=== PATIENT | female | born 1955 | race Caucasian/White ===

== ENCOUNTER 2019-10-27 14:16 | Outpatient (CLI) | payer MEDICARE, SELFPAY ==
[2019-10-27 15:32] LABS: Alanine Aminotransferase 17 U/L (0-33); Alkaline Phosphatase 68 IU/L (35-105); Anion Gap 15.2 (5-19); Aspartate Amino Transferase 21 U/L (0-32); Basophils % 0.4 %; Blood Urea Nitrogen 16 mg/dL (8-23); Calcium 9.9 mg/dL (8.5-10.5); Carbon Dioxide 29 mmol/L (22-29); Chloride 96 mmol/L (98-107); Eosinophils # 0.4 10^3/uL (0.0-0.8); Eosinophils % 3.5 %; Globulin 4.2 g/dL (1.3-4.6); Glucose 120 mg/dL (74-106); Hematocrit 41.8 % (37.0-47.0); Hemoglobin 13.1 g/dL (11.5-15.3); Lactate Dehydrogenase 275 U/L (135-214); Lymphocytes # 3.5 10^3/uL (0.8-4.8); Lymphocytes % 30.9 %; Mean Corpuscular HGB Conc 31.3 g/dL (30.0-36.0); Mean Corpuscular Hemoglobin 31.1 pg (28.0-34.0); Mean Corpuscular Volume 99.3 fL (81-99); Mean Platelet Volume 9.2 fL (7.4-10.4); Monocytes # 0.6 10^3/uL (0.2-0.9); Monocytes % 5.3 %; Neutrophils # 6.7 10^3/uL (1.8-7.7); Neutrophils % 59.6 %; Nucleated Red Blood Cells % 0 %; Platelet Count 280 10^3/cmm (130-400); Potassium 4.2 mmol/L (3.5-5.1); Red Blood Count 4.21 10^6/uL (4.1-5.3); Red Cell Distribution Width 14.6 % (12.1-15.1); Sodium 136 mmol/L (136-145); Total Bilirubin 0.3 mg/dL (0.15-1.2); Total Protein 8.2 g/dL (6.6-8.7); White Blood Count 11.3 10^3/uL (4.0-10.0)
[2019-10-30 12:51] LABS: P190 BCR ALB1 Not Detected; P210 BCR ALB1 Not Detected; Prior Results See Report
== END 2019-10-27 14:17 | disposition home or self-care (01) ==
LOC: ONCMED 14:19
PROVIDERS: Family Provider Family Medicine; PCP Urology; Visit Provider Internal Medicine Medical Oncology
DX: C92.10 Chronic myeloid leukemia, BCR/ABL-positive, not having achieved remission (principal)
CPT/HCPCS: 80053; 81206; 83615; 85025

== ENCOUNTER 2019-11-03 08:53 | Outpatient (CLI) | payer MEDICARE, SELFPAY ==
--- NOTE | 2019-11-03 19:41 | ONC FU_ITS ---
Dr. Sherwood Patient Follow-Up Note Patient: Justina Meraz Unit #: [id number]: [id number] Dicatated By: Ihsan Sherwood M.D.Date of Visit:Nov 03, 2019 Onc Med Follow-up/Prog Note Chief Complaint: Chronic myeloid leukemia. History of Present Illness: This is a 64 year-old woman with [employer] chromosome positive chronic myeloid leukemia. She was found on routine scheduled lab studies on 06/24/2016 to have a significantly elevated white blood cell count at 78,300. The hemoglobin was normal at 13.4 g with hematocrit 45%. The platelet count was normal at 174,000. The reported differential included 52% segs, 18% bands, 5% metamyelocytes, 10% myelocytes, 9% lymphocytes, 5% monocytes, and 1% eosinophils. There were 2 nucleated RBC reported. A repeat CBC on 07/24/2016 showed similar findings with WBC 75,800, Hg 13.7 g, and platelet count 178,000. I had seen her initially on 07/27/2016. The findings were suspicious for chronic myelogenous leukemia. She underwent bone marrow aspiration/biopsy on 08/02/2016 showed 100% cellularity with panmyelosis. Blasts were estimated at 4%. The BCR/abl translocation was detected by FISH, and the standard chromosome analysis was positive for the [employer] translocation between chromosomes 9 and 22, consistent with chronic myeloid leukemia. The quantitative BCR/abl was requested, but apparently not performed. She began treatment with imatinib 400 mg daily. There was some delay in getting that started due to issues with insurance coverage. The medication actually started on 08/27/2016. She seemed to tolerate it pretty well initially. On her follow-up laboratory studies in October 2016 her quantitative PCR came back at 9.7358, but there was no baseline for comparison. Her CBC at that point was normal with hemoglobin 12.0 g, white blood cell count 7100, and platelet count 280,000. On her follow-up visit on 01/08/2017, she appeared to be having more side effects with the imatinib, including fatigue and musculoskeletal pain. Her blood counts were stable. Her imatinib dosage was reduced to 200 mg daily. Her repeat quantitative PCR on 01/23/2017 was down to 1.7941. However, as of her visit on 04/18/2017 the quantitative PCR had increased to 8.9534. 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 She was then referred to [facility]. She was seen there by Dr. Jeromy Mirza on 05/29/2017. It was recommended that she continue further treatment with dasatinib. The dasatinib was started on 06/13/2017 at a dose of 100 mg daily. She has had a good response to the dasatinib with gradual decline in her quantitative PCR. As of September 2018 it was below the quantifiable limits of the assay. She has been able to tolerate the 100 mg dosage with acceptable toxicity. Her other medical illnesses include hyperlipidemia, hypothyroidism, nephrolithiasis, and degenerative disease of the spine with chronic back pain. She has a history of smoking 1 pack of cigarettes daily for 30 years. INTERIM HISTORY: She is seen for a follow-up visit. She says this past week he has been really rough for her, she was unable to get her oxycodone prescription refilled, and her pain is been a lot worse. The most significant is in the shoulders and in the arm muscles. She also has pain in her hips and back. She says she feels like a tin man. She has limited activity, but she is still doing some light work at home. Her appetite comes and goes. Her weight is down about 5 pounds. She has no fever or night sweats. She recently has had a little head/chest cold, but her cough is better now and she does not complain of shortness of breath. She is still smoking 1 pack/day. She has not been having chest pain. She still has nausea occasionally. She has no other GI or complaints. She does not complain of headache or dizziness. She has numbness in her right arm if she lies on it at night. It also lights up on fire . Medications: Diclofenac Sodium 1 (1 %) Gel (jelly) Transdermal daily PRN, Duragesic-50 1 (100 mcg/hr) Patch 72 Hr Transdermal q 72 hours, Levothyroxine Sodium 1 (125 mcg) Tablet Oral daily, Oxycodone-Acetaminophen 1 (10-325 mg) Tablet Oral four times a day PRN, TraZODone HCl 1 (150 mg) Tablet Oral at bedtime PRN, Zofran 1 (8 mg) Tablet Oral t.i.d. PRN Allergies: No Known Allergies. Review of Systems: Constitutional - Her energy has been low recently. She does all of her housework. Her appetite is low and her weight is down about 5 pounds. No fever, chills, hot flashes, or night sweats. ECOG score is 1, ENMT - She recently had a cold, but it is better. No mouth sores. She has dry throat. No difficulty swallowing, Hematologic/Lymphatic - No abnormal bruising or bleeding, Respiratory - No shortness of breath. Her cough is better. No pleuritic pain or hemoptysis. She continues to smoke about a pack a day, Cardiovascular - No angina pain. No palpitations, Gastrointestinal - She had some nausea with her cold. No heartburn or acid reflux. No diarrhea or constipation. No blood in the stool or black stools, Genitourinary (F) - No dysuria or hematuria. No urinary frequency. No urgency or incontinence, Musculoskeletal - She has pain in her shoulders and in her arm muscles. She also has pain in her hips and back, Integumentary - No skin complications, Neurologic - No headache or dizziness. She has numbness and tingling in her right arm, Psychiatric - No anxiety or depression. No insomnia. Vital Signs: Performed on Nov 03, 2019 09:07 Height - 64.00 in Weight - 153.6 lbs (LOW) BSA - 1.75 sq.m BMI - 26.37 Temperature - 98.1 F (LOW) Pulse - 76 /min Respiration - 26 /min BP - 136/82 mm(hg) O2 Sat - 94 % (LOW) Pain - 8 Physical Examination: Constitutional - She is fidgety and she appears to be in some discomfort, Eyes - Sclerae nonicteric. Conjunctivae clear, ENMT - There are no lesions noted in the oral cavity, Hematologic/Lymphatic - No cervical, clavicular, or axillary adenopathy, Respiratory - Lungs show diminished air movement bilaterally. There are mild expiratory rhonchi present, Cardiovascular - Heart rhythm is regular. There is a II/ systolic murmur. There is no gallop or rub noted, Abdomen - Soft. Liver and spleen are not enlarged. There is no abdominal mass or ascites noted and there is no inguinal adenopathy, Extremities - No edema, Neurologic - No focal neurologic deficits noted. Lab/Imaging: Test performed on Oct 27, 2019 14:29 LDH (Total) 275 U/L Sodium 136 mmol/L Potassium 4.2 mmol/L Chloride 96 mmol/L CO2 29 mmol/L Anion Gap 15.2 BUN 16 mg/dL Creatinine 0.9 mg/dL Cr Clearance (Est) 71.5400 mL/min eGFR 63.0 mL/min Glucose 120 mg/dL Calcium 9.9 mg/dL Protein, Total 8.2 g/dL Albumin 4.0 g/dL Globulin 4.2 g/dL Bilirubin, Total 0.3 mg/dL ALT (SGPT) 17 U/L AST (SGOT) 21 U/L Alkaline Phosphatase 68 IU/L WBC 11.3 10 3/uL RBC 4.21 10 6/uL HGB 13.1 g/dL HCT 41.8 % MCV 99.3 fL MCH 31.1 pg MCHC 31.3 g/dL RDW 14.6 % Platelet Count 280 10 3/cmm MPV 9.2 fL Neutrophils 6.7 10 3/uL Lymphocytes 3.5 10 3/uL Monocytes 0.6 10 3/uL Eosinophils 0.4 10 3/uL Basophils 0.0 10 3/uL Neutrophil % 59.6 % Lymphocyte % 30.9 % Monocyte % 5.3 % Eosinophil % 3.5 % Basophils % 0.4 % Impression: 1. Patient with [employer] chromosome positive chronic myeloid leukemia, confirmed by bone marrow aspiration/biopsy on 08/02/2016. Treatment with imatinib 400 mg daily began on 08/27/2016. Her other medical illnesses include: 2. Hyperlipidemia. 3. Hypothyroidism. 4. Recurrent nephrolithiasis. 5. Degenerative arthritis/degenerative disease of the spine. 6. She has nicotine dependence (cigarettes). She began treatment with imatinib 400 mg daily in August 2016. She has had evidence of response by her quantitative PCR, decreasing from 9.7358 on 11/13/2016 to 1.7941 on 01/23/2017. The pretreatment level is not available, as it had been requested but apparently not performed. As of 01/08/2017 her imatinib dosage was decreased to 200 mg daily due to worsening fatigue and musculoskeletal pain. She has felt better on the lower dosage. However, her repeat quantitative PCR on 01/23/2017 was down . However, as of her visit on 04/18/2017 the quantitative PCR had increased to 8.9534 compared to to 1.7941 in January. 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 She was then seen at [facility] by Dr. Jeromy Mirza. At his recommendation her treatment was changed to dasatanib 100 mg daily, beginning 06/13/2017. She had a good response to the dasatanib with a significant decline in the quantitative PCR for BCR/abl. As of 10/22/2017 it was down to 0.0186. She was having some fatigue with the dasatanib, and she also was having significant musculoskeletal pain, mainly involving the shoulders and arms. As of her follow-up visit in March 2018 there was a slight increase in the quantitative PCR, to 0.0461 compared to 0.0186 in December. In June it was back down to 0.0207. As of September 2018 her PCR for BCR/abl was reported to be below the quantifiable limits of the assay. During followup she has continued to have significant fatigue and musculoskeletal pain, but she has been able to tolerate the dasatinib with acceptable toxicity. Her current laboratory studies show slight leukocytosis, but the other blood counts are normal and the quantitative PCR remains undetectable. Plan: She continues dasatinib 100 mg daily. She will be scheduled for a follow-up visit in 3 months. Signed By: Ihsan Sherwood M.D. <<Signature on File>>
== END 2019-11-03 08:54 | disposition home or self-care (01) ==
LOC: ONCMED 08:53
PROVIDERS: Family Provider Family Medicine; PCP Family Medicine; Visit Provider Internal Medicine Medical Oncology
DX: C92.10 Chronic myeloid leukemia, BCR/ABL-positive, not having achieved remission (principal); E78.5 Hyperlipidemia, unspecified; E03.9 Hypothyroidism, unspecified; M19.90 Unspecified osteoarthritis, unspecified site; G89.29 Other chronic pain; F17.210 Nicotine dependence, cigarettes, uncomplicated; Z79.891 Long term (current) use of opiate analgesic; Z79.899 Other long term (current) drug therapy; Z87.442 Personal history of urinary calculi
CPT/HCPCS: 99214

== ENCOUNTER 2020-02-04 08:52 | Outpatient (CLI) | payer MEDICARE, SELFPAY ==
[2020-02-04 09:13] LABS: Basophils # 0.1 10^3/uL (0.0-0.1); Basophils % 0.8 %; Eosinophils # 0.3 10^3/uL (0.0-0.8); Eosinophils % 4.1 %; Hematocrit 44.5 % (37.0-47.0); Hemoglobin 13.9 g/dL (11.5-15.3); Lymphocytes # 1.9 10^3/uL (0.8-4.8); Lymphocytes % 29.3 %; Mean Corpuscular HGB Conc 31.2 g/dL (30.0-36.0); Mean Corpuscular Hemoglobin 30.4 pg (28.0-34.0); Mean Corpuscular Volume 97.4 fL (81-99); Mean Platelet Volume 9.2 fL (7.4-10.4); Monocytes # 0.4 10^3/uL (0.2-0.9); Monocytes % 5.6 %; Neutrophils # 3.9 10^3/uL (1.8-7.7); Nucleated Red Blood Cells % 0 %; Platelet Count 295 10^3/cmm (130-400); Red Blood Count 4.57 10^6/uL (4.1-5.3); Red Cell Distribution Width 15.1 % (12.1-15.1); White Blood Count 6.4 10^3/uL (4.0-10.0)
[2020-02-04 09:28] LABS: Alanine Aminotransferase 13 U/L (0-33); Alkaline Phosphatase 62 IU/L (35-105); Anion Gap 13.4 (5-19); Aspartate Amino Transferase 20 U/L (0-32); Blood Urea Nitrogen 11 mg/dL (8-23); Calcium 9.9 mg/dL (8.5-10.5); Carbon Dioxide 29 mmol/L (22-29); Chloride 101 mmol/L (98-107); Globulin 3.6 g/dL (1.3-4.6); Glomerular Filtration Rate 72.2 mL/min (90-130); Glucose 98 mg/dL (65-115); Lactate Dehydrogenase 251 U/L (135-214); Osmolality Calculated 284 mOsm/kg (285-295); Potassium 4.4 mmol/L (3.5-5.1); Sodium 139 mmol/L (136-145); Total Bilirubin 0.3 mg/dL (0.15-1.2); Total Protein 7.6 g/dL (6.6-8.7)
[2020-02-11 14:56] LABS: P190 BCR ALB1 Not Detected; P210 BCR ALB1 Not Detected; Prior Results See Report
== END 2020-02-04 08:53 | disposition home or self-care (01) ==
LOC: ONCMED 08:53
PROVIDERS: PCP Family Medicine; Visit Provider Internal Medicine Medical Oncology
DX: C92.10 Chronic myeloid leukemia, BCR/ABL-positive, not having achieved remission (principal)
CPT/HCPCS: 80053; 81206; 83615; 85025

== ENCOUNTER 2020-02-11 08:53 | Outpatient (CLI) | payer MEDICARE, SELFPAY ==
--- NOTE | 2020-02-11 09:37 | ONC FU_ITS ---
Dr. Sherwood Patient Follow-Up Note Patient: Justina Meraz Unit #: [id number]: 1955 Dicatated By: Ihsan Sherwood M.D.Date of Visit:February 11, 2020 Onc Med Follow-up/Prog Note Chief Complaint: Chronic myeloid leukemia. History of Present Illness: This is a 64 year-old woman with [place] chromosome positive chronic myeloid leukemia. She was found on routine scheduled lab studies on 06/24/2016 to have a significantly elevated white blood cell count at 78,300. The hemoglobin was normal at 13.4 g with hematocrit 45%. The platelet count was normal at 174,000. The reported differential included 52% segs, 18% bands, 5% metamyelocytes, 10% myelocytes, 9% lymphocytes, 5% monocytes, and 1% eosinophils. There were 2 nucleated RBC reported. A repeat CBC on 07/24/2016 showed similar findings with WBC 75,800, Hg 13.7 g, and platelet count 178,000. I had seen her initially on 07/27/2016. The findings were suspicious for chronic myelogenous leukemia. She underwent bone marrow aspiration/biopsy on 08/02/2016 showed 100% cellularity with panmyelosis. Blasts were estimated at 4%. The BCR/abl translocation was detected by FISH, and the standard chromosome analysis was positive for the [place] translocation between chromosomes 9 and 22, consistent with chronic myeloid leukemia. The quantitative BCR/abl was requested, but apparently not performed. She began treatment with imatinib 400 mg daily. There was some delay in getting that started due to issues with insurance coverage. The medication actually started on 08/27/2016. She seemed to tolerate it pretty well initially. On her follow-up laboratory studies in October 2016 her quantitative PCR came back at 9.7358, but there was no baseline for comparison. Her CBC at that point was normal with hemoglobin 12.0 g, white blood cell count 7100, and platelet count 280,000. On her follow-up visit on 01/08/2017, she appeared to be having more side effects with the imatinib, including fatigue and musculoskeletal pain. Her blood counts were stable. Her imatinib dosage was reduced to 200 mg daily. Her repeat quantitative PCR on 01/23/2017 was down to 1.7941. However, as of her visit on 04/18/2017 the quantitative PCR had increased to 8.9534. 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 She was then referred to [facility]. She was seen there by Dr. Jeromy Mirza on 05/29/2017. It was recommended that she continue further treatment with dasatinib. The dasatinib was started on 06/13/2017 at a dose of 100 mg daily. She has had a good response to the dasatinib with gradual decline in her quantitative PCR. As of September 2018 she was tolerating the dasatinib at 100 mg daily and her quantitative PCR was below the quantifiable limits of the assay. During her subsequent followup it remained undetectable. Her other medical illnesses include hyperlipidemia, hypothyroidism, nephrolithiasis, and degenerative disease of the spine with chronic back pain. She has a history of smoking 1 pack of cigarettes daily for 30 years. INTERIM HISTORY: She is seen for a scheduled visit. She has been feeling pretty good generally. She does have fatigue, but she says she pushes through it. She continues to do all of her housework and she also takes care of her who is chronically ill. She recently has had a couple of bouts of nausea, and she says her appetite has faded a little bit. Her weight, though, has been stable. She has not had any fever. She occasionally has sweating at night in association with pain flareups, mainly with burning and aching in her shoulders and hips. Other than the flareups, the pain is adequately managed with medication. She has had no mouth sores. She says her breathing lately has been good. She has not had any cough, and she does not complain of chest pain. She has no other GI or complaints. She has occasional headaches, which she feels are likely stress related. She reports having some numbness/tingling with her pain flareups. She has no other focal neurologic symptoms. Medications: Diclofenac Sodium 1 (1 %) Gel (jelly) Transdermal daily PRN, Duragesic-50 2 Patch(es) (of 75 mcg/hr) Patch 72 Hr Transdermal q 72 hours, Levothyroxine Sodium 1 (125 mcg) Tablet Oral daily, Oxycodone-Acetaminophen 1 (10-325 mg) Tablet Oral four times a day PRN, TraZODone HCl 1 (150 mg) Tablet Oral at bedtime PRN, Zofran 1 (8 mg) Tablet Oral t.i.d. PRN Allergies: No Known Allergies. Review of Systems: Constitutional - She has fatigue, but she pushes through it. She does all of her housework and she takes care of her . Her appetite has faded recently, but her weight is stable. No fever. She has sweating at night when her pain flares up. ECOG score is 1, ENMT - No sinus congestion/drainage. No mouth sores. No sore throat or difficulty swallowing, Hematologic/Lymphatic - No abnormal bruising or bleeding, Respiratory - No shortness of breath or cough. No pleuritic pain or hemoptysis, Cardiovascular - No angina pain. No palpitations, Gastrointestinal - She has had a couple of bouts of nausea. No heartburn or acid reflux. No diarrhea or constipation. No blood in the stool or black stools, Genitourinary (F) - No dysuria or hematuria. No urinary frequency. No urgency or incontinence, Musculoskeletal - She has burning and aching in her shoulders and hips. It is generally managed adequately with her pain medication, Integumentary - No skin complications, Neurologic - No headache or dizziness. She has some numbness and tingling with her pain flare ups, Psychiatric - No anxiety or depression. She sleeps OK with trazodone except when her pain flares at night. Vital Signs: Performed on February 11, 2020 08:59 Height - 64.00 in Weight - 153.6 lbs BSA - 1.75 sq.m BMI - 26.37 Temperature - 98.2 F (LOW) Pulse - 71 /min Respiration - 24 /min BP - 123/69 mm(hg) O2 Sat - 94 % (LOW) Pain - 8 Physical Examination: Constitutional - She looks pretty good generally, Eyes - Sclerae nonicteric. Conjunctivae clear, ENMT - There are no lesions noted in the oral cavity, Hematologic/Lymphatic - No cervical, clavicular, or axillary adenopathy, Respiratory - Lungs sound clear with diminished air movement bilaterally, Cardiovascular - Heart rhythm is regular. There is a II/ systolic murmur. There is no gallop or rub noted, Abdomen - Soft. Liver and spleen are not enlarged. There is no abdominal mass or ascites noted and there is no inguinal adenopathy, Extremities - Slight edema at the ankles, Neurologic - No focal neurologic deficits noted. Lab/Imaging: Test performed on February 04, 2020 09:00 LDH (Total) 251 U/L Sodium 139 mmol/L Potassium 4.4 mmol/L Chloride 101 mmol/L CO2 29 mmol/L Anion Gap 13.4 BUN 11 mg/dL Creatinine 0.8 mg/dL Cr Clearance (Est) 78.1400 mL/min eGFR 72.2 mL/min Glucose 98 mg/dL Calcium 9.9 mg/dL Protein, Total 7.6 g/dL Albumin 4.0 g/dL Globulin 3.6 g/dL Bilirubin, Total 0.3 mg/dL ALT (SGPT) 13 U/L AST (SGOT) 20 U/L Alkaline Phosphatase 62 IU/L WBC 6.4 10 3/uL RBC 4.57 10 6/uL HGB 13.9 g/dL HCT 44.5 % MCV 97.4 fL MCH 30.4 pg MCHC 31.2 g/dL RDW 15.1 % Platelet Count 295 10 3/cmm MPV 9.2 fL Neutrophils 3.9 10 3/uL Lymphocytes 1.9 10 3/uL Monocytes 0.4 10 3/uL Eosinophils 0.3 10 3/uL Basophils 0.1 10 3/uL Neutrophil % 60.0 % Lymphocyte % 29.3 % Monocyte % 5.6 % Eosinophil % 4.1 % Basophils % 0.8 % Impression: 1. Patient with [place] chromosome positive chronic myeloid leukemia, confirmed by bone marrow aspiration/biopsy on 08/02/2016. Treatment with imatinib 400 mg daily began on 08/27/2016. Her other medical illnesses include: 2. Hyperlipidemia. 3. Hypothyroidism. 4. Recurrent nephrolithiasis. 5. Degenerative arthritis/degenerative disease of the spine. 6. She has nicotine dependence (cigarettes). She began treatment with imatinib 400 mg daily in August 2016. She has had evidence of response by her quantitative PCR, decreasing from 9.7358 on 11/13/2016 to 1.7941 on 01/23/2017. The pretreatment level is not available, as it had been requested but apparently not performed. As of 01/08/2017 her imatinib dosage was decreased to 200 mg daily due to worsening fatigue and musculoskeletal pain. She has felt better on the lower dosage. However, her repeat quantitative PCR on 01/23/2017 was down . However, as of her visit on 04/18/2017 the quantitative PCR had increased to 8.9534 compared to to 1.7941 in January. 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 She was then seen at [facility] by Dr. Jeromy Mirza. At his recommendation her treatment was changed to dasatanib 100 mg daily, beginning 06/13/2017. She had a good response to the dasatanib with a significant decline in the quantitative PCR for BCR/abl. As of 10/22/2017 it was down to 0.0186. She was having some fatigue with the dasatanib, and she also was having significant musculoskeletal pain, mainly involving the shoulders and arms. As of her follow-up visit in March 2018 there was a slight increase in the quantitative PCR, to 0.0461 compared to 0.0186 in December. In June it was back down to 0.0207. As of September 2018 her PCR for BCR/abl was reported to be below the quantifiable limits of the assay. During followup she has continued to have significant fatigue and musculoskeletal pain, but she has been able to tolerate the dasatinib with acceptable toxicity, and her quantitative PCR has remained undetectable. The current study is pending, but her blood counts and chemistry studies are normal and she appears stable clinically. Plan: She continues dasatinib 100 mg daily. Assuming the PCR remains undetectable I will just see her again in 3 months. Signed By: Ihsan Sherwood M.D. <<Signature on File>>
== END 2020-02-11 08:54 | disposition home or self-care (01) ==
LOC: ONCMED 08:56
PROVIDERS: PCP Family Medicine; Visit Provider Internal Medicine Medical Oncology
DX: C92.10 Chronic myeloid leukemia, BCR/ABL-positive, not having achieved remission (principal); E78.5 Hyperlipidemia, unspecified; E03.9 Hypothyroidism, unspecified; N20.0 Calculus of kidney; M19.90 Unspecified osteoarthritis, unspecified site; M48.9 Spondylopathy, unspecified; F17.210 Nicotine dependence, cigarettes, uncomplicated; Z79.899 Other long term (current) drug therapy
CPT/HCPCS: 99214

== ENCOUNTER 2020-05-13 10:11 | Outpatient (CLI) | payer MEDICARE, SELFPAY ==
[2020-05-13 11:01] LABS: Basophils # 0.1 10^3/uL (0.0-0.1); Basophils % 0.8 %; Eosinophils # 0.1 10^3/uL (0.0-0.8); Eosinophils % 2.1 %; Hematocrit 43.4 % (37.0-47.0); Hemoglobin 13.9 g/dL (11.5-15.3); Lymphocytes # 1.7 10^3/uL (0.8-4.8); Lymphocytes % 27.1 %; Mean Corpuscular Hemoglobin 31.8 pg (28.0-34.0); Mean Corpuscular Volume 99.3 fL (81-99); Mean Platelet Volume 9.1 fL (7.4-10.4); Monocytes # 0.4 10^3/uL (0.2-0.9); Monocytes % 5.7 %; Neutrophils % 64.1 %; Nucleated Red Blood Cells % 0 %; Platelet Count 272 10^3/cmm (130-400); Red Blood Count 4.37 10^6/uL (4.1-5.3); Red Cell Distribution Width 14.6 % (12.1-15.1); White Blood Count 6.1 10^3/uL (4.0-10.0)
[2020-05-13 11:17] LABS: Alanine Aminotransferase 13 U/L (0-33); Albumin Level 4.2 g/dL (3.5-5.2); Alkaline Phosphatase 58 IU/L (35-105); Anion Gap 12.1 (5-19); Aspartate Amino Transferase 15 U/L (0-32); Blood Urea Nitrogen 17 mg/dL (8-23); Calcium 8.7 mg/dL (8.5-10.5); Carbon Dioxide 29 mmol/L (22-29); Chloride 99 mmol/L (98-107); Globulin 3.4 g/dL (1.3-4.6); Glomerular Filtration Rate 84.2 mL/min (90-130); Glucose 115 mg/dL (65-115); Lactate Dehydrogenase 258 U/L (135-214); Osmolality Calculated 279 mOsm/kg (285-295); Potassium 4.1 mmol/L (3.5-5.1); Sodium 136 mmol/L (136-145); Total Bilirubin 0.3 mg/dL (0.15-1.2); Total Protein 7.6 g/dL (6.6-8.7)
[2020-05-22 16:07] LABS: BCR ABL1 (IS) 0.018 %; P190 BCR ALB1 Not Detected; P210 BCR ALB1 Detected; Prior Results See Report
== END 2020-05-13 10:12 | disposition home or self-care (01) ==
LOC: ONCMED 10:14
PROVIDERS: PCP Family Medicine; Visit Provider Internal Medicine Medical Oncology
DX: C92.10 Chronic myeloid leukemia, BCR/ABL-positive, not having achieved remission (principal); F17.210 Nicotine dependence, cigarettes, uncomplicated
CPT/HCPCS: 80053; 81206; 83615; 85025

== ENCOUNTER 2020-05-19 06:09 | Outpatient (CLI) | payer MEDICARE, SELFPAY ==
--- NOTE | 2020-05-19 09:38 | ONC FU_ITS ---
Dr. Sherowod Patient Follow-Up Note Patient: Justina Meraz Unit #: [id number]: 1955 Dicatated By: Ihsan Sherwood M.D.Date of Visit:May 19, 2020 Onc Med Follow-up/Prog Note Chief Complaint: Chronic myeloid leukemia. History of Present Illness: This is a 64 year-old woman with [place] chromosome positive chronic myeloid leukemia. She was found on routine scheduled lab studies on 06/24/2016 to have a significantly elevated white blood cell count at 78,300. The hemoglobin was normal at 13.4 g with hematocrit 45%. The platelet count was normal at 174,000. The reported differential included 52% segs, 18% bands, 5% metamyelocytes, 10% myelocytes, 9% lymphocytes, 5% monocytes, and 1% eosinophils. There were 2 nucleated RBC reported. A repeat CBC on 07/24/2016 showed similar findings with WBC 75,800, Hg 13.7 g, and platelet count 178,000. I had seen her initially on 07/27/2016. The findings were suspicious for chronic myelogenous leukemia. She underwent bone marrow aspiration/biopsy on 08/02/2016 showed 100% cellularity with panmyelosis. Blasts were estimated at 4%. The BCR/abl translocation was detected by FISH, and the standard chromosome analysis was positive for the [place] translocation between chromosomes 9 and 22, consistent with chronic myeloid leukemia. The quantitative BCR/abl was requested, but apparently not performed. She began treatment with imatinib 400 mg daily. There was some delay in getting that started due to issues with insurance coverage. The medication actually started on 08/27/2016. She seemed to tolerate it pretty well initially. On her follow-up laboratory studies in October 2016 her quantitative PCR came back at 9.7358, but there was no baseline for comparison. Her CBC at that point was normal with hemoglobin 12.0 g, white blood cell count 7100, and platelet count 280,000. On her follow-up visit on 01/08/2017, she appeared to be having more side effects with the imatinib, including fatigue and musculoskeletal pain. Her blood counts were stable. Her imatinib dosage was reduced to 200 mg daily. Her repeat quantitative PCR on 01/23/2017 was down to 1.7941. However, as of her visit on 04/18/2017 the quantitative PCR had increased to 8.9534. 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 She was then referred to [facility]. She was seen there by Dr. Jeromy Mirza on 05/29/2017. It was recommended that she continue further treatment with dasatinib. The dasatinib was started on 06/13/2017 at a dose of 100 mg daily. She has had a good response to the dasatinib with gradual decline in her quantitative PCR. As of September 2018 she was tolerating the dasatinib at 100 mg daily and her quantitative PCR was below the quantifiable limits of the assay. During her subsequent followup it remained undetectable. Her other medical illnesses include hyperlipidemia, hypothyroidism, nephrolithiasis, and degenerative disease of the spine with chronic back pain. She has a history of smoking 1 pack of cigarettes daily for 30 years. INTERIM HISTORY: She is seen for a scheduled visit. She says she had been feeling okay until last night when she had significant worsening of generalized aching throughout the night. This morning she developed severe chills. She says she has been shaking like a leaf. She has not been aware of any fever. She has had a little nausea this morning, but she has had no other associated symptoms. In particular, she has not had sore throat or cough, and she has no difficulty breathing. Her energy is otherwise been okay. She still does light work at home. ECOG score is 1. Appetite has been good. She has no other GI or complaints. Upon the last night her joint pain and just been about the same. She has not had headache or dizziness, and she has no focal neurologic symptoms. Medications: Diclofenac Sodium 1 (1 %) Gel (jelly) Transdermal daily PRN, Duragesic-50 2 Patch(es) (of 75 mcg/hr) Patch 72 Hr Transdermal q 72 hours, Levothyroxine Sodium 1 (125 mcg) Tablet Oral daily, Oxycodone-Acetaminophen 1 (10-325 mg) Tablet Oral four times a day PRN, Sprycel 1 (100 mg) Tablet Oral daily, TraZODone HCl 1 (150 mg) Tablet Oral at bedtime PRN, Zofran 1 (8 mg) Tablet Oral t.i.d. PRN Allergies: No Known Allergies. Review of Systems: Constitutional - Her energy has been okay. She does light work at home. Her appetite also has been good. She has not been aware of any fever, and she has not been having night sweating. This morning she developed severe chills. She says she is shaking like a leaf. Her ECOG score is 1, ENMT - No sinus congestion/drainage. No mouth sores. No sore throat or difficulty swallowing, Hematologic/Lymphatic - No abnormal bruising or bleeding, Respiratory - No shortness of breath. No cough. No pleuritic pain or hemoptysis, Cardiovascular - No angina pain. No palpitations, Gastrointestinal - She has felt a little nauseated this morning. No heartburn or acid reflux. No diarrhea or constipation. No blood in the stool or black stools, Genitourinary (F) - No dysuria or hematuria. No urinary frequency. No urgency or incontinence, Musculoskeletal - She has chronic joint pain and stiffness. It has generally been about the same except that since last night she has had increased generalized aching, Integumentary - No skin rash, Neurologic - No headache or dizziness. No numbness or tingling. No other focal neurologic symptoms, Psychiatric - No anxiety or depression. She does not sleep well at night. Vital Signs: Physical Examination: Constitutional - She has shaking chills and she is generally stiff, Eyes - Sclerae nonicteric. Conjunctivae clear, ENMT - No lesions noted in the oral cavity, Hematologic/Lymphatic - No cervical, clavicular, or axillary adenopathy, Respiratory - Lungs show diminished air movement with slightly coarse breath sounds bilaterally, Cardiovascular - Heart rhythm is regular. There is a mild tachycardia. There is a II/ systolic murmur. There is no gallop or rub noted, Abdomen - Soft. Liver and spleen are not enlarged. There is no abdominal mass or ascites noted and there is no inguinal adenopathy, Extremities - No edema, Neurologic - No focal neurologic deficits noted. Lab/Imaging: Test performed on May 13, 2020 10:24 LDH (Total) 258 U/L Sodium 136 mmol/L Potassium 4.1 mmol/L Chloride 99 mmol/L CO2 29 mmol/L Anion Gap 12.1 BUN 17 mg/dL Creatinine 0.7 mg/dL Cr Clearance (Est) 89.3000 mL/min eGFR 84.2 mL/min Glucose 115 mg/dL Calcium 8.7 mg/dL Protein, Total 7.6 g/dL Albumin 4.2 g/dL Globulin 3.4 g/dL Bilirubin, Total 0.3 mg/dL ALT (SGPT) 13 U/L AST (SGOT) 15 U/L Alkaline Phosphatase 58 IU/L WBC 6.1 10 3/uL RBC 4.37 10 6/uL HGB 13.9 g/dL HCT 43.4 % MCV 99.3 fL MCH 31.8 pg MCHC 32.0 g/dL RDW 14.6 % Platelet Count 272 10 3/cmm MPV 9.1 fL Neutrophils 3.90 10 3/uL Lymphocytes 1.7 10 3/uL Monocytes 0.4 10 3/uL Eosinophils 0.1 10 3/uL Basophils 0.1 10 3/uL Neutrophil % 64.1 % Lymphocyte % 27.1 % Monocyte % 5.7 % Eosinophil % 2.1 % Basophils % 0.8 % NRBC % 0 % Impression: 1. Patient with [place] chromosome positive chronic myeloid leukemia, confirmed by bone marrow aspiration/biopsy on 08/02/2016. Treatment with imatinib 400 mg daily began on 08/27/2016. Her other medical illnesses include: 2. Hyperlipidemia. 3. Hypothyroidism. 4. Recurrent nephrolithiasis. 5. Degenerative arthritis/degenerative disease of the spine. 6. She has nicotine dependence (cigarettes). She began treatment with imatinib 400 mg daily in August 2016. She has had evidence of response by her quantitative PCR, decreasing from 9.7358 on 11/13/2016 to 1.7941 on 01/23/2017. The pretreatment level is not available, as it had been requested but apparently not performed. As of 01/08/2017 her imatinib dosage was decreased to 200 mg daily due to worsening fatigue and musculoskeletal pain. She has felt better on the lower dosage. However, her repeat quantitative PCR on 01/23/2017 was down . However, as of her visit on 04/18/2017 the quantitative PCR had increased to 8.9534 compared to to 1.7941 in January. 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 She was then seen at [facility] by Dr. Jeromy Mirza. At his recommendation her treatment was changed to dasatanib 100 mg daily, beginning 06/13/2017. She had a good response to the dasatanib with a significant decline in the quantitative PCR for BCR/abl. As of 10/22/2017 it was down to 0.0186. She was having some fatigue with the dasatanib, and she also was having significant musculoskeletal pain, mainly involving the shoulders and arms. As of her follow-up visit in March 2018 there was a slight increase in the quantitative PCR, to 0.0461 compared to 0.0186 in December. In June it was back down to 0.0207. As of September 2018 her PCR for BCR/abl was reported to be below the quantifiable limits of the assay. During followup she has had ongoing complaints of fatigue and musculoskeletal pain, but she has been able to tolerate the dasatinib with acceptable toxicity, and her quantitative PCR has remained undetectable. Today she has acute illness with increased joint pain and stiffness together with severe chills. She is not febrile, and she is not having cough or shortness of breath. Her blood count from last week was normal, as was the comprehensive metabolic profile. LDH was just slightly elevated at 258/214 U/L. The results of the PCR study are still pending. Plan: The cause of her acute illness is uncertain. At this point she prefers to go home. She is advised to report to the emergency room if she becomes more acutely ill, particularly with difficulty breathing. If she continues to have mild symptoms, she will be given the option to have outpatient COVID testing. If her current PCR remains undetectable, she will continue dasatinib at 100 mg daily and I will just see her again in 3 months. Signed By: Ihsan Sherwood M.D. <<Signature on File>>
== END 2020-05-19 06:10 | disposition home or self-care (01) ==
PROVIDERS: PCP Family Medicine; Visit Provider Internal Medicine Medical Oncology
DX: C92.10 Chronic myeloid leukemia, BCR/ABL-positive, not having achieved remission (principal); R69 Illness, unspecified; R68.83 Chills (without fever); M25.50 Pain in unspecified joint; M25.60 Stiffness of unspecified joint, not elsewhere classified; E78.5 Hyperlipidemia, unspecified; E03.9 Hypothyroidism, unspecified; M47.9 Spondylosis, unspecified; F17.210 Nicotine dependence, cigarettes, uncomplicated; Z87.442 Personal history of urinary calculi; Z79.899 Other long term (current) drug therapy
CPT/HCPCS: 99214

== ENCOUNTER 2020-05-19 15:45 | Inpatient (IN) | payer MEDICARE, SELFPAY ==
[2020-05-19 16:02] VITALS: BP 112/71; PULSE 111; RESP 16; TEMP 39.4; O2SAT 92; BMI 25.5
--- NOTE | 2020-05-19 16:16 | ECG_ITS ---
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 Measurements Intervals [place] Rate: 90 P: 66 MD: 186 QRS: -81 QRSD: 148 T: 46 QT: 379 QTc: 466 Interpretive Statements SINUS RHYTHM RIGHT BUNDLE BRANCH BLOCK [120+ ms QRS DURATION, UPRIGHT V1, 40+ ms S IN I/aVL/V4/V5/V6] LEFT ANTERIOR FASCICULAR BLOCK [QRS AXIS <= -45, QR IN I, RS IN II] Compared to ECG 08/02/2016 09:46:35 No significant changes Electronically Signed On 05-21-2020 20:45:02 CDT by Yakelin Smith M.D. [email or web address]).[facility] Partnerslackey memorial hospitalPriori Dataohiohealth [facility]/store/NU/[id number] f
--- NOTE | 2020-05-19 16:16 | XRR_ITS ---
PROCEDURE INFORMATION: Exam: XR Chest, 1 View Exam date and time: 05/19/2020 4:18 PM Age: 64 years old Clinical indication: Cough and dyspnea; Additional info: Dyspnea/cough TECHNIQUE: Imaging protocol: XR of the chest Views: 1 view. COMPARISON: CR Chest 2 views* [id number] 01/27/2019 4:37 PM FINDINGS: Lungs: Unremarkable. No consolidation. Pleural space: Unremarkable. No pleural effusion. No pneumothorax. Heart/Mediastinum: Unremarkable. No cardiomegaly. Bones/joints: Unremarkable. XR/XR chest 1V portable [id number] IMPRESSION: No acute findings.
--- NOTE | 2020-05-19 16:18 | ED_ITS ---
Documented by User: Travis Keys DO 05/21/20 06:18 HPI - Fever General: Chief Complaint: Fever Stated Complaint: fever, spot on leg Time Seen by Provider: 05/19/20 16:08 History of Present Illness: HPI Narrative: 64-year-old female with a history of CML comes in from the oncology office start having a fever this morning and was noted to have a temp up to 102 9 today in the office was sent here. She takes oral chemo daily she denies any respiratory symptoms she is has a chronic cough is about the same as always nonproductive she denies nausea vomiting diarrhea she denies any blood in the stool she has noticed a lesion on the inside inner aspect of her right proximal thigh she thought she got bit by a bug last night today is much larger inflamed and thickened tender to the touch. MD elicited complaint: fever Pertinent past history: immunosuppression Onset (ago): hour(s) Context: on chemotherapy Exacerbating factors: nothing Relieving factors: nothing Associated symptoms: Reports chills, cough, extremity pain, myalgias and nasal congestion; Deny abdominal pain, flank pain, chest pain, confusion, diarrhea, dysuria, headache(s), nausea or night sweats Review of Systems Const: Reports: chills; Denies: night sweats ENMT: Reports: nasal congestion Card: Denies: chest pain GI: Denies: abdominal pain, nausea or diarrhea : Denies: flank pain or dysuria Musc: Reports: extremity pain Neuro: Denies: headache(s) or confusion PFSH ED PFSH: Medical History (Updated 05/19/20 @ 19:50 by Gregory Menendez MD) Chronic back pain CML (chronic myelocytic leukemia) Dyslipidemia Hypothyroidism Nephrolithiasis Nicotine dependence Surgical History H/O sinus surgery History of ureter stent Previous back surgery Family History (Updated 05/19/20 @ 19:51 by Gregory Menendez MD) Mother Cancer Breast cancer Social History (Updated 05/19/20 @ 19:51 by Gregory Menendez MD) Smoking and tobacco status: current every day smoker cigarettes [ Other cigarette details: 1 pack/day ] Alcohol intake: never Substance/Drug Use: never Household members: family Housing: House Physical Exam Const: COMMON NORMALS: no acute distress GENERAL APPEARANCE: cooperative and comfortable ORIENTATION/CONSCIOUSNESS: Yes awake, Yes oriented to person, Yes oriented to place and Yes oriented to time HENMT: COMMON NORMALS: normocephalic and atraumatic HEAD & SCALP: normocephalic and atraumatic Eye: COMMON NORMALS: Equal, round and reactive pupils present, EOMs intact bilaterally, conjunctivae normal and no scleral icterus CONJUNCTIVA: Yes conjunctivae normal PUPIL: Yes Equal, round and reactive pupils present Neck/C-Spine: COMMON NORMALS: no JVD Lymph: LYMPHATIC: lymphadenopathy (Tender right sided inguinal lymphadenopathy) Resp: COMMON NORMALS: normal respiratory effort, No retractions, No use of accessory muscles and clear to auscultation bilaterally AUSCULTATION: clear to auscultation bilaterally Cardio: COMMON NORMALS: no JVD, regular rate, regular rhythm and No murmurs present (Cardio) RATE: regular rate RHYTHM: regular rhythm GI: COMMON NORMALS: Soft to palpation and No hepatosplenomegaly present AUSCULTATION: Yes normoactive bowel sounds PALPATION: Yes Soft to palpation, No Tenderness to palpation present (GI), No Guarding due to palpation present (GI) and Yes No hepatosplenomegaly present Extremity: COMMON NORMALS: normal to inspection, capillary refill normal, no clubbing, cyanosis or edema, no calf tenderness and no pedal edema Neuro: SENSORIUM/ORIENTATION: Yes oriented to person, Yes oriented to place and Yes oriented to time Skin: COMMON NORMALS: no rashes or lesions noted GENERAL SKIN EXAM: no rashes or lesions noted Course Vital Signs: Vital signs: Vital Signs Temperature 99.2 F 05/21/20 00:00 Pulse Rate 71 05/21/20 00:00 Respiratory Rate 18 05/21/20 02:36 Blood Pressure 113/63 05/21/20 00:00 Pulse Oximetry 93 05/21/20 00:00 MDM - Fever MDM Narrative: Medical decision making narrative: Care turned over to Dr. Quintanilla at change of shift she has notes for final diagnosis and discharge disposition Lab Data: Labs: Lab Results 05/19/20 05/19/20 05/19/20 Range/Units 16:30 16:30 16:30 WBC 17.7 H (4.0-10.0) 10^3/ uL RBC 4.22 (4.1-5.3) 10^6/u L Hgb 13.1 (11.5-15.3) g/dL Hct 41.0 (37.0-47.0) % MCV 97.2 (81-99) fL MCH 31.0 (28.0-34.0) pg MCHC 32.0 (30.0-36.0) g/dL RDW 14.6 (12.1-15.1) % Plt Count 245 (130-400) 10^3/c mm MPV 9.3 (7.4-10.4) fL Neut % (Auto) 88.3 % Lymph % (Auto) 6.0 % [place] % (Auto) 4.8 % Eos % (Auto) 0.1 % Baso % (Auto) 0.3 % Neut # (Auto) 15.68 H (1.8-7.7) 10^3/u L Lymph # (Auto) 1.1 (0.8-4.8) 10^3/u L [place] # (Auto) 0.9 (0.2-0.9) 10^3/u L Eos # (Auto) 0.0 (0.0-0.8) 10^3/u L Baso # (Auto) 0.1 (0.0-0.1) 10^3/u L Nucleated RBC % (a uto) 0 % Nucleated RBCs # 0.0 /100WBC Sodium 134 L (136-145) mmol/L Potassium 4.1 (3.5-5.1) mmol/L Chloride 99 (98-107) mmol/L Carbon Dioxide 27 (22-29) mmol/L Anion Gap 12.1 (5-19) BUN 14 (8-23) mg/dL Creatinine 0.9 (0.5-0.9) mg/dL GFR Calculation 63.0 L (90-130) mL/min Glucose 125 H (65-115) mg/dL Calculated Osmolal ity 276 L (285-295) mOsm/k g Lactic Acid 0.6 (0.5-2.2) mmol/L Calcium 8.8 (8.5-10.5) mg/dL Total Bilirubin 0.7 (0.15-1.2) mg/dL AST 19 (0-32) U/L ALT 13 (0-33) U/L Alkaline Phosphata se 59 (35-105) IU/L Total Protein 7.0 (6.6-8.7) g/dL Albumin 4.1 (3.5-5.2) g/dL Globulin 2.9 (1.3-4.6) g/dL Urine Color (Yellow) Urine Appearance (CLEAR) Urine pH (5-7) Ur Specific Gravit y (1.005-1.030) Urine Protein (Negative) Urine Glucose (UA) (Normal) Urine Ketones (Negative) Urine Blood (Negative) Urine Nitrate (Negative) Urine Bilirubin (NEGATIVE) Urine Urobilinogen (Negative) mg/dL Ur Leukocyte Veronica ase (Negative) Urine RBC (0-2) /hpf Urine WBC (0-5) /hpf Ur Squamous Epith Cells (0-5) Amorphous Sediment Urine Bacteria (NONE) SARS-CoV-2 Ag (Rap id) (Negative) 05/19/20 05/19/20 Range/Units 17:33 18:00 WBC (4.0-10.0) 10^3/ uL RBC (4.1-5.3) 10^6/u L Hgb (11.5-15.3) g/dL Hct (37.0-47.0) % MCV (81-99) fL MCH (28.0-34.0) pg MCHC (30.0-36.0) g/dL RDW (12.1-15.1) % Plt Count (130-400) 10^3/c mm MPV (7.4-10.4) fL Neut % (Auto) % Lymph % (Auto) % [place] % (Auto) % Eos % (Auto) % Baso % (Auto) % Neut # (Auto) (1.8-7.7) 10^3/u L Lymph # (Auto) (0.8-4.8) 10^3/u L [place] # (Auto) (0.2-0.9) 10^3/u L Eos # (Auto) (0.0-0.8) 10^3/u L Baso # (Auto) (0.0-0.1) 10^3/u L Nucleated RBC % (a uto) % Nucleated RBCs # /100WBC Sodium (136-145) mmol/L Potassium (3.5-5.1) mmol/L Chloride (98-107) mmol/L Carbon Dioxide (22-29) mmol/L Anion Gap (5-19) BUN (8-23) mg/dL Creatinine (0.5-0.9) mg/dL GFR Calculation (90-130) mL/min Glucose (65-115) mg/dL Calculated Osmolal ity (285-295) mOsm/k g Lactic Acid (0.5-2.2) mmol/L Calcium (8.5-10.5) mg/dL Total Bilirubin (0.15-1.2) mg/dL AST (0-32) U/L ALT (0-33) U/L Alkaline Phosphata se (35-105) IU/L Total Protein (6.6-8.7) g/dL Albumin (3.5-5.2) g/dL Globulin (1.3-4.6) g/dL Urine Color Yellow (Yellow) Urine Appearance Hazy A (CLEAR) Urine pH 5 (5-7) Ur Specific Gravit y 1.020 (1.005-1.030) Urine Protein 2+ H (Negative) Urine Glucose (UA) Norm (Normal) Urine Ketones Negative (Negative) Urine Blood 3+ H (Negative) Urine Nitrate Positive H (Negative) Urine Bilirubin Neg (NEGATIVE) Urine Urobilinogen 1 H (Negative) mg/dL Ur Leukocyte Veronica ase 1+ H (Negative) Urine RBC 80-100 H (0-2) /hpf Urine WBC 10-15 H (0-5) /hpf Ur Squamous Epith Cells 15-25 H (0-5) Amorphous Sediment Not Reportable Urine Bacteria 4+ H (NONE) SARS-CoV-2 Ag (Rap id) Negative (Negative) Discharge Plan Discharge Patient Disposition: Admitted As Inpatient Admit Provider: Jadiel Romero Clinical Impression: CML (chronic myelocytic leukemia) Cellulitis Qualifiers: Site of cellulitis: extremity Site of cellulitis of extremity: lower extremity Laterality: right Qualified Code(s): L03.115 - Cellulitis of right lower limb Condition: Stable Referrals: Jesus Elliott Jr, MD [Primary Care Provider] - Discharge Date/Time: 05/19/20 20:31 Coding Level of Care Code ED Food Production Associate for [facility] Fwd Exam Comprehensive Documented by User: Solo Quintanilla MD 05/19/20 18:43 HPI - Fever General: Chief Complaint: Fever Stated Complaint: fever, spot on leg Time Seen by Provider: 05/19/20 16:08 PFSH ED PFSH: Medical History (Updated 05/19/20 @ 19:50 by Gregory Menendez MD) Chronic back pain CML (chronic myelocytic leukemia) Dyslipidemia Hypothyroidism Nephrolithiasis Nicotine dependence Surgical History H/O sinus surgery History of ureter stent Previous back surgery Family History (Updated 05/19/20 @ 19:51 by Gregory Menendez MD) Mother Cancer Breast cancer Social History (Updated 05/19/20 @ 19:51 by Gregory Menendez MD) Smoking and tobacco status: current every day smoker cigarettes [ Other cigarette details: 1 pack/day ] Alcohol intake: never Substance/Drug Use: never Household members: family Housing: House Course Vital Signs: Vital signs: Vital Signs Temperature 99.2 F 05/21/20 00:00 Pulse Rate 71 05/21/20 00:00 Respiratory Rate 18 05/21/20 02:36 Blood Pressure 113/63 05/21/20 00:00 Pulse Oximetry 93 05/21/20 00:00 MDM - Fever MDM Narrative: Medical decision making narrative: Patient presents here with cellulitis along with UTI likely causing her fever. Patient's blood pressure here is been stable and she is not in shock. Her COVID test was negative. I spoke to hospitalist Dr. Santos and will admit. Patient started on IV antibiotics in the ER. Lab Data: Labs: Lab Results 05/19/20 05/19/20 05/19/20 Range/Units 16:30 16:30 16:30 WBC 17.7 H (4.0-10.0) 10^3/ uL RBC 4.22 (4.1-5.3) 10^6/u L Hgb 13.1 (11.5-15.3) g/dL Hct 41.0 (37.0-47.0) % MCV 97.2 (81-99) fL MCH 31.0 (28.0-34.0) pg MCHC 32.0 (30.0-36.0) g/dL RDW 14.6 (12.1-15.1) % Plt Count 245 (130-400) 10^3/c mm MPV 9.3 (7.4-10.4) fL Neut % (Auto) 88.3 % Lymph % (Auto) 6.0 % [place] % (Auto) 4.8 % Eos % (Auto) 0.1 % Baso % (Auto) 0.3 % Neut # (Auto) 15.68 H (1.8-7.7) 10^3/u L Lymph # (Auto) 1.1 (0.8-4.8) 10^3/u L [place] # (Auto) 0.9 (0.2-0.9) 10^3/u L Eos # (Auto) 0.0 (0.0-0.8) 10^3/u L Baso # (Auto) 0.1 (0.0-0.1) 10^3/u L Nucleated RBC % (a uto) 0 % Nucleated RBCs # 0.0 /100WBC Sodium 134 L (136-145) mmol/L Potassium 4.1 (3.5-5.1) mmol/L Chloride 99 (98-107) mmol/L Carbon Dioxide 27 (22-29) mmol/L Anion Gap 12.1 (5-19) BUN 14 (8-23) mg/dL Creatinine 0.9 (0.5-0.9) mg/dL GFR Calculation 63.0 L (90-130) mL/min Glucose 125 H (65-115) mg/dL Calculated Osmolal ity 276 L (285-295) mOsm/k g Lactic Acid 0.6 (0.5-2.2) mmol/L Calcium 8.8 (8.5-10.5) mg/dL Total Bilirubin 0.7 (0.15-1.2) mg/dL AST 19 (0-32) U/L ALT 13 (0-33) U/L Alkaline Phosphata se 59 (35-105) IU/L Total Protein 7.0 (6.6-8.7) g/dL Albumin 4.1 (3.5-5.2) g/dL Globulin 2.9 (1.3-4.6) g/dL Urine Color (Yellow) Urine Appearance (CLEAR) Urine pH (5-7) Ur Specific Gravit y (1.005-1.030) Urine Protein (Negative) Urine Glucose (UA) (Normal) Urine Ketones (Negative) Urine Blood (Negative) Urine Nitrate (Negative) Urine Bilirubin (NEGATIVE) Urine Urobilinogen (Negative) mg/dL Ur Leukocyte Veronica ase (Negative) Urine RBC (0-2) /hpf Urine WBC (0-5) /hpf Ur Squamous Epith Cells (0-5) Amorphous Sediment Urine Bacteria (NONE) SARS-CoV-2 Ag (Rap id) (Negative) 05/19/20 05/19/20 Range/Units 17:33 18:00 WBC (4.0-10.0) 10^3/ uL RBC (4.1-5.3) 10^6/u L Hgb (11.5-15.3) g/dL Hct (37.0-47.0) % MCV (81-99) fL MCH (28.0-34.0) pg MCHC (30.0-36.0) g/dL RDW (12.1-15.1) % Plt Count (130-400) 10^3/c mm MPV (7.4-10.4) fL Neut % (Auto) % Lymph % (Auto) % [place] % (Auto) % Eos % (Auto) % Baso % (Auto) % Neut # (Auto) (1.8-7.7) 10^3/u L Lymph # (Auto) (0.8-4.8) 10^3/u L [place] # (Auto) (0.2-0.9) 10^3/u L Eos # (Auto) (0.0-0.8) 10^3/u L Baso # (Auto) (0.0-0.1) 10^3/u L Nucleated RBC % (a uto) % Nucleated RBCs # /100WBC Sodium (136-145) mmol/L Potassium (3.5-5.1) mmol/L Chloride (98-107) mmol/L Carbon Dioxide (22-29) mmol/L Anion Gap (5-19) BUN (8-23) mg/dL Creatinine (0.5-0.9) mg/dL GFR Calculation (90-130) mL/min Glucose (65-115) mg/dL Calculated Osmolal ity (285-295) mOsm/k g Lactic Acid (0.5-2.2) mmol/L Calcium (8.5-10.5) mg/dL Total Bilirubin (0.15-1.2) mg/dL AST (0-32) U/L ALT (0-33) U/L Alkaline Phosphata se (35-105) IU/L Total Protein (6.6-8.7) g/dL Albumin (3.5-5.2) g/dL Globulin (1.3-4.6) g/dL Urine Color Yellow (Yellow) Urine Appearance Hazy A (CLEAR) Urine pH 5 (5-7) Ur Specific Gravit y 1.020 (1.005-1.030) Urine Protein 2+ H (Negative) Urine Glucose (UA) Norm (Normal) Urine Ketones Negative (Negative) Urine Blood 3+ H (Negative) Urine Nitrate Positive H (Negative) Urine Bilirubin Neg (NEGATIVE) Urine Urobilinogen 1 H (Negative) mg/dL Ur Leukocyte Veronica ase 1+ H (Negative) Urine RBC 80-100 H (0-2) /hpf Urine WBC 10-15 H (0-5) /hpf Ur Squamous Epith Cells 15-25 H (0-5) Amorphous Sediment Not Reportable Urine Bacteria 4+ H (NONE) SARS-CoV-2 Ag (Rap id) Negative (Negative) Discharge Plan Discharge Patient Disposition: Admitted As Inpatient Admit Provider: Jadiel Romero Clinical Impression: CML (chronic myelocytic leukemia) Cellulitis Qualifiers: Site of cellulitis: extremity Site of cellulitis of extremity: lower extremity Laterality: right Qualified Code(s): L03.115 - Cellulitis of right lower limb Condition: Stable Referrals: Jesus Elliott Jr, MD [Primary Care Provider] - Discharge Date/Time: 05/19/20 20:31 Coding Level of Care Code ED Food Production Associate for [facility] Fwd Exam Comprehensive
[2020-05-19 16:44] LABS: Basophils # 0.1 10^3/uL (0.0-0.1); Basophils % 0.3 %; Eosinophils % 0.1 %; Hemoglobin 13.1 g/dL (11.5-15.3); Lymphocytes # 1.1 10^3/uL (0.8-4.8); Mean Corpuscular Volume 97.2 fL (81-99); Mean Platelet Volume 9.3 fL (7.4-10.4); Monocytes # 0.9 10^3/uL (0.2-0.9); Monocytes % 4.8 %; Neutrophils # 15.68 10^3/uL (1.8-7.7); Neutrophils % 88.3 %; Nucleated Red Blood Cells % 0 %; Platelet Count 245 10^3/cmm (130-400); Red Blood Count 4.22 10^6/uL (4.1-5.3); Red Cell Distribution Width 14.6 % (12.1-15.1); White Blood Count 17.7 10^3/uL (4.0-10.0)
--- NOTE | 2020-05-19 16:47 | US_ITS ---
WS: [id number] Subcutaneous ultrasound of right thigh, 05/19/2020 Clinical Data: R medial thigh Comparison: None. Findings: No subcutaneous cyst, fluid or mass is seen. There is no evidence of subcutaneous abscess. US/US soft tissue/extremity [id number] Impression: Negative right medial subcutaneous ultrasound.
[2020-05-19] MEDS: vancomycin 1,000 MG in sodium chloride 0.9% 250 ML 250 MG IV (16:48)
[2020-05-19] MEDS: sodium chlor 0.9% + KCl 20 mEq 20 MEQ/1,000 ML BAG 125 MEQ IV (16:48)
[2020-05-19 17:02] LABS: Alanine Aminotransferase 13 U/L (0-33); Albumin Level 4.1 g/dL (3.5-5.2); Alkaline Phosphatase 59 IU/L (35-105); Anion Gap 12.1 (5-19); Aspartate Amino Transferase 19 U/L (0-32); Blood Urea Nitrogen 14 mg/dL (8-23); Calcium 8.8 mg/dL (8.5-10.5); Carbon Dioxide 27 mmol/L (22-29); Chloride 99 mmol/L (98-107); Globulin 2.9 g/dL (1.3-4.6); Glucose 125 mg/dL (65-115); Osmolality Calculated 276 mOsm/kg (285-295); Potassium 4.1 mmol/L (3.5-5.1); Sodium 134 mmol/L (136-145); Total Bilirubin 0.7 mg/dL (0.15-1.2)
[2020-05-19 17:03] LABS: Lactic Sepsis W/Reflex 0.6 mmol/L (0.5-2.2)
[2020-05-19 17:57] LABS: SARS Covid-2 Antigen Negative (Negative)
[2020-05-19 18:16] LABS: Bilirubin Urine Neg (NEGATIVE); Blood Urine 3+ (Negative); Glucose Urine UA Norm (Normal); Ketones Urine Negative (Negative); Leukocyte Esterase Urine 1+ (Negative); Nitrate Urine Positive (Negative); Protein Urine 2+ (Negative); Urine Appearance Hazy (CLEAR); Urine Color Yellow (Yellow); Urobilinogen Urine 1 mg/dL (Negative); pH Urine 5 (5-7)
[2020-05-19 18:17] LABS: Add Urine Microscopic? YES
[2020-05-19 18:38] LABS: RBC Urine 80-100 /hpf (0-2)
[2020-05-19 18:39] LABS: Add Urine Culture? No; Bacteria Urine 4+; Squamous Epithelial Cell Urine 15-25 (0-5)
[2020-05-19] MEDS: acetaminophen 325 mg Tablet 650 MG PO (19:08)
[2020-05-19] MEDS: cefTRIAXone 1,000 MG in sodium chloride 0.9% (plus) 50 ML 100 MG IV (19:15)
--- NOTE | 2020-05-19 19:15 | PM.HP ---
Providers/Chief Complaint Admitting Physician: Jadiel Romero Primary Care Provider: Jesus Elliott Jr, MD Chief Complaint: fever, spot on leg History of Present Illness Justina Meraz is a 64 year old female history of CML(diagnosed in 2016), currently on tyrosine kinase inhibitor therapy, has been having side effects from it such as fatigue, musculoskeletal pain without bone marrow significant suppression, imatinib dose was reduced to 200 mg, which was further changed to dasatinib 100 mg daily, she is able to tolerate this regimen with acceptable toxicity(quantitative PCR remains undetectable), her other medical conditions include hypothyroidism, nephrolithiasis, back pain, came in for fever and skin rash. Patient is stating that she went to Dr. Sherwood's office today, when she returned home she was feeling very lethargic, went straight to her bed, her daughter noticed that something was off about her mother, she went to see her, she took her temperature which was 102, her mother told her that she is just very tired and wanted to sleep. Around this time Ms. Meraz noticed a skin rash on medial side of her thigh which she attributed to a bug bite however no tick was found attached on her skin. She is endorsing urinary frequency without dysuria. She is denying chest pain, shortness of breath, palpitations, diarrhea, constipation. Diagnosis in the ER revealed sepsis due to fever, tachycardia and leukocytosis Chest x-ray negative for acute pathology I have demarcated her progressive cellulitis area of right thigh which is extending up to her lower leg, requested CT scan of leg to rule out necrotizing fasciitis however no purulence noticed I would escalate her antibiotics to vancomycin and Zosyn, her urinalysis is consistent with UTI she has been given ceftriaxone in the ER Review of Systems Const: Reports: fever(s), chills, body aches, fatigue and malaise Eyes: Denies: change in vision ENMT: Denies: throat pain Card: Reports: dyspnea on exertion; Denies: chest pain, swelling of feet/ankles or orthopnea Resp: Denies: dyspnea GI: Denies: abdominal pain, nausea, vomiting, diarrhea or constipation : Reports: urinary frequency and urinary urgency; Denies: flank pain, difficulty voiding or dysuria Musc: Denies: neck pain Skin/Breast: Reports: rash and new lesions (Skin rash extending up to her lower leg from medial side of her thigh) Neuro: Denies: headache(s) Psych: Denies: anxiety Endo: Reports: polyuria Thompson/Lymph: Denies: easy bruising All/Imm: Denies: urticaria Medications/Allergies Home Medications Medication Instructions Recorded Confirmed Last Taken Type Multivitamin Powder See Rx Instructions .ROUTE .COMPLEX 05/19/20 05/19/20 05/18/20 History dasatinib [Sprycel] 100 mg PO DAILY 05/19/20 05/19/20 05/18/20 History fentanyl 75 mcg TRANSDERMAL DAILY 05/19/20 05/19/20 05/19/20 History levothyroxine 125 mcg PO DAILY 05/19/20 05/19/20 05/19/20 History oxycodone-acetaminophen 1 tab PO Q6H PRN 05/19/20 05/19/20 05/19/20 History protein supplement-minerals 1 ea PO DAILY 05/19/20 05/19/20 05/18/20 History trazodone 150 mg PO BEDTIME 05/19/20 05/19/20 05/18/20 History Allergies Allergy/AdvReac Type Severity Reaction Status Date / Time No Known Allergies Allergy Verified 05/19/20 16:30 PFSH Acute PFSH: Medical History (Updated 05/19/20 @ 19:50 by Gregory Menendez MD) Chronic back pain CML (chronic myelocytic leukemia) Dyslipidemia Hypothyroidism Nephrolithiasis Nicotine dependence Surgical History H/O sinus surgery History of ureter stent Previous back surgery Family History (Updated 05/19/20 @ 19:51 by Gregory Menendez MD) Mother Cancer Breast cancer Social History (Updated 05/19/20 @ 19:51 by Gregory Menendez MD) Smoking and tobacco status: current every day smoker cigarettes [ Other cigarette details: 1 pack/day ] Alcohol intake: never Substance/Drug Use: never Household members: family Housing: House Vitals/I&O/Wt Last Vital Signs Temp 102.9 F H 05/19/20 16:02 Pulse 111 H 05/19/20 16:02 Resp 16 05/19/20 16:02 BP 112/71 05/19/20 16:02 Pulse Ox 92 05/19/20 16:02 05/19/20 05/19/20 05/19/20 06:59 14:59 22:59 Intake Total 250 / 250 Balance 250 / 250 Weight last 48 hrs Weight 67.585 kg Physical Exam Narrative: EXAM NARRATIVE: This is a very pleasant elderly female Currently laying comfortable in her bed Saturating well on room air Tachycardic, febrile, Lungs are clear to auscultation S1, S2 EOMI, PERRLA No headache or neck stiffness No neurological deficit GCS 15, awake alert oriented x3 Abdomen soft nontender bowel sound present Right medial side of her thigh has nonpurulent cellulitis area which I have demarcated which is extending up to her right lower leg involving ankle area, nontender, signs of inflammation such as increased temperature, hyperemia, no vascular compromise noticed, no crepitation, no sign of tick bite or bug bite Lower extremity without edema gangrene or ulcer, right ankle hyperemia noticed Left leg unremarkable No asymmetrical swelling of lower legs Data : 05/19/20 16:30 05/19/20 16:30 A&P Assessment and plan (1) Sepsis: Status: Acute (2) Cellulitis: Status: Acute Qualifiers: Laterality: right Site of cellulitis: extremity Site of cellulitis of extremity: lower extremity Qualified Code(s): L03.115 - Cellulitis of right lower limb (3) CML (chronic myelocytic leukemia): Status: Acute (4) UTI (urinary tract infection): Status: Acute Additional A&P Information Sepsis secondary to UTI and non-progressive cellulitis Criteria met with fever, tachycardia, leukocytosis, Sources of infection identified, urinary frequency with abnormal urinalysis and skin rash with progressive cellulitis presentation Toxin suppression with clindamycin, use vancomycin and Zosyn considering immunocompromise state due to use of tyrosine kinase inhibitor I have looked up literature regarding tyrosine kinase inhibitor side effect especially related with dasatinib, 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, I would hold her medications for now Zosyn would cover UTI as well Fluid resuscitation normal saline Progressive cellulitis, nonpurulent Rule out necrotizing fasciitis with right leg imaging, I would get CT scan with contrast on stat basis Started antibiotics with toxin suppression regimen Stop dasatinib Less likely to be a tick bite, CML currently on dasatinib Medication on hold No severe organomegaly PCR negative Hypothyroidism: Continue home regimen Nicotine dependence: I would start her on nicotine replacement therapy Full code Cardiac diet DVT prophylaxis: Lovenox Attestations Medical Necessity Statement*: Anticipating stay in the hospital cross more than 2 midnights continued IV antibiotics for sepsis secondary to UTI, rule out necrotizing fasciitis currently being treated for progressive nonpurulent cellulitis, considering immunocompromise state she is on 3 antibiotic Time Spent in Patient Care: (>than 50% of time spent in counselling and/or direct pt care on unit). 50 minutes Coding Level of Care Code Acute Public Information Coordinator for [facility] Fwd Diagnoses Sepsis A41.9 Cellulitis L03.115 Laterality: right Site of cellulitis: extremity Site of cellulitis of extremity: lower extremity CML (chronic myelocytic leukemia) C92.10 UTI (urinary tract infection) N39.0
--- NOTE | 2020-05-19 19:53 | CTR_ITS ---
PROCEDURE INFORMATION: Exam: CT Right Lower Extremity With Contrast; Thigh Exam date and time: 05/19/2020 7:59 PM Age: 64 years old Clinical indication: Cellulitis; Thigh; Right; Additional info: Progressive cellulitis TECHNIQUE: Imaging protocol: CT of the Right lower extremity with intravenous contrast was performed. Exam focused on the thigh. Radiation optimization: All CT scans at this facility use at least one of these dose optimization techniques: automated exposure control; mA and/or kV adjustment per patient size (includes targeted exams where dose is matched to clinical indication); or iterative reconstruction. Contrast material: OMNI; Contrast volume: 95 ml; Contrast route: INTRAVENOUS (IV); COMPARISON: US soft tissue/extremity [id number] 05/19/2020 7:05 PM RADIATION DOSE METRICS: Total DLP (mGy-cm): 1197.83 FINDINGS: Bones/joints: There is no evidence for acute fracture or malalignment. No CT evidence for osteomyelitis. Soft tissues: There is a 1.2 cm Quijano's cyst between the medial head of the gastrocnemius and the semimembranosus tendon. There is mild superficial inflammation along the anterior and medial proximal right thigh. No soft tissue gas or abscess. Lymph nodes: There are right inguinal lymph nodes with a short-axis diameter of 1 cm. There also lymph nodes along the right external iliac chain measuring up to 1.[address]/CT lower leg RT w con [id number] IMPRESSION: There is mild soft tissue cellulitis along the proximal anterior and medial right thigh. No abscess or soft tissue gas. There is right pelvic adenopathy which is likely reactive. Incidental note is made of a small Quijano's cyst. Radiation Dose CTDIVOL = (mGy): DLP = 1197.83 (mGy-cm)
[2020-05-19] MEDS: iohexol 300 mg/mL 100 mL Btl IV (20:07)
[2020-05-19 20:20] VITALS: BP 104/66; PULSE 108; RESP 22; TEMP 39.6; O2SAT 94
[2020-05-19 21:25] VITALS: BP 130/72; PULSE 93; RESP 20; TEMP 38.6; O2SAT 93
[2020-05-19] MEDS: clindamycin 150 mg Capsule 300 MG PO (22:04)
[2020-05-19] MEDS: sodium chloride 0.9% 1,000 ML 75 ML IV (22:04)
[2020-05-19 22:05] VITALS: RESP 18
[2020-05-19] MEDS: piperacillin-tazobactam 3.375 GM in sodium chloride 0.9% (plus) 50 ML IV (22:05)
[2020-05-19] MEDS: trazodone 150 mg Tablet PO (22:05)
[2020-05-19] MEDS: oxyCODONE-APAP 10-325 mg Tablet 1 TAB PO (22:05)
[2020-05-19] MEDS: enoxaparin 40 mg/0.4 mL Syringe SUBCUT (22:05)
[2020-05-19] MEDS: LORazepam 0.5 mg Tablet 0.25 MG PO (22:06)
[2020-05-20] VITALS: BP 96/57; PULSE 75; RESP 16; TEMP 37.2; O2SAT 96
--- NOTE | 2020-05-20 00:45 | PC.NURSE ---
Patient with x2 fentanyl patches to her upper Right chest applied from home. Patient states she uses 2 patches both 75mcg to make her home dose of 150mcg.
[2020-05-20 03:34] VITALS: BP 107/70; PULSE 75; RESP 16; TEMP 37.2; O2SAT 94
[2020-05-20] MEDS: piperacillin-tazobactam 3.375 GM in sodium chloride 0.9% (plus) 50 ML IV ×3 (05:24→23:01)
[2020-05-20 05:50] LABS: Basophils % 0.2 %; Hemoglobin 12.7 g/dL (11.5-15.3); Lymphocytes # 0.8 10^3/uL (0.8-4.8); Lymphocytes % 6.1 %; Mean Corpuscular Hemoglobin 30.8 pg (28.0-34.0); Mean Corpuscular Volume 99.3 fL (81-99); Mean Platelet Volume 9.2 fL (7.4-10.4); Monocytes # 0.5 10^3/uL (0.2-0.9); Monocytes % 3.5 %; Neutrophils # 12.28 10^3/uL (1.8-7.7); Neutrophils % 89.8 %; Nucleated Red Blood Cells % 0 %; Platelet Count 230 10^3/cmm (130-400); Red Blood Count 4.13 10^6/uL (4.1-5.3); Red Cell Distribution Width 14.8 % (12.1-15.1); White Blood Count 13.7 10^3/uL (4.0-10.0)
[2020-05-20 06:19] LABS: Anion Gap 12.1 (5-19); Blood Urea Nitrogen 14 mg/dL (8-23); Calcium 8.8 mg/dL (8.5-10.5); Carbon Dioxide 27 mmol/L (22-29); Chloride 101 mmol/L (98-107); Glomerular Filtration Rate 55.8 mL/min (90-130); Glucose 108 mg/dL (65-115); Osmolality Calculated 279 mOsm/kg (285-295); Potassium 4.1 mmol/L (3.5-5.1); Sodium 136 mmol/L (136-145)
[2020-05-20 07:28] VITALS: BP 115/64; PULSE 100; RESP 16; TEMP 37.4; O2SAT 91
[2020-05-20] MEDS: levothyroxine 125 mcg Tablet PO (09:59)
[2020-05-20] MEDS: doxycycline 100 mg Tablet PO ×2 (09:59→17:12)
[2020-05-20] MEDS: nicotine 21 mg Patch 1 PATCH TRANSDERMA (09:59)
[2020-05-20] MEDS: clindamycin 150 mg Capsule 300 MG PO ×3 (09:59→23:01)
[2020-05-20] MEDS: sodium chloride 0.9% 1,000 ML 75 ML IV (10:02)
[2020-05-20 11:35] VITALS: BP 117/60; PULSE 77; RESP 16; TEMP 37.9; O2SAT 92
[2020-05-20] MEDS: acetaminophen 325 mg Tablet 650 MG PO (11:51)
[2020-05-20 15:56] VITALS: BP 115/70; PULSE 75; RESP 16; TEMP 36.9; O2SAT 94
[2020-05-20 20:00] VITALS: BP 163/82; PULSE 82; RESP 19; TEMP 37.3; O2SAT 94
--- NOTE | 2020-05-20 21:22 | P.PN_ITS ---
Subjective Subjective: Interval history: He states she is feeling better. Denies Reiger's, denies any pain. She denies remembering being bitten by a bug, but thought that the initial area of erythema on the medial upper right thigh somewhat resembled a bug bite. Vitals/I&O/Wt Last Vital Signs Temp 98.4 F 05/20/20 15:56 Pulse 75 05/20/20 15:56 Resp 16 05/20/20 15:56 BP 115/70 05/20/20 15:56 Pulse Ox 94 05/20/20 15:56 05/20/20 05/20/20 05/20/20 06:59 14:59 22:59 Intake Total 530 / 1260 1187.5 / 1187.5 480 / 1667.5 Output Total 850 / 850 400 / 1250 Balance 530 / 1260 337.5 / 337.5 80 / 417.5 Weight last 48 hrs Weight 67.585 kg Physical Exam Const: COMMON NORMALS: no acute distress and patient oriented x3 HENMT: COMMON NORMALS: oropharynx normal Neck/C-Spine: COMMON NORMALS: no JVD Resp: COMMON NORMALS: normal respiratory effort and clear to auscultation bilaterally AUSCULTATION: clear to auscultation bilaterally Cardio: COMMON NORMALS: no JVD, regular rhythm, S1 normal heart sound present, S2 normal heart sound present and No murmurs present (Cardio) RHYTHM: regular rhythm HEART SOUNDS: S1 normal heart sound present and S2 normal heart sound present GI: COMMON NORMALS: Normal to inspection, nondistended, normoactive bowel sounds present, Soft to palpation and non-tender PALPATION: Yes Soft to palpation Extremity: COMMON NORMALS: no joint enlargement and no pedal edema Neuro: COMMON NORMALS: patient oriented x3 and moves all extremities Skin: GENERAL SKIN EXAM: erythema (Irregularly-shaped erythema, with most intense area on the upper medial right hip, about 6 cm in diameter, with extension of paler erythema and irregular shapes, medially and proximally, as well as laterally and distally, and with erythema areas irregularly-shaped noted on right lower extremity below the knee as well. No open ulcerations or bianca inage. No crepitus. No significant tenderness on palpation.) Data : 05/20/20 05:23 05/20/20 05:23 Micro: Microbiology 05/19/20 16:30 Blood Culture - Preliminary Blood NEGATIVE TO DATE 05/19/20 16:30 Blood Culture - Preliminary Blood NEGATIVE TO DATE A&P Assessment and plan (1) Sepsis: With cellulitis, with noted reactive lymphadenopathy on CT. Does not have things to suggest necrotizing fasciitis. She is improving. Continue IV antibiotics. IV fluid. Follow-up blood cultures. Status: Acute (2) Cellulitis: As above. No noted mucosal lesions. SJS unlikely. Her leukemia medication for now is on hold. Tick panel is pending, but rather less likely. Discussed with her. Status: Acute Qualifiers: Laterality: right Site of cellulitis: extremity Site of cellulitis of extremity: lower extremity Qualified Code(s): L03.115 - Cellulitis of right lower limb (3) CML (chronic myelocytic leukemia): Medication on hold for now. Status: Acute (4) UTI (urinary tract infection): Continue to biotics. Noted hematuria and UA. Has history of nephrolithiasis. Is agreeable for additional assessment by CT renal stone protocol. This study has been ordered. Status: Acute Additional A&P Information Hypothyroidism: Continue home regimen Nicotine dependence: Encourage cessation. Attestations Medical Necessity Statement*: Continue admission for assessment management of sepsis, cellulitis, UTI in this lady with underlying hematologic malignancy. 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
--- NOTE | 2020-05-20 21:26 | CTR_ITS ---
PROCEDURE INFORMATION: Exam: CT Abdomen And Pelvis Without Contrast Exam date and time: 05/20/2020 9:41 PM Age: 64 years old Clinical indication: Other: Hematuria; Prior surgery; Surgery type: Back; Additional info: Sepsis, hematuria, history of nephrolithiasis TECHNIQUE: Imaging protocol: Computed tomography of the abdomen and pelvis without contrast. Radiation optimization: All CT scans at this facility use at least one of these dose optimization techniques: automated exposure control; mA and/or kV adjustment per patient size (includes targeted exams where dose is matched to clinical indication); or iterative reconstruction. COMPARISON: CT Abdomen/Pelvis Renal [id number] 05/03/2015 9:42 AM RADIATION DOSE METRICS: Total DLP (mGy-cm): 1133.51 FINDINGS: Lungs: Nonspecific bibasilar opacity is present, consistent with atelectasis, edema, or pneumonia. There are moderate to severe emphysematous changes with bronchiectasis and peribronchial thickening. There is some mild basilar mucous plugging. Mediastinal space: A small hiatal hernia is present. Liver: Unremarkable.No mass. Gallbladder and bile ducts: Normal. No calcified stones. No ductal dilation. Pancreas: Normal. No ductal dilation. Spleen: Normal. No splenomegaly. Adrenals: Normal. No mass. Kidneys and ureters: There is bilateral nephrolithiasis with the largest calculus on the right measuring 7 mm in size and the largest calculus on the left measuring 6 mm in size. The right kidney is smaller than the left. There is no right hydronephrosis and no obstructing calculi. There is mild left hydronephrosis but no obstructing calculus. Stomach and bowel: There is no evidence of intestinal perforation or obstruction. Appendix: The appendix is not definitively identified. However, there is no CT evidence of a right lower quadrant inflammatory process. The appendix is not definitively identified. However, there is no CT evidence of a right lower quadrant inflammatory process. Intraperitoneal space: There is a small amount of free fluid in the pelvis. Vasculature: Unremarkable.No abdominal aortic aneurysm. Lymph nodes: There are several lymph nodes in the right groin measuring up to 1.5 cm in short axis. Adenopathy is also noted along the right pelvic sidewall measuring up to 1.6 cm in short axis. No adenopathy in the retroperitoneum or mesentery. Bladder: Bladder is partially collapsed but the bladder contents appear hyperdense concerning for some hemorrhage or proteinaceous debris in the bladder. No bladder wall thickening or bladder calculus is identified. Reproductive: Few small calcified uterine fibroids are noted. Uterus and ovaries are otherwise unremarkable. Bones/joints: There is a right hip joint effusion. Osteopenia and moderate to severe degenerative changes in the spine and pelvis are noted. No acute fracture or osteomyelitis. Multiple small disc bulges are noted in the lower lumbar spine Soft tissues: There is induration of the subcutaneous fat in the right thigh and groin with adenopathy in the right groin. CT/CT kidney stone [id number] IMPRESSION: 1. Nonspecific bibasilar opacity is present, consistent with atelectasis, edema, or pneumonia. 2. Bilateral nephrolithiasis. There is mild left hydronephrosis but there is no obstructing calculus. There is hyperdensity within the lumen of the urinary bladder that may reflect hemorrhage or proteinaceous debris. 3. Right inguinal and pelvic adenopathy with induration of the subcutaneous fat in the right groin and proximal right thigh concerning for cellulitis. No abscess. There is a right hip joint effusion but no osteomyelitis. 4. Small amount of fluid in the pelvis. No abscess or free air. Radiation Dose CTDIVOL = (mGy): DLP = 1133.51 (mGy-cm)
[2020-05-20] MEDS: trazodone 150 mg Tablet PO (23:01)
[2020-05-20] MEDS: enoxaparin 40 mg/0.4 mL Syringe SUBCUT (23:01)
[2020-05-21] VITALS (8 sets, daily range): BP systolic 106–162; BP diastolic 55–73; PULSE 63–71; RESP 16–18; TEMP 36.8–37.3; O2SAT 92–96
[2020-05-21] MEDS: sodium chloride 0.9% 1,000 ML 75 ML IV ×2 (00:41→13:40)
[2020-05-21] MEDS: oxyCODONE-APAP 10-325 mg Tablet 1 TAB PO ×2 (02:36→09:48)
[2020-05-21 05:08] LABS: Basophils % 0.5 %; Eosinophils # 0.3 10^3/uL (0.0-0.8); Hematocrit 32.9 % (37.0-47.0); Hemoglobin 10.1 g/dL (11.5-15.3); Lymphocytes % 15.9 %; Mean Corpuscular HGB Conc 30.7 g/dL (30.0-36.0); Mean Corpuscular Hemoglobin 30.7 pg (28.0-34.0); Mean Platelet Volume 9.8 fL (7.4-10.4); Monocytes # 0.5 10^3/uL (0.2-0.9); Monocytes % 6.9 %; Neutrophils % 72.4 %; Nucleated Red Blood Cells % 0 %; Platelet Count 162 10^3/cmm (130-400); Red Blood Count 3.29 10^6/uL (4.1-5.3); Red Cell Distribution Width 14.9 % (12.1-15.1); White Blood Count 6.5 10^3/uL (4.0-10.0)
[2020-05-21 05:48] LABS: Alanine Aminotransferase 11 U/L (0-33); Albumin Level 3.1 g/dL (3.5-5.2); Alkaline Phosphatase 47 IU/L (35-105); Anion Gap 10.6 (5-19); Aspartate Amino Transferase 13 U/L (0-32); Blood Urea Nitrogen 14 mg/dL (8-23); Calcium 7.8 mg/dL (8.5-10.5); Carbon Dioxide 26 mmol/L (22-29); Chloride 104 mmol/L (98-107); Globulin 2.8 g/dL (1.3-4.6); Glomerular Filtration Rate 84.2 mL/min (90-130); Glucose 117 mg/dL (65-115); Osmolality Calculated 281 mOsm/kg (285-295); Potassium 3.6 mmol/L (3.5-5.1); Sodium 137 mmol/L (136-145); Total Bilirubin 0.3 mg/dL (0.15-1.2); Total Protein 5.9 g/dL (6.6-8.7)
[2020-05-21] MEDS: piperacillin-tazobactam 3.375 GM in sodium chloride 0.9% (plus) 50 ML IV ×3 (06:28→21:02)
[2020-05-21] MEDS: clindamycin 150 mg Capsule 300 MG PO ×3 (09:47→20:57)
[2020-05-21] MEDS: nicotine 21 mg Patch 1 PATCH TRANSDERMA (09:48)
[2020-05-21] MEDS: levothyroxine 125 mcg Tablet PO (09:48)
[2020-05-21] MEDS: doxycycline 100 mg Tablet PO ×2 (09:48→16:07)
[2020-05-21 12:46] LABS: Lyme AB Screen <0.90 index
[2020-05-21] MEDS: nicotine 14 mg Patch 1 PATCH TRANSDERMA (16:07)
--- NOTE | 2020-05-21 16:25 | P.PN_ITS ---
Subjective Subjective: Interval history: She is feeling little bit jittery, slightly restless, but denies any discomfort or pain. She is a smoker, and patch has been applied, she cannot have nicotine gum as she does not have teeth. She is agreeable with increasing the dose of the patch a little bit. Tenderness is otherwise has been resolving and her right leg. Erythema is with some improvement especially in the distal leg. Vitals/I&O/Wt Last Vital Signs Temp 98.9 F 05/21/20 15:33 Pulse 68 05/21/20 15:33 Resp 16 05/21/20 15:33 BP 126/70 05/21/20 15:33 Pulse Ox 92 05/21/20 15:33 05/21/20 05/21/20 05/21/20 06:59 14:59 22:59 Intake Total 1530 / 3497.5 1683.75 / 1683.75 Output Total 300 / 1850 1050 / 1050 Balance 1230 / 1647.5 633.75 / 633.75 Physical Exam Const: COMMON NORMALS: no acute distress and patient oriented x3 HENMT: COMMON NORMALS: oropharynx normal Neck/C-Spine: COMMON NORMALS: no JVD Resp: COMMON NORMALS: normal respiratory effort and clear to auscultation bilaterally AUSCULTATION: clear to auscultation bilaterally Cardio: COMMON NORMALS: no JVD, regular rhythm, S1 normal heart sound present, S2 normal heart sound present and No murmurs present (Cardio) RHYTHM: regular rhythm HEART SOUNDS: S1 normal heart sound present and S2 normal heart sound present GI: COMMON NORMALS: Normal to inspection, nondistended, normoactive bowel sounds present, Soft to palpation and non-tender PALPATION: Yes Soft to palpation Extremity: COMMON NORMALS: no joint enlargement and no pedal edema Neuro: COMMON NORMALS: patient oriented x3 and moves all extremities Skin: GENERAL SKIN EXAM: erythema (Erythema is somewhat improved especially on distal leg, proximal leg appears about the same, but she reports significantly decrease tenderness. Irregularly-shaped erythema, with most intense area on the upper medial right hip, about 6 cm in diameter, with extension of paler erythema and irregular shapes, medially and proximally, as well as laterally and distally , and with erythema areas irregularly-shaped noted on right lower extremity below the knee as well. No open ulcerations or drainage. No crepitus. No significant tenderness on palpation.) Data : 05/21/20 04:19 05/21/20 04:19 Micro: Microbiology 05/19/20 18:00 Urine Culture - Preliminary Urine,Clean Catch Gram Negative Rods 05/19/20 16:30 Blood Culture - Preliminary Blood NEGATIVE TO DATE 05/19/20 16:30 Blood Culture - Preliminary Blood NEGATIVE TO DATE A&P Assessment and plan (1) Cellulitis: Cellulitis with some improvement with decreasing erythema and distal leg areas from yesterday. She notes significant decrease in tenderness in the proximal leg. Erythema in the areas of the proximal thigh looks about the same as yesterday to me. No noted mucosal lesions. SJS unlikely. Her leukemia medication for now is on hold. Tick panel is pending, but rather less likely. Discussed with her. Status: Acute Qualifiers: Laterality: right Site of cellulitis: extremity Site of cellulitis of extremity: lower extremity Qualified Code(s): L03.115 - Cellulitis of right lower limb (2) Sepsis: Sepsis currently appears to have resolved. Continue treatment of cellulitis. Status: Acute (3) CML (chronic myelocytic leukemia): Medication on hold for now. Status: Acute (4) UTI (urinary tract infection): Continue antibiotics. Noted hematuria and UA. Has history of nephrolithiasis. Is agreeable for additional assessment by CT renal stone protocol. Status: Acute Additional A&P Information Pneumonia: Noted some bibasilar opacity on CT scan, possibly edema versus pneumonia. Bilateral nephrolithiasis noted on CT abdomen pelvis. Mild left hydronephrosis, although no obstructing calculi noted. Perhaps had a passed stone? Some hyperdensity noted in the urinary bladder, perhaps due to some blood. Did have some hematuria noted on UA. Right hip effusion?: incidentally noted on CT kidney stone protocol. Discussed with radiologist, there is a little bit of asymmetry between the hip joints, with slightly more fluid on the right side. This could be physiologic. In light of her other comorbidities with possible immunocompromise, ongoing cellulitis, could assess additionally with noncontrast MRI to exclude any additional monitoring, bone edema, AVN, etc.. Discussed with her. She does not have any tenderness in the right hip, there is no pain with passive range of motion with abduction/abduction, internal, external rotation. No tenderness on external palpation/compression of the bursa also. Discussed with her that this may be physiologic, although possibility of some fluid due to arthritis, although cannot exclude that there is not infection. This appears to be less likely given her physical exam and symptoms. She unfortunately absolutely declines to try MRI due to severe claustrophobia, even with some sedating medications. She is agreeable to closer assess with right hip CT with contrast. Understands there may be some small risk of contrast nephropathy, hypersensitivity, other adverse effects. Hypothyroidism: Continue home regimen Nicotine dependence: Encourage cessation. Attestations Medical Necessity Statement*: Continue admission for assessment and management of cellulitis. 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
--- NOTE | 2020-05-21 16:50 | CTR_ITS ---
PROCEDURE INFORMATION: Exam: CT Right Lower Extremity With Contrast, Hip Exam date and time: 05/21/2020 7:54 PM Age: 64 years old Clinical indication: Abnormal findings; Abnormal imaging study; Renal stone; Patient HX: Rle cellulitis w R hip effusion on stone protocol CT; Additional info: Hip joint fluid, immunocompromise, presented w sepsis TECHNIQUE: Imaging protocol: CT of the Right lower extremity with intravenous contrast was performed. Exam focused on the hip. Radiation optimization: All CT scans at this facility use at least one of these dose optimization techniques: automated exposure control; mA and/or kV adjustment per patient size (includes targeted exams where dose is matched to clinical indication); or iterative reconstruction. Contrast material: OMNI 300; Contrast volume: 95 ml; Contrast route: INTRAVENOUS (IV); COMPARISON: CT kidney stone [id number] 05/20/2020 10:20 PM RADIATION DOSE METRICS: Total DLP (mGy-cm): 370.81 FINDINGS: Bones/joints: There is an unchanged small right hip joint effusion with synovial thickening and enhancement. No bony destruction or osteomyelitis. No acute fracture. Degenerative changes are noted in the spine and right hip. Soft tissues: There is induration of the subcutaneous fat in the right groin and right thigh concerning for cellulitis. No soft tissue or intramuscular fluid collection or abscess is identified. Lymph nodes: Multiple lymph nodes are noted in the right groin and along the pelvic sidewall measuring up to 1 point 6 cm in short axis. Intraperitoneal space: There is an unchanged small amount of fluid in the pelvis. CT/CT hip RT w con [id number] IMPRESSION: 1. There is an unchanged small right hip joint effusion with synovial thickening and enhancement. This may reflect a septic hip. 2. There is induration of the subcutaneous fat in the right groin and right thigh concerning for cellulitis. There is adenopathy in the right groin and along the right pelvic sidewall. Radiation Dose CTDIVOL = (mGy): DLP = 370.81 (mGy-cm)
[2020-05-21] MEDS: LORazepam 0.5 mg Tablet 0.25 MG PO (17:26)
[2020-05-21] MEDS: iohexol 300 mg/mL 100 mL Btl IV (20:11)
[2020-05-21] MEDS: enoxaparin 40 mg/0.4 mL Syringe SUBCUT (20:57)
[2020-05-21] MEDS: trazodone 150 mg Tablet PO (20:57)
[2020-05-22] VITALS (7 sets, daily range): BP systolic 134–160; BP diastolic 70–77; PULSE 59–66; RESP 16–18; TEMP 36.8–37.2; O2SAT 93–96
[2020-05-22] MEDS: sodium chloride 0.9% 1,000 ML 75 ML IV (04:44)
[2020-05-22 06:12] LABS: Basophils % 0.5 %; Eosinophils # 0.3 10^3/uL (0.0-0.8); Eosinophils % 7.4 %; Hematocrit 34.1 % (37.0-47.0); Hemoglobin 10.6 g/dL (11.5-15.3); Lymphocytes # 1.1 10^3/uL (0.8-4.8); Lymphocytes % 25.8 %; Mean Corpuscular HGB Conc 31.1 g/dL (30.0-36.0); Mean Corpuscular Hemoglobin 30.7 pg (28.0-34.0); Mean Corpuscular Volume 98.8 fL (81-99); Mean Platelet Volume 9.7 fL (7.4-10.4); Monocytes # 0.4 10^3/uL (0.2-0.9); Monocytes % 10.1 %; Neutrophils # 2.43 10^3/uL (1.8-7.7); Nucleated Red Blood Cells % 0 %; Platelet Count 187 10^3/cmm (130-400); Red Blood Count 3.45 10^6/uL (4.1-5.3); Red Cell Distribution Width 14.7 % (12.1-15.1); White Blood Count 4.3 10^3/uL (4.0-10.0)
[2020-05-22] MEDS: piperacillin-tazobactam 3.375 GM in sodium chloride 0.9% (plus) 50 ML IV ×2 (06:39→13:27)
[2020-05-22 06:45] LABS: Alanine Aminotransferase 23 U/L (0-33); Albumin Level 3.1 g/dL (3.5-5.2); Alkaline Phosphatase 87 IU/L (35-105); Anion Gap 9.5 (5-19); Aspartate Amino Transferase 24 U/L (0-32); Blood Urea Nitrogen 11 mg/dL (8-23); Calcium 8.5 mg/dL (8.5-10.5); Carbon Dioxide 26 mmol/L (22-29); Chloride 108 mmol/L (98-107); Globulin 2.9 g/dL (1.3-4.6); Glomerular Filtration Rate 72.2 mL/min (90-130); Glucose 91 mg/dL (65-115); Osmolality Calculated 286 mOsm/kg (285-295); Potassium 3.5 mmol/L (3.5-5.1); Sodium 140 mmol/L (136-145); Total Bilirubin 0.3 mg/dL (0.15-1.2)
[2020-05-22] MEDS: nicotine 14 mg Patch 1 PATCH TRANSDERMA (08:46)
[2020-05-22] MEDS: clindamycin 150 mg Capsule 300 MG PO ×2 (08:47→17:39)
[2020-05-22] MEDS: doxycycline 100 mg Tablet PO (08:47)
[2020-05-22] MEDS: nicotine 21 mg Patch 1 PATCH TRANSDERMA (08:47)
[2020-05-22] MEDS: levothyroxine 125 mcg Tablet PO (08:48)
--- NOTE | 2020-05-22 09:09 | PM.PN ---
Subjective Subjective: Interval history: She is feeling better. Inflammatory changes in the skin of the right thigh, leg are subsiding. There is some swelling that is persistent in the right calf. Denies pain or tenderness there unless the skin is pushed on deeply. He has had no issues walking to the restroom. Erythema and medial right thigh no longer looking bright. Vitals/I&O/Wt Last Vital Signs Temp 98.9 F 05/22/20 07:49 Pulse 63 05/22/20 07:49 Resp 16 05/22/20 07:49 BP 154/70 05/22/20 07:49 Pulse Ox 93 05/22/20 07:49 05/21/20 05/22/20 05/22/20 22:59 06:59 14:59 Intake Total 530 / 2213.75 1170 / 3383.75 Output Total 400 / 1450 300 / 1750 Balance 130 / 763.75 870 / 1633.75 Physical Exam Const: COMMON NORMALS: no acute distress and patient oriented x3 HENMT: COMMON NORMALS: oropharynx normal Neck/C-Spine: COMMON NORMALS: no JVD Resp: COMMON NORMALS: normal respiratory effort and clear to auscultation bilaterally AUSCULTATION: clear to auscultation bilaterally Cardio: COMMON NORMALS: no JVD, regular rhythm, S1 normal heart sound present, S2 normal heart sound present and No murmurs present (Cardio) RHYTHM: regular rhythm HEART SOUNDS: S1 normal heart sound present and S2 normal heart sound present GI: COMMON NORMALS: Normal to inspection, nondistended, normoactive bowel sounds present, Soft to palpation and non-tender PALPATION: Yes Soft to palpation Extremity: COMMON NORMALS: no joint enlargement and no pedal edema Neuro: COMMON NORMALS: patient oriented x3 and moves all extremities Skin: GENERAL SKIN EXAM: erythema (Erythema is somewhat improved especially on distal leg, proximal leg appears about the same, but she reports significantly decrease tenderness. Irregularly-shaped erythema, with most intense area on the upper medial right hip, about 6 cm in diameter, with extension of paler erythema and irregular shapes, medially and proximally, as well as laterally and distally, and with erythema areas irregularly-shaped noted on right lower extremity below the knee as well. No open ulcerations or drainage. No crepitus. No significant tenderness on palpation.) Data : 05/22/20 05:15 05/22/20 05:15 Micro: Microbiology 05/19/20 18:00 Urine Culture - Final Urine,Clean Catch Escherichia coli A&P Assessment and plan (1) Cellulitis: Cellulitis with some improvement with decreasing erythema and distal leg areas from yesterday. She notes significant decrease in tenderness in the proximal leg. Erythema in the areas of the proximal thigh looks about the same as yesterday to me. No noted mucosal lesions. SJS unlikely. Her leukemia medication for now is on hold. Tick panel is pending, but rather less likely. Discussed with her. Status: Acute Qualifiers: Laterality: right Site of cellulitis: extremity Site of cellulitis of extremity: lower extremity Qualified Code(s): L03.115 - Cellulitis of right lower limb (2) Sepsis: Sepsis currently appears to have resolved. Continue treatment of cellulitis. Status: Acute (3) CML (chronic myelocytic leukemia): Medication on hold for now. Status: Acute (4) UTI (urinary tract infection): Continue antibiotics. Noted hematuria and UA. Has history of nephrolithiasis. Is agreeable for additional assessment by CT renal stone protocol. Status: Acute Additional A&P Information Pneumonia: Noted some bibasilar opacity on CT scan, possibly edema versus pneumonia. Bilateral nephrolithiasis noted on CT abdomen pelvis. Mild left hydronephrosis, although no obstructing calculi noted. Perhaps had a passed stone? Some hyperdensity noted in the urinary bladder, perhaps due to some blood. Did have some hematuria noted on UA. Right hip effusion?: incidentally noted on CT kidney stone protocol. Discussed with radiologist, there is a little bit of asymmetry between the hip joints, with slightly more fluid on the right side. This could be physiologic. In light of her other comorbidities with possible immunocompromise, ongoing cellulitis, could assess additionally with noncontrast MRI to exclude any additional monitoring, bone edema, AVN, etc.. Discussed with her. She does not have any tenderness in the right hip, there is no pain with passive range of motion with abduction/abduction, internal, external rotation. No tenderness on external palpation/compression of the bursa also. Discussed with her that this may be physiologic, although possibility of some fluid due to arthritis, although cannot exclude that there is not infection. This appears to be less likely given her physical exam and symptoms. She unfortunately absolutely declines to try MRI due to severe claustrophobia, even with some sedating medications. She is agreeable to closer assess with right hip CT with contrast. Understands there may be some small risk of contrast nephropathy, hypersensitivity, other adverse effects. Hypothyroidism: Continue home regimen Nicotine dependence: Encourage cessation. 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
--- NOTE | 2020-05-22 09:10 | USR_ITS ---
PROCEDURE INFORMATION: Exam: US Duplex Right Lower Extremity Veins, Limited Exam date and time: 05/22/2020 11:07 AM Age: 64 years old Clinical indication: Swelling (edema) of limb; Lower extremity, right TECHNIQUE: Imaging protocol: Real-time Duplex ultrasound of the Right Lower Extremity with 2-D gaytan scale, color Doppler flow and spectral waveform analysis with image documentation. Limited exam was focused on the right lower extremity veins. COMPARISON: No relevant prior studies available. FINDINGS: Right deep veins: Unremarkable. The common femoral, femoral, proximal profunda femoral and popliteal veins are patent without thrombus. Normal Doppler waveforms. Normal compressibility and/or augmentation response. Right superficial veins: Unremarkable. Saphenofemoral junction is patent without thrombus. Soft tissues: Mild right lower extremity edema. US/[place] [id number] IMPRESSION: No evidence of deep vein thrombosis.
--- NOTE | 2020-05-22 09:30 | P.TS_ITS ---
Transfer Summary Providers Date of Admission: 05/19/20 18:17 Date of Discharge: 05/22/20 Attending Provider at Admission: Jadiel Romero Attending Provider at Transfer: Jadiel Romero Primary Care Provider: Jesus Elliott Jr, MD Anticipated Date of Transfer: Anticipated date of transfer: 05/22/20 Receiving Facility & Provider: Receiving Provider: [] Receiving facility: [] Diagnoses at Discharge Discharge Diagnosis (1) Cellulitis: Status: Acute Qualifiers: Laterality: right Site of cellulitis: extremity Site of cellulitis of extremity: lower extremity Qualified Code(s): L03.115 - Cellulitis of right lower limb (2) Sepsis: Status: Acute (3) CML (chronic myelocytic leukemia): Status: Acute (4) UTI (urinary tract infection): Status: Acute (5) Hip joint effusion: Status: Acute Problem details: Concern for possible septic R hip arthritis with small effusion and synovial thickening on contrast CT Reason for Visit Reason for Visit: fever, spot on leg Hospital Course Hospital Course: Pleasant 64-year-old lady with CML, with long-term suppression with dasatinib, with so far undetectable BCR/abl on PCR as of Sep 2018, chronic back pain on chronic opiate therapy, HLD, hypothyroidism, nephrolithiasis, smoking was admitted for assessment management after presenting with fever, rash on the right leg, on presentation found to be in sepsis, with cellulitis of right lower extremity, with most intense appearance of skin changes on medial right thigh, with patches of irregular erythema extending laterally, as well as down the leg towards the ankle. Dasatinib was held on presentation. She has received treatment with Zosyn and vancomycin since admission. US soft tissue of right lower extremity was unremarkable. CT right lower extremity with finding of cellulitis of proximal anterior medial right thigh, no abscess or gas noted. Right pelvic adenopathy, suspected reactive. Incidentally noted small Quijano's cyst. On presentation also noted having urinary tract infection, subsequently growing pansensitive E. coli. Due to microscopic hematuria, history of nephrolithiasis was also assessed with CT abdomen pelvis renal stone protocol, with finding of bibasilar nephrolithiasis, mild left hydronephrosis without obstructing stone. Some hyperdensity within lumen of urinary bladder, possibly secondary to hemorrhage or proteinaceous debris. Prescription with her she was not sure, but concerned may have passed a kidney stone. Incidentally noted on the CT also were nonspecific bibasilar opacity with atelectasis, edema or pneumonia. Also noted right inguinal and pelvic adenopathy with induration of subcutaneous fat in the right groin, with previously present cellulitis, but also right hip joint effusion without osteomyelitis. This finding was discussed with radiologist. Effusion noted was small. Initially considered could have been physiologic as well. She has been ambulating, there is no externally erythema, swelling of her right hip joint. She has had no pain on passive range of motion including internal, external rotation. However, we are going to follow-up with MRI for closer assessment. She is very claustrophobic, and so declined the study. Instead was agreeable to assess more closely with right hip CT with contrast, which subsequently showed again small right hip joint effusion with noted synovial thickening and en hancement, which could reflect a septic hip per radiologist. This was discussed with the patient, her daughter, as well as her oncologist. She is feeling well, with cellulitis improving, but understands that due to CML she is immunocompromised, and so at risk of more unusual presentation of infection. Unfortunately we do not have a radiologist over the weekend in the hospital, and per discussion with our orthopedic surgeon he would be unable to perform arthrocentesis under fluoroscopy guidance here, and recommended transfer to a larger medical facility like [facility] or [facility] in [place]. Patient requested transfer to [facility] as she has previously been there and so expects they should have her records from before. I discussed the case with Dr. Thomas, orthopedic surgeon there, who stated will be able to perform aspiration and further management of the joint if this were necessary, however, requested admission to medicine service due to additional comorbidities. Patient condition, reason for transfer, as well as additional medical problems addressed during this hospitalization were discussed with the accepting hospitalist Dr. Reynolds who kindly accepted the patient for additional assessment and care. Risks and benefits of transfer were discussed with patient and her family. Physical Exam Const: COMMON NORMALS: no acute distress and patient oriented x3 HENMT: COMMON NORMALS: oropharynx normal Neck/C-Spine: COMMON NORMALS: no JVD Resp: COMMON NORMALS: normal respiratory effort and clear to auscultation bilaterally AUSCULTATION: clear to auscultation bilaterally Cardio: COMMON NORMALS: no JVD, regular rhythm, S1 normal heart sound present, S2 normal heart sound present and No murmurs present (Cardio) RHYTHM: regular rhythm HEART SOUNDS: S1 normal heart sound present and S2 normal heart sound present GI: COMMON NORMALS: Normal to inspection, nondistended, normoactive bowel sounds present, Soft to palpation and non-tender PALPATION: Yes Soft to palpation Extremity: COMMON NORMALS: no joint enlargement and no pedal edema Neuro: COMMON NORMALS: patient oriented x3 and moves all extremities Skin: COMMON NORMALS: no rashes or lesions noted GENERAL SKIN EXAM: no rashes or lesions noted TS Data Data Completed and Pending: Completed Studies During Hospitalization Category Date Time Status CT hip RT w con [id number] Routine Cat Scan 05/21/20 16:[address] kidney stone [id number] Routine Cat Scan 05/20/20 21:[address] lower leg RT w con [id number] Stat Cat Scan 05/19/20 19:53 Completed XR chest 1V adolfo ble [id number] Stat Exams 05/19/20 16:16 Completed US soft tissue/ex tremity [id number] Urge nt Ultrasound 05/19/20 16:47 Completed Pending at discharge Category Date Time Status Blood Culture Sta t Lab 05/19/20 16:30 Results Complete Blood Co unt w/Auto AM LABS Lab 05/23/20 04:00 Ordered Comprehensive Met abolic Panel AM LA BS Lab 05/23/20 04:00 Ordered Tick Panel Stat Lab 05/19/20 16:30 Results Vancomycin Trough Routine Lab 05/23/20 16:00 Ordered MR hip RT wo con* [id number] Routine MRI 05/21/20 16:41 [place] [id number] Routin e Ultrasound 05/22/20 09:10 Ordered Labs from last 24 hours 05/22/20 05/22/20 05/19/20 05:15 05:15 16:30 WBC 4.3 RBC 3.45 L Hgb 10.6 L Hct 34.1 L MCV 98.8 MCH 30.7 MCHC 31.1 RDW 14.7 Plt Count 187 MPV 9.7 Neut % (Auto) 56.0 Lymph % (Auto) 25.8 Dade % (Auto) 10.1 Eos % (Auto) 7.4 Baso % (Auto) 0.5 Neut # (Auto) 2.43 Lymph # (Auto) 1.1 Dade # (Auto) 0.4 Eos # (Auto) 0.3 Baso # (Auto) 0.0 Nucleated RBC % (a uto) 0 Nucleated RBCs # 0.0 Sodium 140 Potassium 3.5 Chloride 108 H Carbon Dioxide 26 Anion Gap 9.5 BUN 11 Creatinine 0.8 GFR Calculation 72.2 L Glucose 91 Calculated Osmolal ity 286 Calcium 8.5 Total Bilirubin 0.3 AST 24 ALT 23 Alkaline Phosphata se 87 Total Protein 6.0 L Albumin 3.1 L Globulin 2.9 Lyme Ab (Western B lot) <0.90 Vitals: Last Vital Signs Temp 98.9 F 05/22/20 07:49 Pulse 63 05/22/20 07:49 Resp 16 05/22/20 07:49 BP 154/70 05/22/20 07:49 Pulse Ox 93 05/22/20 07:49 TS Medications Medications Home Medications Multivitamin Powder See Rx Instructions .ROUTE .COMPLEX 05/19/20 [History Confirmed 05/19/20] dasatinib [Sprycel] 100 mg PO DAILY 05/19/20 [History Confirmed 05/19/20] fentanyl 75 mcg TRANSDERMAL DAILY 05/19/20 [History Confirmed 05/19/20] levothyroxine 125 mcg PO DAILY 05/19/20 [History Confirmed 05/19/20] oxycodone-acetaminophen 1 tab PO Q6H PRN 05/19/20 [History Confirmed 05/19/20] protein supplement-minerals 1 ea PO DAILY 05/19/20 [History Confirmed 05/19/20] trazodone 150 mg PO BEDTIME 05/19/20 [History Confirmed 05/19/20] Active Medications Acetaminophen (Tylenol) 650 mg PO Q4H PRN PRN Reason: MILD PAIN OR INCREASE TEMP Last Admin: 05/20/20 11:51 Dose: 650 mg Documented by: Clindamycin HCl (Cleocin) 300 mg PO TID [facility]; Protocol Last Admin: 05/22/20 08:47 Dose: 300 mg Documented by: Doxycycline Monohydrate (Vibramycin) 100 mg PO BID [facility]; Protocol Last Admin: 05/22/20 08:47 Dose: 100 mg Documented by: Enoxaparin Sodium (Lovenox) 40 mg SUBCUT Q24H [facility] Last Admin: 05/21/20 20:57 Dose: 40 mg Documented by: Fentanyl (Duragesic 75 Mcg Patch) 2 patch TRANSDERMA Q72H [facility] Last Admin: 05/22/20 08:47 Dose: 1 patch Documented by: Potassium Chloride/Sodium Chloride (Sodium Chlor 0.9% + Kcl 20 Meq) 20 meq in 1,000 mls @ 125 mls/hr IV .Q8H [facility] Last Admin: 05/19/20 16:48 Dose: 125 mls/hr Documented by: Sodium Chloride (Sodium Chloride 0.9%) 1,000 mls @ 75 mls/hr IV .[id number] [facility] Last Admin: 05/22/20 04:44 Dose: 75 mls/hr Documented by: Piperacillin Sod/Tazobactam (Sod 3.375 gm/ Sodium Chloride) 50 mls @ 12.5 mls/hr IV Q8H [facility]; Protocol Last Admin: 05/22/20 06:39 Dose: 12.5 mls/hr Documented by: Vancomycin HCl 1,250 mg/ (Sodium Chloride) 250 mls @ 250 mls/hr IV Q24H [facility] Last Admin: 05/21/20 15:59 Dose: 250 mls/hr Documented by: Levothyroxine Sodium (Synthroid) 125 mcg PO DAILY [facility] Last Admin: 05/22/20 08:48 Dose: 125 mcg Documented by: Lorazepam (Ativan) 0.25 mg PO BID PRN PRN Reason: ANXIETY Last Admin: 05/21/20 17:26 Dose: 0.25 mg Documented by: Nicotine (Nicoderm 21 Mg Patch) 1 patch TRANSDERMA DAILY [facility] Last Admin: 05/22/20 08:47 Dose: 1 patch Documented by: Nicotine (Nicoderm 14 Mg Patch) 1 patch TRANSDERMA DAILY [facility] Last Admin: 05/22/20 08:46 Dose: 1 patch Documented by: Oxycodone/Acetaminophen (Percocet 10-325 Mg) 1 tab PO Q6H PRN PRN Reason: Pain Last Admin: 05/21/20 09:48 Dose: 1 tab Documented by: Trazodone HCl (Desyrel) 150 mg PO BEDTIME [facility] Last Admin: 05/21/20 20:57 Dose: 150 mg Documented by: Discharge Plan Discharge Patient Disposition: Xfer Short-Term Hosp Condition: Stable Prescriptions: No Action oxycodone-acetaminophen 10-325 mg tablet 1 tab PO Q6H PRN (Reason: Pain) RF: 0 trazodone 150 mg tablet 150 mg PO BEDTIME RF: 0 levothyroxine 125 mcg tablet 125 mcg PO DAILY RF: 0 fentanyl 75 mcg/hr patch 72 hour 150 mcg transdermal DAILY RF: 0 protein supplement-minerals Powder 1 ea PO DAILY RF: 0 Sprycel 100 mg Tablet 100 mg PO DAILY RF: 0 Multivitamin Powder See Rx Instructions .ROUTE .COMPLEX RF: 0 Referrals: Jesus Elliott Jr, MD [Primary Care Provider] - Transfer Attestations Time Spent in Transfer Care*: greater than 30 min Quality Metrics Clinical Quality Measures: During this hospital stay, did patient experience: None Coding Level of Care Code Acute Product Representative for g Fwd Exam Comprehensive Diagnoses Cellulitis L03.115 Laterality: right Site of cellulitis: extremity Site of cellulitis of extremity: lower extremity Sepsis A41.9 CML (chronic myelocytic leukemia) C92.10 UTI (urinary tract infection) N39.0 Hip joint effusion M25.459
[2020-05-22] MEDS: LORazepam 0.5 mg Tablet 0.25 MG PO ×2 (12:09→17:39)
[2020-05-22] MEDS: oxyCODONE-APAP 10-325 mg Tablet 1 TAB PO (13:26)
--- NOTE | 2020-05-22 13:27 | PC.SOCIAL ---
IMM Page 2 of IMM explained to patient. Initialed, dated, and timed and placed in chart. Copy provided to patient.
--- NOTE | 2020-05-22 17:42 | PC.NURSE ---
Pt was having alot of anxiety upon arrival of air evac pt was given ativan at this time.
[2020-05-23 15:56] LABS: E. Chaffeensis AB IGG <1:64; E. Chaffeensis AB IGM <1:20
[2020-05-25 16:33] LABS: RMSF IGG DETECTED; RMSF IGM NOT DETECTED
== END 2020-05-22 17:43 | disposition short-term general hospital (02) | DRG 872 ==
LOC: ER 18:29 → MEDSURG 19:04
PROVIDERS: Emergency Medicine; Family Medicine; Internal Medicine; Admitting Provider Internal Medicine; PCP Family Medicine; Visit Provider Internal Medicine
DX: A41.9 Sepsis, unspecified organism (principal); C92.10 Chronic myeloid leukemia, BCR/ABL-positive, not having achieved remission; L03.115 Cellulitis of right lower limb; N39.0 Urinary tract infection, site not specified; N13.2 Hydronephrosis with renal and ureteral calculous obstruction; Z79.891 Long term (current) use of opiate analgesic; E03.9 Hypothyroidism, unspecified; Z87.442 Personal history of urinary calculi; M54.9 Dorsalgia, unspecified; G89.29 Other chronic pain; E78.5 Hyperlipidemia, unspecified; F17.210 Nicotine dependence, cigarettes, uncomplicated; R31.9 Hematuria, unspecified; M16.11 Unilateral primary osteoarthritis, right hip
CPT/HCPCS: 12345; 36415; 71045; 73701; 74176; 76882; 80048; 80053; 81001; 83605; 85025; 86618; 86666; 86757; 87040; 87077; 87086; 87186; 87426; 93005; 93971; 96372; 99214; 99283; J0696; J1650; J2543; J3370; J7030; J7050; Q9967

== ENCOUNTER 2020-05-25 10:05 | Outpatient (CLI) | payer MEDICARE, SELFPAY ==
[2020-05-25 11:14] LABS: Basophils % 0.7 %; Eosinophils # 0.3 10^3/uL (0.0-0.8); Hematocrit 35.2 % (37.0-47.0); Hemoglobin 11.2 g/dL (11.5-15.3); Lymphocytes # 1.3 10^3/uL (0.8-4.8); Lymphocytes % 22.3 %; Mean Corpuscular HGB Conc 31.8 g/dL (30.0-36.0); Mean Corpuscular Hemoglobin 31.4 pg (28.0-34.0); Mean Corpuscular Volume 98.6 fL (81-99); Mean Platelet Volume 9.6 fL (7.4-10.4); Monocytes # 0.6 10^3/uL (0.2-0.9); Monocytes % 9.6 %; Neutrophils # 3.42 10^3/uL (1.8-7.7); Nucleated Red Blood Cells % 0 %; Platelet Count 247 10^3/cmm (130-400); Red Blood Count 3.57 10^6/uL (4.1-5.3); White Blood Count 5.7 10^3/uL (4.0-10.0)
== END 2020-05-25 10:06 | disposition home or self-care (01) ==
LOC: ONCMED 12:06
PROVIDERS: PCP Family Medicine; Visit Provider Internal Medicine Medical Oncology
DX: Z51.81 Encounter for therapeutic drug level monitoring (principal); Z79.899 Other long term (current) drug therapy; L03.90 Cellulitis, unspecified
CPT/HCPCS: 85025

== ENCOUNTER 2020-08-03 08:25 | Outpatient (CLI) | payer MEDICARE, SELFPAY ==
[2020-08-03 09:55] LABS: Basophils # 0.1 10^3/uL (0.0-0.1); Basophils % 0.9 %; Eosinophils # 0.3 10^3/uL (0.0-0.8); Hematocrit 42.9 % (37.0-47.0); Hemoglobin 13.6 g/dL (11.5-15.3); Lymphocytes # 2.5 10^3/uL (0.8-4.8); Lymphocytes % 36.4 %; Mean Corpuscular HGB Conc 31.7 g/dL (30.0-36.0); Mean Corpuscular Hemoglobin 30.8 pg (28.0-34.0); Mean Corpuscular Volume 97.1 fL (81-99); Mean Platelet Volume 9.2 fL (7.4-10.4); Monocytes # 0.4 10^3/uL (0.2-0.9); Monocytes % 6.2 %; Neutrophils # 3.48 10^3/uL (1.8-7.7); Neutrophils % 51.4 %; Nucleated Red Blood Cells % 0 %; Platelet Count 224 10^3/cmm (130-400); Red Blood Count 4.42 10^6/uL (4.1-5.3); Red Cell Distribution Width 15.5 % (12.1-15.1); White Blood Count 6.8 10^3/uL (4.0-10.0)
[2020-08-03 10:23] LABS: Alanine Aminotransferase 14 U/L (0-33); Alkaline Phosphatase 64 IU/L (35-105); Anion Gap 12.5 (5-19); Aspartate Amino Transferase 18 U/L (0-32); Blood Urea Nitrogen 22 mg/dL (8-23); Calcium 9.2 mg/dL (8.5-10.5); Carbon Dioxide 29 mmol/L (22-29); Chloride 102 mmol/L (98-107); Globulin 3.1 g/dL (1.3-4.6); Glomerular Filtration Rate 72.2 mL/min (90-130); Glucose 135 mg/dL (65-115); Osmolality Calculated 293 mOsm/kg (285-295); Potassium 4.5 mmol/L (3.5-5.1); Sodium 139 mmol/L (136-145); Total Bilirubin 0.4 mg/dL (0.15-1.2); Total Protein 7.1 g/dL (6.6-8.7)
[2020-08-03 11:39] LABS: Erythrocyte Sedimentation Rate 36 mm/hr (0-15)
--- NOTE | 2020-08-03 12:49 | ONC FU_ITS ---
Dr. Sherwood Patient Follow-Up Note Patient: Justina Meraz Unit #: [id number]: 1955 Dicatated By: Ihsan Sherwood M.D.Date of Visit:Aug 03, 2020 Onc Med Follow-up/Prog Note Chief Complaint: Chronic myeloid leukemia. History of Present Illness: This is a 64 year-old woman with [place] chromosome positive chronic myeloid leukemia. She was found on routine scheduled lab studies on 06/24/2016 to have a significantly elevated white blood cell count at 78,300. The hemoglobin was normal at 13.4 g with hematocrit 45%. The platelet count was normal at 174,000. The reported differential included 52% segs, 18% bands, 5% metamyelocytes, 10% myelocytes, 9% lymphocytes, 5% monocytes, and 1% eosinophils. There were 2 nucleated RBC reported. A repeat CBC on 07/24/2016 showed similar findings with WBC 75,800, Hg 13.7 g, and platelet count 178,000. I had seen her initially on 07/27/2016. The findings were suspicious for chronic myelogenous leukemia. She underwent bone marrow aspiration/biopsy on 08/02/2016 showed 100% cellularity with panmyelosis. Blasts were estimated at 4%. The BCR/abl translocation was detected by FISH, and the standard chromosome analysis was positive for the [place] translocation between chromosomes 9 and 22, consistent with chronic myeloid leukemia. The quantitative BCR/abl was requested, but apparently not performed. She began treatment with imatinib 400 mg daily. There was some delay in getting that started due to issues with insurance coverage. The medication actually started on 08/27/2016. She seemed to tolerate it pretty well initially. On her follow-up laboratory studies in October 2016 her quantitative PCR came back at 9.7358, but there was no baseline for comparison. Her CBC at that point was normal with hemoglobin 12.0 g, white blood cell count 7100, and platelet count 280,000. On her follow-up visit on 01/08/2017, she appeared to be having more side effects with the imatinib, including fatigue and musculoskeletal pain. Her blood counts were stable. Her imatinib dosage was reduced to 200 mg daily. Her repeat quantitative PCR on 01/23/2017 was down to 1.7941. However, as of her visit on 04/18/2017 the quantitative PCR had increased to 8.9534. 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 She was then referred to [facility]. She was seen there by Dr. Jeromy Mirza on 05/29/2017. It was recommended that she continue further treatment with dasatinib. The dasatinib was started on 06/13/2017 at a dose of 100 mg daily. She has had a good response to the dasatinib with gradual decline in her quantitative PCR. As of September 2018 she was tolerating the dasatinib at 100 mg daily and her quantitative PCR was below the quantifiable limits of the assay. During her subsequent followup it remained undetectable. Her other medical illnesses include hyperlipidemia, hypothyroidism, nephrolithiasis, and degenerative disease of the spine with chronic back pain. She has a history of smoking 1 pack of cigarettes daily for 30 years. INTERIM HISTORY: At her scheduled follow-up visit on 05/19/2020 she had presented with acute onset of severe chills. She was sent to the emergency room, where she was admitted to the hospital with cellulitis of the right leg. There was also some suspicion of septic arthritis in the right hip joint, for which she was transferred to [facility] in [place]. Ultimately, there was found to be no evidence of septic arthritis or osteomyelitis, and she did show gradual improvement, though she required prolonged antibiotic therapy. She was off her dasatinib during the acute illness, but she subsequently was able to restart it. Her PCR study in April was positive at a very low level, 0.018. She is seen for a follow-up visit. She says her energy has been kind of down. She is still doing her usual activity. Her ECOG score is 1. Her appetite is not very good, but her weight is stable. She has not had fever or chills. She sometimes has sweating with more severe pain. Right leg is better, but she still has some tingling in the right ankle and foot, and she continues to have mild swelling and skin discoloration. She has no shortness of breath, cough, or chest pain. She has no GI or complaints. She continues to have significant joint pain, particularly in the shoulders and hips. She does not complain of headache or dizziness. She tends to get numbness in her arms/hands at night, more often on the right than the left. Medications: Diclofenac Sodium 1 (1 %) Gel (jelly) Transdermal daily PRN, Duragesic-50 2 Patch(es) (of 75 mcg/hr) Patch 72 Hr Transdermal q 72 hours, Levothyroxine Sodium 1 (125 mcg) Tablet Oral daily, Oxycodone-Acetaminophen 1 (10-325 mg) Tablet Oral four times a day PRN, Sprycel 1 (100 mg) Tablet Oral daily, TraZODone HCl 1 (150 mg) Tablet Oral at bedtime PRN, Zofran 1 (8 mg) Tablet Oral t.i.d. PRN Allergies: No Known Allergies. Review of Systems: Constitutional - She has been feeling pretty good generally, though she says her energy is kind of down. She is able to do most of her normal activity. Appetite is not very good, but her weight is stable. She has no fever or chills. She sometimes has sweating when her pain gets worse. ECOG score is 1, ENMT - No sinus congestion/drainage. No mouth sores. No sore throat or difficulty swallowing, Hematologic/Lymphatic - No abnormal bruising or bleeding, Respiratory - No shortness of breath. No cough. No pleuritic pain or hemoptysis, Cardiovascular - No angina pain. No palpitations, Gastrointestinal - No nausea or vomiting. No heartburn or acid reflux. No diarrhea or constipation. No blood in the stool or black stools, Genitourinary (F) - No dysuria or hematuria. No urinary frequency. No urgency or incontinence, Musculoskeletal - She has having significant joint pain, mainly in the shoulders and hips. Her right ankle tingles, and it stays slightly swollen and discolored, Integumentary - No other skin rash, Neurologic - No headache or dizziness. She sometimes has numbness in her arms at night, more often the right than the left. No other focal neurologic symptoms, Psychiatric - No anxiety or depression. She sometimes gets agitated. She has difficulty sleeping at night. Vital Signs: Performed on Aug 03, 2020 10:12 Height - 64.00 in Weight - 152.0 lbs (LOW) BSA - 1.74 sq.m BMI - 26.09 Temperature - 98.3 F (LOW) Pulse - 71 /min Respiration - 18 /min BP - 124/76 mm(hg) O2 Sat - 95 % (LOW) Pain - 8 Physical Examination: Constitutional - She looks pretty good generally, Eyes - Sclerae nonicteric. Conjunctivae clear, ENMT - No lesions noted in the oral cavity, Hematologic/Lymphatic - No cervical, clavicular, or axillary adenopathy, Respiratory - Lungs show slightly coarse breath sounds with some decrease in air movement bilaterally, Cardiovascular - Heart rhythm is regular. There is a II/ systolic murmur. There is no gallop or rub noted, Abdomen - Soft. Liver and spleen are not enlarged. There is no abdominal mass or ascites noted and there is no inguinal adenopathy, Extremities - There is mild swelling of the right lower leg and ankle. It is slightly discolored, and it is also slightly warm to touch, Neurologic - No focal neurologic deficits noted. Lab/Imaging: Test performed on May 25, 2020 10:05 WBC 5.7 10 3/uL RBC 3.57 10 6/uL HGB 11.2 g/dL HCT 35.2 % MCV 98.6 fL MCH 31.4 pg MCHC 31.8 g/dL RDW 14.0 % Platelet Count 247 10 3/cmm MPV 9.6 fL Neutrophils 3.42 10 3/uL Lymphocytes 1.3 10 3/uL Monocytes 0.6 10 3/uL Eosinophils 0.3 10 3/uL Basophils 0.0 10 3/uL Neutrophil % 60.0 % Lymphocyte % 22.3 % Monocyte % 9.6 % Eosinophil % 6.0 % Basophils % 0.7 % NRBC % 0 % Impression: 1. Patient with [place] chromosome positive chronic myeloid leukemia, confirmed by bone marrow aspiration/biopsy on 08/02/2016. Treatment with imatinib 400 mg daily began on 08/27/2016. Her other medical illnesses include: 2. Hyperlipidemia. 3. Hypothyroidism. 4. Recurrent nephrolithiasis. 5. Degenerative arthritis/degenerative disease of the spine. 6. She has nicotine dependence (cigarettes). She began treatment with imatinib 400 mg daily in August 2016. She has had evidence of response by her quantitative PCR, decreasing from 9.7358 on 11/13/2016 to 1.7941 on 01/23/2017. The pretreatment level is not available, as it had been requested but apparently not performed. As of 01/08/2017 her imatinib dosage was decreased to 200 mg daily due to worsening fatigue and musculoskeletal pain. She has felt better on the lower dosage. However, her repeat quantitative PCR on 01/23/2017 was down . However, as of her visit on 04/18/2017 the quantitative PCR had increased to 8.9534 compared to to 1.7941 in January. 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 She was then seen at [facility] by Dr. Jeromy Mirza. At his recommendation her treatment was changed to dasatanib 100 mg daily, beginning 06/13/2017. She had a good response to the dasatanib with a significant decline in the quantitative PCR for BCR/abl. As of 10/22/2017 it was down to 0.0186. She was having some fatigue with the dasatanib, and she also was having significant musculoskeletal pain, mainly involving the shoulders and arms. As of her follow-up visit in March 2018 there was a slight increase in the quantitative PCR, to 0.0461 compared to 0.0186 in December. In June it was back down to 0.0207. As of September 2018 her PCR for BCR/abl was reported to be below the quantifiable limits of the assay. During followup she has had ongoing complaints of fatigue and musculoskeletal pain, but she has been able to tolerate the dasatinib with acceptable toxicity, and her quantitative PCR has remained undetectable. At her scheduled visit on 05/19/2020 she had presented with acute onset of severe chills. She was admitted to the hospital with cellulitis of the right leg. Further evaluation showed no evidence of osteomyelitis or septic arthritis. She had gradual improvement on antibiotic therapy. Her PCR at that time was positive at a very low level, 0.018%. She was off her dasatinib during the acute illness, but she subsequently was able to restart it. She continues to have some mild swelling and redness in the area of the right ankle, and it is slightly warm to touch. She otherwise appears stable clinically. Plan: She continues dasatinib 100 mg daily. I am going to add a sed rate and CRP level to her lab studies, and if those are significantly elevated I will schedule her for a bone scan. I will otherwise just plan a follow-up visit in 3 months. Signed By: Ihsan Sherwood M.D. <<Signature on File>>
== END 2020-08-03 08:26 | disposition home or self-care (01) ==
LOC: LAB 08:28 → ONCMED 10:50
PROVIDERS: PCP Family Medicine; Visit Provider Internal Medicine Medical Oncology
DX: C92.10 Chronic myeloid leukemia, BCR/ABL-positive, not having achieved remission (principal); D72.828 Other elevated white blood cell count; F17.210 Nicotine dependence, cigarettes, uncomplicated; E78.5 Hyperlipidemia, unspecified; E03.9 Hypothyroidism, unspecified; N20.0 Calculus of kidney; M47.9 Spondylosis, unspecified; Z79.899 Other long term (current) drug therapy; Z23 Encounter for immunization
CPT/HCPCS: 36415; 80053; 85025; 85651; 86140; 90471; 90686; 99214

== ENCOUNTER 2020-11-02 12:15 | Outpatient (CLI) | payer MEDICARE, SELFPAY ==
[2020-11-02 13:01] LABS: Basophils # 0.1 10^3/uL (0.0-0.1); Basophils % 0.7 %; Eosinophils # 0.2 10^3/uL (0.0-0.8); Eosinophils % 2.4 %; Hematocrit 40.5 % (37.0-47.0); Hemoglobin 13.4 g/dL (11.5-15.3); Lymphocytes # 2.2 10^3/uL (0.8-4.8); Lymphocytes % 32.4 %; Mean Corpuscular HGB Conc 33.1 g/dL (30.0-36.0); Mean Corpuscular Hemoglobin 31.4 pg (28.0-34.0); Mean Corpuscular Volume 94.8 fL (81-99); Mean Platelet Volume 9.1 fL (7.4-10.4); Monocytes # 0.4 10^3/uL (0.2-0.9); Neutrophils # 3.91 10^3/uL (1.8-7.7); Neutrophils % 58.5 %; Nucleated Red Blood Cells % 0 %; Platelet Count 247 10^3/cmm (130-400); Red Blood Count 4.27 10^6/uL (4.1-5.3); Red Cell Distribution Width 14.6 % (12.1-15.1); White Blood Count 6.7 10^3/uL (4.0-10.0)
[2020-11-02 13:23] LABS: Alanine Aminotransferase 12 U/L (0-33); Albumin Level 4.1 g/dL (3.5-5.2); Alkaline Phosphatase 63 IU/L (35-105); Anion Gap 11.8 (5-19); Aspartate Amino Transferase 16 U/L (0-32); Blood Urea Nitrogen 11 mg/dL (8-23); Calcium 9.2 mg/dL (8.5-10.5); Carbon Dioxide 31 mmol/L (22-29); Chloride 100 mmol/L (98-107); Globulin 3.3 g/dL (1.3-4.6); Glomerular Filtration Rate 100.3 mL/min (90-130); Glucose 104 mg/dL (65-115); Lactate Dehydrogenase 241 U/L (135-214); Osmolality Calculated 288 mOsm/kg (285-295); Potassium 3.8 mmol/L (3.5-5.1); Sodium 139 mmol/L (136-145); Total Bilirubin 0.3 mg/dL (0.15-1.2); Total Protein 7.4 g/dL (6.6-8.7)
[2020-11-06 22:28] LABS: BCR ABL1 (IS) 0.025 (0.000); P190 BCR ALB1 NOT DETECTED; P210 BCR ALB1 DETECTED; Prior Results NG; Source SERUM
== END 2020-11-02 12:16 | disposition home or self-care (01) ==
LOC: ONCMED 12:18
PROVIDERS: Internal Medicine Medical Oncology; PCP Nurse Practitioner Family; Visit Provider Nurse Practitioner
DX: C92.10 Chronic myeloid leukemia, BCR/ABL-positive, not having achieved remission (principal); D72.828 Other elevated white blood cell count; F17.210 Nicotine dependence, cigarettes, uncomplicated
CPT/HCPCS: 36415; 80053; 81206; 83615; 85025

== ENCOUNTER 2020-11-24 06:04 | Outpatient (CLI) | payer MEDICARE, SELFPAY ==
[2020-11-24 10:12] LABS: Basophils # 0.1 10^3/uL (0.0-0.1); Eosinophils # 0.2 10^3/uL (0.0-0.8); Eosinophils % 3.2 %; Hematocrit 42.3 % (37.0-47.0); Hemoglobin 13.2 g/dL (11.5-15.3); Lymphocytes # 2.5 10^3/uL (0.8-4.8); Mean Corpuscular HGB Conc 31.2 g/dL (30.0-36.0); Mean Corpuscular Hemoglobin 30.8 pg (28.0-34.0); Mean Corpuscular Volume 98.6 fL (81-99); Mean Platelet Volume 8.8 fL (7.4-10.4); Monocytes # 0.5 10^3/uL (0.2-0.9); Monocytes % 6.5 %; Neutrophils # 3.67 10^3/uL (1.8-7.7); Nucleated Red Blood Cells % 0 %; Platelet Count 249 10^3/cmm (130-400); Red Blood Count 4.29 10^6/uL (4.1-5.3); Red Cell Distribution Width 14.9 % (12.1-15.1); White Blood Count 6.9 10^3/uL (4.0-10.0)
[2020-11-24 10:32] LABS: Alanine Aminotransferase 11 U/L (0-33); Albumin Level 4.1 g/dL (3.5-5.2); Alkaline Phosphatase 58 IU/L (35-105); Anion Gap 11.1 (5-19); Aspartate Amino Transferase 16 U/L (0-32); Blood Urea Nitrogen 11 mg/dL (8-23); C Reactive Protein 6.3 mg/L (0.0-4.9); Calcium 9.4 mg/dL (8.5-10.5); Carbon Dioxide 31 mmol/L (22-29); Chloride 100 mmol/L (98-107); Globulin 3.2 g/dL (1.3-4.6); Glucose 80 mg/dL (65-115); Lactate Dehydrogenase 253 U/L (135-214); Magnesium 1.8 mg/dL (1.7-2.3); Osmolality Calculated 284 mOsm/kg (285-295); Potassium 4.1 mmol/L (3.5-5.1); Sodium 138 mmol/L (136-145); Total Bilirubin 0.3 mg/dL (0.15-1.2); Total Protein 7.3 g/dL (6.6-8.7)
[2020-11-24 10:46] LABS: Vitamin B12 272 pg/mL (232-1245)
[2020-11-24 11:23] LABS: Erythrocyte Sedimentation Rate 28 mm/hr (0-15)
--- NOTE | 2020-11-24 18:41 | ONC FU_ITS ---
Dr. Sherwood Patient Follow-Up Note Patient: Justina Meraz Unit #: [id number]: 1955 Dicatated By: Ihsan Sherwood M.D.Date of Visit:Nov 24, 2020 Onc Med Follow-up/Prog Note Chief Complaint: Chronic myeloid leukemia. History of Present Illness: This is a 65 year-old woman with Ida chromosome positive chronic myeloid leukemia. She was found on routine scheduled lab studies on 06/24/2016 to have a significantly elevated white blood cell count at 78,300. The hemoglobin was normal at 13.4 g with hematocrit 45%. The platelet count was normal at 174,000. The reported differential included 52% segs, 18% bands, 5% metamyelocytes, 10% myelocytes, 9% lymphocytes, 5% monocytes, and 1% eosinophils. There were 2 nucleated RBC reported. A repeat CBC on 07/24/2016 showed similar findings with WBC 75,800, Hg 13.7 g, and platelet count 178,000. I had seen her initially on 07/27/2016. The findings were suspicious for chronic myelogenous leukemia. She underwent bone marrow aspiration/biopsy on 08/02/2016 showed 100% cellularity with panmyelosis. Blasts were estimated at 4%. The BCR/abl translocation was detected by FISH, and the standard chromosome analysis was positive for the [place]da translocation between chromosomes 9 and 22, consistent with chronic myeloid leukemia. The quantitative BCR/abl was requested, but apparently not performed. She began treatment with imatinib 400 mg daily. There was some delay in getting that started due to issues with insurance coverage. The medication actually started on 08/27/2016. She seemed to tolerate it pretty well initially. On her follow-up laboratory studies in October 2016 her quantitative PCR came back at 9.7358, but there was no baseline for comparison. Her CBC at that point was normal with hemoglobin 12.0 g, white blood cell count 7100, and platelet count 280,000. On her follow-up visit on 01/08/2017, she appeared to be having more side effects with the imatinib, including fatigue and musculoskeletal pain. Her blood counts were stable. Her imatinib dosage was reduced to 200 mg daily. Her repeat quantitative PCR on 01/23/2017 was down to 1.7941. However, as of her visit on 04/18/2017 the quantitative PCR had increased to 8.9534. 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 She was then referred to [facility]. She was seen there by Dr. Jeromy Mirza on 05/29/2017. It was recommended that she continue further treatment with dasatinib. The dasatinib was started on 06/13/2017 at a dose of 100 mg daily. She has had a good response to the dasatinib with gradual decline in her quantitative PCR. As of September 2018 she was tolerating the dasatinib at 100 mg daily and her quantitative PCR was below the quantifiable limits of the assay. During her subsequent followup it remained undetectable. Her other medical illnesses include hyperlipidemia, hypothyroidism, nephrolithiasis, and degenerative disease of the spine with chronic back pain. She has a history of smoking 1 pack of cigarettes daily for 30 years. INTERIM HISTORY: At her scheduled follow-up visit on 05/19/2020 she had presented with acute onset of severe chills. She was sent to the emergency room, where she was admitted to the hospital with cellulitis of the right leg. There was also some suspicion of septic arthritis in the right hip joint, for which she was transferred to [facility] in [place]. Ultimately, there was found to be no evidence of septic arthritis or osteomyelitis, and she did show gradual improvement, though she required prolonged antibiotic therapy. She was off her dasatinib during the acute illness, but she subsequently was able to restart it. Her PCR study in April was positive at a very low level, 0.018. Her repeat quantitative PCR on 11/02/2020 was up just slightly, to 0.025. She continued dasatinib 100 mg daily. She is seen for a follow-up visit. She has not been feeling good. She was seen at the [facility] yesterday and her urinalysis did show 2+ blood and 2+ leukocyte esterase. She did start empiric antibiotic therapy for urinary tract infection. Her CBC showed normal hemoglobin at 14.6 g with white blood cell count 5100 and platelet count 262,000. Her serum iron studies show slightly low transferrin saturation at 19% and the ferritin also was low at 17.7 ng/mL. B12 was in the low normal range at 272 pg/mL. Her 25 hydroxy vitamin D level also was low at 19. Her main complaint is that she just feels worn out. She is able to do light work at home. ECOG score is 1. Her appetite comes and goes. Her weight is stable. She does not have fever or night sweats. She has not had mouth sores or sore throat. She does not complain of shortness of breath, cough, or chest pain. She has no GI complaints. She has some mild discomfort in the lower abdomen/pelvic area. She has no other symptoms. She continues to have significant joint pain, mainly in the shoulders and hips. She says her hands tend to swell up. She does not complain of headache or dizziness, and she has no focal neurologic symptoms. Medications: Diclofenac Sodium 1 (1 %) Gel (jelly) Transdermal daily PRN, Duragesic-50 2 Patch(es) (of 75 mcg/hr) Patch 72 Hr Transdermal q 72 hours, Levothyroxine Sodium 1 (125 mcg) Tablet Oral daily, Macrodantin (100 mg) Capsule Oral b.i.d., Oxycodone-Acetaminophen 1 (10-325 mg) Tablet Oral four times a day PRN, Sprycel 1 (100 mg) Tablet Oral daily, TraZODone HCl 1 (150 mg) Tablet Oral at bedtime PRN, Zofran 1 (8 mg) Tablet Oral t.i.d. PRN Allergies: No Known Allergies. Vital Signs: Performed on Nov 24, 2020 09:14 Height - 64.00 in Weight - 151 lbs (LOW) BSA - 1.74 sq.m BMI - 25.92 Temperature - 98.7 F Pulse - 71 /min Respiration - 20 /min BP - 145/82 mm(hg) (HIGH) O2 Sat - 97 % Pain - 8 Fatigue - 10 Physical Examination: Constitutional - She appears somewhat weak generally, Eyes - Sclerae nonicteric. Conjunctivae clear, ENMT - No lesions noted in the oral cavity, Hematologic/Lymphatic - No cervical, clavicular, or axillary adenopathy, Respiratory - Lungs sound clear with some decrease in air movement bilaterally, Cardiovascular - Heart rhythm is regular. There is a II/ systolic murmur. There is no gallop or rub noted, Abdomen - Soft. Liver and spleen are not enlarged. There is no abdominal mass or ascites noted and there is no inguinal adenopathy, Extremities - No edema, Neurologic - No focal neurologic deficits noted. Lab/Imaging: Test performed on Nov 23, 2020 00:00 Ferritin 17.7 ng/mL Folate 10.2 ng/mL TSH 0.346 uU/mL % Iron Saturation 19 % Vitamin D (25-Hydroxy) 19 ng/mL Iron, Total 58 mcg/dL TIBC 305 mcg/dL Manual Lymphocytes 27.6 % Manual Monocytes 7.4 % Manual Eosinophils 1.8 % Manual Basophils 0.8 % Problem List: 1. Ida chromosome positive chronic myeloid leukemia, confirmed by bone marrow aspiration/biopsy on 08/02/2016. 2. Hyperlipidemia. 3. Hypothyroidism. 4. Recurrent nephrolithiasis. 5. Degenerative arthritis/degenerative disease of the spine. 6. She has nicotine dependence (cigarettes). Problems Addressed with this Encounter and Plan: Patient with Ida chromosome positive chronic myeloid leukemia, confirmed by bone marrow aspiration/biopsy on 08/02/2016. Treatment with imatinib 400 mg daily began on 08/27/2016. She had evidence of response by her quantitative PCR, decreasing from 9.7358 on 11/13/2016 to 1.7941 on 01/23/2017. Her imatinib dosage had been decreased to 200 mg daily due to worsening fatigue and musculoskeletal pain. As of her visit in March 2017 the quantitative PCR had increased to 8.9534 compared to to 1.7941 in January. 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 She was then seen at [facility] by Dr. Jeromy Mirza. At his recommendation her treatment was changed to dasatanib 100 mg daily, beginning 06/13/2017. During followup she had ongoing complaints of fatigue and musculoskeletal pain, but she was able to tolerate the dasatinib with acceptable toxicity, and her quantitative PCR had remained undetectable or detectable at a very low level. She comes in now with increasing weakness/fatigue. She continues to have significant joint pain. As of 11/02/2020 her PCR was detectable, but still on a very low level. Her laboratory studies from yesterday did show evidence of iron deficiency and her B12 level was in the low normal range, though she was not anemic. There was suspected urinary tract infection, for which she is on antibiotic therapy. At least for now she will continue the dasatinib at 100 mg daily. I will have her start oral iron supplementation with ferrous sulfate and she also will start vitamin D3 1000 units daily. I will check additional laboratory studies, including a repeat B12 level with methylmalonic acid and homocystine levels. I also want to repeat the quantitative PCR. I will see her again in 1 month. If her symptoms are not improving, I may opt to stop her treatment. Signed By: Ihsan Sherwood M.D. <<Signature on File>>
[2020-11-27 21:23] LABS: BCR ABL1 (IS) 0.021 (0.000); P210 BCR ALB1 DETECTED; Prior Results NG; Source VEN
[2020-11-29 14:58] LABS: Methylmalonic Acid 217 nmol/L (87-318)
== END 2020-11-24 06:05 | disposition home or self-care (01) ==
PROVIDERS: PCP Nurse Practitioner Family; Visit Provider Internal Medicine Medical Oncology
DX: C92.10 Chronic myeloid leukemia, BCR/ABL-positive, not having achieved remission (principal); E78.5 Hyperlipidemia, unspecified; E03.9 Hypothyroidism, unspecified; M19.90 Unspecified osteoarthritis, unspecified site; F17.210 Nicotine dependence, cigarettes, uncomplicated
CPT/HCPCS: 80053; 81206; 82607; 83090; 83615; 83735; 83921; 85025; 85651; 86140; 99214

== ENCOUNTER 2020-12-29 12:13 | Outpatient (CLI) | payer MEDICARE, SELFPAY ==
[2020-12-29 14:22] LABS: Add Urine Microscopic? YES; Bilirubin Urine 1+ (Negative); Blood Urine 3+ (Negative); Glucose Urine UA Norm (Normal); Ketones Urine Negative (Negative); Leukocyte Esterase Urine Negative (Negative); Nitrate Urine Negative (Negative); Protein Urine 1+ (Negative); Specific Gravity, Urine 1.015 (1.005-1.030); Urine Appearance SL Hazy (CLEAR); Urine Color Yellow (Yellow); Urobilinogen Urine 4 mg/dL (Negative); pH Urine 6.5 (5-7)
[2020-12-29 14:28] LABS: Add Urine Culture? Yes; Bacteria Urine 2+ /hpf; Hyaline Casts Urine 0-4 /lpf; RBC Urine 25-40 /hpf (0-2); WBC Urine 0-4 /hpf (0-5)
--- NOTE | 2021-01-01 16:39 | ONC FU_ITS ---
Dr. Sherwood Patient Follow-Up Note Patient: Justina Meraz Unit #: [id number]: 1955 Dicatated By: Ihsan Sherwood M.D.Date of Visit:Dec 29, 2020 Onc Med Follow-up/Prog Note Chief Complaint: Chronic myeloid leukemia. History of Present Illness: This is a 65 year-old woman with [place] chromosome positive chronic myeloid leukemia. She was found on routine scheduled lab studies on 06/24/2016 to have a significantly elevated white blood cell count at 78,300. The hemoglobin was normal at 13.4 g with hematocrit 45%. The platelet count was normal at 174,000. The reported differential included 52% segs, 18% bands, 5% metamyelocytes, 10% myelocytes, 9% lymphocytes, 5% monocytes, and 1% eosinophils. There were 2 nucleated RBC reported. A repeat CBC on 07/24/2016 showed similar findings with WBC 75,800, Hg 13.7 g, and platelet count 178,000. I had seen her initially on 07/27/2016. The findings were suspicious for chronic myelogenous leukemia. She underwent bone marrow aspiration/biopsy on 08/02/2016 showed 100% cellularity with panmyelosis. Blasts were estimated at 4%. The BCR/abl translocation was detected by FISH, and the standard chromosome analysis was positive for the [place] translocation between chromosomes 9 and 22, consistent with chronic myeloid leukemia. The quantitative BCR/abl was requested, but apparently not performed. She began treatment with imatinib 400 mg daily. There was some delay in getting that started due to issues with insurance coverage. The medication actually started on 08/27/2016. She seemed to tolerate it pretty well initially. On her follow-up laboratory studies in October 2016 her quantitative PCR came back at 9.7358, but there was no baseline for comparison. Her CBC at that point was normal with hemoglobin 12.0 g, white blood cell count 7100, and platelet count 280,000. On her follow-up visit on 01/08/2017, she appeared to be having more side effects with the imatinib, including fatigue and musculoskeletal pain. Her blood counts were stable. Her imatinib dosage was reduced to 200 mg daily. Her repeat quantitative PCR on 01/23/2017 was down to 1.7941. However, as of her visit on 04/18/2017 the quantitative PCR had increased to 8.9534. 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 She was then referred to [facility]. She was seen there by Dr. Jeromy Mirza on 05/29/2017. It was recommended that she continue further treatment with dasatinib. The dasatinib was started on 06/13/2017 at a dose of 100 mg daily. She has had a good response to the dasatinib with gradual decline in her quantitative PCR. As of September 2018 she was tolerating the dasatinib at 100 mg daily and her quantitative PCR was below the quantifiable limits of the assay. During her subsequent followup it remained undetectable. Her other medical illnesses include hyperlipidemia, hypothyroidism, nephrolithiasis, and degenerative disease of the spine with chronic back pain. She has a history of smoking 1 pack of cigarettes daily for 30 years. INTERIM HISTORY: At her scheduled follow-up visit on 05/19/2020 she had presented with acute onset of severe chills. She was sent to the emergency room, where she was admitted to the hospital with cellulitis of the right leg. There was also some suspicion of septic arthritis in the right hip joint, for which she was transferred to [facility] in [place]. Ultimately, there was found to be no evidence of septic arthritis or osteomyelitis, and she did show gradual improvement, though she required prolonged antibiotic therapy. She was off her dasatinib during the acute illness, but she subsequently was able to restart it. Her PCR study in April was positive at a very low level, 0.018. Her repeat quantitative PCR on 11/02/2020 was up just slightly, to 0.025. She continued dasatinib 100 mg daily. I had seen her for a follow-up visit on 11/24/2020. She complained of being tired and worn out. She had been seen a day earlier at the [facility] and her urinalysis did show 2+ blood and 2+ leukocyte esterase. She had started empiric antibiotic therapy for urinary tract infection. Her CBC showed normal hemoglobin at 14.6 g with white blood cell count 5100 and platelet count 262,000. Her serum iron studies showed slightly low transferrin saturation at 19% and the ferritin also was low at 17.7 ng/mL. B12 was in the low normal range at 272 pg/mL. Her 25 hydroxy vitamin D level also was low at 19. She had not been taking her vitamin supplements, and at that point she did agree to get back on her vitamin D3 and ferrous sulfate. She continued the dasatinib at 100 mg daily. She is seen for a follow-up visit. She has been feeling better generally since she has been back on her vitamin D and iron supplements. She still has some fatigue, she is doing light work at home. ECOG score is 1. Her appetite is still not that good and she has lost weight. She does not have fever or night sweats. She has had no mouth sores. She has no shortness of breath, cough, or chest pain. She currently has no GI or complaints. She does have significant joint pain, mainly with activity. She does not complain of headache or dizziness and she has no focal neurologic symptoms. Medications: Diclofenac Sodium 1 (1 %) Gel (jelly) Transdermal daily PRN, Duragesic-50 2 Patch(es) (of 75 mcg/hr) Patch 72 Hr Transdermal q 72 hours, Levothyroxine Sodium 1 (125 mcg) Tablet Oral daily, Macrodantin (100 mg) Capsule Oral b.i.d., Oxycodone-Acetaminophen 1 (10-325 mg) Tablet Oral four times a day PRN, Sprycel 1 (100 mg) Tablet Oral daily, TraZODone HCl 1 (150 mg) Tablet Oral at bedtime PRN, Zofran 1 (8 mg) Tablet Oral t.i.d. PRN Allergies: No Known Allergies. Vital Signs: Performed on Dec 29, 2020 12:39 Height - 64.00 in Weight - 146.4 lbs (LOW) BSA - 1.71 sq.m BMI - 25.13 Temperature - 99.6 F (HIGH) Pulse - 68 /min Respiration - 18 /min BP - 122/78 mm(hg) O2 Sat - 94 % (LOW) Pain - 8 Fatigue - 6 Physical Examination: Constitutional - She looks pretty good generally, Eyes - Sclerae nonicteric. Conjunctivae clear, ENMT - No lesions noted in the oral cavity, Hematologic/Lymphatic - No cervical, clavicular, or axillary adenopathy, Respiratory - Lungs show diminished breath sounds bilaterally. There are mild expiratory rhonchi, Cardiovascular - Heart rhythm is regular. There is a II/ systolic murmur. There is no gallop or rub noted, Abdomen - Soft. Liver and spleen are not enlarged. There is no abdominal mass or ascites noted and there is no inguinal adenopathy, Extremities - No edema, Neurologic - No focal neurologic deficits noted. Lab/Imaging: Test performed on Nov 24, 2020 09:47 Homocysteine 22.40 umol/L LDH (Total) 253 U/L Magnesium 1.8 mg/dL Methylmalonic Acid 217 nmol/L Sodium 138 mmol/L Vitamin B12 272 pg/mL Potassium 4.1 mmol/L Chloride 100 mmol/L CO2 31 mmol/L Anion Gap 11.1 BUN 11 mg/dL Creatinine 0.8 mg/dL Cr Clearance (Est) 75.8100 mL/min eGFR 72.0 mL/min Glucose 80 mg/dL Osmolality - Calculated 284 mOsm/kg Calcium 9.4 mg/dL Protein, Total 7.3 g/dL Albumin 4.1 g/dL Globulin 3.2 g/dL Bilirubin, Total 0.3 mg/dL ALT (SGPT) 11 U/L AST (SGOT) 16 U/L Alkaline Phosphatase 58 IU/L ESR (Sed Rate) 28 mm/hr WBC 6.9 10 3/uL RBC 4.29 10 6/uL HGB 13.2 g/dL HCT 42.3 % MCV 98.6 fL MCH 30.8 pg MCHC 31.2 g/dL RDW 14.9 % Platelet Count 249 10 3/cmm MPV 8.8 fL Neutrophils 3.67 10 3/uL Lymphocytes 2.5 10 3/uL Monocytes 0.5 10 3/uL Eosinophils 0.2 10 3/uL Basophils 0.1 10 3/uL Neutrophil % 53.0 % Lymphocyte % 36.0 % Monocyte % 6.5 % Eosinophil % 3.2 % Basophils % 1.0 % NRBC % 0 % BCR/ABL Source LINH BCR/ABL Previous Quant NG Test performed on Nov 23, 2020 00:00 Ferritin 17.7 ng/mL Folate 10.2 ng/mL TSH 0.346 uU/mL % Iron Saturation 19 % Vitamin D (25-Hydroxy) 19 ng/mL Iron, Total 58 mcg/dL TIBC 305 mcg/dL Manual Lymphocytes 27.6 % Manual Monocytes 7.4 % Manual Eosinophils 1.8 % Manual Basophils 0.8 % Problem List: 1. [place] chromosome positive chronic myeloid leukemia, confirmed by bone marrow aspiration/biopsy on 08/02/2016. 2. Hyperlipidemia. 3. Hypothyroidism. 4. Recurrent nephrolithiasis. 5. Degenerative arthritis/degenerative disease of the spine. 6. She has nicotine dependence (cigarettes). Problems Addressed with this Encounter and Plan: 1. Patient with [place] chromosome positive chronic myeloid leukemia, confirmed by bone marrow aspiration/biopsy on 08/02/2016. Treatment with imatinib 400 mg daily began on 08/27/2016. She had evidence of response by her quantitative PCR, decreasing from 9.7358 on 11/13/2016 to 1.7941 on 01/23/2017. Her imatinib dosage had been decreased to 200 mg daily due to worsening fatigue and musculoskeletal pain. As of her visit in March 2017 the quantitative PCR had increased to 8.9534 compared to to 1.7941 in January. 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 She was then seen at [facility] by Dr. Jeromy Mirza. At his recommendation her treatment was changed to dasatanib 100 mg daily, beginning 06/13/2017. During followup she had ongoing complaints of fatigue and musculoskeletal pain, but she was able to tolerate the dasatinib with acceptable toxicity, and her quantitative PCR had remained undetectable or detectable at a very low level. During follow-up her quantitative PCR has remained detectable at a very low level. She has had ongoing complaints of fatigue and musculoskeletal pain. At her follow-up visit in October 2020 she was feeling quite a bit worse generally. She was given empiric antibiotic therapy for suspected urinary tract infection and at that point she also restarted her oral vitamin D and iron supplements. Since then she has been feeling better generally, and she appears to be tolerating her treatment with acceptable toxicity. In the absence of any evidence of progression of the chronic myeloid leukemia, she will continue dasatinib at 100 mg daily. I will see her again in 2 months. 2. She has had ongoing complaints of anorexia and she has been losing weight. I will have her start treatment with dronabinol 5 mg twice daily, subject to verification of insurance coverage. Signed By: Ihsan Sherwood M.D. <<Signature on File>>
== END 2020-12-29 12:14 | disposition home or self-care (01) ==
PROVIDERS: PCP Nurse Practitioner Family; Visit Provider Internal Medicine Medical Oncology
DX: C92.10 Chronic myeloid leukemia, BCR/ABL-positive, not having achieved remission (principal); R63.0 Anorexia; R31.9 Hematuria, unspecified; F17.210 Nicotine dependence, cigarettes, uncomplicated; Z68.25 Body mass index [BMI] 25.0-25.9, adult; Z79.899 Other long term (current) drug therapy
CPT/HCPCS: 81001; 87086; 99214

== ENCOUNTER 2021-03-09 13:24 | Outpatient (CLI) | payer MEDICARE, SELFPAY ==
[2021-03-09 14:19] LABS: Basophils # 0.1 10^3/uL (0.0-0.1); Basophils % 1.1 %; Eosinophils # 0.4 10^3/uL (0.0-0.8); Eosinophils % 5.5 %; Hematocrit 44.6 % (37.0-47.0); Hemoglobin 14.4 g/dL (11.5-15.3); Lymphocytes # 2.6 10^3/uL (0.8-4.8); Lymphocytes % 32.7 %; Mean Corpuscular HGB Conc 32.3 g/dL (30.0-36.0); Mean Corpuscular Hemoglobin 31.5 pg (28.0-34.0); Mean Corpuscular Volume 97.6 fL (81-99); Mean Platelet Volume 9.2 fL (7.4-10.4); Monocytes # 0.6 10^3/uL (0.2-0.9); Monocytes % 6.8 %; Neutrophils # 4.33 10^3/uL (1.8-7.7); Neutrophils % 53.8 %; Nucleated Red Blood Cells % 0 %; Platelet Count 258 10^3/cmm (130-400); Red Blood Count 4.57 10^6/uL (4.1-5.3); Red Cell Distribution Width 14.8 % (12.1-15.1); White Blood Count 8.1 10^3/uL (4.0-10.0)
[2021-03-09 14:49] LABS: Alanine Aminotransferase 10 U/L (0-33); Albumin Level 3.9 g/dL (3.5-5.2); Alkaline Phosphatase 54 IU/L (35-105); Anion Gap 10.3 (5-19); Aspartate Amino Transferase 18 U/L (0-32); Blood Urea Nitrogen 14 mg/dL (8-23); Calcium 8.7 mg/dL (8.5-10.5); Carbon Dioxide 32 mmol/L (22-29); Chloride 100 mmol/L (98-107); Globulin 2.8 g/dL (1.3-4.6); Glucose 113 mg/dL (65-115); Lactate Dehydrogenase 262 U/L (135-214); Osmolality Calculated 287 mOsm/kg (285-295); Potassium 4.3 mmol/L (3.5-5.1); Sodium 138 mmol/L (136-145); Total Bilirubin 0.3 mg/dL (0.15-1.2); Total Protein 6.7 g/dL (6.6-8.7)
[2021-03-13 00:03] LABS: BCR ABL1 (IS) 0.007 (0.000); P210 BCR ALB1 DETECTED; Prior Results NG; Source V
--- NOTE | 2021-03-13 13:27 | ONC FU_ITS ---
Dr. Sherwood Patient Follow-Up Note Patient: Justina Meraz Unit #: [id number]: 1955 Dicatated By: Ihsan Sherwood M.D.Date of Visit:Mar 09, 2021 Onc Med Follow-up/Prog Note Chief Complaint: Chronic myeloid leukemia. History of Present Illness: This is a 65 year-old woman with [place] chromosome positive chronic myeloid leukemia. She was found on routine scheduled lab studies on 06/24/2016 to have a significantly elevated white blood cell count at 78,300. The hemoglobin was normal at 13.4 g with hematocrit 45%. The platelet count was normal at 174,000. The reported differential included 52% segs, 18% bands, 5% metamyelocytes, 10% myelocytes, 9% lymphocytes, 5% monocytes, and 1% eosinophils. There were 2 nucleated RBC reported. A repeat CBC on 07/24/2016 showed similar findings with WBC 75,800, Hg 13.7 g, and platelet count 178,000. I had seen her initially on 07/27/2016. The findings were suspicious for chronic myelogenous leukemia. She underwent bone marrow aspiration/biopsy on 08/02/2016 showed 100% cellularity with panmyelosis. Blasts were estimated at 4%. The BCR/abl translocation was detected by FISH, and the standard chromosome analysis was positive for the [place] translocation between chromosomes 9 and 22, consistent with chronic myeloid leukemia. The quantitative BCR/abl was requested, but apparently not performed. She began treatment with imatinib 400 mg daily. There was some delay in getting that started due to issues with insurance coverage. The medication actually started on 08/27/2016. She seemed to tolerate it pretty well initially. On her follow-up laboratory studies in October 2016 her quantitative PCR came back at 9.7358, but there was no baseline for comparison. Her CBC at that point was normal with hemoglobin 12.0 g, white blood cell count 7100, and platelet count 280,000. On her follow-up visit on 01/08/2017, she appeared to be having more side effects with the imatinib, including fatigue and musculoskeletal pain. Her blood counts were stable. Her imatinib dosage was reduced to 200 mg daily. Her repeat quantitative PCR on 01/23/2017 was down to 1.7941. However, as of her visit on 04/18/2017 the quantitative PCR had increased to 8.9534. 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 She was then referred to [facility]. She was seen there by Dr. Jeromy Mirza on 05/29/2017. It was recommended that she continue further treatment with dasatinib. The dasatinib was started on 06/13/2017 at a dose of 100 mg daily. She has had a good response to the dasatinib with gradual decline in her quantitative PCR. As of September 2018 she was tolerating the dasatinib at 100 mg daily and her quantitative PCR was below the quantifiable limits of the assay. During her subsequent followup it remained undetectable. Her other medical illnesses include hyperlipidemia, hypothyroidism, nephrolithiasis, and degenerative disease of the spine with chronic back pain. She has a history of smoking 1 pack of cigarettes daily for 30 years. INTERIM HISTORY: At her scheduled follow-up visit on 05/19/2020 she had presented with acute onset of severe chills. She was sent to the emergency room, where she was admitted to the hospital with cellulitis of the right leg. There was also some suspicion of septic arthritis in the right hip joint, for which she was transferred to [facility] in [place]. Ultimately, there was found to be no evidence of septic arthritis or osteomyelitis, and she did show gradual improvement, though she required prolonged antibiotic therapy. She was off her dasatinib during the acute illness, but she subsequently was able to restart it. Her PCR study in April was positive at a very low level, 0.018. Her repeat quantitative PCR on 11/02/2020 was up just slightly, to 0.025. She continued dasatinib 100 mg daily. I had seen her for a follow-up visit on 11/24/2020. She complained of being tired and worn out. She had been seen a day earlier at the [place] [facility] and her urinalysis did show 2+ blood and 2+ leukocyte esterase. She had started empiric antibiotic therapy for urinary tract infection. Her CBC showed normal hemoglobin at 14.6 g with white blood cell count 5100 and platelet count 262,000. Her serum iron studies showed slightly low transferrin saturation at 19% and the ferritin also was low at 17.7 ng/mL. B12 was in the low normal range at 272 pg/mL. Her 25-hydroxy vitamin D level also was low at 19. She had not been taking her vitamin supplements, and at that point she did agree to get back on her vitamin D3 and ferrous sulfate. She continued the dasatinib at 100 mg daily. She is seen for a follow-up visit. She has been feeling pretty good generally. She has had a little bit better appetite since she started taking dronabinol. Her energy has been good. She is able to do light work. ECOG score is 1. She does not have fever or night sweats. She has had no mouth sores. She has no shortness of breath, cough, or chest pain. She has no GI or complaints. She has chronic joint pain, unchanged. She does not complain of headache or dizziness. She has some numbness in her hands. Medications: Diclofenac Sodium 1 (1 %) Gel (jelly) Transdermal daily PRN, Duragesic-50 2 Patch(es) (of 75 mcg/hr) Patch 72 Hr Transdermal q 72 hours, Levothyroxine Sodium 1 (125 mcg) Tablet Oral daily, Macrodantin (100 mg) Capsule Oral b.i.d., Oxycodone-Acetaminophen 1 (10-325 mg) Tablet Oral four times a day PRN, Sprycel 1 (100 mg) Tablet Oral daily, TraZODone HCl 1 (150 mg) Tablet Oral at bedtime PRN, Zofran 1 (8 mg) Tablet Oral t.i.d. PRN Allergies: No Known Allergies. Vital Signs: Performed on Mar 09, 2021 15:16 Height - 64.00 in Weight - 143.4 lbs (LOW) BSA - 1.70 sq.m BMI - 24.61 Temperature - 97.5 F (LOW) Pulse - 69 /min Respiration - 18 /min BP - 147/73 mm(hg) (HIGH) O2 Sat - 93 % (LOW) Pain - 7 Fatigue - 6 Physical Examination: Constitutional - She looks pretty good generally, Eyes - Sclerae nonicteric. Conjunctivae clear, ENMT - No lesions noted in the oral cavity, Hematologic/Lymphatic - No cervical, clavicular, or axillary adenopathy, Respiratory - Lungs show diminished breath sounds and mild expiratory rhonchi bilaterally, Cardiovascular - Heart rhythm is regular. There is a II/ systolic murmur. There is no gallop or rub noted, Abdomen - Soft. Liver and spleen are not enlarged. There is no abdominal mass or ascites noted and there is no inguinal adenopathy, Extremities - No edema, Neurologic - No focal neurologic deficits noted. Lab/Imaging: Test performed on Mar 09, 2021 13:36 LDH (Total) 262 U/L Sodium 138 mmol/L Potassium 4.3 mmol/L Chloride 100 mmol/L CO2 32 mmol/L Anion Gap 10.3 BUN 14 mg/dL Creatinine 0.7 mg/dL Cr Clearance (Est) 82.2800 mL/min eGFR 84.0 mL/min Glucose 113 mg/dL Osmolality - Calculated 287 mOsm/kg Calcium 8.7 mg/dL Protein, Total 6.7 g/dL Albumin 3.9 g/dL Globulin 2.8 g/dL Bilirubin, Total 0.3 mg/dL ALT (SGPT) 10 U/L AST (SGOT) 18 U/L Alkaline Phosphatase 54 IU/L WBC 8.1 10 3/uL RBC 4.57 10 6/uL HGB 14.4 g/dL HCT 44.6 % MCV 97.6 fL MCH 31.5 pg MCHC 32.3 g/dL RDW 14.8 % Platelet Count 258 10 3/cmm MPV 9.2 fL Neutrophils 4.33 10 3/uL Lymphocytes 2.6 10 3/uL Monocytes 0.6 10 3/uL Eosinophils 0.4 10 3/uL Basophils 0.1 10 3/uL Neutrophil % 53.8 % Lymphocyte % 32.7 % Monocyte % 6.8 % Eosinophil % 5.5 % Basophils % 1.1 % NRBC % 0 % BCR/ABL Source V BCR/ABL Previous Quant NG Problem List: 1. [place] chromosome positive chronic myeloid leukemia, confirmed by bone marrow aspiration/biopsy on 08/02/2016. 2. Hyperlipidemia. 3. Hypothyroidism. 4. Recurrent nephrolithiasis. 5. Degenerative arthritis/degenerative disease of the spine. 6. She has nicotine dependence (cigarettes). Problems Addressed with this Encounter and Plan: 1. Patient with [place] chromosome positive chronic myeloid leukemia, confirmed by bone marrow aspiration/biopsy on 08/02/2016. Treatment with imatinib 400 mg daily began on 08/27/2016. She had evidence of response by her quantitative PCR, decreasing from 9.7358 on 11/13/2016 to 1.7941 on 01/23/2017. Her imatinib dosage had been decreased to 200 mg daily due to worsening fatigue and musculoskeletal pain. As of her visit in March 2017 the quantitative PCR had increased to 8.9534 compared to to 1.7941 in January. 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 She was then seen at [facility] by Dr. Jeromy iMrza. At his recommendation her treatment was changed to dasatanib 100 mg daily, beginning 06/13/2017. During followup she had ongoing complaints of fatigue and musculoskeletal pain, but she was able to tolerate the dasatinib with acceptable toxicity, and her quantitative PCR remained undetectable or detectable at a very low level. She has had ongoing complaints of fatigue and musculoskeletal pain. She continues to tolerate her treatment with acceptable toxicity. Her quantitative PCR has remained detectable at a very low level. In the absence of any evidence of progression of the chronic myeloid leukemia, she will continue dasatinib at 100 mg daily. She will be scheduled for a followup visit in 3 months. 2. She has complained of anorexia. It has improved somewhat with dronabinol. Signed By: Ihsan Sherwood M.D. <<Signature on File>>
== END 2021-03-09 13:25 | disposition home or self-care (01) ==
PROVIDERS: PCP Nurse Practitioner Family; Visit Provider Internal Medicine Medical Oncology
DX: C91.10 Chronic lymphocytic leukemia of B-cell type not having achieved remission (principal); E78.5 Hyperlipidemia, unspecified; E03.9 Hypothyroidism, unspecified; N20.0 Calculus of kidney; M19.90 Unspecified osteoarthritis, unspecified site; M47.9 Spondylosis, unspecified; F17.210 Nicotine dependence, cigarettes, uncomplicated; Z79.899 Other long term (current) drug therapy; Z92.21 Personal history of antineoplastic chemotherapy
CPT/HCPCS: 80053; 81206; 83615; 85025; 99214

== ENCOUNTER 2021-06-08 13:05 | Outpatient (CLI) | payer MEDICARE, SELFPAY ==
[2021-06-08 13:56] LABS: Basophils # 0.1 10^3/uL (0.0-0.1); Basophils % 0.8 %; Eosinophils # 0.3 10^3/uL (0.0-0.8); Eosinophils % 4.2 %; Hematocrit 40.7 % (37.0-47.0); Hemoglobin 13.2 g/dL (11.5-15.3); Lymphocytes # 2.7 10^3/uL (0.8-4.8); Lymphocytes % 42.3 %; Mean Corpuscular HGB Conc 32.4 g/dL (30.0-36.0); Mean Corpuscular Hemoglobin 31.9 pg (28.0-34.0); Mean Corpuscular Volume 98.3 fl (81-99); Mean Platelet Volume 8.6 fL (7.4-10.4); Monocytes # 0.4 10^3/uL (0.2-0.9); Monocytes % 6.9 %; Neutrophils # 2.85 10^3/uL (1.8-7.7); Neutrophils % 45.5 %; Nucleated Red Blood Cells % 0 %; Platelet Count 240 10^3/cmm (130-400); Red Blood Count 4.14 10^6/uL (4.1-5.3); Red Cell Distribution Width 14.9 % (12.1-15.1); White Blood Count 6.3 10^3/uL (4.0-10.0)
[2021-06-08 14:20] LABS: Lactate Dehydrogenase 262 U/L (135-214)
--- NOTE | 2021-06-08 20:07 | ONC FU_ITS ---
Dr. Sherwood Patient Follow-Up Note Patient: Justina Meraz Unit #: [id number]: 1955 Dicatated By: Ihsan Sherwood M.D.Date of Visit:Jun 08, 2021 Onc Med Follow-up/Prog Note Chief Complaint: Chronic myeloid leukemia. History of Present Illness: This is a 65 year-old woman with [place] chromosome positive chronic myeloid leukemia. She was found on routine scheduled lab studies on 06/24/2016 to have a significantly elevated white blood cell count at 78,300. The hemoglobin was normal at 13.4 g with hematocrit 45%. The platelet count was normal at 174,000. The reported differential included 52% segs, 18% bands, 5% metamyelocytes, 10% myelocytes, 9% lymphocytes, 5% monocytes, and 1% eosinophils. There were 2 nucleated RBC reported. A repeat CBC on 07/24/2016 showed similar findings with WBC 75,800, Hg 13.7 g, and platelet count 178,000. I had seen her initially on 07/27/2016. The findings were suspicious for chronic myelogenous leukemia. She underwent bone marrow aspiration/biopsy on 08/02/2016 showed 100% cellularity with panmyelosis. Blasts were estimated at 4%. The BCR/abl translocation was detected by FISH, and the standard chromosome analysis was positive for the [place] translocation between chromosomes 9 and 22, consistent with chronic myeloid leukemia. The quantitative BCR/abl was requested, but apparently not performed. She began treatment with imatinib 400 mg daily. There was some delay in getting that started due to issues with insurance coverage. The medication actually started on 08/27/2016. She seemed to tolerate it pretty well initially. On her follow-up laboratory studies in October 2016 her quantitative PCR came back at 9.7358, but there was no baseline for comparison. Her CBC at that point was normal with hemoglobin 12.0 g, white blood cell count 7100, and platelet count 280,000. On her follow-up visit on 01/08/2017, she appeared to be having more side effects with the imatinib, including fatigue and musculoskeletal pain. Her blood counts were stable. Her imatinib dosage was reduced to 200 mg daily. Her repeat quantitative PCR on 01/23/2017 was down to 1.7941. However, as of her visit on 04/18/2017 the quantitative PCR had increased to 8.9534. 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 She was then referred to [facility]. She was seen there by Dr. Jeromy Mirza on 05/29/2017. It was recommended that she continue further treatment with dasatinib. The dasatinib was started on 06/13/2017 at a dose of 100 mg daily. She has had a good response to the dasatinib with gradual decline in her quantitative PCR. As of September 2018 she was tolerating the dasatinib at 100 mg daily and her quantitative PCR was below the quantifiable limits of the assay. During her subsequent followup it remained undetectable. Her other medical illnesses include hyperlipidemia, hypothyroidism, nephrolithiasis, and degenerative disease of the spine with chronic back pain. She has a history of smoking 1 pack of cigarettes daily for 30 years. INTERIM HISTORY: At her scheduled follow-up visit on 05/19/2020 she had presented with acute onset of severe chills. She was sent to the emergency room, where she was admitted to the hospital with cellulitis of the right leg. There was also some suspicion of septic arthritis in the right hip joint, for which she was transferred to [facility] in [place]. Ultimately, there was found to be no evidence of septic arthritis or osteomyelitis, and she did show gradual improvement, though she required prolonged antibiotic therapy. She was off her dasatinib during the acute illness, but she subsequently was able to restart it. Her PCR study in April was positive at a very low level, 0.018. Her repeat quantitative PCR on 11/02/2020 was up just slightly, to 0.025. She continued dasatinib 100 mg daily. I had seen her for a follow-up visit on 11/24/2020. She complained of being tired and worn out. She had been seen a day earlier at the [place] [facility] and her urinalysis did show 2+ blood and 2+ leukocyte esterase. She had started empiric antibiotic therapy for urinary tract infection. Her CBC showed normal hemoglobin at 14.6 g with white blood cell count 5100 and platelet count 262,000. Her serum iron studies showed slightly low transferrin saturation at 19% and the ferritin also was low at 17.7 ng/mL. B12 was in the low normal range at 272 pg/mL. Her 25-hydroxy vitamin D level also was low at 19. She had not been taking her vitamin supplements, and at that point she did agree to get back on her vitamin D3 and ferrous sulfate. She continued the dasatinib at 100 mg daily. As of her followup visit on 03/09/2021 she was feeling somewhat better. Her quantitative PCR remained detectable at a very low titer, 0.007%. She is seen for a scheduled visit. She recently had follow-up with Suzette Elkins, and she currently has studies in progress to evaluate for inflammatory arthritis, as she is having more joint pain and stiffness, particularly in her hands and shoulders. She also has some pain in her hips. She has continued symptomatic management with fentanyl, oxycodone/APAP, and ibuprofen. She says her energy comes and goes. She is still doing housework. ECOG score is 1. Her appetite has not been good, and she has lost weight. She does not have fever. She says she does get sweaty. She has not had sore mouth or throat. She does not complain of shortness of breath, cough, or chest pain. She has no GI or complaints. She does not complain of headache or dizziness. She has numbness in the middle and ring fingers on her right hand. She has no other focal neurologic symptoms. Medications: Diclofenac Sodium 1 (1 %) Gel (jelly) Transdermal daily PRN, Duragesic-50 2 Patch(es) (of 75 mcg/hr) Patch 72 Hr Transdermal q 72 hours, Levothyroxine Sodium 1 (125 mcg) Tablet Oral daily, Macrodantin (100 mg) Capsule Oral b.i.d., Oxycodone-Acetaminophen 1 (10-325 mg) Tablet Oral four times a day PRN, Sprycel 1 (100 mg) Tablet Oral daily, TraZODone HCl 1 (150 mg) Tablet Oral at bedtime PRN, Zofran 1 (8 mg) Tablet Oral t.i.d. PRN Allergies: No Known Allergies. Vital Signs: Performed on Jun 08, 2021 15:01 Height - 64.00 in Weight - 143.4 lbs BSA - 1.70 sq.m BMI - 24.61 Temperature - 97.5 F (LOW) Pulse - 69 /min Respiration - 18 /min BP - 117/69 mm(hg) O2 Sat - 93 % (LOW) Pain - 8 Fatigue - 5 Physical Examination: Constitutional - She looks pretty good generally, Eyes - Sclerae nonicteric. Conjunctivae clear, ENMT - No lesions noted in the oral cavity, Hematologic/Lymphatic - No cervical, clavicular, or axillary adenopathy, Respiratory - Lungs sound clear with diminished air movement bilaterally, Cardiovascular - Heart rhythm is regular. There is a II/ systolic murmur. There is no gallop or rub noted, Abdomen - Soft. Liver and spleen are not enlarged. There is no abdominal mass or ascites noted and there is no inguinal adenopathy, Extremities - No edema, Neurologic - No focal neurologic deficits noted. Lab/Imaging: Test performed on Jun 08, 2021 13:40 LDH (Total) 262 U/L WBC 6.3 10 3/uL RBC 4.14 10 6/uL HGB 13.2 g/dL HCT 40.7 % MCV 98.3 fl MCH 31.9 pg MCHC 32.4 g/dL RDW 14.9 % Platelet Count 240 10 3/cmm MPV 8.6 fL Neutrophils 2.85 10 3/uL Lymphocytes 2.7 10 3/uL Monocytes 0.4 10 3/uL Eosinophils 0.3 10 3/uL Basophils 0.1 10 3/uL Neutrophil % 45.5 % Lymphocyte % 42.3 % Monocyte % 6.9 % Eosinophil % 4.2 % Basophils % 0.8 % NRBC % 0 % Problem List: 1. [place] chromosome positive chronic myeloid leukemia, confirmed by bone marrow aspiration/biopsy on 08/02/2016. 2. Hyperlipidemia. 3. Hypothyroidism. 4. Recurrent nephrolithiasis. 5. Degenerative arthritis/degenerative disease of the spine. 6. She has nicotine dependence (cigarettes). Problems Addressed with this Encounter and Plan: 1. Patient with [place] chromosome positive chronic myeloid leukemia, confirmed by bone marrow aspiration/biopsy on 08/02/2016. Treatment with imatinib 400 mg daily began on 08/27/2016. She had evidence of response by her quantitative PCR, decreasing from 9.7358 on 11/13/2016 to 1.7941 on 01/23/2017. Her imatinib dosage had been decreased to 200 mg daily due to worsening fatigue and musculoskeletal pain. As of her visit in March 2017 the quantitative PCR had increased to 8.9534 compared to to 1.7941 in January. 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 She was then seen at [facility] by Dr. Jeromy Mirza. At his recommendation her treatment was changed to dasatanib 100 mg daily, beginning 06/13/2017. During followup she had ongoing complaints of fatigue and musculoskeletal pain, but she was able to tolerate the dasatinib with acceptable toxicity, and her quantitative PCR remained undetectable or detectable at a very low level. She has had ongoing complaints of fatigue and musculoskeletal pain. She currently has studies in process to evaluate for inflammatory arthritis. These previously had been negative, though that was quite some time ago. Her overall clinical status appears stable. Her current PCR study is pending. As of February 2021 it had remained detectable, but had a very low titer. As such, she continues treatment with dasatinib 100 mg daily. She will be scheduled for a follow-up visit in 3 months. 2. She has complained of anorexia. It improved somewhat with dronabinol. She has had associated weight loss, though her current weight appears stable since her February visit. Signed By: Ihsan Sherwood M.D. <<Signature on File>>
[2021-06-13 22:44] LABS: BCR ABL1 (IS) 0.011 (0.000); P210 BCR ALB1 DETECTED; Prior Results NG; Source blood
== END 2021-06-08 13:06 | disposition home or self-care (01) ==
PROVIDERS: PCP Nurse Practitioner Family; Visit Provider Internal Medicine Medical Oncology
DX: C92.10 Chronic myeloid leukemia, BCR/ABL-positive, not having achieved remission (principal); R63.0 Anorexia; E78.5 Hyperlipidemia, unspecified; E03.9 Hypothyroidism, unspecified; M47.9 Spondylosis, unspecified; F17.210 Nicotine dependence, cigarettes, uncomplicated; Z79.899 Other long term (current) drug therapy; Z79.890 Hormone replacement therapy; Z79.891 Long term (current) use of opiate analgesic
CPT/HCPCS: 36415; 81206; 83615; 85025; 99214

== ENCOUNTER 2021-08-13 09:15 | Emergency (ER) | payer MEDICARE, SELFPAY ==
[2021-08-13 09:30] VITALS: BP 110/69; PULSE 100; RESP 24; TEMP 36.9; O2SAT 82; BMI 24.0
[2021-08-13 09:40] VITALS: BP 136/87; PULSE 94; O2SAT 92
--- NOTE | 2021-08-13 09:40 | ED_ITS ---
HPI - SOB/Dyspnea General: Chief Complaint: Shortness of Breath/Dyspnea Stated Complaint: Difficulty breathing Time Seen by Provider: 08/13/21 09:39 History of Present Illness: HPI Narrative: Ms. Meraz is a 66-year-old lady with significant past medical history of CML on oral chemotherapy who presents to the emergency department due to shortness of breath and cough. Symptom onset was 2 or 3 days ago and gradual. She mostly endorses cough which is mostly n onproductive and shortness of breath. She denies other signs of systemic illness. She has not been vaccinated against Covid. Overall intensity of symptoms is moderate. Course has been worsening. No other significant exacerbating or alleviating factors identified. Review of Systems General: Reports: 10 or more systems reviewed and unremarkable except in HPI and below PFSH ED PFSH: Medical History Chronic back pain CML (chronic myelocytic leukemia) Dyslipidemia Hypothyroidism Nephrolithiasis Nicotine dependence Surgical History H/O sinus surgery History of ureter stent Previous back surgery Family History Mother Cancer Breast cancer Social History Smoking and tobacco status: current every day smoker cigarettes [ Other cigarette details: 1 pack/day ] Alcohol intake: never Household members: family Housing: House Physical Exam Narrative: EXAM NARRATIVE: GENERAL/CONSTITUTIONAL - well-appearing. increased respiratory effort Eyes - PERRL, no conjunctival injection ENMT - Atraumatic external nose and ears. Moist mucous membranes NECK - supple. trachea midline CARDIOVASCULAR - regular rate and rhythm. RESPIRATORY - deminished to auscultation, coarse throughout, tachypnea and new O2 req with hypoxemia on room air ABDOMEN/GI - Nontender/Nondistended. No tenderness to percussion or evidence of peritonitis MSK - Extremities without obvious deformity or tenderness to palpation SKIN - Warm, Dry NEURO - alert and appropriately oriented. Moves all extremities equally. Course ED course: - Patient was seen and evaluated by me at bedside - Patient placed on cardiac monitors, IV access obtained - Initial evaluation notable for respiratory findings as noted above -RT and symptom treatment ordered - Labs notable for no leukocytosis. Metabolic panel with hyponatremia and hypochloremia. Delta troponin negative. CRP elevated with normal pro calcitonin. Compensated ABG. - Imaging notable for patchy infiltrate. Somewhat unimpressive given degree of initial respiratory status when presenting. CTA without evidence of pulmonary embolism. Mild interstitial prominence. - Upon serial reexamination after treatment the patient was improved respiratory status however still require oxygen. - Based on patient history, evaluation, labs, and imaging as interpreted the most likely cause of the patient's condition is [] - The results of ED evaluation were discussed with the patient. Potential dispositions including disposition with home oxygen versus admission for inpatient care was discussed with the patient. She elected for outpatient oxygen and follow-up with strict return precautions, oxygen ordered. Prescriptions, return precautions, follow-up plan were discussed. Patient verbalized understanding and felt safe for discharge. - Patient discharged in satisfactory condition. Vital Signs: Vital signs: Vital Signs Temperature 98.4 F 08/13/21 09:30 Pulse Rate 87 08/13/21 15:52 Respiratory Rate 17 08/13/21 15:52 Blood Pressure 158/88 08/13/21 15:52 Pulse Oximetry 92 08/13/21 15:52 MDM - SOB/Dyspnea Medical Records: Attestation: I reviewed the patient's medical records. Lab Data: Attestation: I reviewed the patient's lab results. Labs: Lab Results 08/13/21 08/13/21 08/13/21 09:58 10:10 10:10 WBC 7.8 10^3/uL 10^3/ uL (4.0-10.0) RBC 4.21 10^6/uL 10^6 /uL (4.1-5.3) Hgb 13.6 g/dL g/dL (11.5-15.3) Hct 40.3 % % (37.0-47.0) MCV 95.7 fl fl (81-99) MCH 32.3 pg pg (28.0-34.0) MCHC 33.7 g/dL g/dL (30.0-36.0) RDW 14.5 % % (12.1-15.1) Plt Count 218 10^3/cmm 10^3 /cmm (130-400) MPV 9.0 fL fL (7.4-10.4) Neut % (Auto) 77.6 % % Lymph % (Auto) 12.2 % % Hopkins % (Auto) 8.0 % % Eos % (Auto) 1.5 % % Baso % (Auto) 0.4 % % Neut # (Auto) 6.04 10^3/uL 10^3 /uL (1.8-7.7) Lymph # (Auto) 1.0 10^3/uL 10^3/ uL (0.8-4.8) Hopkins # (Auto) 0.6 10^3/uL 10^3/ uL (0.2-0.9) Eos # (Auto) 0.1 10^3/uL 10^3/ uL (0.0-0.8) Baso # (Auto) 0.0 10^3/uL 10^3/ uL (0.0-0.1) Nucleated RBC % (a uto) 0 % % Nucleated RBCs # 0.0 /100WBC /100W BC Specimen Type Arterial Sample Site Rr ABG pH 7.43 (7.35-7.45) ABG pCO2 44.6 mmHg mmHg (35-45) ABG pO2 67.3 mmHg L mmHg (80.0-100.0) ABG HCO3 29.8 mmol/L H mmo l/L (22-26) ABG Base Excess 4.8 mmol/L H mmol /L (-2.0-2.0) Corbin Test Pos Hematocrit 43.0 % % (37-47) Hgb O2 Saturation 91.1 % L % (95-100) Carboxyhemoglobin 3.2 %THgb %THgb (0.4-20.1) Methemoglobin 0.9 % % (0.4-1.5) Total Hemoglobin 14.0 g/dL g/dL (12-16) O2 Delivery Device Nc O2 Liters/Min 5.0 % % Specimen Drawn By Rieri Program Control Analyst ID Rieri Sodium 130 mmol/L L mmol /L (136-145) Potassium 4.0 mmol/L mmol/L (3.5-5.1) Chloride 91 mmol/L L mmol/ L (98-107) Carbon Dioxide 27 mmol/L mmol/L (22-29) Anion Gap 16.0 (5-19) BUN 11 mg/dL mg/dL (8-23) Creatinine 0.7 mg/dL mg/dL (0.5-0.9) GFR Calculation 83.7 mL/min L mL/ min (90-130) Glucose 102 mg/dL mg/dL (65-115) Calculated Osmolal ity 270 mOsm/kg L mOs m/kg (285-295) Lactic Acid Calcium 8.8 mg/dL mg/dL (8.5-10.5) Total Bilirubin 0.5 mg/dL mg/dL (0.15-1.2) AST 23 U/L U/L (0-32) ALT 19 U/L U/L (0-33) Alkaline Phosphata se 70 IU/L IU/L (35-105) Troponin T Baselin e Troponin T [address] [place] Delta Troponin T C-Reactive Protein 112.2 mg/L H mg/L (0.0-4.9) NT-Pro-B Natriuret Pep 62 pg/mL pg/mL (0-125) Total Protein 7.1 g/dL g/dL (6.6-8.7) Albumin 3.9 g/dL g/dL (3.5-5.2) Globulin 3.2 g/dL g/dL (1.3-4.6) Procalcitonin 0.12 ng/mL ng/mL (0-0.5) Nasal/Oral COVID-1 9 PCR Influenza Type A A g Influenza Type B A g SARS-CoV-2 Ag (Rap id) 08/13/21 08/13/21 08/13/21 10:10 10:10 10:10 WBC RBC Hgb Hct MCV MCH MCHC RDW Plt Count MPV Neut % (Auto) Lymph % (Auto) Hopkins % (Auto) Eos % (Auto) Baso % (Auto) Neut # (Auto) Lymph # (Auto) Hopkins # (Auto) Eos # (Auto) Baso # (Auto) Nucleated RBC % (a uto) Nucleated RBCs # Specimen Type Sample Site ABG pH ABG pCO2 ABG pO2 ABG HCO3 ABG Base Excess [place] Test Hematocrit Hgb O2 Saturation Carboxyhemoglobin Methemoglobin Total Hemoglobin O2 Delivery Device O2 Liters/Min Specimen Drawn By Program Control Analyst ID Sodium Potassium Chloride Carbon Dioxide Anion Gap BUN Creatinine GFR Calculation Glucose Calculated Osmolal ity Lactic Acid 0.6 mmol/L mmol/L (0.5-2.2) Calcium Total Bilirubin AST ALT Alkaline Phosphata se Troponin T Baselin e 16 ng/L H ng/L (0-10) Troponin T [address] [place] Delta Troponin T C-Reactive Protein NT-Pro-B Natriuret Pep Total Protein Albumin Globulin Procalcitonin Nasal/Oral COVID-1 9 PCR Influenza Type A A g Negative (Negative) Influenza Type B A g Negative (Negative) SARS-CoV-2 Ag (Rap id) 08/13/21 08/13/21 08/13/21 10:10 12:47 15:34 WBC RBC Hgb Hct MCV MCH MCHC RDW Plt Count MPV Neut % (Auto) Lymph % (Auto) Hopkins % (Auto) Eos % (Auto) Baso % (Auto) Neut # (Auto) Lymph # (Auto) Hopkins # (Auto) Eos # (Auto) Baso # (Auto) Nucleated RBC % (a uto) Nucleated RBCs # Specimen Type Sample Site ABG pH ABG pCO2 ABG pO2 ABG HCO3 ABG Base Excess [place] Test Hematocrit Hgb O2 Saturation Carboxyhemoglobin Methemoglobin Total Hemoglobin O2 Delivery Device O2 Liters/Min Specimen Drawn By Program Control Analyst ID Sodium Potassium Chloride Carbon Dioxide Anion Gap BUN Creatinine GFR Calculation Glucose Calculated Osmolal ity Lactic Acid Calcium Total Bilirubin AST ALT Alkaline Phosphata se Troponin T Baselin e Troponin T [address] [place] 14.00 ng/L H ng/L (0-10) Delta Troponin T -2.00 ABS# L ABS# (0-10) C-Reactive Protein NT-Pro-B Natriuret Pep Total Protein Albumin Globulin Procalcitonin Nasal/Oral COVID-1 9 PCR Not detected Influenza Type A A g Influenza Type B A g SARS-CoV-2 Ag (Rap id) Negative (Negative) EKG Data^: EKG 1: Attestation: I personally reviewed and interpreted this EKG as follows: EKG Interpretation Date: 08/13/21 EKG interpretation time: 10:08 Interpretation: Twelve-lead EKG shows regular rhythm at a rate of 86. AR interval 175, QRS duration 148, QTc 449. Left axis deviation. Interpretation: Sinus rhythm. Right bundle branch block. EKG 2: Attestation: I personally reviewed and interpreted this EKG as follows: EKG Interpretation Date: 08/13/21 EKG interpretation time: 11:33 Interpretation: Twelve-lead EKG shows a regular rhythm at a rate of 85. AR interval 175, QRS duration 150, QTc 449. Left axis deviation. Interpretation: Sinus rhythm. Right bundle branch block. Discharge Plan Discharge Patient Disposition: Home Clinical Impression: Acute exacerbation of chronic obstructive airways disease, Atypical pneumonia Condition: Stable Prescriptions: New Augmentin 875-125 mg tablet 1 tab PO BID 7 Days Qty: 14 RF: 0 albuterol sulfate 90 mcg/actuation HFA aerosol inhaler 2 inh inhalation Q4H Qty: 8.5 RF: 0 No Action oxycodone-acetaminophen 10-325 mg tablet 1 tab PO Q6H PRN (Reason: Pain) RF: 0 trazodone 150 mg tablet 150 mg PO BEDTIME RF: 0 levothyroxine 125 mcg tablet 125 mcg PO DAILY RF: 0 fentanyl 75 mcg/hr patch 72 hour 150 mcg transdermal DAILY RF: 0 protein supplement-minerals Powder 1 ea PO DAILY RF: 0 Sprycel 100 mg Tablet 100 mg PO DAILY RF: 0 Multivitamin Powder See Rx Instructions .ROUTE .COMPLEX RF: 0 Discharge Orders: Discharge ED (Routine); Ordered 08/13/21 Ordered By: Isiah Bolden Other Ambulatory Orders: DME: Oxygen (Order) Location: None Selected Ordered By: Isiah Bolden Referrals: Elkins,Suzette, IT LEAD [Primary Care Provider] - Discharge Diet: Usual diet Discharge Activity: Resume usual activity Patient Instructions: COPD (Chronic Obstructive Pulmonary Disease) (ED), Community Acquired Pneumonia (ED) Activity Restrictions/Additional Instructions: Thank you for visiting the emergency department. You were seen and evaluated for cough and shortness of breath. The exact cause of your symptoms is somewhat unclear though may be related to infection and flareup of baseline lung disease. You will be given a prescription for steroids and antibiotics. Please take these as prescribed. Return to the emergency department for worsening symptoms or anything else that you are concerned about and feel needs emergency department evaluation. Coding Level of Care Code ED Customer Engagement Manager for Noreen Briggs
--- NOTE | 2021-08-13 09:40 | XRR_ITS ---
PROCEDURE INFORMATION: Exam: XR Chest Exam date and time: 08/13/2021 9:40 AM Age: 66 years old Clinical indication: Shortness of breath; Additional info: SOB TECHNIQUE: Imaging protocol: XR of the chest. Views: 1 view. COMPARISON: CR XR chest 1V portable [id number] 05/19/2020 4:18 PM FINDINGS: Lungs: Emphysema. Patchy predominantly interstitial airspace disease within the lung bases left slightly greater than right. Pleural spaces: Unremarkable. No pleural effusion. No pneumothorax. Heart/Mediastinum: Unremarkable. No cardiomegaly. Bones/joints: Unremarkable. XR/XR chest 1V portable [id number] IMPRESSION: Patchy predominantly interstitial airspace disease within the lung bases left slightly greater than right. Consider CT if indicated. Radiation Dose CTDIVOL = (mGy): DLP = (mGy-cm)
--- NOTE | 2021-08-13 09:41 | ECG_ITS ---
[facility] Test Date: 2021-08-13 Pat Name: Justina Meraz Department: Room: Gender: Female Rn Radiology: : 1955 Requested By: Isiah Bolden Order Number: [id number] Sandy MD: Joao Morillo M.D. Measurements Intervals [place] Rate: 86 P: 71 [place]: 175 QRS: -83 QRSD: 148 T: 66 QT: 406 QTc: 486 Interpretive Statements SINUS RHYTHM POSSIBLE LEFT ATRIAL ENLARGEMENT [-0.1mV P-WAVE IN V1/V2] RIGHT BUNDLE BRANCH BLOCK [120+ ms QRS DURATION, UPRIGHT V1, 40+ ms S IN I/aVL/V4/V5/V6] LEFT ANTERIOR FASCICULAR BLOCK [QRS AXIS <= -45, QR IN I, RS IN II] Compared to ECG 05/19/2020 17:58:18 No significant changes Electronically Signed On 08-13-2021 22:05:12 MACHINE TACK PULLER by Joao Morillo M.D. [id number]
[2021-08-13 10:51] LABS: Troponin(5th) Baseline 16 ng/L (0-10)
[2021-08-13 10:52] LABS: Basophils % 0.4 %; Eosinophils # 0.1 10^3/uL (0.0-0.8); Eosinophils % 1.5 %; Hematocrit 40.3 % (37.0-47.0); Hemoglobin 13.6 g/dL (11.5-15.3); Lymphocytes % 12.2 %; Mean Corpuscular HGB Conc 33.7 g/dL (30.0-36.0); Mean Corpuscular Hemoglobin 32.3 pg (28.0-34.0); Mean Corpuscular Volume 95.7 fl (81-99); Monocytes # 0.6 10^3/uL (0.2-0.9); Neutrophils # 6.04 10^3/uL (1.8-7.7); Neutrophils % 77.6 %; Nucleated Red Blood Cells % 0 %; Platelet Count 218 10^3/cmm (130-400); Red Blood Count 4.21 10^6/uL (4.1-5.3); Red Cell Distribution Width 14.5 % (12.1-15.1); White Blood Count 7.8 10^3/uL (4.0-10.0)
[2021-08-13 10:53] LABS: Lactic Sepsis W/Reflex 0.6 mmol/L (0.5-2.2)
[2021-08-13 11:00] LABS: NT Pro B Type Natriuretic Pept 62 pg/mL (0-125); Procalcitonin 0.12 ng/mL (0-0.5)
[2021-08-13 11:11] LABS: Alanine Aminotransferase 19 U/L (0-33); Albumin Level 3.9 g/dL (3.5-5.2); Alkaline Phosphatase 70 IU/L (35-105); Aspartate Amino Transferase 23 U/L (0-32); Blood Urea Nitrogen 11 mg/dL (8-23); C Reactive Protein 112.2 mg/L (0.0-4.9); Calcium 8.8 mg/dL (8.5-10.5); Carbon Dioxide 27 mmol/L (22-29); Chloride 91 mmol/L (98-107); Creatinine Clr Calc Pharmacy 63.5784; Globulin 3.2 g/dL (1.3-4.6); Glomerular Filtration Rate 83.7 mL/min (90-130); Glucose 102 mg/dL (65-115); Osmolality Calculated 270 mOsm/kg (285-295); Sodium 130 mmol/L (136-145); Total Bilirubin 0.5 mg/dL (0.15-1.2); Total Protein 7.1 g/dL (6.6-8.7)
[2021-08-13 11:19] LABS: Influenza A by IFA Negative (Negative); Influenza B by IFA Negative (Negative); SARS Covid-2 Antigen Negative (Negative)
--- NOTE | 2021-08-13 11:31 | CTR_ITS ---
PROCEDURE INFORMATION: Exam: CTA Chest With Contrast Exam date and time: 08/13/2021 11:31 AM Age: 66 years old Clinical indication: Shortness of breath; Additional info: Hypoxemia, SOB TECHNIQUE: Imaging protocol: Computed tomographic angiography of the chest with contrast. 3D rendering (Not supervised by radiologist): MIP and/or 3D reconstructed images were created by the technologist. Radiation optimization: All CT scans at this facility use at least one of these dose optimization techniques: automated exposure control; mA and/or kV adjustment per patient size (includes targeted exams where dose is matched to clinical indication); or iterative reconstruction. Contrast material: OMNI 350; Contrast volume: 68 ml; Contrast route: INTRAVENOUS (IV); COMPARISON: CR XR chest 1V portable [id number] 08/13/2021 9:46 AM RADIATION DOSE METRICS: Total DLP (mGy-cm): 572.38 FINDINGS: Pulmonary arteries: Normal. No pulmonary emboli. Aorta: There is atherosclerotic calcification of the aorta. There is no thoracic aortic aneurysm or evidence of dissection. Lungs: There are few tiny benign calcified granulomas in the lungs. There is pulmonary interstitial prominence and there are bilateral patchy infiltrates and atelectasis especially in the superior segment of the left lower lobe. These findings may be due to heart failure with multifocal pulmonary edema. Superimposed pneumonia especially in the superior segment of the left lower lobe should be considered. Pleural spaces: Small bilateral pleural effusions. Heart: The heart is not enlarged. There is calcification of the coronary arteries. Lymph nodes: Unremarkable. No enlarged lymph nodes. Diaphragm: Small sliding hiatal hernia. Kidneys and ureters: Bilateral nephrolithiasis. Bones/joints: Degenerative changes are present in the spine with disc space narrowing sclerosis and osteophytes. Soft tissues: Unremarkable. CT/CT angio chest PE protcl [id number] IMPRESSION: 1. No evidence of pulmonary embolus or aortic aneurysm/dissection. 2. Mild pulmonary interstitial prominence with patchy bilateral infiltrates and small effusions which may be due to heart failure. 3. Superimposed pneumonia especially in the superior segment of the lower lobe should also be considered. 4. Coronary artery calcification. Radiation Dose CTDIVOL = (mGy): DLP = 572.38 (mGy-cm)
--- NOTE | 2021-08-13 11:41 | ECG_ITS ---
[facility] Test Date: 2021-08-13 Pat Name: Justina Meraz Department: Room: Gender: Female Rail Flaw Detector Operator: : 1955 Requested By: Isiah Bolden Order Number: [id number] Sandy MD: Joao Morillo M.D. Measurements Intervals [place] Rate: 85 P: 74 [place]: 175 QRS: -83 QRSD: 150 T: 70 QT: 407 QTc: 484 Interpretive Statements SINUS RHYTHM POSSIBLE LEFT ATRIAL ENLARGEMENT [-0.1mV P-WAVE IN V1/V2] RIGHT BUNDLE BRANCH BLOCK [120+ ms QRS DURATION, UPRIGHT V1, 40+ ms S IN I/aVL/V4/V5/V6] LEFT ANTERIOR FASCICULAR BLOCK [QRS AXIS <= -45, QR IN I, RS IN II] Compared to ECG 08/13/2021 09:57:01 No significant changes Electronically Signed On 08-13-2021 22:16:40 CAD OPERATOR by Joao Morillo M.D. [id number] f
[2021-08-13] MEDS: iohexol 350 mg/mL 100 mL Btl IV (12:41)
[2021-08-13 14:26] VITALS: PULSE 87; RESP 22; O2SAT 90
[2021-08-13 14:42] LABS: ABG PCO2 44.6 mmHg (35-45); ABG PH Result 7.43 (7.35-7.45); PO2 ABG 67.3 mmHg (80.0-100.0)
[2021-08-13 14:43] LABS: Base Excess ABG 4.8 mmol/L (-2.0-2.0); HCO3 ABG 29.8 mmol/L (22-26)
[2021-08-13 14:44] LABS: Blood Gas Allen Test POS; Blood Gas Sample Site RR; Blood Gas Sample Type ARTERIAL; Oxygen Device NC
[2021-08-13 14:45] LABS: Carboxyhemoglobin 3.2 %THgb (0.4-20.1); HGB O2 Sat 91.1 % (95-100); Methemoglobin 0.9 % (0.4-1.5)
[2021-08-13 14:52] VITALS: O2SAT 84
[2021-08-13] MEDS: amoxicillin-clav 875-125 mg Tablet 1 TAB PO (15:35)
[2021-08-13 15:52] VITALS: BP 158/88; PULSE 87; RESP 17; O2SAT 92
[2021-08-15 16:32] LABS: Coronavirus Test Green County Not Detected
--- NOTE | 2021-08-16 09:09 | PC.NURSE ---
Notified pt if Negative COVID test
== END 2021-08-13 15:57 | disposition home or self-care (01) ==
PROVIDERS: Emergency Provider Emergency Medicine; PCP Nurse Practitioner Family
DX: J44.0 Chronic obstructive pulmonary disease with (acute) lower respiratory infection (principal); J18.8 Other pneumonia, unspecified organism; J44.1 Chronic obstructive pulmonary disease with (acute) exacerbation; Z79.891 Long term (current) use of opiate analgesic; Z79.899 Other long term (current) drug therapy; Z85.6 Personal history of leukemia; E78.5 Hyperlipidemia, unspecified; F17.210 Nicotine dependence, cigarettes, uncomplicated; Z20.822 Contact with and (suspected) exposure to COVID-19
CPT/HCPCS: 36600; 71045; 71275; 80053; 82805; 83605; 83880; 84145; 84484; 85025; 86140; 87426; 87635; 87804; 93005; 96374; 99284; J2930; Q9967

== ENCOUNTER 2021-09-08 09:30 | Outpatient (CLI) | payer MEDICARE, SELFPAY ==
[2021-09-08 10:04] LABS: Basophils % 0.7 %; Eosinophils # 0.3 10^3/uL (0.0-0.8); Eosinophils % 5.3 %; Hematocrit 40.5 % (37.0-47.0); Hemoglobin 13.1 g/dL (11.5-15.3); Lymphocytes # 1.9 10^3/uL (0.8-4.8); Lymphocytes % 32.1 %; Mean Corpuscular HGB Conc 32.3 g/dL (30.0-36.0); Mean Corpuscular Hemoglobin 31.9 pg (28.0-34.0); Mean Corpuscular Volume 98.5 fl (81-99); Mean Platelet Volume 8.5 fL (7.4-10.4); Monocytes # 0.4 10^3/uL (0.2-0.9); Monocytes % 6.7 %; Neutrophils # 3.19 10^3/uL (1.8-7.7); Nucleated Red Blood Cells % 0 %; Platelet Count 317 10^3/cmm (130-400); Red Blood Count 4.11 10^6/uL (4.1-5.3); Red Cell Distribution Width 14.8 % (12.1-15.1); White Blood Count 5.8 10^3/uL (4.0-10.0)
[2021-09-08 10:37] LABS: Alanine Aminotransferase 12 U/L (0-33); Albumin Level 3.7 g/dL (3.5-5.2); Alkaline Phosphatase 55 IU/L (35-105); Aspartate Amino Transferase 17 U/L (0-32); Blood Urea Nitrogen 11 mg/dL (8-23); Calcium 8.4 mg/dL (8.5-10.5); Carbon Dioxide 25 mmol/L (22-29); Chloride 97 mmol/L (98-107); Globulin 2.8 g/dL (1.3-4.6); Glomerular Filtration Rate 71.8 mL/min (90-130); Glucose 89 mg/dL (65-115); Lactate Dehydrogenase 277 U/L (135-214); Osmolality Calculated 281 mOsm/kg (285-295); Sodium 136 mmol/L (136-145); Thyroid Stimulating Hormone 14.51 uIU/mL (0.27-4.20); Total Bilirubin 0.2 mg/dL (0.15-1.2); Total Protein 6.5 g/dL (6.6-8.7)
--- NOTE | 2021-09-08 11:24 | XRR_ITS ---
PROCEDURE INFORMATION: Exam: XR Chest Exam date and time: 09/08/2021 11:24 AM Age: 66 years old Clinical indication: Shortness of breath; Prior surgery; Surgery type: L spine; Patient HX: HX of leukemia TECHNIQUE: Imaging protocol: XR of the chest. Views: 2 views. COMPARISON: CR XR chest 1V portable [id number] 08/13/2021 9:46 AM FINDINGS: Lungs: Mild interstitial infiltrates are present in the lung bases which could be due to mild interstitial pulmonary edema. Is no focal airspace consolidation. Pleural spaces: There is slight blunting of the costophrenic angles consistent with small effusions. No pneumothorax. Heart/Mediastinum: Unremarkable. No cardiomegaly. Bones/joints: Unremarkable. XR/XR chest 2V* [id number] IMPRESSION: 1. Minimal pleural effusions blunting the costophrenic angles. 2. Mild interstitial infiltrates in the lung bases. This could be due to mild interstitial edema.
--- NOTE | 2021-09-11 13:09 | ONC FU_ITS ---
Dr. Sherwood Patient Follow-Up Note Patient: Justina Meraz Unit #: [id number]: 1955 Dicatated By: Ihsan Sherwood M.D.Date of Visit:Sep 08, 2021 Onc Med Follow-up/Prog Note Chief Complaint: Chronic myeloid leukemia. History of Present Illness: This is a 66 year-old woman with [place] chromosome positive chronic myeloid leukemia. She was found on routine scheduled lab studies on 06/24/2016 to have a significantly elevated white blood cell count at 78,300. The hemoglobin was normal at 13.4 g with hematocrit 45%. The platelet count was normal at 174,000. The reported differential included 52% segs, 18% bands, 5% metamyelocytes, 10% myelocytes, 9% lymphocytes, 5% monocytes, and 1% eosinophils. There were 2 nucleated RBC reported. A repeat CBC on 07/24/2016 showed similar findings with WBC 75,800, Hg 13.7 g, and platelet count 178,000. I had seen her initially on 07/27/2016. The findings were suspicious for chronic myelogenous leukemia. She underwent bone marrow aspiration/biopsy on 08/02/2016 showed 100% cellularity with panmyelosis. Blasts were estimated at 4%. The BCR/abl translocation was detected by FISH, and the standard chromosome analysis was positive for the [place] translocation between chromosomes 9 and 22, consistent with chronic myeloid leukemia. The quantitative BCR/abl was requested, but apparently not performed. She began treatment with imatinib 400 mg daily. There was some delay in getting that started due to issues with insurance coverage. The medication actually started on 08/27/2016. She seemed to tolerate it pretty well initially. On her follow-up laboratory studies in October 2016 her quantitative PCR came back at 9.7358, but there was no baseline for comparison. Her CBC at that point was normal with hemoglobin 12.0 g, white blood cell count 7100, and platelet count 280,000. On her follow-up visit on 01/08/2017, she appeared to be having more side effects with the imatinib, including fatigue and musculoskeletal pain. Her blood counts were stable. Her imatinib dosage was reduced to 200 mg daily. Her repeat quantitative PCR on 01/23/2017 was down to 1.7941. However, as of her visit on 04/18/2017 the quantitative PCR had increased to 8.9534. 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 She was then referred to [facility]. She was seen there by Dr. Jeromy Mirza on 05/29/2017. It was recommended that she continue further treatment with dasatinib. The dasatinib was started on 06/13/2017 at a dose of 100 mg daily. She has had a good response to the dasatinib with gradual decline in her quantitative PCR. As of September 2018 she was tolerating the dasatinib at 100 mg daily and her quantitative PCR was below the quantifiable limits of the assay. During her subsequent followup it remained undetectable. Her other medical illnesses include hyperlipidemia, hypothyroidism, nephrolithiasis, and degenerative disease of the spine with chronic back pain. She has a history of smoking 1 pack of cigarettes daily for 30 years. INTERIM HISTORY: At her scheduled follow-up visit on 05/19/2020 she had presented with acute onset of severe chills. She was sent to the emergency room, where she was admitted to the hospital with cellulitis of the right leg. There was also some suspicion of septic arthritis in the right hip joint, for which she was transferred to [facility] in [place]. Ultimately, there was found to be no evidence of septic arthritis or osteomyelitis, and she did show gradual improvement, though she required prolonged antibiotic therapy. She was off her dasatinib during the acute illness, but she subsequently was able to restart it. Her PCR study in April was positive at a very low level, 0.018. Her repeat quantitative PCR on 11/02/2020 was up just slightly, to 0.025. I had seen her for a follow-up visit on 11/24/2020. She complained of being tired and worn out. She had been seen a day earlier at the [facility] and her urinalysis did show 2+ blood and 2+ leukocyte esterase. She had started empiric antibiotic therapy for urinary tract infection. Her CBC showed normal hemoglobin at 14.6 g with white blood cell count 5100 and platelet count 262,000. Her serum iron studies showed slightly low transferrin saturation at 19% and the ferritin also was low at 17.7 ng/mL. B12 was in the low normal range at 272 pg/mL. Her 25-hydroxy vitamin D level also was low at 19. She had not been taking her vitamin supplements, and at that point she did agree to get back on her vitamin D3 and ferrous sulfate. She continued the dasatinib at 100 mg daily. As of her followup visit on 03/09/2021 she was feeling somewhat better. Her quantitative PCR remained detectable at a very low titer, 0.007%. She continued dasatinib 100 mg daily. On 08/13/2021 she was seen in the emergency room with increased shortness of breath. Her CT pulmonary angiogram showed no evidence of pulmonary embolus. There was mild pulmonary interstitial prominence with patchy bilateral infiltrates and small effusions, thought to be possibly due to heart failure. There was also possible superimposed pneumonia, especially in the superior segment of the left lower lobe. She was treated for COPD exacerbation. She is seen for a follow-up visit. She is feeling a little better now, though she still has limited activity. She says her energy comes and goes. Her ECOG score is 1. Her appetite has been okay. She has had a weight gain of 12 pounds, though with no change in her eating habits. She does not have fever or night sweats. She has started taking Claritin for sinus drainage. She continues to have cough associated with phlegm in her throat. She has some shortness of breath, but she says her breathing is okay. She is now wearing a nicotine patch. She has cut down her smoking to 1/2 pack/day. She does not complain of chest pain. She has no GI or complaints. She has generalized musculoskeletal pain, which is unchanged. She does not complain of headache or dizziness. She has some numbness in her right hand. Medications: Diclofenac Sodium 1 (1 %) Gel (jelly) Transdermal daily PRN, Duragesic-50 2 Patch(es) (of 75 mcg/hr) Patch 72 Hr Transdermal q 72 hours, Levothyroxine Sodium 1 (125 mcg) Tablet Oral daily, Macrodantin (100 mg) Capsule Oral b.i.d., Oxycodone-Acetaminophen 1 (10-325 mg) Tablet Oral four times a day PRN, Sprycel 1 (100 mg) Tablet Oral daily, TraZODone HCl 1 (150 mg) Tablet Oral at bedtime PRN, Zofran 1 (8 mg) Tablet Oral t.i.d. PRN Allergies: No Known Allergies. Vital Signs: Performed on Sep 08, 2021 10:54 Height - 64.00 in Weight - 155.8 lbs (HIGH) BSA - 1.76 sq.m BMI - 26.74 Temperature - 99.2 F (HIGH) Pulse - 70 /min Respiration - 20 /min BP - 157/76 mm(hg) (HIGH) O2 Sat - 93 % (LOW) Pain - 8 Fatigue - 7 Physical Examination: Constitutional - She looks pretty good generally, Eyes - Sclerae nonicteric. Conjunctivae clear, ENMT - No lesions noted in the oral cavity, Hematologic/Lymphatic - No cervical, clavicular, or axillary adenopathy, Respiratory - Lungs show coarse breath sounds and diminished air movement bilaterally, Cardiovascular - Heart rhythm is regular. There is a II/ systolic murmur. There is no gallop or rub noted, Abdomen - Soft. Liver and spleen are not enlarged. There is no abdominal mass or ascites noted and there is no inguinal adenopathy, Extremities - No edema, Neurologic - No focal neurologic deficits noted. Lab/Imaging: Test performed on Sep 08, 2021 09:45 Sodium 136 mmol/L Potassium 4.0 mmol/L CO2 25 mmol/L Anion Gap 18.0 BUN 11 mg/dL Creatinine 0.8 mg/dL Cr Clearance (Est) 77.17 mL/min Glucose 89 mg/dL Albumin 3.7 g/dL Globulin 2.8 g/dL Bilirubin, Total 0.2 mg/dL ALT (SGPT) 12 U/L AST (SGOT) 17 U/L Alkaline Phosphatase 55 IU/L WBC 5.8 10 3/uL RBC 4.11 10 6/uL HGB 13.1 g/dL HCT 40.5 % MCV 98.5 fl MCH 31.9 pg MCHC 32.3 g/dL RDW 14.8 % Platelet Count 317 10 3/cmm MPV 8.5 fL Neutrophils 3.19 10 3/uL Lymphocytes 1.9 10 3/uL Monocytes 0.4 10 3/uL Eosinophils 0.3 10 3/uL Basophils 0.0 10 3/uL Neutrophil % 55.0 % Lymphocyte % 32.1 % Monocyte % 6.7 % Eosinophil % 5.3 % Basophils % 0.7 % NRBC % 0 % Problem List: 1. [place] chromosome positive chronic myeloid leukemia, confirmed by bone marrow aspiration/biopsy on 08/02/2016. 2. Hyperlipidemia. 3. Hypothyroidism. 4. Recurrent nephrolithiasis. 5. Degenerative arthritis/degenerative disease of the spine. 6. She has nicotine dependence (cigarettes). Problems Addressed with this Encounter and Plan: Patient with [place] chromosome positive chronic myeloid leukemia, confirmed by bone marrow aspiration/biopsy on 08/02/2016. Treatment with imatinib 400 mg daily began on 08/27/2016. She had evidence of response by her quantitative PCR, decreasing from 9.7358 on 11/13/2016 to 1.7941 on 01/23/2017. Her imatinib dosage had been decreased to 200 mg daily due to worsening fatigue and musculoskeletal pain. As of her visit in March 2017 the quantitative PCR had increased to 8.9534 compared to to 1.7941 in January. 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 She was then seen at [facility] by Dr. Jeromy Mirza. At his recommendation her treatment was changed to dasatanib 100 mg daily, beginning 06/13/2017. During follow-up she has had ongoing complaints of fatigue and musculoskeletal pain. It is uncertain to what extent these may be treatment related. Her quantitative PCR has remained detectable at a very low titer. In July she was seen in the emergency room with increased shortness of breath. She was treated for COPD exacerbation, though the findings on her CT pulmonary angiogram were felt to be suspicious for congestive heart failure, and she has had an unexplained 12 pound weight gain. As such, I am concerned that she may be having fluid retention associated with the dasatinib. As such, I will repeat her chest x-ray today. She will have further evaluation as indicated. Signed By: Ihsan Sherwood M.D. <<Signature on File>>
[2021-09-12 15:22] LABS: BCR ABL1 (IS) 0.015 (0.000); P210 BCR ALB1 DETECTED; Prior Results NG; Source BLOOD
== END 2021-09-08 09:31 | disposition home or self-care (01) ==
PROVIDERS: PCP Nurse Practitioner Family; Visit Provider Internal Medicine Medical Oncology
DX: C91.10 Chronic lymphocytic leukemia of B-cell type not having achieved remission (principal); E78.5 Hyperlipidemia, unspecified; E03.9 Hypothyroidism, unspecified; N20.0 Calculus of kidney; M47.9 Spondylosis, unspecified; F17.210 Nicotine dependence, cigarettes, uncomplicated; J44.1 Chronic obstructive pulmonary disease with (acute) exacerbation; R60.9 Edema, unspecified; Z79.899 Other long term (current) drug therapy
CPT/HCPCS: 36415; 71046; 80053; 81206; 83615; 84443; 85025; 99215

== ENCOUNTER 2021-12-06 08:54 | Outpatient (CLI) | payer MEDICARE, SELFPAY ==
[2021-12-06 09:40] LABS: Basophils # 0.1 10^3/uL (0.0-0.1); Basophils % 0.9 %; Eosinophils # 0.2 10^3/uL (0.0-0.8); Eosinophils % 3.4 %; Hematocrit 44.3 % (37.0-47.0); Hemoglobin 14.1 g/dL (11.5-15.3); Lymphocytes # 1.9 10^3/uL (0.8-4.8); Lymphocytes % 29.6 %; Mean Corpuscular HGB Conc 31.8 g/dL (30.0-36.0); Mean Corpuscular Hemoglobin 31.2 pg (28.0-34.0); Monocytes # 0.5 10^3/uL (0.2-0.9); Monocytes % 6.9 %; Neutrophils # 3.82 10^3/uL (1.8-7.7); Neutrophils % 58.9 %; Nucleated Red Blood Cells % 0 %; Platelet Count 242 10^3/cmm (130-400); Red Blood Count 4.52 10^6/uL (4.1-5.3); Red Cell Distribution Width 14.4 % (12.1-15.1); White Blood Count 6.5 10^3/uL (4.0-10.0)
[2021-12-06 10:01] LABS: Alanine Aminotransferase 14 U/L (0-33); Alkaline Phosphatase 66 IU/L (35-105); Anion Gap 14.9 (5-19); Aspartate Amino Transferase 19 U/L (0-32); Blood Urea Nitrogen 12 mg/dL (8-23); Calcium 9.5 mg/dL (8.5-10.5); Carbon Dioxide 27 mmol/L (22-29); Chloride 100 mmol/L (98-107); Globulin 3.4 g/dL (1.3-4.6); Glomerular Filtration Rate 83.7 mL/min (90-130); Glucose 112 mg/dL (65-115); Lactate Dehydrogenase 241 U/L (135-214); Osmolality Calculated 287 mOsm/kg (285-295); Potassium 3.9 mmol/L (3.5-5.1); Sodium 138 mmol/L (136-145); Total Bilirubin 0.3 mg/dL (0.15-1.2); Total Protein 7.4 g/dL (6.6-8.7)
--- NOTE | 2021-12-06 12:05 | XR_ITS ---
WS: [id number] XR shoulder LT min 2V* [id number] REASON FOR EXAM: SHOULDER PAIN FINDINGS: Narrowing of the acromioclavicular joint with subchondral sclerosis and marginal osteophytic spurring . Narrowing of the glenohumeral joint with significant subchondral sclerosis and cystic change in the g lenoid and humeral head. Large osteophyte formation from the humeral head inferiorly. These changes a re significantly progressive compared to 08/17/2015. 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
--- NOTE | 2021-12-06 12:05 | XR_ITS ---
WS: [id number] XR cervical spine 3V* [id number] REASON FOR EXAM: NECK PAIN FINDINGS: No significant vertebral body compression deformity or focal lesion . Moderate narrowing of the C5-C6 disc space with anterior osteophytic spurring and 2 mm of anterolisth esis of C6 in relation to C5. Degenerative facet joint and uncovertebral arthropathy at C5-C6 and C6- C7. Incidentally noted are bilateral carotid calcified plaques. XR/XR cervical spine 3V* [id number] IMPRESSION: Degenerative spondylosis C5-C6 as above. Bilateral carotid calcified plaques.
--- NOTE | 2021-12-06 20:32 | ONC FU_ITS ---
Dr. Sherwood Patient Follow-Up Note Patient: Justina Meraz Unit #: [id number]: 1955 Dicatated By: Ihsan Sherwood M.D.Date of Visit:Dec 06, 2021 Onc Med Follow-up/Prog Note Chief Complaint: Chronic myeloid leukemia. History of Present Illness: This is a 66 year-old woman with [place] chromosome positive chronic myeloid leukemia. She was found on routine scheduled lab studies on 06/24/2016 to have a significantly elevated white blood cell count at 78,300. The hemoglobin was normal at 13.4 g with hematocrit 45%. The platelet count was normal at 174,000. The reported differential included 52% segs, 18% bands, 5% metamyelocytes, 10% myelocytes, 9% lymphocytes, 5% monocytes, and 1% eosinophils. There were 2 nucleated RBC reported. A repeat CBC on 07/24/2016 showed similar findings with WBC 75,800, Hg 13.7 g, and platelet count 178,000. I had seen her initially on 07/27/2016. The findings were suspicious for chronic myelogenous leukemia. She underwent bone marrow aspiration/biopsy on 08/02/2016 showed 100% cellularity with panmyelosis. Blasts were estimated at 4%. The BCR/abl translocation was detected by FISH, and the standard chromosome analysis was positive for the [place] translocation between chromosomes 9 and 22, consistent with chronic myeloid leukemia. The quantitative BCR/abl was requested, but apparently not performed. She began treatment with imatinib 400 mg daily. There was some delay in getting that started due to issues with insurance coverage. The medication actually started on 08/27/2016. She seemed to tolerate it pretty well initially. On her follow-up laboratory studies in October 2016 her quantitative PCR came back at 9.7358, but there was no baseline for comparison. Her CBC at that point was normal with hemoglobin 12.0 g, white blood cell count 7100, and platelet count 280,000. On her follow-up visit on 01/08/2017, she appeared to be having more side effects with the imatinib, including fatigue and musculoskeletal pain. Her blood counts were stable. Her imatinib dosage was reduced to 200 mg daily. Her repeat quantitative PCR on 01/23/2017 was down to 1.7941. However, as of her visit on 04/18/2017 the quantitative PCR had increased to 8.9534. 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 She was then referred to [facility]. She was seen there by Dr. Jeromy Mirza on 05/29/2017. It was recommended that she continue further treatment with dasatinib. The dasatinib was started on 06/13/2017 at a dose of 100 mg daily. She has had a good response to the dasatinib with gradual decline in her quantitative PCR. As of September 2018 she was tolerating the dasatinib at 100 mg daily and her quantitative PCR was below the quantifiable limits of the assay. During her subsequent followup it remained undetectable. Her other medical illnesses include hyperlipidemia, hypothyroidism, nephrolithiasis, and degenerative disease of the spine with chronic back pain. She has a history of smoking 1 pack of cigarettes daily for 30 years. INTERIM HISTORY: At her scheduled follow-up visit on 05/19/2020 she had presented with acute onset of severe chills. She was sent to the emergency room, where she was admitted to the hospital with cellulitis of the right leg. There was also some suspicion of septic arthritis in the right hip joint, for which she was transferred to [facility] in [place]. Ultimately, there was found to be no evidence of septic arthritis or osteomyelitis, and she did show gradual improvement, though she required prolonged antibiotic therapy. She was off her dasatinib during the acute illness, but she subsequently was able to restart it. Her PCR study in April was positive at a very low level, 0.018. Her repeat quantitative PCR on 11/02/2020 was up just slightly, to 0.025. I had seen her for a follow-up visit on 11/24/2020. She complained of being tired and worn out. She had been seen a day earlier at the [facility] and her urinalysis did show 2+ blood and 2+ leukocyte esterase. She had started empiric antibiotic therapy for urinary tract infection. Her CBC showed normal hemoglobin at 14.6 g with white blood cell count 5100 and platelet count 262,000. Her serum iron studies showed slightly low transferrin saturation at 19% and the ferritin also was low at 17.7 ng/mL. B12 was in the low normal range at 272 pg/mL. Her 25-hydroxy vitamin D level also was low at 19. She had not been taking her vitamin supplements, and at that point she did agree to get back on her vitamin D3 and ferrous sulfate. She continued the dasatinib at 100 mg daily. As of her followup visit on 03/09/2021 she was feeling somewhat better. Her quantitative PCR remained detectable at a very low titer, 0.007%. She continued dasatinib 100 mg daily. On 08/13/2021 she was seen in the emergency room with increased shortness of breath. Her CT pulmonary angiogram showed no evidence of pulmonary embolus. There was mild pulmonary interstitial prominence with patchy bilateral infiltrates and small effusions, thought to be possibly due to heart failure. There was also possible superimposed pneumonia, especially in the superior segment of the left lower lobe. She was treated for COPD exacerbation. She is seen for a follow-up visit. Her main complaint is that her pain has worsened significantly, as Dr. Abraham has been reducing her opiate pain medication. Her most significant pain is in the neck and left shoulder area. It radiates down the left arm. It is severe enough now that she cannot function. She says she needs help. Her ECOG score is 2. Her appetite is variable. She has gained weight. She has not had fever. She has a little bit of sweating. She has not had sore mouth or throat and she does not complain of cough. She says her breathing is okay. She has not been having chest pain. She occasionally has nausea. She has no other GI or complaints. She does not complain of headache or dizziness. She has some numbness in the right middle and ring fingers when she first gets up in the morning. She has no other focal neurologic symptoms. Medications: Diclofenac Sodium 1 (1 %) Gel (jelly) Transdermal daily PRN, Duragesic-50 2 Patch(es) (of 75 mcg/hr) Patch 72 Hr Transdermal q 72 hours, Gabapentin 1 Capsule (of 100 mg) Oral b.i.d., Levothyroxine Sodium 1 (125 mcg) Tablet Oral daily, Oxycodone-Acetaminophen 1 (10-325 mg) Tablet Oral four times a day PRN, Sprycel 1 (100 mg) Tablet Oral daily, TraZODone HCl 1 (150 mg) Tablet Oral at bedtime PRN, Zofran 1 (8 mg) Tablet Oral t.i.d. PRN Allergies: No Known Allergies. Vital Signs: Performed on Dec 06, 2021 11:14 Height - 64.00 in Weight - 157.8 lbs (HIGH) BSA - 1.77 sq.m BMI - 27.09 Temperature - 98.7 F Pulse - 83 /min Respiration - 20 /min BP - 146/75 mm(hg) (HIGH) O2 Sat - 92 % (LOW) Pain - 9 Fatigue - 8 Physical Examination: Constitutional - She appears somewhat weak generally and she is fidgety, Eyes - Sclerae nonicteric. Conjunctivae clear, ENMT - No lesions noted in the oral cavity, Hematologic/Lymphatic - No cervical, clavicular, or axillary adenopathy, Respiratory - Lungs show diminished air movement bilaterally. There is slight expiratory wheezing, Cardiovascular - Heart rhythm is regular. There is a II/ systolic murmur. There is no gallop or rub noted, Abdomen - Soft. Liver and spleen are not enlarged. There is no abdominal mass or ascites noted and there is no inguinal adenopathy, Extremities - No edema. There is severely limited range of motion of the left shoulder joint, and there is crepitance on movement, Neurologic - No focal neurologic deficits noted. Lab/Imaging: Test performed on Dec 06, 2021 09:20 LDH (Total) 241 U/L Sodium 138 mmol/L Potassium 3.9 mmol/L Chloride 100 mmol/L CO2 27 mmol/L Anion Gap 14.9 BUN 12 mg/dL Creatinine 0.7 mg/dL Cr Clearance (Est) 89.33 mL/min eGFR 83.7 mL/min Glucose 112 mg/dL Osmolality - Calculated 287 mOsm/kg Calcium 9.5 mg/dL Protein, Total 7.4 g/dL Albumin 4.0 g/dL Globulin 3.4 g/dL Bilirubin, Total 0.3 mg/dL ALT (SGPT) 14 U/L AST (SGOT) 19 U/L Alkaline Phosphatase 66 IU/L WBC 6.5 10 3/uL RBC 4.52 10 6/uL HGB 14.1 g/dL HCT 44.3 % MCV 98.0 fl MCH 31.2 pg MCHC 31.8 g/dL RDW 14.4 % Platelet Count 242 10 3/cmm MPV 9.0 fL Neutrophils 3.82 10 3/uL Lymphocytes 1.9 10 3/uL Monocytes 0.5 10 3/uL Eosinophils 0.2 10 3/uL Basophils 0.1 10 3/uL Neutrophil % 58.9 % Lymphocyte % 29.6 % Monocyte % 6.9 % Eosinophil % 3.4 % Basophils % 0.9 % NRBC % 0 % Problem List: 1. [place] chromosome positive chronic myeloid leukemia, confirmed by bone marrow aspiration/biopsy on 08/02/2016. 2. Hyperlipidemia. 3. Hypothyroidism. 4. Recurrent nephrolithiasis. 5. Degenerative arthritis/degenerative disease of the spine. 6. She has nicotine dependence (cigarettes). Problems Addressed with this Encounter and Plan: Patient with [place] chromosome positive chronic myeloid leukemia, confirmed by bone marrow aspiration/biopsy on 08/02/2016. Treatment with imatinib 400 mg daily began on 08/27/2016. She had evidence of response by her quantitative PCR, decreasing from 9.7358 on 11/13/2016 to 1.7941 on 01/23/2017. Her imatinib dosage had been decreased to 200 mg daily due to worsening fatigue and musculoskeletal pain. As of her visit in March 2017 the quantitative PCR had increased to 8.9534 compared to to 1.7941 in January. 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 She was then seen at [facility] by Dr. Jeromy Mirza. At his recommendation her treatment was changed to dasatanib 100 mg daily, beginning 06/13/2017. During follow-up she had ongoing complaints of fatigue and musculoskeletal pain. It was uncertain to what extent those symptoms were treatment related. Her quantitative PCR remained detectable at a very low titer. In July 2021 she was seen in the emergency room with increased shortness of breath. She was treated for COPD exacerbation, though the findings on her CT pulmonary angiogram were felt to be suspicious for congestive heart failure, and she also had an unexplained 12 pound weight gain. At that point I suspect that that she was having fluid retention associated with the dasatinib. She did improve on diuretic therapy, and she was able to continue the dasatinib at 100 mg daily. As of 09/08/2021 her quantitative PCR remained detectable at a very low titer, 0.015%. At this point she has had a significant increase in musculoskeletal pain associated with a mandated reduction in her opiate pain medication. As x-rays of the cervical spine and left shoulder show degenerative arthritis changes, I will arrange for her to be seen in orthopedic clinic. She will be given an increase in her gabapentin dosage to 300 mg 3 times daily. Her current PCR results are pending. I will tentatively plan a follow-up visit in 3 months. Signed By: Ihsan Sherwood M.D. <<Signature on File>>
[2021-12-10 20:18] LABS: P210 BCR ALB1 NOT DETECTED; Prior Results NG; Source serum
== END 2021-12-06 08:55 | disposition home or self-care (01) ==
PROVIDERS: PCP Nurse Practitioner Family; Visit Provider Internal Medicine Medical Oncology
DX: C92.10 Chronic myeloid leukemia, BCR/ABL-positive, not having achieved remission (principal); E78.5 Hyperlipidemia, unspecified; E03.9 Hypothyroidism, unspecified; M47.9 Spondylosis, unspecified; F17.210 Nicotine dependence, cigarettes, uncomplicated; Z79.899 Other long term (current) drug therapy
CPT/HCPCS: 36415; 72040; 73030; 80053; 81206; 83615; 85025; 99214

== ENCOUNTER → 2022-03-22 09:38 | Outpatient (BNVA) | payer MEDICARE, SELFPAY | PROVIDERS: PCP Nurse Practitioner Family; Visit Provider Anesthesiology Pain Medicine | DX: J44.9 Chronic obstructive pulmonary disease, unspecified (principal); M25.451 Effusion, right hip; M25.452 Effusion, left hip; M19.012 Primary osteoarthritis, left shoulder; M54.50 Low back pain, unspecified; M54.2 Cervicalgia; F17.210 Nicotine dependence, cigarettes, uncomplicated; Z79.891 Long term (current) use of opiate analgesic | CPT/HCPCS: 99204 ==

== ENCOUNTER 2022-04-10 10:32 | Oncology outpatient (recurring) (ONCR) | payer MEDICARE, SELFPAY ==
[2022-04-10 11:21] LABS: Basophils # 0.1 10^3/uL (0.0-0.1); Basophils % 0.9 %; Eosinophils # 0.2 10^3/uL (0.0-0.8); Eosinophils % 2.5 %; Hematocrit 44.8 % (37.0-47.0); Hemoglobin 14.3 g/dL (11.5-15.3); Lymphocytes # 2.2 10^3/uL (0.8-4.8); Lymphocytes % 32.6 %; Mean Corpuscular HGB Conc 31.9 g/dL (30.0-36.0); Mean Corpuscular Hemoglobin 30.7 pg (28.0-34.0); Mean Corpuscular Volume 96.1 fl (81-99); Mean Platelet Volume 9.2 fL (7.4-10.4); Monocytes # 0.5 10^3/uL (0.2-0.9); Neutrophils % 56.7 %; Nucleated Red Blood Cells % 0 %; Platelet Count 255 10^3/cmm (130-400); Red Blood Count 4.66 10^6/uL (4.1-5.3); Red Cell Distribution Width 14.8 % (12.1-15.1); White Blood Count 6.7 10^3/uL (4.0-10.0)
[2022-04-10 11:47] LABS: Alanine Aminotransferase 12 U/L (0-33); Albumin Level 4.1 g/dL (3.5-5.2); Alkaline Phosphatase 62 IU/L (35-105); Blood Urea Nitrogen 13 mg/dL (8-23); Calcium 8.9 mg/dL (8.5-10.5); Carbon Dioxide 28 mmol/L (22-29); Chloride 99 mmol/L (98-107); Globulin 3.3 g/dL (1.3-4.6); Glomerular Filtration Rate 71.8 mL/min (90-130); Glucose 92 mg/dL (65-115); Osmolality Calculated 284 mOsm/kg (285-295); Sodium 137 mmol/L (136-145); Total Bilirubin 0.4 mg/dL (0.15-1.2); Total Protein 7.4 g/dL (6.6-8.7)
[2022-04-10 11:48] LABS: Anion Gap 14.4 (5-19); Aspartate Amino Transferase 19 U/L (0-32); Potassium 4.4 mmol/L (3.5-5.1)
[2022-04-10 11:49] LABS: Lactate Dehydrogenase 316 U/L (135-214)
[2022-04-12 22:51] LABS: P210 BCR ALB1 DETECTED; Prior Results NG; Source blood
== END 2022-04-23 23:59 | disposition home or self-care (01) ==
PROVIDERS: PCP Nurse Practitioner Family; Referring Provider Family Medicine; Visit Provider Internal Medicine Medical Oncology
DX: C92.10 Chronic myeloid leukemia, BCR/ABL-positive, not having achieved remission (principal); G89.29 Other chronic pain; M19.90 Unspecified osteoarthritis, unspecified site
CPT/HCPCS: 80053; 81206; 83615; 85025; 99214

== ENCOUNTER 2022-04-12 09:49 | Outpatient (CLI) | payer MEDICARE, SELFPAY ==
--- NOTE | 2022-04-12 10:06 | XRR_ITS ---
PROCEDURE INFORMATION: Exam: XR Cervical Spine Exam date and time: 04/12/2022 10:08 AM Age: 66 years old Clinical indication: Pain; Cervicalgia; Prior surgery; Surgery type: Spinal decompression; Patient HX: Hs of leukemia TECHNIQUE: Imaging protocol: Radiologic exam of the cervical spine. Views: 2 or 3 views. COMPARISON: CR XR cervical spine 3V* [id number] 12/06/2021 12:08 PM FINDINGS: Bones/joints: Trace levocurvature of the cervical spine is present. The normal cervical lordosis is maintained, without listhesis. No fracture identified. Vertebral body heights are well preserved. There is multilevel degenerative changes, manifested by intervertebral disc space narrowing, endplate osteophytes and facet joint arthrosis. Unchanged small lucent lesions in C2, the largest measuring 0.7 cm. Soft tissues: Unremarkable. XR/XR cervical spine 3V* [id number] IMPRESSION: 1. Degenerative changes of the cervical spine. 2. Stable C2 lucent lesions.
== END 2022-04-12 09:50 | disposition home or self-care (01) ==
PROVIDERS: PCP Nurse Practitioner Family; Visit Provider Nurse Practitioner Family
DX: M47.892 Other spondylosis, cervical region (principal); M54.2 Cervicalgia
CPT/HCPCS: 72040

== ENCOUNTER 2022-07-13 12:33 | Oncology outpatient (recurring) (ONCR) | payer MEDICARE, SELFPAY ==
[2022-07-13 13:07] LABS: Basophils # 0.1 10^3/uL (0.0-0.1); Basophils % 0.9 %; Eosinophils # 0.2 10^3/uL (0.0-0.8); Eosinophils % 4.4 %; Hematocrit 44.1 % (37.0-47.0); Hemoglobin 13.9 g/dL (11.5-15.3); Lymphocytes # 1.8 10^3/uL (0.8-4.8); Lymphocytes % 33.3 %; Mean Corpuscular HGB Conc 31.5 g/dL (30.0-36.0); Mean Corpuscular Hemoglobin 31.2 pg (28.0-34.0); Mean Corpuscular Volume 98.9 fl (81-99); Mean Platelet Volume 8.8 fL (7.4-10.4); Monocytes # 0.4 10^3/uL (0.2-0.9); Monocytes % 7.8 %; Neutrophils # 2.93 10^3/uL (1.8-7.7); Neutrophils % 53.4 %; Nucleated Red Blood Cells % 0 %; Platelet Count 255 10^3/cmm (130-400); Red Blood Count 4.46 10^6/uL (4.1-5.3); Red Cell Distribution Width 14.9 % (12.1-15.1); White Blood Count 5.5 10^3/uL (4.0-10.0)
[2022-07-13 13:36] LABS: Alanine Aminotransferase 15 U/L (0-33); Albumin Level 3.8 g/dL (3.5-5.2); Alkaline Phosphatase 66 U/L (35-105); Anion Gap 12.2 (5-19); Aspartate Amino Transferase 21 U/L (0-32); Blood Urea Nitrogen 17 mg/dL (8-23); Calcium 9.3 mg/dL (8.5-10.5); Carbon Dioxide 31 mmol/L (22-29); Chloride 98 mmol/L (98-107); Globulin 3.1 g/dL (1.3-4.6); Glomerular Filtration Rate 71.8 mL/min (90-130); Glucose 110 mg/dL (65-115); Osmolality Calculated 286 mOsm/kg (285-295); Potassium 4.2 mmol/L (3.5-5.1); Sodium 137 mmol/L (136-145); Total Bilirubin 0.3 mg/dL (0.15-1.2); Total Protein 6.9 g/dL (6.6-8.7)
[2022-07-19 22:22] LABS: P210 BCR ALB1 NOT DETECTED; Prior Results NG; Source blood
== END 2022-07-24 23:59 | disposition home or self-care (01) ==
PROVIDERS: Nurse Practitioner Family; PCP Nurse Practitioner Family; Referring Provider Family Medicine; Visit Provider Internal Medicine Medical Oncology
DX: C92.10 Chronic myeloid leukemia, BCR/ABL-positive, not having achieved remission (principal); G89.29 Other chronic pain; M19.90 Unspecified osteoarthritis, unspecified site; F17.210 Nicotine dependence, cigarettes, uncomplicated; M54.2 Cervicalgia; M25.511 Pain in right shoulder; M25.512 Pain in left shoulder; Z79.891 Long term (current) use of opiate analgesic; Z79.899 Other long term (current) drug therapy
CPT/HCPCS: 80053; 81206; 85025; 99214

== ENCOUNTER 2022-11-23 12:57 | Oncology outpatient (recurring) (ONCR) | payer MEDICARE, SELFPAY ==
[2022-11-23 13:19] LABS: Basophils # 0.1 10^3/uL (0.0-0.1); Basophils % 0.7 %; Eosinophils # 0.2 10^3/uL (0.0-0.8); Hematocrit 43.9 % (37.0-47.0); Hemoglobin 13.7 g/dL (11.5-15.3); Lymphocytes # 1.7 10^3/uL (0.8-4.8); Lymphocytes % 22.5 %; Mean Corpuscular HGB Conc 31.2 g/dL (30.0-36.0); Mean Corpuscular Hemoglobin 30.4 pg (28.0-34.0); Mean Corpuscular Volume 97.3 fl (81-99); Mean Platelet Volume 8.6 fL (7.4-10.4); Monocytes # 0.6 10^3/uL (0.2-0.9); Monocytes % 7.3 %; Neutrophils # 5.14 10^3/uL (1.8-7.7); Neutrophils % 67.1 %; Nucleated Red Blood Cells % 0 %; Platelet Count 234 10^3/cmm (130-400); Red Blood Count 4.51 10^6/uL (4.1-5.3); Red Cell Distribution Width 15.1 % (12.1-15.1); White Blood Count 7.7 10^3/uL (4.0-10.0)
[2022-11-23 13:33] LABS: Alanine Aminotransferase 12 U/L (0-33); Albumin Level 3.9 g/dL (3.5-5.2); Alkaline Phosphatase 74 U/L (35-105); Anion Gap 13.1 (5-19); Aspartate Amino Transferase 18 U/L (0-32); Blood Urea Nitrogen 13 mg/dL (8-23); Calcium 8.9 mg/dL (8.5-10.5); Carbon Dioxide 32 mmol/L (22-29); Chloride 98 mmol/L (98-107); Globulin 3.1 g/dL (1.3-4.6); Glomerular Filtration Rate 71.5 mL/min (90-130); Glucose 121 mg/dL (65-115); Lactate Dehydrogenase 279 U/L (135-214); Osmolality Calculated 289 mOsm/kg (285-295); Potassium 4.1 mmol/L (3.5-5.1); Sodium 139 mmol/L (136-145); Total Bilirubin 0.3 mg/dL (0.15-1.2)
[2022-11-29 16:49] LABS: BCR ABL1 (IS) 0.004 (0.000); P210 BCR ALB1 DETECTED; Prior Results NG; Source Peripheral blood
== END 2022-12-22 23:59 | disposition home or self-care (01) ==
PROVIDERS: PCP Nurse Practitioner Family; Referring Provider Family Medicine; Visit Provider Internal Medicine Medical Oncology
DX: C92.10 Chronic myeloid leukemia, BCR/ABL-positive, not having achieved remission (principal); M54.2 Cervicalgia; M25.512 Pain in left shoulder; M25.511 Pain in right shoulder; J44.1 Chronic obstructive pulmonary disease with (acute) exacerbation; Z79.2 Long term (current) use of antibiotics; Z79.899 Other long term (current) drug therapy; F17.210 Nicotine dependence, cigarettes, uncomplicated
CPT/HCPCS: 36415; 80053; 81206; 83615; 85025; 99214

== ENCOUNTER 2023-01-22 13:36 | Inpatient (IN) | payer MEDICARE, SELFPAY ==
[2023-01-22 13:44] VITALS: BP 139/82; PULSE 98; RESP 20; TEMP 37.3; O2SAT 91
--- NOTE | 2023-01-22 14:42 | CT_ITS ---
WS: [id number] CT LEFT HAND WITH CONTRAST HISTORY: 5th finger cellulitis vs abscess, on chemo and abx currently Technique: All CT scans at [facility] use at least one of these dose optimization techniques: automated exposure control; mA and/or kV adjustment per patient size (includes targeted exams where dose is matched to clinical indication); or iterative reconstruction. DLP: 122.78 mGy.cm COMPARISON: None available. There is mild soft tissue edema or cellulitis surrounding predominantly the fifth finger. There is a focal abscess measuring 9 x 13 mm along the lateral side of the proximal fifth phalanx. Abscess exten ds over a length of 20 mm x 9 x 13 mm. Bone appears intact. There is more significant soft tissue thi ckening along the volar surface of the fifth finger. No fracture identified. No foreign body. CT/CT hand LT w con [id number] IMPRESSION: 1. Soft tissue abscess measures 20 x 9 x 13 mm along the lateral aspect proxim al fifth phalanx. 2. Extensive soft tissue edema and cellulitis involving the fifth phalanx.
--- NOTE | 2023-01-22 14:42 | W.ED.SKABFB ---
HPI - Skin/Abscess/Foreign Bdy General: Chief complaint: Skin/Abscess/Foreign Body Stated complaint: infection in finger Time Seen by Provider: 01/22/23 14:35 History of Present Illness: Patient presents to the ER with complaints of left fifth finger abscess. Patient saw her primary care doc 4 to 5 days ago was started on Augmentin for this. He continued get worse she was seen in the ER another facility where they opened it and drained it cultured it and put her on Bactrim. Patient now says it is swollen again the redness and irritation is getting worse and starting to streak up her arm. Patient has had at least 2 days of Bactrim. Patient is currently on oral chemotherapy. MD complaint: abscess/boil Onset (ago): week(s) (Approximate 1 week ago) Location: L hand (Left fifth finger digit) Severity: moderate Associated symptoms: Deny chills, fever(s), nausea or vomiting Treatments prior to arrival: other (2 days with Augmentin followed by 2 days of Bactrim DS) Review of Systems General: Reports: 10 or more systems reviewed and unremarkable except in HPI and below Const: Denies: fever(s) or chills Eyes: Denies: change in vision ENMT: Denies: throat pain or odynophagia Card: Denies: chest pain, palpitations or irregular heart rhythm Resp: Denies: dyspnea, productive cough or non-productive cough GI: Denies: abdominal pain, nausea or vomiting : Denies: flank pain Musc: Denies: neck pain or back pain Skin/Breast: Reports: erythema, skin pain and skin tenderness; Denies: rash or pruritus PFSH ED PFSH: Medical History Chronic back pain CML (chronic myelocytic leukemia) Degenerative arthritis Degenerative joint disease of spine Dyslipidemia Hypothyroidism Nephrolithiasis Nicotine dependence Surgical History H/O sinus surgery History of ureter stent Previous back surgery Family History Mother Cancer Breast cancer Father COPD (chronic obstructive pulmonary disease) Denies family history of CAD (coronary artery disease) Clotting disorder Anesthesia complication Bleeding disorder Social History (Reviewed 01/22/23 @ 14:46 by YARELI Lassiter Smoking and tobacco status: current every day smoker (1 ppd, smoked x50+ years) cigarettes [ Other cigarette details: 1 pack/day] Alcohol intake: never Substance/Drug Use: never Household members: family Housing: House Marital status: Physical Exam Const: COMMON NORMALS: no acute distress, average body habitus, patient oriented x3, no limitations, healthy appearing, alert and well nourished HENMT: COMMON NORMALS: normocephalic, atraumatic, hearing grossly normal bilaterally, external ears normal, Normal external nose present and moist oral mucous membranes HEAD & SCALP: normocephalic and atraumatic NOSE: Normal external nose present EXTERNAL EAR: Yes external ears normal Eye: COMMON NORMALS: Equal, round and reactive pupils present, EOMs intact bilaterally, conjunctivae normal and no scleral icterus CONJUNCTIVA: Yes conjunctivae normal PUPIL: Yes Equal, round and reactive pupils present Neck/C-Spine: COMMON NORMALS: full ROM, no lymphadenopathy, supple, no meningeal signs, no JVD and Thyroid normal THYROID: Thyroid normal Chest: COMMONS NORMALS: normal inspection of the chest and normal palpation of entire chest wall Resp: COMMON NORMALS: normal respiratory effort, No retractions, No use of accessory muscles and clear to auscultation bilaterally AUSCULTATION: clear to auscultation bilaterally Cardio: COMMON NORMALS: no JVD, regular rate, regular rhythm, S1 normal heart sound present and S2 normal heart sound present RATE: regular rate RHYTHM: regular rhythm HEART SOUNDS: S1 normal heart sound present and S2 normal heart sound present GI: COMMON NORMALS: Normal to inspection, nondistended, normoactive bowel sounds present Neuro: COMMON NORMALS: patient oriented x3 SENSORIUM/ORIENTATION: Yes alert MENINGEAL SIGNS: Yes no meningeal signs Skin: NARRATIVE SKIN EXAM: Interdigit space between digits 4 and 5 on left hand red excoriated and irritated swollen very tender to the touch with erythema and swelling going up into the patient's hand at least. Course Vital Signs: Vital signs: Vital Signs Temperature 99.2 F 01/22/23 13:44 Pulse Rate 88 01/22/23 16:00 Respiratory Rate 20 H 01/22/23 13:44 Blood Pressure 120/98 01/22/23 16:00 Pulse Oximetry 93 01/22/23 16:00 Oxygen Delivery Me thod Nasal Cannula 01/22/23 16:00 Oxygen Flow Rate 2 01/22/23 16:00 MDM - Skin/Abscess/Foreign Bdy Medicial Decision Making Patient presents to the ER with worsening swelling, redness pain in the left finger. Patient has been seen twice as an outpatient and prescribed Augmentin as well as Bactrim and is getting worse. Lab work was obtained as well as consult with Dr. Menendez, and Dr. Lares Ortho they agree for admission and probable I&D with washout. Medical Records I reviewed the patient's medical records. Lab Data I reviewed the patient's lab results. 01/22/23 15:00 01/22/23 15:[address] 01/22/23 14:42 IMPRESSION: 1. Soft tissue abscess measures 20 x 9 x 13 mm along the lateral aspect proximal fifth phalanx. 2. Extensive soft tissue edema and cellulitis involving the fifth phalanx. Laboratory Results WBC 8.6 10^3/uL (4.0-10.0) 01/22/23 15:00 RBC 4.48 10^6/uL (4.1-5.3) 01/22/23 15:00 Hgb 13.4 g/dL (11.5-15.3) 01/22/23 15:00 Hct 41.9 % (37.0-47.0) 01/22/23 15:00 MCV 93.5 fl (81-99) 01/22/23 15:00 MCH 29.9 pg (28.0-34.0) 01/22/23 15:00 MCHC 32.0 g/dL (30.0-36.0) 01/22/23 15:00 RDW 14.6 % (12.1-15.1) 01/22/23 15:00 Plt Count 281 10^3/cmm (130-400) 01/22/23 15:00 MPV 9.0 fL (7.4-10.4) 01/22/23 15:00 Neut % (Auto) 67.0 % 01/22/23 15:00 Lymph % (Auto) 19.4 % 01/22/23 15:00 [place] % (Auto) 9.7 % 01/22/23 15:00 Eos % (Auto) 2.7 % 01/22/23 15:00 Baso % (Auto) 0.7 % 01/22/23 15:00 Neut # (Auto) 5.74 10^3/uL (1.8-7.7) 01/22/23 15:00 Lymph # (Auto) 1.7 10^3/uL (0.8-4.8) 01/22/23 15:00 [place] # (Auto) 0.8 10^3/uL (0.2-0.9) 01/22/23 15:00 Eos # (Auto) 0.2 10^3/uL (0.0-0.8) 01/22/23 15:00 Baso # (Auto) 0.1 10^3/uL (0.0-0.1) 01/22/23 15:00 Nucleated RBC % (auto) 0 % 01/22/23 15:00 Nucleated RBCs # 0.0 /100WBC 01/22/23 15:00 Sodium 132 mmol/L (136-145) L 01/22/23 15:00 Potassium 4.0 mmol/L (3.5-5.1) 01/22/23 15:00 Chloride 96 mmol/L (98-107) L 01/22/23 15:00 Carbon Dioxide 24 mmol/L (22-29) 01/22/23 15:00 Anion Gap 16.0 (5-19) 01/22/23 15:00 BUN 16 mg/dL (8-23) 01/22/23 15:00 Creatinine 0.9 mg/dL (0.5-0.9) 01/22/23 15:00 GFR Calculation 62.5 mL/min (90-130) L 01/22/23 15:00 Glucose 100 mg/dL (65-115) 01/22/23 15:00 Calculated Osmolality 275 mOsm/kg (285-295) L 01/22/23 15:00 Lactate 0.5 mmol/L (0.5-2.2) 01/22/23 15:00 Calcium 9.0 mg/dL (8.5-10.5) 01/22/23 15:00 Total Bilirubin 0.3 mg/dL (0.15-1.2) 01/22/23 15:00 AST 16 U/L (0-32) 01/22/23 15:00 ALT 12 U/L (0-33) 01/22/23 15:00 Alkaline Phosphatase 80 U/L (35-105) 01/22/23 15:00 Total Protein 7.2 g/dL (6.6-8.7) 01/22/23 15:00 Albumin 3.8 g/dL (3.5-5.2) 01/22/23 15:00 Globulin 3.4 g/dL (1.3-4.6) 01/22/23 15:00 Discharge Plan Discharge Patient Disposition: Admitted As Inpatient Clinical Impression: Abscess of finger of left hand, CML (chronic myelocytic leukemia), Cellulitis Condition: Stable Prescriptions: No Action ibuprofen 200 mg tablet 200 mg PO Q6H PRN (Reason: Pain) cholecalciferol (vitamin D3) 50 mcg (2,000 unit) capsule 50 mcg PO DAILY multivitamin Tablet 1 tab PO DAILY duloxetine [Cymbalta] 30 mg capsule,delayed release(DR/EC) 60 mg PO BID furosemide 20 mg tablet See Rx Instructions .ROUTE .COMPLEX Qty: 90 0RF Dose Instruction: TAKE 1 TABLET EVERY DAY Rx Instructions: TAKE 1 TABLET EVERY DAY Sprycel 100 mg tablet 100 mg PO DAILY Qty: 28 0RF trazodone 150 mg tablet 150 mg PO BEDTIME levothyroxine 125 mcg tablet 125 mcg PO DAILY fentanyl 75 mcg/hr patch 72 hour 25 mcg transdermal Q3D oxycodone-acetaminophen 10-325 mg tablet 1 tab PO BID Augmentin 875-125 mg Tablet 1 tab PO BID albuterol sulfate 90 mcg/actuation HFA aerosol inhaler 2 inh inhalation Q4H PRN (Reason: Shortness Of Breath) Referrals: Severo,MACRINA Bradford [Primary Care Provider] - Coding Level of Care Code ED Business Analysis Consultant for Noreen Briggs
[2023-01-22 15:11] LABS: Basophils # 0.1 10^3/uL (0.0-0.1); Basophils % 0.7 %; Eosinophils # 0.2 10^3/uL (0.0-0.8); Eosinophils % 2.7 %; Hematocrit 41.9 % (37.0-47.0); Hemoglobin 13.4 g/dL (11.5-15.3); Lymphocytes # 1.7 10^3/uL (0.8-4.8); Lymphocytes % 19.4 %; Mean Corpuscular Hemoglobin 29.9 pg (28.0-34.0); Mean Corpuscular Volume 93.5 fl (81-99); Monocytes # 0.8 10^3/uL (0.2-0.9); Monocytes % 9.7 %; Neutrophils # 5.74 10^3/uL (1.8-7.7); Nucleated Red Blood Cells % 0 %; Platelet Count 281 10^3/cmm (130-400); Red Blood Count 4.48 10^6/uL (4.1-5.3); Red Cell Distribution Width 14.6 % (12.1-15.1); White Blood Count 8.6 10^3/uL (4.0-10.0)
[2023-01-22 15:31] LABS: Alanine Aminotransferase 12 U/L (0-33); Albumin Level 3.8 g/dL (3.5-5.2); Alkaline Phosphatase 80 U/L (35-105); Aspartate Amino Transferase 16 U/L (0-32); Blood Urea Nitrogen 16 mg/dL (8-23); Carbon Dioxide 24 mmol/L (22-29); Chloride 96 mmol/L (98-107); Globulin 3.4 g/dL (1.3-4.6); Glomerular Filtration Rate 62.5 mL/min (90-130); Glucose 100 mg/dL (65-115); Lactate (Lactic Acid level) 0.5 mmol/L (0.5-2.2); Osmolality Calculated 275 mOsm/kg (285-295); Sodium 132 mmol/L (136-145); Total Bilirubin 0.3 mg/dL (0.15-1.2); Total Protein 7.2 g/dL (6.6-8.7)
[2023-01-22] MEDS: iohexol 350 mg/mL 500 mL Btl (per mL) IV (15:49)
[2023-01-22] MEDS: piperacillin-tazobactam 3.375 GM in sodium chloride 0.9% (plus) 50 ML IV (15:56)
[2023-01-22 16:00] VITALS: BP 120/98; PULSE 88; O2SAT 93
[2023-01-22] MEDS: morphine 4 mg/mL SDV 1 mL IVP (16:59)
[2023-01-22] MEDS: vancomycin 1,000 MG in sodium chloride 0.9% 250 ML 250 MG IV (16:59)
--- NOTE | 2023-01-22 17:02 | PM.HP ---
Providers/Chief Complaint Primary Care Provider: Suzette Elkins, MACRINA Chief Complaint: infection in finger History of Present Illness Justina Meraz is a 67 year old female who experienced left fifth phalanx cut around Sunday last week, has seen PCP twice for worsening of drainage and swelling, she has tried treated for antibiotics came to the hospital for worsening of pain and swelling and purulent discharge. She has not noticed any fever, nausea, vomiting chest pain shortness of breath. She smokes 1 pack/day. Does not drink alcohol. Carries history of CML sees Dr. Sherwood. Patient is sitting recently she had thoracentesis done at [place]. She is due for a CT scan of her chest in a week however I have requested CT scan of the chest preoperatively. Patient has been diagnosed with significant abscess evident on her CT scan of left arm I have started on clindamycin for toxin suppression along vancomycin and Zosyn Review of Systems Const: Denies: chills Eyes: Denies: change in vision ENMT: Denies: throat pain Card: Denies: chest pain Resp: Denies: dyspnea GI: Denies: abdominal pain : Denies: flank pain Musc: Reports: extremity pain, extremity swelling, joint pain, joint swelling and joint redness Skin/Breast: Reports: rash Neuro: Denies: headache(s) Psych: Reports: anxiety Medications/Allergies Home Medications Medication Instructions Recorded Confirmed Last Taken Type levothyroxine 125 mcg tablet 125 mcg PO DAILY 05/19/20 01/22/23 01/22/23 History trazodone 150 mg tablet 150 mg PO BEDTIME 05/19/20 01/22/23 01/21/23 History ibuprofen 200 mg tablet 200 mg PO Q6H PRN Pain 03/22/22 01/22/23 Unknown History fentanyl 75 mcg/hr transdermal 25 mcg transdermal Q3D 04/10/22 01/22/23 01/22/23 History patch cholecalciferol (vitamin D3) 50 50 mcg PO DAILY 07/13/22 01/22/23 01/22/23 History mcg (2,000 unit) capsule multivitamin 1 tab PO DAILY 07/13/22 01/22/23 01/22/23 History oxycodone-acetaminophen 10 mg-325 1 tab PO BID Pain 07/13/22 01/22/23 01/22/23 History mg tablet duloxetine 30 mg capsule,delayed 60 mg PO BID 11/23/22 01/22/23 01/22/23 History release (Cymbalta) furosemide 20 mg tablet See Rx Instructions .Route 11/30/22 01/22/23 01/22/23 Rx .COMPLEX #90 tabs dasatinib 100 mg tablet (Sprycel) 100 mg PO DAILY #28 tabs 01/01/23 01/22/23 01/22/23 Rx albuterol sulfate 90 mcg/actuation 2 inh inhalation Q4H PRN Shortness 01/22/23 01/22/23 Unknown History aerosol inhaler Of Breath amoxicillin 875 mg-potassium 1 tab PO BID 01/22/23 01/22/23 01/22/23 History clavulanate 125 mg tablet Allergies Allergy/AdvReac Type Severity Reaction Status Date / Time No Known Allergies Allergy Verified 11/23/22 13:17 PFSH Acute PFSH: Medical History Chronic back pain CML (chronic myelocytic leukemia) Degenerative arthritis Degenerative joint disease of spine Dyslipidemia Hypothyroidism Nephrolithiasis Nicotine dependence Surgical History H/O sinus surgery History of ureter stent Previous back surgery Family History Mother Cancer Breast cancer Father COPD (chronic obstructive pulmonary disease) Denies family history of CAD (coronary artery disease) Clotting disorder Anesthesia complication Bleeding disorder Social History Smoking and tobacco status: current every day smoker (1 ppd, smoked x50+ years) cigarettes [ Other cigarette details: 1 pack/day] Alcohol intake: never Substance/Drug Use: never Household members: family Housing: House Marital status: Vitals/I&O/Wt Last Vital Signs Temp 99.2 F 01/22/23 13:44 Pulse 88 01/22/23 16:00 Resp 20 H 01/22/23 13:44 BP 120/98 01/22/23 16:00 Pulse Ox 93 01/22/23 16:00 O2 Del Method Nasal Cannula 01/22/23 16:00 O2 Flow Rate 2 01/22/23 16:00 0501/22/23 01/22/23 06:59 14:59 22:59 Intake Total 50 / 50 Balance 50 / 50 Weight last 48 hrs Weight 70.817 kg Physical Exam Narrative: Patient is sitting in her bed Left phalanx with purulent drainage, hyperemia, swelling extending all the way up to her elbow No active chest pain or shortness of breath S1, S2 Anxious. Currently on room air Pleasant and cooperative Abdomen soft Looks euvolemic Data 01/22/23 15:00 01/22/23 15:00 Micro: Microbiology 01/22/23 15:17 Blood Culture - Preliminary Blood SPECIMEN COLLECTED 01/22/23 15:00 Blood Culture - Preliminary Blood SPECIMEN COLLECTED A&P Assessment and plan (1) Abscess of finger of left hand: (2) Chronic myeloid leukemia, BCR/ABL-positive, not having achieved remission: (3) COPD (chronic obstructive pulmonary disease): (4) Cellulitis: Qualifiers: Laterality: left Site of cellulitis: extremity Site of cellulitis of extremity: upper extremity Qualified Code(s): L03.114 - Cellulitis of left upper limb Plan Progressive cellulitis Left hand extending up to her arm N.p.o. after midnight Dr. Reese has been consulted For toxin suppression I will give her clindamycin along vancomycin and Zosyn Patient is immunocompromised Patient has recent thoracentesis I will request CT chest to rule out any recurrence of pleural effusion before surgery Currently doing well on room air She carries history of COPD smokes 1 pack/day, and using 21 mg nicotine patch She does not use oxygen at home N.p.o. after midnight Full code Hold DVT prophylaxis for surgical intervention tomorrow For anti-inflammatory effect would use ibuprofen Opioids and bowel regimen on board Preoperatively I will only request CT scan of her chest without contrast Attestations Medical Necessity Statement*: More than 2 midnights anticipate Diagnoses Abscess of finger of left hand L02.512 Chronic myeloid leukemia, BCR/ABL-positive, not having achieved remission C92.10 COPD (chronic obstructive pulmonary disease) J44.9 Cellulitis L03.114 Laterality: left Site of cellulitis: extremity Site of cellulitis of extremity: upper extremity
[2023-01-22 17:06] VITALS: BP 122/72; PULSE 83; O2SAT 93
[2023-01-22 17:06] LABS: Erythrocyte Sedimentation Rate 51 mm/hr (0-15)
[2023-01-22 17:18] LABS: C Reactive Protein 74.1 mg/L (0.0-4.9)
--- NOTE | 2023-01-22 17:26 | PM.CONSULT ---
Providers/Reason For Consult Consulting Physician/Specialty*: Jaycob Lares, /orthopedic surgery Reason for Consult*: Left small finger infection Requesting Physician: Dr. Yanez?ED Attending Physician: Dr. Menenedz?hospitalist internal medicine Primary Care Provider: MACRINA Johnson History of Present Illness History of Present Illness Justina Meraz is a 67 year old female with left small finger cut around Sunday last week, has seen PCP twice for worsening of drainage and swelling, she has tried treated for antibiotics came to the hospital for worsening of pain and swelling and purulent discharge.? She has not noticed any fever, nausea, vomiting chest pain shortness of breath.? She smokes 1 pack/day.? Does not drink alcohol.? History of CML and patient sees Dr. Sherwood.? Patient currently on chemo. Given worsening infection which has not improved with conservative approach orthopedics was consulted for evaluation and treatment recommendations. On my evaluation the patient she has a focalized palpable fluctuance and draining abscess on the volar aspect of the left small finger over the proximal phalanx no significant tracking proximal erythema. She is continue to have pain and failed conservative approach. Review of Systems General: Reports: 10 or more systems reviewed and unremarkable except in HPI and below Medications/Allergies Home Medications Medication Instructions Recorded Confirmed Last Taken Type levothyroxine 125 mcg tablet 125 mcg PO DAILY 05/19/20 01/22/23 01/22/23 History trazodone 150 mg tablet 150 mg PO BEDTIME 05/19/20 01/22/23 01/21/23 History ibuprofen 200 mg tablet 200 mg PO Q6H PRN Pain 03/22/22 01/22/23 Unknown History fentanyl 75 mcg/hr transdermal 25 mcg transdermal Q3D 04/10/22 01/22/23 01/22/23 History patch cholecalciferol (vitamin D3) 50 50 mcg PO DAILY 07/13/22 01/22/23 01/22/23 History mcg (2,000 unit) capsule multivitamin 1 tab PO DAILY 07/13/22 01/22/23 01/22/23 History oxycodone-acetaminophen 10 mg-325 1 tab PO BID Pain 07/13/22 01/22/23 01/22/23 History mg tablet duloxetine 30 mg capsule,delayed 60 mg PO BID 11/23/22 01/22/23 01/22/23 History release (Cymbalta) furosemide 20 mg tablet See Rx Instructions .Route 11/30/22 01/22/23 01/22/23 Rx .COMPLEX #90 tabs dasatinib 100 mg tablet (Sprycel) 100 mg PO DAILY #28 tabs 01/01/23 01/22/23 01/22/23 Rx albuterol sulfate 90 mcg/actuation 2 inh inhalation Q4H PRN Shortness 01/22/23 01/22/23 Unknown History aerosol inhaler Of Breath amoxicillin 875 mg-potassium 1 tab PO BID 01/22/23 01/22/23 01/22/23 History clavulanate 125 mg tablet Allergies Allergy/AdvReac Type Severity Reaction Status Date / Time No Known Allergies Allergy Verified 11/23/22 13:17 PFSH Acute PFSH: Medical History Chronic back pain CML (chronic myelocytic leukemia) Degenerative arthritis Degenerative joint disease of spine Dyslipidemia Hypothyroidism Nephrolithiasis Nicotine dependence Surgical History H/O sinus surgery History of ureter stent Previous back surgery Family History Mother Cancer Breast cancer Father COPD (chronic obstructive pulmonary disease) Denies family history of CAD (coronary artery disease) Clotting disorder Anesthesia complication Bleeding disorder Social History Smoking and tobacco status: current every day smoker (1 ppd, smoked x50+ years) cigarettes [ Other cigarette details: 1 pack/day] Alcohol intake: never Substance/Drug Use: never Household members: family Housing: House Marital status: Vitals/I&O/Wt Last Vital Signs Temp 99.2 F 01/22/23 13:44 Pulse 83 01/22/23 17:06 Resp 20 H 01/22/23 13:44 BP 122/72 01/22/23 17:06 Pulse Ox 93 01/22/23 17:06 O2 Del Method Nasal Cannula 01/22/23 17:06 O2 Flow Rate 2 01/22/23 17:06 01/22/23 01/22/23 01/22/23 06:59 14:59 22:59 Intake Total 50 / 50 Balance 50 / 50 Weight last 48 hrs Weight 156 lb 2 oz Physical Exam Narrative: Orthopedic specific examination: Examination left hand: Left hand demonstrates a palpable fluctuance and focal abscess of the volar aspect of the left small finger over the proximal phalanx. This does not extend proximally into the palm of the hand. Patient has mild A1 stepan tenderness. She has decreased range of motion no tenderness to palpation along the flexor tendon sheath with no significant fusiform swelling the swelling is focal to the site of the abscess patient is able to tolerate gentle passive extension with no significant discomfort. Sensation intact light touch distally at the radial and ulnar digital bundles. Brisk cap refill less than 2 seconds no lymphangitis noted. Compartments are soft and compressible Const: COMMON NORMALS: no acute distress and average body habitus HENMT: COMMON NORMALS: normocephalic and atraumatic HEAD & SCALP: normocephalic and atraumatic Resp: COMMON NORMALS: normal respiratory effort and No retractions Cardio: PERIPHERAL PULSES: radial pulses present Data 01/22/23 15:00 01/22/23 15:00 Other Labs: WBC 8.6, ESR 51 CRP 74 Micro: Microbiology 01/22/23 15:17 Blood Culture - Preliminary Blood SPECIMEN COLLECTED 01/22/23 15:00 Blood Culture - Preliminary Blood SPECIMEN COLLECTED Other CT: Radiologist's impression: CT/CT hand LT w con [id number] IMPRESSION: ? 1.? Soft tissue abscess measures 20 x 9 x 13 mm along the lateral aspect proximal fifth phalanx. 2.? Extensive soft tissue edema and cellulitis involving the fifth phalanx. A&P Assessment and plan (1) Abscess of finger of left hand: (2) Chronic myeloid leukemia, BCR/ABL-positive, not having achieved remission: Plan N.p.o. at midnight Internal medicine as primary Plan for OR tomorrow for left small finger irrigation debridement Continue IV antibiotics Elevation and ice for pain and swelling Patient presents today as a patient with CML on chemo and has a left small finger abscess. This appears to be superficial nature and on the volar aspect of the finger at the proximal phalanx level. This does not appear to involve the flexor tendon sheath. This abscess has failed a conservative approach of outpatient antibiotics and drainage. At this point time given the palpable fluctuance and purulent draining abscess and findings consistent on CT scan would recommend a left small finger irrigation and debridement with cultures. At this point time given her failure of conservative treatment I feel this is her next best treatment option we talked about risk benefits complication alternatives with surgical nonsurgical treatment options. Risk of surgery include not limited to make a better make it worse, further repeat surgeries to clear infection, injury to nerves vessels or tendons, decreased range of motion of the finger. Understanding risk of surgery she agrees to proceed with surgical intervention. All questions answered at this time we will add her on for surgery tomorrow for a left small finger irrigation and debridement. Consult Attestations Medical Necessity Statement: Left small finger infection Coding Level of Care Code Acute Code for [facility] Fwd Diagnoses Abscess of finger of left hand L02.512 Chronic myeloid leukemia, BCR/ABL-positive, not having achieved remission C92.10 Time Spent (min) 45
[2023-01-22 17:33] VITALS: BP 132/74; PULSE 82; RESP 18; O2SAT 93
--- NOTE | 2023-01-22 19:45 | CTR_ITS ---
PROCEDURE INFORMATION: Exam: CT Chest Without Contrast; Diagnostic Exam date and time: 01/22/2023 9:15 PM Age: 67 years old Clinical indication: Pre-operative exam; Respiratory screening exam; Additional info: Preop TECHNIQUE: Imaging protocol: Diagnostic computed tomography of the chest without contrast. Radiation optimization: All CT scans at this facility use at least one of these dose optimization techniques: automated exposure control; mA and/or kV adjustment per patient size (includes targeted exams where dose is matched to clinical indication); or iterative reconstruction. REPORTING DATA: Count of CT and Cardiac NM exams in prior 12 months: This patient has received 0 known CTs and 0 known cardiac nuclear medicine studies in the 12 months prior to the current study. COMPARISON: CT angio chest PE protcl [id number] 08/13/2021 12:32 PM RADIATION DOSE METRICS: Total DLP (mGy-cm): 517.96 FINDINGS: Lungs: Minimal compressive atelectasis in the left lower lobe. No consolidative pulmonary infiltrates. Pleural spaces: Small left pleural effusion. No right pleural effusion. No pneumothorax. Heart: No cardiomegaly noted. There is no significant pericardial effusion present. Coronary arteries: The coronary arteries demonstrate atherosclerotic calcifications. Lymph nodes: Calcified mediastinal and hilar lymph nodes, consistent with old granulomatous disease. Vasculature: Atherosclerosis of the thoracic aorta. Ascending aorta measures 3.5 cm in diameter. Bones/joints: Degenerative spine changes are noted. No acute fracture or other acute osseous abnormality. Soft tissues: Unremarkable. CT/CT chest wo con [id number] IMPRESSION: 1. Small left pleural effusion. 2. Minimal compressive atelectasis in the left lower lobe. No consolidative pulmonary infiltrates.
[2023-01-22 20:00] VITALS: BP 157/82; PULSE 80; RESP 18; TEMP 36.7; O2SAT 94
[2023-01-22] MEDS: clindamycin 600 MG/50 ML PREMIX 100 MG IV (21:06)
[2023-01-22] MEDS: sodium chloride 0.9% 1,000 ML 75 ML IV (21:07)
--- NOTE | 2023-01-22 23:56 | PC.PHAR ---
Pharmacokinetic dosing service Date: 01/22/23 Time: 2355 Objective: Patient: Justina Meraz Floor: 264-1 Age: 67 yo Serum creatinine: 0.9 mg/dL Height: 64.0 Inches Weight (kg): 70.817 Diagnosis: Relevant medical/social history: Cultures and sensitivities: Other labs: Assessment: IBW (kg): 54.70 Dosing wt(kg): 70.817 Estimated Creatinine clearance (ml/min): 52.4 CRCL method: Cockcroft and Gault using ibw(default). Drug selected: Vancomycin Loading dose (mg): 0 Vd (liters): 63.7 (factor used: 0.9 L/kg) Melvin (hr-1): 0.048 Half life (hrs): 14.44 Recommended dose: 1250 mg Interval: 18 hrs Infusion time (hrs): 1.5 Predicted peak (mcg/mL): 32.7 Predicted trough (mcg/mL): 14.81 Total body weight is being used for vancomycin dosing. Renal function is stable [ ] /unstable [ ] Recommendations: Give Vancomycin 1250 mg q 18 hrs with an expected Cpeak of 32.7 mcg/ml and an expected Ctrough of 14.81 mcg/ml Renal dosing of other antibiotics (review renal dosing of other medications and list guidelines here): Thank you for the consult, will continue to follow. Signature: Judi Coates [facility]
[2023-01-23] VITALS (18 sets, daily range): BP systolic 116–174; BP diastolic 67–97; PULSE 69–94; RESP 16–20; TEMP 36.1–37.7; O2SAT 91–100
[2023-01-23] MEDS: HYDROmorphone 1 mg/mL INJ 1 mL 0.4 MG IVP ×3 (00:33→20:31)
[2023-01-23] MEDS: piperacillin-tazobactam 3.375 GM in sodium chloride 0.9% (plus) 50 ML IV ×3 (00:34→23:35)
--- NOTE | 2023-01-23 00:53 | PC.PHAR ---
Vancomycin Trough to be drawn on 01/24 2200 before the 2300 dose. Patient had a 1gm dose in ER on 01/22 @1700 so this would be before the 4th dose. Will continue to monitor. Thank you, Judi Coates [facility]
[2023-01-23 04:34] LABS: Basophils # 0.1 10^3/uL (0.0-0.1); Basophils % 0.7 %; Eosinophils # 0.3 10^3/uL (0.0-0.8); Eosinophils % 4.1 %; Hematocrit 40.7 % (37.0-47.0); Hemoglobin 13.1 g/dL (11.5-15.3); Lymphocytes % 27.9 %; Mean Corpuscular HGB Conc 32.2 g/dL (30.0-36.0); Mean Corpuscular Hemoglobin 30.8 pg (28.0-34.0); Mean Corpuscular Volume 95.5 fl (81-99); Monocytes # 0.7 10^3/uL (0.2-0.9); Monocytes % 10.3 %; Neutrophils # 4.02 10^3/uL (1.8-7.7); Neutrophils % 56.9 %; Nucleated Red Blood Cells % 0 %; Platelet Count 244 10^3/cmm (130-400); Red Blood Count 4.26 10^6/uL (4.1-5.3); Red Cell Distribution Width 14.8 % (12.1-15.1); White Blood Count 7.1 10^3/uL (4.0-10.0)
[2023-01-23 05:42] LABS: Anion Gap 13.9 (5-19); Blood Urea Nitrogen 16 mg/dL (8-23); Calcium 9.1 mg/dL (8.5-10.5); Carbon Dioxide 28 mmol/L (22-29); Chloride 100 mmol/L (98-107); Glomerular Filtration Rate 62.5 mL/min (90-130); Glucose 113 mg/dL (65-115); Osmolality Calculated 288 mOsm/kg (285-295); Potassium 3.9 mmol/L (3.5-5.1); Sodium 138 mmol/L (136-145)
--- NOTE | 2023-01-23 09:39 | PC.CHAP ---
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 visit [] Patient/Family/Request visit [] Outpatient visit [] Follow-up visit [] Physician referral [] Code/Alert [x] Routine visit [] Staff referral [] Actively dying [] Patient sleeping [] Family support [] [] Out of room [] Palliative care [] [] Receiving care in room [] Pre-surgical visit [] Trauma [] Long length of stay [] ICU visit [] Other: Relational/Emotional Strength [x] Patient feels connected with others/family/visitors/staff [] Distress [] Loneliness/isolation [] Abandonment Spirituality of Patient [x] Person of Neena [] Attends Anglican of their Neena [x] Believes in Prayer [] Reads Bible or Samaritan materials [] There are Spiritual issues to be addressed 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 Interventions [x] Prayer [] Active listening [] Non-anxious presence [x] Spiritual/emotional support [] Crisis/trauma care [] Spiritual counseling [] Bereavement support [] Provided bereavement packet [] Provided Bible/devotional materials [] Provided toy/stuffed animal, coloring book to patient or family member [] Provided Communion [] Anointing/[place] [] Salvation [x] Completed spiritual assessment [] Other: Impact on Illness or Injury [] Angry [] Fearful [] Anxious [] Often cries [] Exhaustion [] Unable to work [] Unable to attend faith [] Unable to walk/stand [] Unable to read [] Unable to drive [] Unable to eat/drink [] Unable to sleep [] Unable to be with family [] Patient intubated [] Other: Summary Time spent with patient 5 min
[2023-01-23] MEDS: nicotine 21 mg Patch 1 PATCH TRANSDERMA (09:41)
[2023-01-23] MEDS: sennosides-docusate Tablet 1 TAB PO (09:41)
--- NOTE | 2023-01-23 10:26 | PM.PN ---
Subjective Subjective: Patient seen and examined this morning. She has been n.p.o. since midnight. She does have some slight lymphangitis tracking proximally on the dorsal aspect of the hand and into the distal forearm. Still mild drainage noted at abscess. Patient denies any fevers chills chest pain shortness of breath nausea or vomiting. Patient states she is ready to proceed with surgery today. Vitals/I&O/Wt Last Vital Signs Temp 98.4 F 01/23/23 08:00 Pulse 87 01/23/23 08:36 Resp 18 01/23/23 08:36 BP 116/67 01/23/23 08:00 Pulse Ox 92 01/23/23 08:36 O2 Del Method Nasal Cannula 01/23/23 08:36 O2 Flow Rate 1.5 01/23/23 08:36 01/22/23 01/23/23 01/23/23 22:59 06:59 14:59 Intake Total 50 / 50 100 / 100 Balance 50 / 50 100 / 100 Weight last 48 hrs Weight 156 lb 2 oz Physical Exam Narrative: Orthopedic specific examination: Examination left hand: Left hand demonstrates a palpable fluctuance and abscess of the volar aspect of the left small finger over the proximal phalanx. Early lymphangitis to the dorsal hand and distal forearm dorsally. Mild swelling over dorsal hand. Patient has mild A1 stepan tenderness. She has decreased range of motion minimal tenderness to palpation along the flexor tendon sheath with increased swelling to the small finger. patient is able to tolerate gentle passive extension with no significant discomfort. Sensation intact light touch distally at the radial and ulnar digital bundles. Brisk cap refill less than 2 seconds Compartments are soft and compressible Const: COMMON NORMALS: no acute distress and average body habitus HENMT: COMMON NORMALS: normocephalic and atraumatic HEAD & SCALP: normocephalic and atraumatic Resp: COMMON NORMALS: normal respiratory effort and No retractions Cardio: PERIPHERAL PULSES: radial pulses present Data 01/23/23 04:19 01/23/23 04:19 Micro: Microbiology 01/22/23 15:17 Blood Culture - Preliminary Blood SPECIMEN COLLECTED 01/22/23 15:00 Blood Culture - Preliminary Blood SPECIMEN COLLECTED A&P Assessment and plan (1) Abscess of finger of left hand: (2) Chronic myeloid leukemia, BCR/ABL-positive, not having achieved remission: Plan N.p.o. since midnight Internal medicine as primary Plan for OR tomorrow for left small finger irrigation debridement Continue IV antibiotics Elevation and ice for pain and swelling Patient understands risk benefits complication alternatives with surgery and agrees to proceed with surgical intervention. All questions answered. Plan for OR today Attestations Medical Necessity Statement*: Left small finger abscess Coding Level of Care Code Acute Code for Chg Fwd Diagnoses Abscess of finger of left hand L02.512 Chronic myeloid leukemia, BCR/ABL-positive, not having achieved remission C92.10 Time Spent (min) 25
--- NOTE | 2023-01-23 11:47 | PM.PN ---
Subjective Subjective: This morning patient is awaiting surgery No fever No white count worsening noted Vitals/I&O/Wt Last Vital Signs Temp 98.4 F 01/23/23 08:00 Pulse 87 01/23/23 08:36 Resp 18 01/23/23 08:36 BP 116/67 01/23/23 08:00 Pulse Ox 92 01/23/23 08:36 O2 Del Method Nasal Cannula 01/23/23 08:36 O2 Flow Rate 1.5 01/23/23 08:36 01/22/23 01/23/23 01/23/23 22:59 06:59 14:59 Intake Total 50 / 50 1100 / 1100 Balance 50 / 50 1100 / 1100 Weight last 48 hrs Weight 70.817 kg Physical Exam Narrative: Patient is sitting at the bedside Swelling redness and purulent drainage noted around left fifth phalanx Hyperemic streak extending up to mid to elbow No active chest pain shortness of breath Doing well on 1.5 L Hemodynamic stable abdomen soft euvolemic Has nicotine patch Data 01/23/23 04:19 01/23/23 04:19 Micro: Microbiology 01/22/23 16:00 Wound Culture - Preliminary Hand - Left Ring Coag positive Staphylococcus 01/22/23 15:17 Blood Culture - Preliminary Blood SPECIMEN COLLECTED 01/22/23 15:00 Blood Culture - Preliminary Blood SPECIMEN COLLECTED A&P Assessment and plan (1) Abscess of finger of left hand: (2) Chronic myeloid leukemia, BCR/ABL-positive, not having achieved remission: (3) COPD (chronic obstructive pulmonary disease): (4) Cellulitis: Qualifiers: Laterality: left Site of cellulitis: extremity Site of cellulitis of extremity: upper extremity Qualified Code(s): L03.114 - Cellulitis of left upper limb (5) CML (chronic myelocytic leukemia): Plan Purulent cellulitis with abscess of left fifth phalanx Planning for I&D today Continue vancomycin and Zosyn Clindamycin 1 dose given No signs of fever or worsening of leukocytosis Note likely patient will be able to go home in next 48 hours after surgery Continue opioids along bowel regimen CML: No acute exacerbation Pleural effusion: Low quantity, recently had thoracentesis done, patient is cleared to go to the surgery No need of preoperative work-up at this point Doing well on 1.5 L nasal cannula She would benefit from incentive spirometer and DuoNeb treatment Full code She can eat after her surgery Attestations Medical Necessity Statement*: Discharge in next 48 hours Diagnoses Abscess of finger of left hand L02.512 Chronic myeloid leukemia, BCR/ABL-positive, not having achieved remission C92.10 COPD (chronic obstructive pulmonary disease) J44.9 Cellulitis L03.114 Laterality: left Site of cellulitis: extremity Site of cellulitis of extremity: upper extremity CML (chronic myelocytic leukemia) C92.10
[2023-01-23] MEDS: sodium chloride 0.9% 1,000 ML 75 ML IV ×2 (12:01→23:42)
[2023-01-23] MEDS: vancomycin 1,250 MG/250 ML PIGGYBACK 250 MG IV (12:02)
--- NOTE | 2023-01-23 13:51 | P.ANESASSM_ITS ---
Pre-Anesthetic Assessment Height/Weight: Height 1.63 m Weight 70.817 kg Temp Pulse Resp BP Pulse Ox O2 Del Method O2 Flow Rate 97.9 F 85 18 151/85 92 Nasal Cannula 1.5 01/23/23 12:00 01/23/23 12:00 01/23/23 12:00 01/23/23 12:00 01/23/23 12:00 01/23/23 08:36 01/23/23 08:36 Preop Diagnosis: Left small finger abscess Operation Date: 01/23/23 15:30 Proposed Procedures p Incision & Drainage Upper Extremity(Left) - Jaycob Arnaud, DO Familial anesthetic complications: None Was Beta Jono taken within 24 hours: N/A Was Clonidine taken within 24 hours: N/A Last intake: Intake Last Liquid Date 01/22/23 Last Liquid Time 22:00 Last Solid Date 01/22/23 Last Solid Time 20:00 Social Tobacco and No alcohol Exam alert, oriented x 3, clear to auscultation bilaterally and regular rate & rhythm Airway Mallampati: Class III Dentition: full Pulmonary Chronic Obstructive Pulmonary Disease (had not been on o2 at home, recent pleural effusion thought to be related to CML) CV/HEM Hypertension Metabolic Thyroid Disease Anesthetic Plan ASA status: 3 Anesthesia: General Risk of > 500 ml blood loss (7ml/kg in children): No Medications/Allergies Home Medications Medication Instructions Recorded Confirmed Last Taken Type levothyroxine 125 mcg tablet 125 mcg PO DAILY 05/19/20 01/22/23 01/22/23 History trazodone 150 mg tablet 150 mg PO BEDTIME 05/19/20 01/22/23 01/21/23 History ibuprofen 200 mg tablet 200 mg PO Q6H PRN Pain 03/22/22 01/22/23 Unknown History fentanyl 75 mcg/hr transdermal 25 mcg transdermal Q3D 04/10/22 01/22/23 01/22/23 History patch cholecalciferol (vitamin D3) 50 50 mcg PO DAILY 07/13/22 01/22/23 01/22/23 History mcg (2,000 unit) capsule multivitamin 1 tab PO DAILY 07/13/22 01/22/23 01/22/23 History oxycodone-acetaminophen 10 mg-325 1 tab PO BID Pain 07/13/22 01/22/23 01/22/23 History mg tablet duloxetine 30 mg capsule,delayed 60 mg PO BID 11/23/22 01/22/23 01/22/23 History release (Cymbalta) furosemide 20 mg tablet See Rx Instructions .Route 11/30/22 01/22/23 01/22/23 Rx .COMPLEX #90 tabs albuterol sulfate 90 mcg/actuation 2 inh inhalation Q4H PRN Shortness 01/22/23 01/22/23 Unknown History aerosol inhaler Of Breath amoxicillin 875 mg-potassium 1 tab PO BID 01/22/23 01/22/23 01/22/23 History clavulanate 125 mg tablet dasatinib 100 mg tablet (Sprycel) 100 mg PO DAILY #28 tabs 01/23/23 Unknown Rx Allergies Allergy/AdvReac Type Severity Reaction Status Date / Time No Known Allergies Allergy Verified 11/23/22 13:17 Current Medications Generic Name Dose Route Start Last Admin Trade Name Freq PRN Reason Stop Dose Admin Hydromorphone HCl 0.4 mg 01/22/23 19:26 01/23/23 08:19 Hydromorphone 1 Mg/Ml Inj 1 Ml IVP 0.4 mg Q4H PRN Administration pain Sodium Chloride 1,000 mls @ 75 mls/hr 01/22/23 19:26 01/23/23 12:01 Sodium Chloride 0.9% IV 75 mls/hr .[id number] DONTE Administration Piperacillin Sod/Tazobactam 50 mls @ 12.5 mls/hr 01/23/23 00:00 01/23/23 13:34 Sod 3.375 gm/ Sodium Chloride IV 12.5 mls/hr Q8H DONTE Infusion Protocol Vancomycin/PEG/NADA/Lysine/Water 1,250 mg in 250 mls @ 250 mls/hr 01/23/23 11:00 01/23/23 13:19 Vancocin IV Infused Q18H DONTE Infusion Nicotine 1 patch 01/23/23 09:00 01/23/23 09:41 Nicotine 21 Mg Patch TRANSDERMA 1 patch DAILY DONTE Administration Senna/Docusate Sodium 1 tab 01/23/23 09:00 01/23/23 09:41 Sennosides-Docusate Tablet PO 1 tab DAILY DONTE [facility] Medical History Chronic back pain CML (chronic myelocytic leukemia) Degenerative arthritis Degenerative joint disease of spine Dyslipidemia Hypothyroidism Nephrolithiasis Nicotine dependence Surgical History H/O sinus surgery History of ureter stent Previous back surgery Family History Mother Cancer Breast cancer Father COPD (chronic obstructive pulmonary disease) Denies family history of CAD (coronary artery disease) Clotting disorder Anesthesia complication Bleeding disorder Social History Smoking and tobacco status: current every day smoker (1 ppd, smoked x50+ years) cigarettes [ Other cigarette details: 1 pack/day] Alcohol intake: never Substance/Drug Use: never Household members: family Housing: House Marital status: Data Anesthesia 01/23/23 04:19 01/23/23 04:19 Short CBC 01/22/23 01/23/23 Range/Units 15:00 04:19 WBC 8.6 7.1 (4.0-10.0) 10^3/uL Hgb 13.4 13.1 (11.5-15.3) g/dL Hct 41.9 40.7 (37.0-47.0) % MCV 93.5 95.5 (81-99) fl Plt Count 281 244 (130-400) 10^3/cmm Neut % (Auto) 67.0 56.9 % Neut # (Auto) 5.74 4.02 (1.8-7.7) 10^3/uL BMP 01/22/23 01/23/23 15:00 04:19 Sodium 132 L 138 Potassium 4.0 3.9 Chloride 96 L 100 Carbon Dioxide 24 28 BUN 16 16 Creatinine 0.9 0.9 Glucose 100 113 Calcium 9.0 9.1 Liver Function 01/22/23 Range/Units 15:00 Total Bilirubin 0.3 (0.15-1.2) mg/dL AST 16 (0-32) U/L ALT 12 (0-33) U/L Alkaline Phosphatase 80 (35-105) U/L Albumin 3.8 (3.5-5.2) g/dL Coags 01/22/23 01/22/23 01/23/23 15:00 15:00 04:19 ESR 51 H C-Reactive Protein 74.1 H 78.0 H Microbiology 01/22/23 16:00 Wound Culture - Preliminary Hand - Left Ring Coag positive Staphylococcus 01/22/23 15:17 Blood Culture - Preliminary Blood SPECIMEN COLLECTED 01/22/23 15:00 Blood Culture - Preliminary Blood SPECIMEN COLLECTED Cardiac Studies: No Data to Display
--- NOTE | 2023-01-23 14:09 | W.PM.OPSUD ---
Surgery/Procedure H&P Update DATE OF PROCEDURE: January 23, 2023 DATE H&P PERFORMED: 01/22/23 CHANGES TO PREVIOUS DOCUMENTATION: None PREOP DIAGNOSIS: Left small finger abscess PRIMARY INDICATION FOR PROCEDURE: Left small finger abscess with worsening cellulitis/lymphangitis, failure to respond to conservative IV antibiotic treatment PLANNED PROCEDURE: Operation Date: 01/23/23 15:30 Proposed Procedures p Incision & Drainage Upper Extremity(Left) - Jaycob Lares DO
[2023-01-23] MEDS: sodium chloride 0.9% 1,000 ML 30 ML IV (14:37)
[2023-01-23] MEDS: HYDROmorphone 1 mg/mL INJ 1 mL 0.5 MG IVP (17:50)
--- NOTE | 2023-01-23 17:57 | PM.OP2 ---
Brief Operative Note Date of procedure: 01/23/23 Pre-op diagnosis: Left small finger abscess Post-op diagnosis: same (Left small finger abscess extending into collar-button hand abscess) Procedure Done: Left small finger and hand deep abscess irrigation and debridement (4 cm x 5 cm x 2 cm) Surgeon: Jaycob Lares Estimated blood loss (mL): 5 Complications: None Post-op Plan: Patient taken to PACU in stable condition recovering well pain controlled. Dressing on in place clean dry and intact should be strict elevation and nonweightbearing to the left hand. Ice as needed. We will continue empiric antibiotics follow-up with cultures internal medicine as primary. Condition: stable Disposition: floor Coding Level of Care Code Acute Code for Noreen Briggs
--- NOTE | 2023-01-23 18:01 | PM.PACU ---
PACU note Narrative: patient taken to PACU in stable condition recovering well pain controlled. Dressing on in place clean dry and intact splint in place. Patient is able to wiggle fingers brisk capillary refill less than 2 seconds. Patient does have decreased sensation secondary to digital block. Exam: awake Disposition: back to floor
--- NOTE | 2023-01-23 18:02 | PM.OP ---
Operative Report Date of procedure: January 23, 2023 Pre-op diagnosis: Preop Diagnosis Left small finger abscess Post-op diagnosis: Left small finger abscess extending into collar-button deep hand abscess Procedure done: Left small finger and hand deep abscess irrigation and debridement (4 cm x 5 cm x 2 cm) Implants: Quarter inch Jose Guadalupe drain placed Specimens removed/disposition: Cultures aerobic and anaerobic of abscess left hand taken and sent for microbiology Surgeon: Jaycob Lares DO Anesthesia: MAC (Local) Estimated blood loss: 5 mL 37 minutes IV fluids: 800 mL Complications: None Findings: See operative report narrative Condition: stable Disposition: floor Brief History: Patient is a pleasant 67-year-old female who is being treated with chemotherapy for CML. Patient ultimately Treatment recall inciting event caused wound to the left small finger however she has had an abscess develop over the volar aspect of the left small finger over the proximal phalanx that is progressively worsened and failed with conservative treatment she has been admitted under the hospitalist she has been started on IV antibiotic she has had no improvement and given draining abscess and worsening clinically recommend surgical intervention of left small finger and hand irrigation and debridement. We talked about risk benefits complication alternatives with surgical nonsurgical treatment options. Understanding risk for surgery patient elects to proceed with surgery. All questions answered at this time. We will proceed with left small finger and hand irrigation and debridement Procedure: Patient seen and evaluated on the floor as well as in the preoperative holding area. Patient has had no improvement and worsening of left small finger and hand infection this point time she elects to proceed with surgical intervention. Consent was reviewed and signed with patient. Correct extremity was then marked. Patient was then seen evaluated by anesthesia once cleared for surgery she was taken back to the operative suite. Patient was then placed onto the OR table. All bony prominences well-padded patient was appropriate secured to the bed. She was placed in supine position. She underwent anesthesia per the anesthesia department once appropriately anesthetized the left upper extremity was placed on the left armboard. A nonsterile tourniquet was applied to the left upper arm. Patient's left upper extremity was then prepped and draped in standard orthopedic fashion. Patient already. Receiving IV antibiotics on the floor. Final timeout was performed. Patient's left upper extremity was then elevated tourniquet was insufflated 250 mmHg. Started with a standardized Lisa incision starting over the fourth webspace burning over the ulnar aspect of the small finger staying in the mid axial plane and then burring across creating a full-thickness flap in order to undermine to the abscess as this was draining on the radial side and I did not want to cut right through draining wound is worried for wound issues and healing. As result sharp scalpel incision was then made of this Diogo fashion creating full-thickness flaps. Miguel purulence was noted over the volar aspect of the finger at the proximal phalanx. I then cultured purulence this was sent for aerobic and anaerobic cultures. At this point in time I utilized Littler dissection scissors and dissected out the digital neurovascular bundles on the radial and ulnar side of the small finger. Patient's abscess had significantly devitalized subcutaneous fat over the abscess site over the volar aspect of the small finger. The abscess did tunnel into the fourth webspace consistent with a collar-button abscess. At this point in time given the location of the abscess I did extend a small oblique incision over the ring finger just to evaluate and there was no purulence that communicated to the A1 stepan of this soft tissue envelope had normal-appearing anatomy and subcutaneous tissue. This point time I then turned the hand over and made a longitudinal dorsal hand incision centering over the fourth webspace to appropriately decompress collar-button abscess. Sharp scalpel incision was made just through skin switched to Littler dissection scissors and utilizing hemostat communicated into the volar abscess and wound. This findings were consistent with a collar-button abscess extending from the volar small finger abscess. At this point in time I then subsequently performed a thorough debridement of devitalized tissue of skin subcutaneous fat fascia. The entire hand was did greeted with a total wound of 4 cm x 5 cm x 2 cm. This did not appear to communicate to tendon or bone. Once I debrided all devitalized tissue as stated above this was done with rongeur and sharp scalpel excision I then had a clean wound bed and wanted to evaluate the flexor tendon sheath of the small finger. I incised the A1 stepan of the small finger and there was no fluid or purulence within the synovial sheath and as result no concerns or signs consistent with any type of infection that communicated into the flexor tendon sheath. This was then subsequently irrigated and I performed a thorough irrigation of the left small finger and hand. Once again throughout my dissection the neurovascular bundles were protected throughout this case by my employee relations assistant. He was then satisfied with the extent of my debridement and irrigation tourniquet was deflated hemostasis was satisfactory all fingers had brisk capillary refill less than 2 seconds. I performed final irrigation of the wound bed. I then subsequently closed incision with interrupted nylon suture. Incision was then covered with Xeroform 4 x 4's Kerlix Shawna wrap as well as a volar splint and Harinder wrap. Patient was awakened from anesthesia and taken to PACU in stable condition Disposition: Patient taken to PACU in stable condition recovering well pain controlled.? Dressing on in place clean dry and intact should be strict elevation and nonweightbearing to the left hand.? Ice as needed.? We will continue empiric antibiotics follow-up with cultures internal medicine as primary. Patient will be returned to the floor. Plan will be given patient's infection as well as being on chemo we will plan to trend a CRP on postoperative day 2 as well as take dressing down and assess clinically. Patient understands and agrees with current plan. All questions answered. Hospitalist updated on plan.
[2023-01-23] MEDS: ketorolac 30 mg/mL INJ 15 MG IVP ×2 (19:11→23:33)
[2023-01-24] VITALS (10 sets, daily range): BP systolic 137–166; BP diastolic 73–81; PULSE 72–84; RESP 16–18; TEMP 36.6–37; O2SAT 90–95
--- NOTE | 2023-01-24 04:53 | PC.NURSE ---
neurovascular checks wnl's, cap refill less than 2 seconds, can wiggle fingers, warm to touch, radial pulse normal, little difficult to assess through bandage, dressing is dry and intact.
[2023-01-24 05:11] LABS: Basophils % 0.8 %; Eosinophils # 0.2 10^3/uL (0.0-0.8); Hematocrit 37.2 % (37.0-47.0); Hemoglobin 11.8 g/dL (11.5-15.3); Lymphocytes # 1.3 10^3/uL (0.8-4.8); Lymphocytes % 26.8 %; Mean Corpuscular HGB Conc 31.7 g/dL (30.0-36.0); Mean Corpuscular Hemoglobin 30.6 pg (28.0-34.0); Mean Corpuscular Volume 96.4 fl (81-99); Mean Platelet Volume 9.2 fL (7.4-10.4); Monocytes # 0.5 10^3/uL (0.2-0.9); Monocytes % 10.7 %; Neutrophils # 2.69 10^3/uL (1.8-7.7); Neutrophils % 56.5 %; Nucleated Red Blood Cells % 0 %; Platelet Count 212 10^3/cmm (130-400); Red Blood Count 3.86 10^6/uL (4.1-5.3); Red Cell Distribution Width 14.6 % (12.1-15.1); White Blood Count 4.8 10^3/uL (4.0-10.0)
[2023-01-24 05:30] LABS: Blood Urea Nitrogen 20 mg/dL (8-23); Calcium 8.6 mg/dL (8.5-10.5); Carbon Dioxide 26 mmol/L (22-29); Chloride 106 mmol/L (98-107); Glomerular Filtration Rate 83.5 mL/min (90-130); Glucose 95 mg/dL (65-115); Osmolality Calculated 292 mOsm/kg (285-295); Sodium 140 mmol/L (136-145)
[2023-01-24] MEDS: ketorolac 30 mg/mL INJ 15 MG IVP ×3 (05:36→18:16)
[2023-01-24] MEDS: vancomycin 1,250 MG/250 ML PIGGYBACK 250 MG IV ×2 (05:37→23:17)
[2023-01-24] MEDS: sennosides-docusate Tablet 1 TAB PO (08:23)
[2023-01-24] MEDS: nicotine 21 mg Patch 1 PATCH TRANSDERMA (08:23)
[2023-01-24] MEDS: multivitamin therapeutic Tablet 1 TAB PO (08:23)
[2023-01-24] MEDS: iron polysaccharide complex 150 mg Capsule PO ×2 (08:23→17:27)
[2023-01-24] MEDS: piperacillin-tazobactam 3.375 GM in sodium chloride 0.9% (plus) 50 ML IV (12:19)
--- NOTE | 2023-01-24 13:17 | PM.PN ---
Subjective Subjective: Status post deep abscess irrigation and debridement . Dr. Lares is planning to reevaluate on Sunday We will continue antibiotics Patient did not spike a fever no leukocytosis Patient is not endorsing any pain Passing gas P.o. intake has been poor Vitals/I&O/Wt Last Vital Signs Temp 97.9 F 01/24/23 08:00 Pulse 72 01/24/23 08:47 Resp 18 01/24/23 08:47 BP 137/73 01/24/23 08:00 Pulse Ox 92 01/24/23 08:47 O2 Del Method Room Air 01/24/23 08:47 O2 Flow Rate 6 01/23/23 17:49 01/23/23 01/24/23 01/24/23 22:59 06:59 14:59 Intake Total 167.667 / 1548.500 876.25 / 2424.750 300 / 300 Output Total 5 / Balance 162.667 / 1543.500 876.25 / 2419.750 300 / 300 Weight last 48 hrs Weight 70.817 kg Physical Exam Narrative: Awake and alert Laying in bed No active pain Left arm covered in dressing Hyperemia around elbow has improved No active pain Doing well on room air Abdomen soft Euvolemic Data 01/24/23 04:32 01/24/23 04:32 Micro: Microbiology 01/22/23 15:17 Blood Culture - Preliminary Blood NEGATIVE TO DATE 01/22/23 15:00 Blood Culture - Preliminary Blood NEGATIVE TO DATE 01/22/23 16:00 Wound Culture - Preliminary Hand - Left Ring Coag positive Staphylococcus A&P Assessment and plan (1) Abscess of finger of left hand: (2) Chronic myeloid leukemia, BCR/ABL-positive, not having achieved remission: (3) Shoulder pain: (4) COPD (chronic obstructive pulmonary disease): (5) Cellulitis: Qualifiers: Laterality: left Site of cellulitis: extremity Site of cellulitis of extremity: upper extremity Qualified Code(s): L03.114 - Cellulitis of left upper limb Plan Cellulitis with abscess of finger status post irrigation and debridement Check CRP inflammatory markers tomorrow Patient has been afebrile no leukocytosis Continue IV antibiotics She will stay until Sunday Opiates for analgesia along bowel regimen Regular diet DVT prophylaxis Lovenox Continue iron supplements for chronic anemia Preliminary report coagulase positive Staphylococcus most likely MRSA I will discontinue Zosyn Attestations Medical Necessity Statement*: Patient will need IV antibiotics Diagnoses Abscess of finger of left hand L02.512 Chronic myeloid leukemia, BCR/ABL-positive, not having achieved remission C92.10 Shoulder pain M25.519 COPD (chronic obstructive pulmonary disease) J44.9 Cellulitis L03.114 Laterality: left Site of cellulitis: extremity Site of cellulitis of extremity: upper extremity
--- NOTE | 2023-01-24 15:14 | PM.PN ---
Subjective Subjective: Patient seen and evaluated. Patient doing well. States she still having some pain in her small finger but overall pressure and pain is much improved since surgery. Denies any fevers or chills. Dressing on in place clean dry and intact. Vitals/I&O/Wt Last Vital Signs Temp 98.0 F 01/24/23 12:00 Pulse 80 01/24/23 12:00 Resp 18 01/24/23 12:00 BP 137/73 01/24/23 08:00 Pulse Ox 92 01/24/23 12:00 O2 Del Method Room Air 01/24/23 12:00 O2 Flow Rate 6 01/23/23 17:49 01/24/23 01/24/23 01/24/23 06:59 14:59 22:59 Intake Total 876.25 / 2424.750 1555.625 / 1555.625 Balance 876.25 / 2419.750 1555.625 / 1555.625 Physical Exam Narrative: Dressing on in place to left hand splint clean dry and intact. Fingertips are warm well perfused with brisk capillary refill less than 2 seconds. Sensation intact light touch distally she is in a splint which limits examination but she is able to subtly wiggle fingers. Data 01/25/23 06:21 01/25/23 06:21 Micro: Microbiology 01/22/23 15:17 Blood Culture - Preliminary Blood NEGATIVE TO DATE 01/22/23 15:00 Blood Culture - Preliminary Blood NEGATIVE TO DATE 01/22/23 16:00 Wound Culture - Preliminary Hand - Left Ring Coag positive Staphylococcus A&P Assessment and plan (1) Abscess of finger of left hand: (2) Cellulitis: Qualifiers: Laterality: left Site of cellulitis: extremity Site of cellulitis of extremity: upper extremity Qualified Code(s): L03.114 - Cellulitis of left upper limb (3) CML (chronic myelocytic leukemia): Plan Nonweightbearing left hand Continue empiric antibiotics Monitor cultures Internal medicine as primary Elevation and ice as needed Pain control Maintain splint Labs reviewed Plan for n.p.o. at midnight with a recheck of CRP on postoperative day 2 as well as recheck clinically with dressing takedown, with plan for possible surgery if abscess reaccumulation noted. Attestations Medical Necessity Statement*: Ongoing care left small finger and hand abscess requiring surgical intervention Coding Level of Care Code Acute Code for Chg Fwd Diagnoses Abscess of finger of left hand L02.512 Cellulitis L03.114 Laterality: left Site of cellulitis: extremity Site of cellulitis of extremity: upper extremity CML (chronic myelocytic leukemia) C92.10 Time Spent (min) 15
[2023-01-24] MEDS: HYDROmorphone 1 mg/mL INJ 1 mL 0.4 MG IVP ×2 (15:38→19:56)
[2023-01-24] MEDS: duloxetine 60 mg Capsule PO (17:27)
[2023-01-24] MEDS: trazodone 150 mg Tablet PO (21:03)
[2023-01-24 22:40] LABS: Vancomycin Trough 8.6 ug/mL (10-15)
[2023-01-25] VITALS: BP 149/81; PULSE 71; RESP 16; TEMP 36.4; O2SAT 91
[2023-01-25] MEDS: ketorolac 30 mg/mL INJ 15 MG IVP ×3 (00:21→11:34)
--- NOTE | 2023-01-25 03:20 | PC.PHAR ---
Pharmacokinetic dosing service Date: 01/25/23 Time: 319 Patient: Justina Meraz Floor: 264-1 Weight: 70.817 Kilograms Vancomycin single level analysis: Current dose being given: 1250 mg Current dosing interval: 18 hrs Current infusion time (hrs): 1 Single level Trough Data: Trough level obtained: 8.6 mcg/ml Timing of trough - # of hrs before next dose: 1 Hrs Desired peak: 40 mcg/ml Desired trough: 15 mcg/ml Diagnosis: Relevant medical/social history: Cultures and sensitivities: Other labs: Estimated PK Parameters: New rate constant (radha): 0.070 hr-1 Half-life: 9.90 Hours Vd from levels: 63.74 Liters (0.7 L/kg) CLvanco=?? 4.462 L/hr Estimated New Dose and Interval Recommended dose: 1716.1 mg Recommended interval: 15.0 Hrs Patient response: Patient is responding to treatment [yes/no] wbc decreasing, S/SX reduced [yes/no] Renal function is stable/unstable Recommendations: Give Vancomycin 1250 mg q 12 hrs. Infuse over 1 hrs Expected Cpeak: 33.3 mcg/mL Expected Ctrough: 15.4 mcg/mL AUC 0-24 /SCOTT Data: SCOTT 0.5 mcg/mL:?? AUC/SCOTT:? 1120.6 SCOTT 1.0 mcg/mL:?? AUC/SCOTT:? 560.3 Recommended labs and intervals: Measure Bun and Scr 3 times/week. Renal dosing of other antibiotics (review renal dosing of other medications and list guidelines here): Thank you for the consult, will continue to follow. Signature:Judi Coates [facility]
[2023-01-25 04:27] VITALS: BP 128/68; PULSE 66; RESP 16; TEMP 36.4; O2SAT 90
[2023-01-25 06:46] LABS: Basophils # 0.1 10^3/uL (0.0-0.1); Basophils % 1.2 %; Eosinophils # 0.2 10^3/uL (0.0-0.8); Eosinophils % 5.5 %; Hematocrit 39.3 % (37.0-47.0); Hemoglobin 12.5 g/dL (11.5-15.3); Lymphocytes % 23.9 %; Mean Corpuscular HGB Conc 31.8 g/dL (30.0-36.0); Mean Corpuscular Hemoglobin 30.3 pg (28.0-34.0); Mean Corpuscular Volume 95.4 fl (81-99); Monocytes # 0.4 10^3/uL (0.2-0.9); Monocytes % 9.2 %; Neutrophils % 59.7 %; Nucleated Red Blood Cells % 0 %; Platelet Count 214 10^3/cmm (130-400); Red Blood Count 4.12 10^6/uL (4.1-5.3); Red Cell Distribution Width 14.4 % (12.1-15.1)
[2023-01-25 07:13] LABS: Anion Gap 13.1 (5-19); Blood Urea Nitrogen 21 mg/dL (8-23); C Reactive Protein 34.9 mg/L (0.0-4.9); Calcium 8.4 mg/dL (8.5-10.5); Carbon Dioxide 26 mmol/L (22-29); Chloride 107 mmol/L (98-107); Glomerular Filtration Rate 99.7 mL/min (90-130); Glucose 95 mg/dL (65-115); Osmolality Calculated 297 mOsm/kg (285-295); Potassium 4.1 mmol/L (3.5-5.1); Sodium 142 mmol/L (136-145)
[2023-01-25 07:16] LABS: Procalcitonin 0.04 ng/mL (0-0.5)
[2023-01-25 08:00] VITALS: BP 150/78; PULSE 75; RESP 17; TEMP 36.8; O2SAT 90
[2023-01-25] MEDS: sennosides-docusate Tablet 1 TAB PO (08:37)
[2023-01-25] MEDS: multivitamin therapeutic Tablet 1 TAB PO (08:38)
[2023-01-25] MEDS: duloxetine 60 mg Capsule PO (08:38)
[2023-01-25] MEDS: levothyroxine 125 mcg Tablet PO (08:38)
[2023-01-25] MEDS: iron polysaccharide complex 150 mg Capsule PO (08:38)
[2023-01-25] MEDS: nicotine 21 mg Patch 1 PATCH TRANSDERMA (08:39)
--- NOTE | 2023-01-25 08:44 | PM.PN ---
Subjective Subjective: No fever, no leukocytosis CRP trending down MRSA noted from her cultures Currently on vancomycin I will wait for Prior to reevaluate and let us know if patient needs another procedure tomorrow I will keep her n.p.o. after midnight Patient is doing well eating her diet, passing gas, no constipation No active pain Vitals/I&O/Wt Last Vital Signs Temp 98.3 F 01/25/23 08:00 Pulse 75 01/25/23 08:00 Resp 17 01/25/23 08:00 BP 150/78 01/25/23 08:00 Pulse Ox 90 01/25/23 08:00 O2 Del Method Room Air 01/24/23 19:17 O2 Flow Rate 6 01/23/23 17:49 01/24/23 01/25/23 01/25/23 22:59 06:59 14:59 Intake Total 360 / 1915.625 370 / 2285.625 Balance 360 / 1915.625 370 / 2285.625 Physical Exam Narrative: GCS 15 Awake and alert Watch television Pleasant and cooperative Left arm covered in dressing No active pain No signs of vascular compromise Afebrile Nonfocal neuro exam S1, S2 Euvolemic Cap refill less than 2-second Data 01/25/23 06:21 01/25/23 06:21 Micro: Microbiology 01/23/23 16:50 Gram Stain - Final Finger - #1 01/22/23 16:00 Wound Culture - Final Hand - Left Ring Methicillin Resis Staph Aureus A&P Assessment and plan (1) CML (chronic myelocytic leukemia): (2) COPD (chronic obstructive pulmonary disease): (3) Shoulder pain: (4) Chronic myeloid leukemia, BCR/ABL-positive, not having achieved remission: (5) Abscess of finger of left hand: (6) Cellulitis: Qualifiers: Laterality: left Site of cellulitis: extremity Site of cellulitis of extremity: upper extremity Qualified Code(s): L03.114 - Cellulitis of left upper limb Plan Finger abscess status post irrigation and debridement Continue vancomycin for MRSA Afebrile CRP trending down Inflammatory markers trending down Patient is clinically doing well Continue opioids along bowel regimen We will touch base with Dr. Lares to see if there is plan for another procedure tomorrow Full code N.p.o. after midnight Chest CT did not show significant pleural effusion Plan to discharge her home on 2 weeks of doxycycline close along Augmentin, likely on Sunday Attestations Medical Necessity Statement*: Likely discharge home on Sunday Diagnoses CML (chronic myelocytic leukemia) C92.10 COPD (chronic obstructive pulmonary disease) J44.9 Shoulder pain M25.519 Chronic myeloid leukemia, BCR/ABL-positive, not having achieved remission C92.10 Abscess of finger of left hand L02.512 Cellulitis L03.114 Laterality: left Site of cellulitis: extremity Site of cellulitis of extremity: upper extremity
[2023-01-25 08:58] VITALS: PULSE 76; RESP 16; O2SAT 93
--- NOTE | 2023-01-25 09:39 | P.PN_ITS ---
Subjective Subjective: Patient seen and examined this morning. N.p.o. since midnight dressing subsequently taken down. Patient states she has had significant relief in her pain since surgery. Denies any fevers or chills. Recheck of patient's CRP is downtrend to 34.9. No white count noted. Overall patient states she would like to go home today if possible. Vitals/I&O/Wt Last Vital Signs Temp 98.3 F 01/25/23 08:00 Pulse 76 01/25/23 08:58 Resp 16 01/25/23 08:58 BP 150/78 01/25/23 08:00 Pulse Ox 93 01/25/23 08:58 O2 Del Method Room Air 01/25/23 08:58 O2 Flow Rate 6 01/23/23 17:49 01/24/23 01/25/23 01/25/23 22:59 06:59 14:59 Intake Total 360 / 1915.625 370 / 2285.625 Balance 360 / 1915.625 370 / 2285.625 Physical Exam Narrative: Dressing on in place to left hand splint clean dry and intact. Dressing subsequently taken down. Incision to the left hand small finger are all well approximated with sutures in place. No reoccurrence in any fluctuance or any purulent drainage noted. Jose Guadalupe drain removed. Fingertips are warm well- perfused with brisk capillary refill less than 2 seconds. Significant significant resolution of dorsal hand swelling there is no proximal erythema or lymphangitis noted. Patient is able to gently wiggle fingers without any issues or pain. Patient is able to tolerate examination with minimal discomfort. Data 01/25/23 06:21 01/25/23 06:21 Micro: Microbiology 01/23/23 16:50 Gram Stain - Final Finger - #1 01/22/23 16:00 Wound Culture - Final Hand - Left Ring Methicillin Resis Staph Aureus A&P Assessment and plan (1) Abscess of finger of left hand: Plan Patient's been n.p.o. since midnight for reevaluation. On examination clinically her hand is much improved she has resolved in her lymphangitis there is no residual dorsal hand swelling or cellulitis. She has significant improvement in her pain she has no reaccumulation's of abscess drain was removed in the office today this was redressed with a volar splint and recommend her follow-up with me in the office in 1 week for recheck on the incision. Patient CRP had down trended showing appropriate sponsor treatment of I&D and antibiotics. This point time patient is stable for discharge from an orthopedic standpoint no further intervention required at this time. We will recommend follow-up with Dr. Lares in the office in 1 week for recheck of incision. Patient understands and agrees with current plan. All questions answered. Patient will receive appropriate discharge instructions as well as pain medication postoperatively and antibiotics. Attestations Medical Necessity Statement*: Ongoing care left finger and hand abscess Coding Level of Care Code Acute Code for Chg Fwd Diagnoses Abscess of finger of left hand L02.512 Time Spent (min) 25
--- NOTE | 2023-01-25 10:44 | P.DS_ITS ---
Discharge Providers Date of Admission: 01/22/23 17:38 Date of Discharge: January 25, 2023 Attending Provider at Admission: Gregory Menendez MD Attending Provider at Discharge: Gregory Menendez MD Primary Care Provider: MACRINA Johnson Diagnoses at Discharge Discharge Diagnosis (1) CML (chronic myelocytic leukemia): Status: Acute (2) COPD (chronic obstructive pulmonary disease): Status: Acute (3) Shoulder pain: Status: Acute (4) Chronic myeloid leukemia, BCR/ABL-positive, not having achieved remission: Status: Acute (5) Abscess of finger of left hand: Status: Acute (6) Cellulitis: Status: Acute Qualifiers: Laterality: left Site of cellulitis: extremity Site of cellulitis of extremity: upper extremity Qualified Code(s): L03.114 - Cellulitis of left upper limb Reason for Visit Reason for Visit: infection in finger Hospital Course Hospital Course This is a consultation note from orthopedic which will also suffice her reason for admission Justina Meraz is a 67 year old female with left small finger cut around Sunday last week, has seen PCP twice for worsening of drainage and swelling, she has tried treated for antibiotics came to the hospital for worsening of pain and swelling and purulent discharge.? She has not noticed any fever, nausea, vomiting chest pain shortness of breath.? She smokes 1 pack/day.? Does not drink alcohol.? History of CML and patient sees Dr. Sherwood.? Patient currently on chemo.? Given worsening infection which has not improved with conservative approach orthopedics was consulted for evaluation and treatment recommendations.? On my evaluation the patient she has a focalized palpable fluctuance and draining abscess on the volar aspect of the left small finger over the proximal phalanx no significant tracking proximal erythema.? She is continue to have pain and failed conservative approach Hospital course Patient was given clindamycin along broad-spectrum antibiotics, she remained afebrile, inflammatory markers trending down, blood culture remain negative, wound culture showed MRSA, [place] was consulted patient went for irrigation and debridement of left small finger abscess on 01/23 patient was monitored for about 48 hours in the hospital, no postoperative complications, she remained afebrile, inflammatory markers trending down, swelling of left arm improved significantly, hyperemia improved as well, patient is able to move her fingers without any discomfort, no signs of vascular compromise, she will be given doxycycline and Augmentin for about 2 weeks she will follow-up with Dr. Lares in his clinic she has been given dressing to go home with until she sees Dr. Lares in the clinic. Patient is motivated to quit smoking as well. For her CML she will follow-up with Dr. Sherwood. CT scan was done before her surgery which did not show any signs of recurrent pleural effusion, a week prior to her admission in the hospital patient had thoracentesis done at another/outside facility. She did well on room air did not require oxygen at all. Physical Exam Narrative: Awake and alert Left arm less swollen Hyperemia improved Dressing changed Patient is awake and alert GCS 15 S1, S2 Discharge Data Studies Completed and Pending Completed Studies During Hospitalization Category Date Time Status CT chest wo con [id number] Routine Cat Scan 01/22/23 19:[address] hand LT w con [id number] Stat Cat Scan 01/22/23 14:42 Completed Pending at discharge Category Date Time Status Anaerobic Culture Routine Lab 01/23/23 16:50 Received Blood Culture Stat Lab 01/22/23 15:17 Results CRP [C Reactive Protein] AM LABS Lab 01/26/23 04:00 Ordered Complete Blood Count w/Auto AM LABS Lab 01/26/23 04:00 Ordered Wound Culture and Gram Stain Routine Lab 01/23/23 16:50 Results Radiology Impressions Hand CT 01/22/23 14:42 IMPRESSION: 1. Soft tissue abscess measures 20 x 9 x 13 mm along the lateral aspect proximal fifth phalanx. 2. Extensive soft tissue edema and cellulitis involving the fifth phalanx. Chest CT 01/22/23 19:45 IMPRESSION: 1. Small left pleural effusion. 2. Minimal compressive atelectasis in the left lower lobe. No consolidative pulmonary infiltrates. Laboratory Results WBC 4.0 10^3/uL (4.0-10.0) 01/25/23 06:21 RBC 4.12 10^6/uL (4.1-5.3) 01/25/23 06:21 Hgb 12.5 g/dL (11.5-15.3) 01/25/23 06:21 Hct 39.3 % (37.0-47.0) 01/25/23 06:21 MCV 95.4 fl (81-99) 01/25/23 06:21 MCH 30.3 pg (28.0-34.0) 01/25/23 06:21 MCHC 31.8 g/dL (30.0-36.0) 01/25/23 06:21 RDW 14.4 % (12.1-15.1) 01/25/23 06:21 Plt Count 214 10^3/cmm (130-400) 01/25/23 06:21 MPV 9.0 fL (7.4-10.4) 01/25/23 06:21 Neut % (Auto) 59.7 % 01/25/23 06:21 Lymph % (Auto) 23.9 % 01/25/23 06:21 [place] % (Auto) 9.2 % 01/25/23 06:21 Eos % (Auto) 5.5 % 01/25/23 06:21 Baso % (Auto) 1.2 % 01/25/23 06:21 Neut # (Auto) 2.40 10^3/uL (1.8-7.7) 01/25/23 06:21 Lymph # (Auto) 1.0 10^3/uL (0.8-4.8) 01/25/23 06:21 [place] # (Auto) 0.4 10^3/uL (0.2-0.9) 01/25/23 06:21 Eos # (Auto) 0.2 10^3/uL (0.0-0.8) 01/25/23 06:21 Baso # (Auto) 0.1 10^3/uL (0.0-0.1) 01/25/23 06:21 Nucleated RBC % (auto) 0 % 01/25/23 06:21 Nucleated RBCs # 0.0 /100WBC 01/25/23 06:21 ESR 51 mm/hr (0-15) H 01/22/23 15:00 Sodium 142 mmol/L (136-145) 01/25/23 06:21 Potassium 4.1 mmol/L (3.5-5.1) 01/25/23 06:21 Chloride 107 mmol/L (98-107) 01/25/23 06:21 Carbon Dioxide 26 mmol/L (22-29) 01/25/23 06:21 Anion Gap 13.1 (5-19) 01/25/23 06:21 BUN 21 mg/dL (8-23) 01/25/23 06:21 Creatinine 0.6 mg/dL (0.5-0.9) 01/25/23 06:21 GFR Calculation 99.7 mL/min (90-130) 01/25/23 06:21 Glucose 95 mg/dL (65-115) 01/25/23 06:21 Calculated Osmolality 297 mOsm/kg (285-295) H 01/25/23 06:21 Lactate 0.5 mmol/L (0.5-2.2) 01/22/23 15:00 Calcium 8.4 mg/dL (8.5-10.5) L 01/25/23 06:21 Magnesium 2.0 mg/dL (1.7-2.3) 01/23/23 04:19 Total Bilirubin 0.3 mg/dL (0.15-1.2) 01/22/23 15:00 AST 16 U/L (0-32) 01/22/23 15:00 ALT 12 U/L (0-33) 01/22/23 15:00 Alkaline Phosphatase 80 U/L (35-105) 01/22/23 15:00 C-Reactive Protein 34.9 mg/L (0.0-4.9) H 01/25/23 06:21 Total Protein 7.2 g/dL (6.6-8.7) 01/22/23 15:00 Albumin 3.8 g/dL (3.5-5.2) 01/22/23 15:00 Globulin 3.4 g/dL (1.3-4.6) 01/22/23 15:00 Procalcitonin 0.04 ng/mL (0-0.5) 01/25/23 06:21 Vancomycin Trough 8.6 ug/mL (10-15) L 01/24/23 22:03 Vitals Last Vital Signs Temp 98.3 F 01/25/23 08:00 Pulse 76 01/25/23 08:58 Resp 16 01/25/23 08:58 BP 150/78 01/25/23 08:00 Pulse Ox 93 01/25/23 08:58 O2 Del Method Room Air 01/25/23 08:58 O2 Flow Rate 6 01/23/23 17:49 Discharge Plan Discharge Patient Disposition: Home Condition: Stable Prescriptions: New doxycycline hyclate 100 mg tablet 100 mg PO BID 14 Days Qty: 28 0RF Continued ibuprofen 200 mg tablet 200 mg PO Q6H PRN (Reason: Pain) cholecalciferol (vitamin D3) 50 mcg (2,000 unit) capsule 50 mcg PO DAILY multivitamin Tablet 1 tab PO DAILY duloxetine [Cymbalta] 30 mg capsule,delayed release(DR/EC) 60 mg PO BID furosemide 20 mg tablet See Rx Instructions .ROUTE .COMPLEX Qty: 90 0RF Dose Instruction: TAKE 1 TABLET EVERY DAY Rx Instructions: TAKE 1 TABLET EVERY DAY Sprycel 100 mg tablet 100 mg PO DAILY Qty: 28 0RF trazodone 150 mg tablet 150 mg PO BEDTIME levothyroxine 125 mcg tablet 125 mcg PO DAILY oxycodone-acetaminophen 10-325 mg tablet 1 tab PO BID albuterol sulfate 90 mcg/actuation HFA aerosol inhaler 2 inh inhalation Q4H PRN (Reason: Shortness Of Breath) amoxicillin-pot clavulanate 875-125 mg Tablet 1 tab PO BID Qty: 10 0RF Discontinued fentanyl 75 mcg/hr patch 72 hour 25 mcg transdermal Q3D Discharge Orders: Discharge Order (Routine); Ordered 01/25/23 Ordered By: Gregory Menendez Referrals: Jaycob Lares DO [Physician] - 02/01/23 8:45 am (APPOINTMENT WITH JOHN SCHRADER) Suzette Elkins FNP [Primary Care Provider] - 02/02/23 10:45 am Discharge Diet: Advance as tolerated Discharge Activity: Limit activity as instructed Patient Instructions: Opioid Safety Activity Restrictions/Additional Instructions: Orthopedic discharge instructions: Patient should leave dressing on in place until follow-up Encourage finger range of motion as tolerated Take antibiotic as prescribed by primary Continue home pain medication, contact the office for any additional pain medication needs Elevation is ice as needed for pain and swelling Follow-up with Dr. Lares in the office in 1 week Contact the office for any questions or concerns Discharge Attestations Time Spent in Discharge Care*: greater than 30 min Quality Metrics Clinical Quality Measures [ No reported AMI, CVA or VTE this stay] Coding Level of Care Code Acute Code for Chg Fwd Diagnoses CML (chronic myelocytic leukemia) C92.10 COPD (chronic obstructive pulmonary disease) J44.9 Shoulder pain M25.519 Chronic myeloid leukemia, BCR/ABL-positive, not having achieved remission C92.10 Abscess of finger of left hand L02.512 Cellulitis L03.114 Laterality: left Site of cellulitis: extremity Site of cellulitis of extremity: upper extremity
--- NOTE | 2023-01-25 11:11 | PC.SOCIAL ---
IMM UPDATED IMM dated and initialed and copy given to patient and placed in chart
[2023-01-25 11:41] VITALS: PULSE 76; RESP 16; O2SAT 93
== END 2023-01-25 11:42 | disposition home or self-care (01) | DRG 580 ==
LOC: ER 16:51 → MEDSURG 17:38
PROVIDERS: Student in an Organized Health Care Education/Training Program; Admitting Provider Internal Medicine; Emergency Provider Emergency Medicine; PCP Nurse Practitioner Family; Visit Provider Internal Medicine
PROC: 0JBK0ZZ Excision of Left Hand Subcutaneous Tissue and Fascia, Open Approach (ICD-10-PCS; principal; 2023-01-23 15:20)
DX: L02.512 Cutaneous abscess of left hand (principal); C92.10 Chronic myeloid leukemia, BCR/ABL-positive, not having achieved remission; L03.114 Cellulitis of left upper limb; B95.62 Methicillin resistant Staphylococcus aureus infection as the cause of diseases classified elsewhere; J44.9 Chronic obstructive pulmonary disease, unspecified; F17.210 Nicotine dependence, cigarettes, uncomplicated; Z79.899 Other long term (current) drug therapy; Z79.891 Long term (current) use of opiate analgesic; Z79.51 Long term (current) use of inhaled steroids; E03.9 Hypothyroidism, unspecified; G89.29 Other chronic pain; M54.9 Dorsalgia, unspecified
CPT/HCPCS: 36415; 71250; 73201; 80048; 80053; 80202; 83605; 83735; 84145; 85025; 85651; 86140; 87040; 87070; 87075; 87077; 87186; 87205; 96365; 96367; 96375; 97165; 99285; J1170; J1885; J2250; J2270; J2543; J2704; J3010; J3370; J3490; J7030; J7050; Q9967

== ENCOUNTER → 2023-02-01 08:21 | Outpatient (BNVA) | payer MEDICARE, SELFPAY | PROVIDERS: PCP Nurse Practitioner Family; Visit Provider Nurse Practitioner Family | DX: Z98.890 Other specified postprocedural states (principal) | CPT/HCPCS: 99213 ==

== ENCOUNTER → 2023-02-08 08:29 | Outpatient (BNVA) | payer MEDICARE, SELFPAY | PROVIDERS: Visit Provider Nurse Practitioner Family | DX: Z98.890 Other specified postprocedural states (principal); L02.512 Cutaneous abscess of left hand | CPT/HCPCS: 99213 ==

== ENCOUNTER → 2023-02-14 14:19 | Outpatient (BNVA) | payer MEDICARE, SELFPAY | PROVIDERS: Visit Provider Nurse Practitioner Family | DX: L02.512 Cutaneous abscess of left hand (principal); Z98.890 Other specified postprocedural states | CPT/HCPCS: 99024; 99213 ==

== ENCOUNTER → 2023-02-21 10:30 | Outpatient (BNVA) | payer MEDICARE, SELFPAY | PROVIDERS: Visit Provider Nurse Practitioner Family | DX: Z98.890 Other specified postprocedural states (principal); L02.512 Cutaneous abscess of left hand | CPT/HCPCS: 99213 ==

== ENCOUNTER 2023-03-06 10:56 | Oncology outpatient (recurring) (ONCR) | payer MEDICARE, SELFPAY ==
[2023-02-27 13:25] VITALS: BP 120/75; PULSE 73; RESP 18; TEMP 35.9; O2SAT 91
[2023-02-27 13:53] LABS: Basophils # 0.1 10^3/uL (0.0-0.1); Basophils % 1.2 %; Eosinophils # 0.2 10^3/uL (0.0-0.8); Eosinophils % 3.7 %; Hemoglobin 12.9 g/dL (11.5-15.3); Lymphocytes # 1.3 10^3/uL (0.8-4.8); Lymphocytes % 31.5 %; Mean Corpuscular HGB Conc 30.7 g/dL (30.0-36.0); Mean Corpuscular Hemoglobin 29.6 pg (28.0-34.0); Mean Corpuscular Volume 96.3 fl (81-99); Mean Platelet Volume 8.5 fL (7.4-10.4); Monocytes # 0.4 10^3/uL (0.2-0.9); Monocytes % 8.9 %; Neutrophils # 2.21 10^3/uL (1.8-7.7); Neutrophils % 54.5 %; Nucleated Red Blood Cells % 0 %; Platelet Count 249 10^3/cmm (130-400); Red Blood Count 4.36 10^6/uL (4.1-5.3); Red Cell Distribution Width 14.6 % (12.1-15.1); White Blood Count 4.1 10^3/uL (4.0-10.0)
[2023-02-27 14:14] LABS: Alanine Aminotransferase 10 U/L (0-33); Albumin Level 3.8 g/dL (3.5-5.2); Alkaline Phosphatase 69 U/L (35-105); Anion Gap 12.1 (5-19); Aspartate Amino Transferase 20 U/L (0-32); Blood Urea Nitrogen 10 mg/dL (8-23); Calcium 8.6 mg/dL (8.5-10.5); Carbon Dioxide 31 mmol/L (22-29); Chloride 98 mmol/L (98-107); Globulin 3.2 g/dL (1.3-4.6); Glomerular Filtration Rate 83.5 mL/min (90-130); Glucose 85 mg/dL (65-115); Lactate Dehydrogenase 221 U/L (135-214); Osmolality Calculated 282 mOsm/kg (285-295); Potassium 4.1 mmol/L (3.5-5.1); Sodium 137 mmol/L (136-145); Total Bilirubin 0.3 mg/dL (0.15-1.2)
[2023-03-02 21:45] LABS: BCR ABL1 (IS) 0.008 (0.000); P210 BCR ALB1 DETECTED; Prior Results NG; Source Peripheral blood
== END 2023-03-23 23:59 | disposition home or self-care (01) ==
PROVIDERS: PCP Nurse Practitioner Family; Visit Provider Internal Medicine Medical Oncology
DX: C92.10 Chronic myeloid leukemia, BCR/ABL-positive, not having achieved remission (principal); Z98.890 Other specified postprocedural states; L02.512 Cutaneous abscess of left hand
CPT/HCPCS: 36415; 80053; 81206; 83615; 85025; 99024; 99213; 99214

== ENCOUNTER 2023-04-04 13:52 | Oncology outpatient (recurring) (ONCR) | payer MEDICARE, SELFPAY ==
--- OUTSIDE RECORDS SUMMARY | 2023-03-28 14:06 | XMS_ITS | Continuity of Care Document ---
Author Name Unknown Organization [facility] Address [address] [place] [address]- Care Team Providers Care Food Service Substitute Name Role Phone Elkins Suzette TORRES Primary Care Physician Encounter [employer] Number [id number] Date(s): 01/18/23 - 01/20/23 [facility] [address] [place] [address]- Attending Physician: Bonnie Abraham MD Admitting Physician: Referring, DR Keita Allergies, Adverse Reactions, Alerts No Known Allergies Assessment and Plan Future Appointments Appointment Date:02/22/2023 10:30:00 AM Scheduled Provider:Elkins Suzette TORRES Location:[facility] Appointment Type:Established Patient Future Scheduled Tests Radiology* XR Cervical Spine Complete 04/10/22 * CT Chest High Resolution wo Contrast 01/03/23 Immunizations Given and Recorded Vaccine Date Status Refusal Reason influenza virus vaccine 09/06/21 Given influenza virus vaccine 07/10/19 Given influenza virus vaccine 07/24/16 Given influenza virus vaccine 07/11/14 Given influenza virus vaccine 07/29/10 Given influenza virus vaccine 07/08/09 Given influenza virus vaccine 07/29/07 Given Prevnar 13 pneumococcal 13-valent 08/21/18 Given Tdap-ADULT/ADOL tetanus/diphth/pertuss,a 02/03/11 Given Medications Bactrim DS 800mg-160mg oral tablet 1 tab, By mouth, BID, X 7 Days, # 14 tab, Refill(s) 0, Route to Pharmacy Electronically, Pharmacy: [facility], [id number], 1 tab By mouth BID,x7 Days, 71.55, 01/18/23 10:06:00 CDT, kg, Weight Start Date: 01/18/23 Stop Date: 01/25/23 Status: Ordered cholecalciferol 1000 intl units (25 mcg) oral capsule 1,000 IntUnit = 1 cap, By mouth, Daily, # 75 cap, Refill(s) 0 Start Date: 11/25/20 Status: Ordered DULoxetine 60 mg oral delayed release capsule 60 mg = 1 cap, By mouth, BID, (do not crush or chew), # 90 cap, Refill(s) 0 Start Date: 08/24/22 Status: Ordered fentaNYL 25 mcg/hr transdermal film, extended release 1 patch, Topical, Q72H, 10 patch, 0, 0, Substitution Permitted Start Date: 05/04/22 Status: Ordered furosemide 20 mg oral tablet TAKE 1 TABLET BY MOUTH EVERY DAY Start Date: 12/13/21 Status: Ordered ibuprofen 800 mg oral tablet 800 mg = 1 tab, By mouth, TID, # 90 tab, Refill(s) 0, Pharmacy: [facility], [id number], 1 tab By mouth TID, 64, 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, in, 70, 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, kg, 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 Start Date: 08/25/20 Status: Ordered levothyroxine 125 mcg (0.125 mg) oral tablet = 1 tab, By mouth, Daily, # 90 tab, Refill(s) 0, Pharmacy: [facility], [id number], TAKE 1 TABLET EVERY DAY, 68.91, 04/13/22 8:31:00 CDT, kg, Weight Start Date: 08/07/22 Status: Ordered mupirocin topical 2% ointment 1 application, Topical, TID, # 22 g, Refill(s) 0, Route to Pharmacy Electronically, Pharmacy: [facility], [id number], 1 application Topical TID, 71.55, 01/18/23 10:06:00 CDT, kg, Weight Start Date: 01/18/23 Status: Ordered naloxone 2 mg/0.4 mL injectable solution See Instructions, Inject per package instructions prn overdose., # 1 EA, Refill(s) 0, Instructions Replace Required Details, 64.91, 06/01/21 13:58:00 CDT, kg, Weight Start Date: 08/22/21 Status: Ordered Percocet 10/325 oral tablet 1 tab, By mouth, BID, PRN Pain Severe, dx:M54.5 for break thru pain not controlled by Fentanyl patch, 60 tab, 0, 0, Substitution Permitted Start Date: 05/04/22 Status: Ordered Sprycel 100 mg oral tablet 100 mg = 1 tab, By mouth, Daily, # 30 tab, Refill(s) 0, other Start Date: 03/07/22 Status: Ordered traZODone 150 mg oral tablet = 1 tab, By mouth, at bedtime, # 90 tab, Refill(s) 1, Pharmacy: [facility], [id number], TAKE 1 TABLET AT BEDTIME, 69.18, 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, kg, 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 Start Date: 11/16/22 Status: Ordered Problem List Condition Confirmation Course Effective Dates Status H ealth Status Informant Hand abscess Confirmed Active Acute bronchitis Confirmed Resolved Frozen shoulder syndrome Confirmed Resolved Adhesive capsulitis of left shoulder Confirmed Active Bee sting reaction Confirmed Active Chronic low back pain Confirmed Active Chronic myelogenous leukemia (CML), [id number] Confirmed Active History of kidney stones Confirmed Active HTN (hypertension) Confirmed Active Adult hypothyroidism Confirmed Active Leucocytosis Confirmed Resolved Methicillin resistant Staphylococcus aureus infection 1, 2 Confirmed 01/19/23 Active Decreased ROM of left shoulder Confirmed Active Left shoulder pain Confirmed Active Tobacco use Confirmed Active patient 1Wound Culture from Abscess, closed collected on 01/18/23 16:30:00 CDT tested positive for MRSA. Problem updated by rule: LH_IC_MDRO_MRSA_1. 2Wound Culture from Abscess, closed collected on 18-JAN-2023 16:30:00 CDT tested positive for MRSA. Problem added by rule: LH_IC_MDRO_MRSA_1 Procedures Procedure Date Related Diagnosis Body Site Status back surgery-LS spine 1 11/2011 C ompleted Bilateral tubal ligation 1975 Completed sinus surgery Completed 1Dr Yair at [facility] [place]. Social History Social History Type Response Smoking Status Current every day sm oker; Smokeless tobacco use: Never; Has the patient smoked in the last 365 days, even once? Yes; Type: Cigarettes; Tobacco use per day: 10 or more cigarettes (1/2 pack or more)/day in last 30 days entered on: 12/21/22 Sex Female Patient Care team information Care Team Personnel Name: Elkins Suzette TORRES Position: TVC-YN-Tpzophhsft Member Role: Primary Care Physician Address: Address: [address] [place] [address]- Care Team Related Persons Name: ELIEZER QUEEN
--- OUTSIDE RECORDS SUMMARY | 2023-03-28 14:06 | XMS_ITS | Continuity of Care Document ---
Author Name Unknown Organization [facility] Address [address] [place] [address]- Care Team Providers Care Lean Consultant Name Role Phone Elkins V BELT COVERERSuzette Primary Care Physician Encounter 01/18/23 - 01/19/23 [facility], [facility] [place] [address]- [place] Encounter Diagnosis Body mass index [BMI] 27.0-27.9, adult(Discharge Diagnosis) - 01/18/23 Hand abscess(Discharge Diagnosis) - 01/18/23 Encounter for screening for other disorder(Discharge Diagnosis) - 01/18/23 Attending Physician: Bonnie Abraham MD Allergies, Adverse Reactions, Alerts No Known Allergies Assessment and Plan Extracted from: Title:Office Visit - Comprehensive Author:Bonnie Sparrow MD Date:01/18/23 Body mass index [BMI] 27.0-2 7.9, adult(Body mass index [BMI] 27.0-27.9, adult: Z68.27) ?? Hand abscess(Cutaneous abscess of unspecified hand: L02.519) Abscess between??the 3rd and 4th finger??of the left??hand,??incision and drainage??performed??with??minimal??purulence??material??returned??from the incision??site, area??was dressed??it with??a sterile??bandage in??the patient is instructed??to keep the area clean??and to cover when using the hand.?? Bactrim for??1 week,??mupirocin ointment, go to the ER for any worsening.?? Patient at high risk??for issues due??to her history of??leukemia.? Ordered: Office Visit Level 3 Established 20-29 min 20103 Wound Culture ?? Orders: mupirocin topical, 1 application, Topical, TID, # 22 g, Refill(s) 0, Route to Pharmacy Electronically, Pharmacy: [facility], [id number], 1 application Topical TID, 71.55, 01/18/23 10:06:00 CDT, kg, Weight sulfamethoxazole-trimethoprim, 1 tab, By mouth, BID, X 7 Days, # 14 tab, Refill(s) 0, Route to Pharmacy Electronically, Pharmacy: [facility], [id number], 1 tab By mouth BID,x7 Days, 71.55, 01/18/23 10:06:00 CDT, kg, Weight Future Appointments Appointment Date:02/22/2023 10:30:00 AM Scheduled Provider:Elkins Suzette TORRES Location:[facility] Appointment Type:Established Patient Future Scheduled Tests Radiology* [...] Refill(s) 0, Route to Pharmacy Electronically, Pharmacy: [facility], [id number], 1 tab By mouth BID,x7 Days, 71.55, [...] TID, # 90 tab, Refill(s) 0, Pharmacy: [facility], [id number], 1 tab By mouth TID, 64, 08/25/20 14:39:00 HAIRSPRING VIBRATOR, in, 70, 08/25/20 14:39:00 HAIRSPRING VIBRATOR, kg, Weight Start Date: 08/25/20 Status: Ordered levothyroxine 125 mcg (0.125 mg) oral tablet = 1 tab, By mouth, Daily, # 90 tab, Refill(s) 0, Pharmacy: [facility], [id number], TAKE 1 TABLET EVERY DAY, 68.91, 04/13/22 8:31:00 CDT, kg, Weight Start Date: 08/07/22 Status: Ordered mupirocin topical 2% ointment 1 application, Topical, TID, # 22 g, Refill(s) 0, Route to Pharmacy Electronically, Pharmacy: [facility], [id number], 1 application Topical TID, 71.55, 01/18/23 10:06:00 [...] bedtime, # 90 tab, Refill(s) 1, Pharmacy: [facility], [id number], TAKE 1 TABLET AT BEDTIME, 69.18, 08/24/22 10:33:00 HAIRSPRING VIBRATOR, kg, Weight Start Date: 11/16/22 Status: Ordered Problem List Condition Confirmation Course Effective Dates Status H ealth Status Informant Hand abscess Confirmed Active Acute bronchitis Confirmed Resolved Frozen shoulder syndrome Confirmed Resolved Adhesive capsulitis of left shoulder Confirmed Active Bee sting reaction Confirmed Active Chronic low back pain Confirmed Active Chronic myelogenous leukemia (CML), [id number] Confirmed Active History of kidney stones Confirmed Active HTN (hypertension) Confirmed Active Adult hypothyroidism Confirmed Active Leucocytosis Confirmed Resolved Methicillin resistant Staphylococcus aureus infection 1 Confirmed 01/19/23 Active Decreased ROM of left shoulder Confirmed Active Left shoulder pain Confirmed Active Tobacco use Confirmed Active patient 1Wound Culture from Abscess, closed collected on 18-JAN-2023 16:30:00 CDT tested positive for MRSA. Problem added by rule: LH_IC_MDRO_MRSA_1 Procedures Procedure Date Related Diagnosis Body Site Status back surgery-LS spine 1 11/2011 C ompleted Bilateral tubal ligation 1975 Completed sinus surgery Completed 1[place] [facility] [place] Vital Signs Most recent to oldest [Reference Range]: 1 Blood Pressure 108/60 (01/18/23 10:04 AM) Height (inches) (Clinical) 64.00 in (01/18/23 10:04 AM) Weight (kg) (Clinical) 71.55 kg (01/18/23 10:04 AM) BMI (Clinical) 27 kg/m2 (01/18/23 10:04 AM) Social History Social History Type Response Smoking Status Current every day sm oker; Smokeless tobacco use: Never; Has the patient smoked in the last 365 days, even once? Yes; Type: Cigarettes; Tobacco use per day: 10 or more cigarettes (1/2 pack or more)/day in last 30 days entered on: 12/21/22 Sex Female Family medicine Note * Leigh NORWOOD, Bonnie Florez: PERFORM, MODIFY Event Display: Family Practice Office/Clinic Note Authored Date: [id number] Chief Complaint Patient c/o redness, pain, and edema left hand x 2 days. She states that the redness is starting tospread up into her arm. General Information Onset of Symptoms: 2 days (01/18/23 10:04:00) Nurse Intake Nursing Intake?? General Information?? Pain Information?? Onset of Symptoms: 2 days (01/18/23) Pain Intensity:??8??Critical (01/18/23) ?? Pain Location: left hand (01/18/23) ?? Pain Present: Yes actual or suspected pain (01/18/23) History of Present Illness She comes??in today??for evaluation of??a red??spot between her??3rd and??4th fingers??on the left hand,??she noticed it a couple??of days??ago.?? She thought??she had a paper??cut and then the redness??has just gotten worse.?? She has a little bit of redness??on??her arm.?? She does not??have any?? other??complaints??today.?? Area??is very tender.?? She denies??any fevers.?? She has??no other areas of??inflammation or infection.? Review of Systems No fevers,??she is taking her??chemo??pill for her leukemia.? Physical Exam Vitals & Measurements HR:??78?? BP:??108/60?? HT:??64.00??in?? WT:??157.4??lb?? WT:??71.55??kg?? BMI:??27?? Well-developed well-nourished female??in??no apparent??distress, appropriate??mood and affect Left hand between??the 3rd and??4th finger with??significant erythema and??swelling, whitish appearing area, no drainage.?After discussing options??with??the patient the hand??was cleaned withBetadine??and then??a??16 gauge needle??was used??without any return??of purulence material,??when??that was ineffective the area was??cleaned??with Betadine, injected with??1 mL of lidocaine??1%,? and??a 15. Blade??was used??to make a small incision??over??the area??of infection.?? A small amount??of purulence??material returned??and a culture??was performed, the area was cleaned??and??a steri le??bandage??was placed over the wound, patient tolerated??the??procedure well there was no blood loss? Assessment/Plan Body mass index [BMI] 27.0-27.9, adult(Body mass index [BMI] 27.0-27.9, adult: Z68.27) ?? Hand abscess(Cutaneous abscess of unspecified hand: L02.519) Abscess between??the 3rd and 4th finger??of the left??hand,??incision and drainage??performed??with??minimal??purulence??material??returned??from the incision??site, area??was dressed??it with??a sterile??bandage in??the patient is instructed??to keep the area clean??and to cover when using the hand.?? Bactrim for??1 week,??mupirocin ointment, go to the ER for any worsening.?? Patient at high risk??for issues due??to her history of??leukemia.? Ordered: Office Visit Level 3 Established 20-29 min [id number] Wound Culture ?? Orders: mupirocin topical, 1 application, Topical, TID, # 22 g, Refill(s) 0, Route to Pharmacy Electronically, Pharmacy: [facility] [place], [id number], 1 application Topical TID, 71.55, 01/18/23 10:06:00 CDT, kg, Weight sulfamethoxazole-trimethoprim, 1 tab, By mouth, BID, X 7 Days, # 14 tab, Refill(s) 0, Route to Pharmacy Electronically, Pharmacy: [facility], [id number], 1 tab By mouth BID,x7 Days, 71.55, 01/18/23 10:06:00 CDT, kg, Weight Problem List/Past Medical History Hand abscess: ?? Adhesive capsulitis of left shoulder: ?? Bee sting reaction: ?? Chronic low back pain: ?? Chronic myelogenous leukemia (CML), [id number]: ?? History of kidney stones: ?? HTN (hypertension): ?? Adult hypothyroidism: ?? Decreased ROM of left shoulder: ?? Left shoulder pain: ?? Procedure/Surgical History ???back surgery-LS spine ()???Bilateral tubal ligation (1975)???sinus surgery Medications Home Medications (12) Active Bactrim DS 800mg-160mg oral tablet??1 tab,Start_date: 01/18/23,Refills: 0, By mouth, BID cholecalciferol 1000 intl units (25 mcg) oral capsule??1,000 IntUnit = 1 cap,Start_date: 11/25/20,Refills: 0, By mouth, Daily DULoxetine 60 mg oral delayed release capsule??60 mg = 1 cap,Start_date: 08/24/22,Refills: 0, By mouth, BID fentaNYL 25 mcg/hr transdermal film, extended release??1 patch,Start_date: 05/04/22,Refills: 0, Topical, Q72H furosemide 20 mg oral tablet?? ibuprofen 800 mg oral tablet??800 mg = 1 tab,Start_date: 08/25/20,Refills: 0, By mouth, TID levothyroxine 125 mcg (0.125 mg) oral tablet??1 tab,Start_date: 08/07/22,Refills: 0, By mouth, Daily mupirocin topical 2% ointment??1 application,Start_date: 01/18/23,Refills: 0, Topical, TID naloxone 2 mg/0.4 mL injectable solution??See Instructions:Inject per package instructions prn overdose.,Start_date: 08/22/21,Refills: 0 Percocet 10/325 oral tablet??1 tab,Start_date: 05/04/22,Refills: 0, PRN, By mouth, BID Sprycel 100 mg oral tablet??100 mg = 1 tab,Start_date: 03/07/22,Refills: 0, By mouth, Daily traZODone 150 mg oral tablet??1 tab,Start_date: 11/16/22,Refills: 1, By mouth, at bedtime Medication reconciliation completed on this patient today Allergies No Known Allergies No Known Medication Allergies Social History Alcohol Denies Home/Environment Marital status . Nutrition/Health Caffeine intake amount: 5+ drinks/day. Type of caffeine drinks: Coffee. Other Substance Abuse Denies Tobacco Smoking Status: Current every day smoker. Smokeless tobacco use: Never. Has the patient smoked in the last 365 days, even once? Yes. Type: Cigarettes. Tobacco use per day: 10 or more cigarettes (1/2 pack or more)/day in last 30 days. Family History COPD: FATHER. Other PHQ?? Electronically signed by:Bonnie Abraham MD 01/18/23 12:50 Patient Care team information Care Team Personnel Name: Elkins Suzette TORRES Position: PUZ-SE-Godzkgaqvi Member Role: Primary Care Physician Address: Address: [address] [place] [address]- Care Team Related Persons Name: ELIEZER QUEEN
--- OUTSIDE RECORDS SUMMARY | 2023-03-28 14:06 | XMS_ITS | Continuity of Care Document ---
Author Name Unknown Organization [facility] Address [address] [place] [address]- Care Team Providers Care Community Action Worker Name Role Phone Suzette Elkins NP Primary Care Physician Encounter 12/21/22 - 12/22/22 [facility] [address] [place] [address]- [place] Encounter Diagnosis Body mass index [BMI] 27.0-27.9, adult(Discharge Diagnosis) - 12/21/22 Respiratory failure(Discharge Diagnosis) - 12/21/22 Hospital discharge follow-up(Discharge Diagnosis) - 12/21/22 Low oxygen saturation(Discharge Diagnosis) - 12/21/22 Attending Physician: Zuleyka Pineda NP Allergies, Adverse Reactions, Alerts No Known Allergies Assessment and Plan Future Appointments Appointment Date:01/03/2023 11:30:00 AM Scheduled Provider:[facility] Type:Established Patient Appointment Date:02/22/2023 10:30:00 AM Scheduled Provider:Suzette Elkins NP Location:[facility] Appointment Type:Established Patient Future Scheduled Tests Radiology* XR Cervical Spine Complete 04/10/22 Immunizations Given and Recorded Vaccine Date Status Refusal Reason influenza virus vaccine 09/06/21 Given influenza virus vaccine 07/10/19 Given influenza virus vaccine 07/24/16 Given influenza virus vaccine 07/11/14 Given influenza virus vaccine 07/29/10 Given influenza virus vaccine 07/08/09 Given influenza virus vaccine 07/29/07 Given Prevnar 13 pneumococcal 13-valent 08/21/18 Given Tdap-ADULT/ADOL tetanus/diphth/pertuss,a 02/03/11 Given Medications cholecalciferol 1000 intl units (25 mcg) oral [...] TID, # 90 tab, Refill(s) 0, Pharmacy: [facility], [id number], 1 tab By mouth TID, 64, 08/25/20 14:39:00 WOOD PILER, in, 70, 08/25/20 14:39:00 WOOD PILER, kg, Weight Start Date: 08/25/20 Status: Ordered levothyroxine 125 mcg (0.125 mg) oral tablet = 1 tab, By mouth, Daily, # 90 tab, Refill(s) 0, Pharmacy: [facility], [id number], TAKE 1 TABLET EVERY DAY, 68.91, 04/13/22 8:31:00 CDT, kg, Weight Start Date: 08/07/22 Status: Ordered naloxone 2 mg/0.4 mL injectable [...] bedtime, # 90 tab, Refill(s) 1, Pharmacy: [facility], [id number], TAKE 1 TABLET AT BEDTIME, 69.18, 08/24/22 10:33:00 WOOD PILER, kg, Weight Start Date: 11/16/22 Status: Ordered Problem List Condition Confirmation Course Effective Dates Status H ealth Status Informant Acute bronchitis Confirmed Resolved Frozen shoulder syndrome Confirmed Resolved Adhesive capsulitis of left shoulder Confirmed Active Bee sting reaction Confirmed Active Chronic low back pain Confirmed Active Chronic myelogenous leukemia (CML), [id number] Confirmed Active History of kidney stones Confirmed Active HTN (hypertension) Confirmed Active Adult hypothyroidism Confirmed Active Leucocytosis Confirmed Resolved Decreased ROM of left shoulder Confirmed Active Left shoulder pain Confirmed Active Tobacco use Confirmed Active patient Procedures Procedure Date Related Diagnosis Body Site Status back surgery-LS spine 1 11/2011 C ompleted Bilateral tubal ligation 1975 Completed [place] [facility] [place] Vital Signs Most recent to oldest [Reference Range]: 1 Blood Pressure 128/80 (12/21/22 11:28 AM) Height (inches) (Clinical) 64.00 in (12/21/22 11:28 AM) Weight (kg) (Clinical) 71.82 kg (12/21/22 11:28 AM) BMI (Clinical) 27.1 kg/m2 (12/21/22 11:28 AM) Social History Social History Type Response [...] Team Personnel Name: Elkins Suzette TORRES Position: QJF-RT-Puducutdht Member Role: Primary Care Physician Address: Address: [address] [place] [address]- Care Team Related Persons Name: ELIEZER QUEEN
--- OUTSIDE RECORDS SUMMARY | 2023-03-28 14:06 | XMS_ITS | Continuity of Care Document ---
Author Name Unknown Organization [facility] Address [address] [place] [address]- Care Team Providers Care Flap Maker Name Role Phone Elkins Suzette TORRES Primary Care Physician [phone] Encounter 02/02/23 - 02/03/23 [facility] [address] [place] [address]- [place] Encounter Diagnosis Hand abscess(Discharge Diagnosis) - 02/02/23 Attending Physician: Bonnie Abraham MD Allergies, Adverse Reactions, Alerts No Known Allergies Assessment and Plan Future Appointments Appointment Date:04/09/2023 02:30:00 PM Scheduled Provider:Elkins Suzette TORRES Location:[facility] Appointment Type:Established Patient Future Scheduled Tests Radiology* [...] TID, # 90 tab, Refill(s) 0, Pharmacy: [facility], [id number], 1 tab By mouth TID, 64, 08/25/20 14:39:00 STAIN APPLICATOR, in, 70, 08/25/20 14:39:00 STAIN APPLICATOR, kg, Weight Start Date: 08/25/20 Status: Ordered levothyroxine 125 mcg (0.125 mg) oral tablet = 1 tab, By mouth, Daily, # 90 tab, Refill(s) 0, Pharmacy: [facility], [id number], TAKE 1 TABLET EVERY DAY, 68.91, 04/13/22 8:31:00 CDT, kg, Weight Start Date: 08/07/22 Status: Ordered mupirocin topical 2% ointment 1 application, Topical, TID, # 22 g, Refill(s) 0, Route to Pharmacy Electronically, Pharmacy: [facility], [id number], 1 application Topical TID, 71.55, 01/18/23 10:06:00 [...] bedtime, # 90 tab, Refill(s) 1, Pharmacy: [facility], [id number], TAKE 1 TABLET AT BEDTIME, 69.18, 08/24/22 10:33:00 STAIN APPLICATOR, kg, Weight Start Date: 11/16/22 Status: Ordered Problem List Condition Confirmation Course Effective Dates Status H ealth Status Informant Hand abscess Confirmed Active Acute bronchitis Confirmed Resolved Frozen shoulder syndrome Confirmed Resolved Adhesive capsulitis of left shoulder Confirmed Active Bee sting reaction Confirmed Active Chronic low back pain Confirmed Active Chronic myelogenous leukemia (CML), [id number] Confirmed Active History of kidney stones Confirmed [...] Completed [place] [facility] [place] Vital Signs Most recent to oldest [Reference Range]: 1 Blood Pressure 124/60 (02/02/23 10:39 AM) Height (inches) (Clinical) 64.00 in (02/02/23 10:39 AM) Weight (kg) (Clinical) 70.11 kg (02/02/23 10:39 AM) BMI (Clinical) 26.5 kg/m2 (02/02/23 10:39 AM) Social History Social History Type Response Smoking Status Current every day sm oker; Smokeless tobacco use: Never; Has the patient smoked in the last 365 days, even once? Yes; Type: Cigarettes; Tobacco use per day: 10 or more cigarettes (1/2 pack or more)/day in last 30 days entered on: 12/21/22 Sex Female Patient Care team information Care Team Personnel Name: Elkins PERIOPERATIVE NURSESuzette Position: HHE-IT-Lxqkntdfqn Member Role: Primary Care Physician Address: Address: [address] [place] [address]- Care Team Related Persons Name: ELIEZER QUEEN
--- OUTSIDE RECORDS SUMMARY | 2023-03-28 14:06 | XMS_ITS | Continuity of Care Document ---
Author Name Unknown Organization [facility] Address [address] [place] [address]- Care Team Providers Care Extruder Operator Name Role Phone Elkins Suzette TORRES Primary Care Physician Encounter 01/03/23 - 01/04/23 [facility] [address] [place] [address]- [place] Encounter Diagnosis Body mass index [BMI] 27.0-27.9, adult(Discharge Diagnosis) - 01/03/23 Tobacco use(Discharge Diagnosis) - 01/03/23 Chronic obstructive pulmonary disease(Discharge Diagnosis) - 01/03/23 Hypoxemia(Discharge Diagnosis) - 01/03/23 Attending Physician: Zuleyka Pineda NP Allergies, Adverse Reactions, Alerts No Known Allergies Assessment and Plan Future Appointments Appointment Date:02/22/2023 10:30:00 AM Scheduled Provider:Suzette Elkins NP Location:[facility] Appointment Type:Established Patient Future Scheduled Tests [...] TID, # 90 tab, Refill(s) 0, Pharmacy: [facility], [id number], 1 tab By mouth TID, 64, 08/25/20 14:39:00 VICE PRESIDENT OF COMPLIANCE, in, 70, 08/25/20 14:39:00 VICE PRESIDENT OF COMPLIANCE, kg, Weight Start Date: 08/25/20 Status: Ordered levothyroxine 125 mcg (0.125 mg) oral tablet = 1 tab, By mouth, Daily, # 90 tab, Refill(s) 0, Pharmacy: [facility], [id number], TAKE 1 TABLET EVERY DAY, 68.91, 04/13/22 [...] bedtime, # 90 tab, Refill(s) 1, Pharmacy: [facility], [id number], TAKE 1 TABLET AT BEDTIME, 69.18, 08/24/22 10:33:00 VICE PRESIDENT OF COMPLIANCE, kg, Weight Start Date: 11/16/22 Status: Ordered Problem List Condition Confirmation Course Effective Dates Status H ealth Status Informant Acute bronchitis Confirmed Resolved Frozen shoulder syndrome Confirmed Resolved Adhesive capsulitis of left shoulder Confirmed Active Bee sting reaction Confirmed Active Chronic low back pain Confirmed Active Chronic myelogenous leukemia (CML), [id number] Confirmed Active History of kidney stones Confirmed Active HTN (hypertension) Confirmed Active Adult hypothyroidism Confirmed Active Leucocytosis Confirmed Resolved Decreased ROM of left shoulder Confirmed Active Left shoulder pain Confirmed Active Tobacco use Confirmed Active patient Procedures Procedure Date Related Diagnosis Body Site Status back surgery-LS spine 1 11/2011 C ompleted Bilateral tubal ligation 1975 Completed sinus surgery Completed 1[facility] [place] [place] [facility] [place] Vital Signs Most recent to oldest [Reference Range]: 1 Blood Pressure 132/76 (01/03/23 11:24 AM) Height (inches) (Clinical) 64.00 in (01/03/23 11:24 AM) Weight (kg) (Clinical) 71.82 kg (01/03/23 11:24 AM) BMI (Clinical) 27.1 kg/m2 (01/03/23 11:24 AM) Social History Social History Type Response [...] Team Personnel Name: Elkins Suzette TORRES Position: [facility] Member Role: Primary Care Physician Address: Address: [address] [place] [address]- Care Team Related Persons Name: ELIEZER QEUEN
--- OUTSIDE RECORDS SUMMARY | 2023-03-28 14:07 | XMS_ITS | Patient Health Record ---
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, cervical region M47.812 confirmed [id number] Problem Pain in left shoulder M25.512 confirmed [id number] Problem Other sleep disorders G47.8 confirmed [id number] Problem Hypersomnia, unspecified G47.10 confirmed [id number] Problem Adhesive capsulitis of left shoulder M75.02 confirmed [id number] 1 9107 Problem Other chronic pain G89.29 confirmed 06184243 Problem Myalgia of auxiliary muscles, head and neck M79.12 confirmed 56064286 Problem 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 Z79.891 confirmed 245810584 Problem Cervicalgia M54.2 confirmed 48556191 Problem Other cervical disc disorders, 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 confirmed [id number] ALLERGIES No Known Allergies ENCOUNTERS from 1955 to 2023-03-28 Encounter Location Date Provider Diagnosis [facility], [employer] [address] [place], [place] [id number] January, Venkat Emmanuel Cervicalgia M54.2 ; Other chronic pain G89.29 ; Other cervical disc disorders, 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 and 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 Z79.891 [facility], [facility] [address] [place] [id number] Oct, Venkat Emmanuel Cervicalgia M54.2 ; Spondylosis without myelopathy or radiculopathy, cervical region M47.812 ; Other cervical disc disorders, 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 ; Pain in left shoulder M25.512 ; Myalgia of auxiliary muscles, head and neck M79.12 ; Hypersomnia, unspecified G47.10 and 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 Z79.891 [facility], [address] [id number] Jul, Venkat Emmanuel Cervicalgia M54.2 ; Spondylosis without myelopathy or radiculopathy, cervical region M47.812 ; Other cervical disc disorders, 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 ; Pain in left shoulder M25.512 ; Myalgia of auxiliary muscles, head and neck M79.12 ; Hypersomnia, unspecified G47.10 and alf (current) use of opiate analgesic Z79.891 [facility], [facility] [address] [place] [id number] May, Venkat Emmanuel Cervicalgia M54.2 ; Spondylosis without myelopathy or radiculopathy, cervical region M47.812 ; Other cervical disc disorders, 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 ; Pain in left shoulder M25.512 ; Myalgia of auxiliary muscles, head and neck M79.12 ; Hypersomnia, unspecified G47.10 and alf (current) use of opiate analgesic Z79.891 [facility], [address] [id number] Apr, Venkat Emmanuel Cervicalgia M54.2 ; Spondylosis without myelopathy or radiculopathy, cervical region M47.812 ; Other cervical disc disorders, 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 ; Pain in left shoulder M25.512 ; Myalgia of auxiliary muscles, head and neck M79.12 ; Hypersomnia, unspecified G47.10 and 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 Z79.891 [facility], [address] [id number] Apr, Aleksandra Mendoza Cervicalgia M54.2 ; Spondylosis without myelopathy or radiculopathy, cervical region M47.812 ; Pain in left shoulder M25.512 ; Myalgia of auxiliary muscles, head and neck M79.12 ; Other sleep disorders G47.8 and alf (current) use of opiate analgesic Z79.891 SOCIAL HISTORY Tobacco Use: Social History Observation Description Date Details (start date - stop date) Current Smoker Sex Assigned At : Social History Observation Description Sex Assigned At Unknown alcohol Question Answer Notes Did you have a drink containing alcohol in the p ast year? No Points 0 Interpretation Negative Tobacco use: Question Answer Notes : current smoker When did you start smoking? 1972 How soon after you wake up d o you smoke your first cigarette? 6-30 min How often do you smoke cigarettes? every day How many cigarettes a day do you smoke? 11-20 Are you interested in quitting? Thinking about q uitting REASON FOR REFERRAL from 1955 to 2023-03-28 Referring Provider First Name Eligio Referring Provider Last Name Leigh Referring Provider Specialty Internal Me sonny Referred Organization [facility] [employer] Referred Provider Venkat Emmanuel Referred Address [address] [place], [id number] Referral Priority Routine General Notes Leonila Joel 01:08:20 PM >Left Message to schedule Reason Chronic OA and pain; Patient needs left shoulder replacement but is not a good candidate due to leukemia risks Diagnosis 1 Adhesive capsulitis of left shoulder (M75.02) Referring Provider First Name Bonnie Referring Provider Last Name Leigh Referring Provider Specialty Family Prac ana Referred Organization [facility] [employer] Referred Provider Venkat Emmanuel Referred Address [address] [place], [id number] Referred Provider Specialty Pain Managem ent Referral Priority Routine General Notes Anay Rizvi 02/2022 10:49:48 AM >Sent for insurance verification. Reason Sleep Study (46149)/ CPAP Titration Study (53824) as appropriate Diagnosis 1 Hypersomnia, unspeci fied (G47.10) Referral Organization [facility] Referring Provider First Name Venkat Referring Provider Last Name Cholo Referring Provider Specialty Pain Manage ment Referred Provider Lab, Sleep Referral Priority Routine General Notes [facility] - junie checking on insurance approved for [id number]) sleep study at [facility]; #[id number], expires 06/10/22 Missy Nguyen 05/17/2022 09:49:28 AM >referral faxed Missy Nguyen 06/05/2022 01:42:16 PM >spoke with Adelaida - she has been on vacation and does not have referral and asked me to refax. Missy Nguyen 06/07/2022 12:41:15 PM >refaxed Missy Nguyen 06/07/2022 01:37:39 PM >Adelaida from [facility] Sleep [facility] called me back and said that patient was scheduled, however, canceled it stating that she had too much going. VITAL SIGNS from 1955 to 2023-03-28 Height 63 in January, Weight 153 lbs January, BMI 27.10 kg/m2 January, Temperature 97.6 degrees Fahrenheit January, Oximetry 88 % January, Blood pressure systolic 143 mm Hg Apr, Blood pressure diastolic 91 mm Hg Apr, MEDICATIONS Medication SIG (Take, Route, Frequency, Duration) Notes Start Date End Date Status fentaNYL 25 mcg/hr 1 film applied topically Q72H for 30 day(s) ICD-10: G89.29 January, Active doxycycline hyclate 100 mg 1 cap(s) orally 2 times a day for 10 day(s) Active Bactrim 400 mg-80 mg 2 tab(s) orally angeline ry 12 hours for 10 day(s) Active acetaminophen-oxycodon e 325 mg-10 mg 1 tab po orally Q12H prn breakthrough pain for 30 day(s) ICD-10: G89.29 January, Active acetaminophen-oxycodon e 325 mg-10 mg 1 tab po orally Q12H prn breakthrough pain for 30 day(s) Do not fill prior to 03/09/23. ICD-10: G89.29 January, Active DULoxetine 60 mg 1 cap po orally Q12H for 90 days Active traZODone Active fentaNYL 25 mcg/hr 1 film applied topically Q72H for 30 day(s) Do not fill prior to 04/08/23. ICD-10: G89.29 January, Active levothyroxine 125 mcg (0.125 mg) 1 tab orally once a day Active Vitamin D3 25 mcg 1 tab orally once a day Active Sprycel 100 mg 1 tab orally once a day Active acetaminophen-oxycodon e 325 mg-10 mg 1 tab po orally Q12H prn breakthrough pain for 30 day(s) Do not fill prior to 04/08/23. ICD-10: G89.29 January, Active fentaNYL 25 mcg/hr 1 film applied topically Q72H for 30 day(s) Do not fill prior to 03/09/23. ICD-10: G89.29 January, Active furosemide 20 mg 1 tab orally once a day Active RESULTS from 1955 to 2023-03-28 Component Value Reference Range Notes Dimeres Results Reviewed date:02/12/2023 10:00:23 Interpretation: Performing Lab:, [id number] [employer], [id number] [address] [facility] [id number] Gay Balderas MD Notes/Report: 4-ANPP Quantification negative ng/mL 2 ng/mL Acetyl fentanyl Quantification negative ng/mL 2 ng/mL Acetyl norfentanyl Quantification negative ng/mL 5 ng/ mL Acryl fentanyl Quantification negative ng/mL 1 ng/mL Buprenorphine Quantification negative ng/mL 5 ng/mL Carfentanil Quantification negative ng/mL 2 ng/mL Codeine Quantification negative ng/mL 50 ng/mL CREATININE (CHEMICAL) normal-175.7 mg/dL >20 mg/dL mg/ dL EDDP (Methadone metabolite) Quantification negative ng/mL 100 ng/mL Fentanyl Quantification positive-10.089 ng/mL 1 ng/mL Hydrocodone Quantification negative ng/mL 50 ng/mL Hydromorphone Quantification negative ng/mL 50 ng/mL Levorphanol / Dextrorphan Quantification negative ng/mL 50 ng/mL Meperidine Quantification negative ng/mL 50 ng/mL Methadone Quantification negative ng/mL 100 ng/mL Morphine Quantification negative ng/mL 50 ng/mL Q-Hyofpqful-Gdapvgwf Quantification negative ng/mL 100 ng/mL Naloxone Quantification negative 20 Naltrexol Quantification negative ng/mL 10 ng/mL Naltrexone Quantification negative ng/mL 10 ng/mL Norbuprenorphine Quantification negative ng/mL 20 ng/m L Norfentanyl Quantification positive-127.745 ng/mL 8 ng /mL Norhydrocodone Quantification negative ng/mL 50 ng/mL Normeperidine Quantification negative ng/mL 50 ng/mL Noroxycodone Quantification positive-5377.934 ng/mL 50 ng/mL O-szrowhiwp-glggfblf Quantification negative ng/mL 100 ng/mL OXIDANT normal-0 ug/mL <200 ug/mL ug/mL Oxycodone Quantification positive-2560.241 ng/mL 50 ng /mL Oxymorphone Quantification positive-2724.818 ng/mL 50 ng/mL Para-fluorofentanyl Quantification negative ng/mL 1 ng /mL PH normal-5.9 4.5 - 9.5 SPECIFIC GRAVITY normal-1.021 1.003 - 1.035 Tapentadol Quantification negative ng/mL 50 ng/mL Tramadol Quantification negative ng/mL 100 ng/mL Embedded PDF Reviewed date:02/12/2023 10:01:07 Interpretation: Performing Lab:,ab Director: Gay Balderas MD, CLIA ID# [id number] Notes/Report: Urine tox screen / MS if ind icated Reviewed date:02/12/2023 10:02:54 Interpretation:Consistent Performing Lab: Notes/Report: DRUG MONITORING TEMPLATE Reviewed date:08/22/2022 11:00:34 Interpretation: Performing Lab:, José MOLINA-[id number] Katty Infante, [id number]- 9752 Hermelindo Soto D.O., MPH Notes/Report: Notes and Comments Urine tox screen / MS if ind icated Reviewed date:08/22/2022 11:00:45 Interpretation: Performing Lab: Notes/Report: DRUG MONITOR, medMatch [place]o n [id number] Reviewed date:08/22/2022 11:00:25 Interpretation: Performing Lab:, José MOLINA-[id number] Jenny [id number]- [id number] Hermelindo Soto D.O., MPH Notes/Report: medMATCH Summary Prescribed Drug 2 Fentanyl DRUG MONITOR, [place] [address] Reviewed date:08/22/2022 11:00:15 Interpretation: Performing Lab:, José KHAN-Jhonny [id number] Mahogany Goldman, [id number] Remi Huffman M.D. Notes/Report: Buprenorphine NEGATIVE ng/mL <2 ng/mL Tramadol Comments Codeine NEGATIVE ng/mL <50 ng/mL Dextromethorphan 40 ng/mL <20 ng/mL Dextrorphan >500 ng/mL <20 ng/mL EDDP NEGATIVE ng/mL <100 ng/mL Fentanyl 13.9 ng/mL <0.5 ng/mL Heroin Metabolite NEGATIVE ng/mL <10 ng/mL Hydrocodone NEGATIVE ng/mL <50 ng/mL Hydromorphone NEGATIVE ng/mL <50 ng/mL Methadone NEGATIVE ng/mL <100 ng/mL Mitragynine NEGATIVE ng/mL <2 ng/mL Morphine NEGATIVE ng/mL <50 ng/mL Naloxone NEGATIVE ng/mL <2 ng/mL Norbuprenorphine NEGATIVE ng/mL <2 ng/mL Norfentanyl 184.9 ng/mL <0.5 ng/mL Norhydrocodone NEGATIVE ng/mL <50 ng/mL Noroxycodone 8428 ng/mL <50 ng/mL Nortapentadol NEGATIVE ng/mL <50 ng/mL O desmethyltramadol NEGATIVE ng/mL <100 ng/mL Oxycodone 4328 ng/mL <50 ng/mL Oxymorphone 1927 ng/mL <50 ng/mL Tapentadol NEGATIVE ng/mL <50 ng/mL Tramadol NEGATIVE ng/mL <100 ng/mL DRUG MONITORING TEMPLATE Reviewed date:05/22/2022 06:54:17 Interpretation: Performing Lab:, José MOLINA-[id number] Katty Infante, [id number]- [id number] Hermelindo Soto D.O., MPH Notes/Report: Notes and Comments Urine tox screen / MS if ind icated Reviewed date:05/22/2022 06:54:29 Interpretation: Performing Lab: Notes/Report: DRUG MONITOR, medMatch add-o n 75152 Reviewed date:05/22/2022 06:54:08 Interpretation: Performing Lab:JESSE [facility]-[id number] Katty Infante, [id number]- 9752 Hermelindo Soto D.O., MPH Notes/Report: medMATCH Summary Prescribed Drug 2 Fentanyl DRUG MONITOR, [place] [id number] Reviewed date:05/22/2022 06:54:00 Interpretation: Performing Lab:, CALISTAI, [facility] [id number] Mahogany Goldman, [id number] Remi Huffman M.D. Notes/Report: Buprenorphine NEGATIVE ng/mL <2 ng/mL Tramadol Comments Codeine NEGATIVE ng/mL <50 ng/mL Dextromethorphan NEGATIVE ng/mL <20 ng/mL Dextrorphan NEGATIVE ng/mL <20 ng/mL EDDP NEGATIVE ng/mL <100 ng/mL Fentanyl 1.5 ng/mL <0.5 ng/mL Heroin Metabolite NEGATIVE ng/mL <10 ng/mL Hydrocodone NEGATIVE ng/mL <50 ng/mL Hydromorphone NEGATIVE ng/mL <50 ng/mL Methadone NEGATIVE ng/mL <100 ng/mL Mitragynine NEGATIVE ng/mL <2 ng/mL Morphine NEGATIVE ng/mL <50 ng/mL Naloxone NEGATIVE ng/mL <2 ng/mL Norbuprenorphine NEGATIVE ng/mL <2 ng/mL Norfentanyl 40.9 ng/mL <0.5 ng/mL Norhydrocodone NEGATIVE ng/mL <50 ng/mL Noroxycodone 2360 ng/mL <50 ng/mL Nortapentadol NEGATIVE ng/mL <50 ng/mL O desmethyltramadol NEGATIVE ng/mL <100 ng/mL Oxycodone 372 ng/mL <50 ng/mL Oxymorphone 1373 ng/mL <50 ng/mL Tapentadol NEGATIVE ng/mL <50 ng/mL Tramadol NEGATIVE ng/mL <100 ng/mL REASON FOR VISIT No Information MEDICAL (GENERAL) HISTORY Type Description Date Medical History Chronic pain Medical History Neck pain Medical History Cervical disc disease and spondy losis Medical History Low back pain Medical History Lumbar disc disease, spondylosis and spinal stenosis Medical History Left shoulder pain Medical History Athritis Medical History Adhesive capsulitis of left shou lder Medical History Chronic myelogenous leukemia (06/2016 - on-going chemotherapy noted as of 05/11/22) Medical History [id number] Medical History Kidney stones Medical History Hypertension Medical History Hypothyroidism Medical History Tobacco use, probable COPD Medical History Mood disorder / depr essive symptoms as per patient report Surgical History Sinus surgery Surgical History Bilateral tubal ligation, 1975 Surgical History Placement of stent, performed at [facility] by Dr. Kel Phipps Surgical History Lumbar spine surgery , performed at [facility] by Dr. Molly Mazariegos, 11/2011 Surgical History Removal of MRSA absc ess, left 5th finger, performed at [facility] by Dr. Lares, 01/24/23 Hospitalization History Infection in leg , treated at [facility] and [facility] in [place], [place] MENTAL STATUS No Information ASSESSMENTS Encounter Date Diagnosis Assessment Notes Treatment Notes Treatment Clinical Notes January, Other chronic pain (ICD-10 - G89.29) Patient reports that taking her pain medication allows her to care for her . Plan to continue current medication management January, Cervicalgia (ICD-10 - M54.2) January, Other cervical disc disorders, unspecified cervical region (ICD-10 - M50.80) Plan to continue Cymbalta as patient reports it helps with her arm pain January, alf (current) use of opiate analgesic (ICD-10 - Z79.891) Plan urine toxicology screen today to monitor compliance regarding use of oxycodone and for the presence of any unprescribed or illicit drug. Plan to send specimen to an outside lab to monitor compliance regarding use of fentanyl as testing not available in this facility lab Oct, Spondylosis without myelopathy or radiculopathy, cervical region (ICD-10 - M47.812) Oct, Cervicalgia (ICD-10 - M54.2) Chronic axial cervical spine pain. Prior conservative treatment by patient as noted, below. Prior minimally invasive interventional treatment by other providers as noted, below. Had planned to obtain cervical spine imaging reports from the [facility] in [place], [place], however, none was located (only MRI shoulder). Patient has reported of evaluation by Dr. Sahu ([facility] roof cement and paint maker helper) and recommendation was no interventional spine treatment and no physical therapy at that time. Patient does have a leukemia diagnosis. Have encouraged patient to seek care via Dr. Sahu if any minimally invasive interventional spine treatment were to be desired: do not anticipate offering patient any fluoroscope - guided minimally invasive intervention spine treatment via this facility. Dr. Sahu does not offer medication management services for chronic pain. Transdermal and oral opioid medication use with history of benefit. Plan to continue medication management Oct, Other cervical disc disorders, unspecified cervical region (ICD-10 - M50.80) Oct, Pain in left shoulder (ICD-10 - M25.512) Patient reported that she has been evaluated by Dr. Atkinson and surgery was discussed. Patient has also reported that she has been evaluated by Dr. Mayer ([place], [place]) and surgery was discussed, but only if patient completes her chemotherapy with good outcome Oct, Myalgia of auxiliary muscles, head and neck (ICD-10 - M79.12) Consider TPIs Oct, Hypersomnia, unspecified (ICD-10 - G47.10) Sleep apnea screening revealed that patient described her sleep as poor with complaints of frequent awakenings and difficulty in sleeping. Patient is on olkpay-lfm-wqrlk opioid therapy. Patient has not had a sleep study. [place] Sleepiness Scale = 3. Had planned a sleep study, however, patient not able to follow through due to 's required overnight care by patient. Patient has been counseled on the risks of sleep apnea (if present), with or without opioid and / or other sedative usage, and the patient verbalized understanding and acceptance of the increased risk (sleep apnea, respiratory depression, ) with opioid and / or sedative substance usage. 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 This places the patient in the [facility] high risk category for total daily opioid usage (not to be confused with the separate potential significant risk in regards to possible sleep apnea, above). Have recommended patient taper daily doses to the lowest number of daily doses that provide effective analgesia. Patient has received the Opioid Analgesic REMS Patient Counseling Guide. Patient has had opportunity to read the Guide and ask questions pertaining to the Guide. Patient has been advised on 05/11/22 that due to the Federal Government concerns and actions, any suspected patient misuse, abuse, or diversion of controlled substances (i.e. opioids/narcotics/pa in killers) WILL result in dissolution of treatment from this clinic. Patients adhering to the concepts contained within the patient's Treatment Agreement will be protected from such termination of care. Patient was given a copy of the Treatment Agreement, signed by patient on 04/17/22. Patient signed an opioid consent form on 05/11/22. Patient has refused offer of a Narcan nasal spray prescription. Opioid Risk Tool score 0 - low risk Oct, Other Patient has a diagnosis of CML. Patient reports she is currently receiving chemotherapy with Dr. Sherwood as of 08/09/22 Jul, Spondylosis without myelopathy or radiculopathy, cervical region (ICD-10 - M47.812) Jul, Cervicalgia (ICD-10 - M54.2) Had planned to obtain cervical spine imaging reports from the [facility] in [place], [place], however, none was located (only MRI shoulder). Patient has reported of evaluation by Dr. Sahu ([facility] roof cement and paint maker helper) and recommendation was no interventional spine treatment and no physical therapy at that time. Patient does have a leukemia diagnosis. Would encourage patient to seek care via Dr. Sahu if any minimally invasive interventional spine treatment were to be desired: do not anticipate offering patient any fluoroscope - guided minimally invasive intervention spine treatment via this facility. Dr. Sahu does not offer medication management services for chronic pain. Transdermal and oral opioid medication use with history of benefit. Plan to continue medication management Jul, Other cervical disc disorders, unspecified cervical region (ICD-10 - M50.80) Jul, Pain in left shoulder (ICD-10 - M25.512) Patient reported that she has been evaluated by Dr. Atkinson and surgery was discussed. Patient has also reported that she has been evaluated by Dr. Mayer ([place], [place]) and surgery was discussed, but only if patient completes her chemotherapy with good outcome Jul, Myalgia of auxiliary muscles, head and neck (ICD-10 - M79.12) Consider TPIs Jul, Hypersomnia, unspecified (ICD-10 - G47.10) Sleep apnea screening revealed that patient described her sleep as poor with complaints of frequent awakenings and difficulty in sleeping. Patient is on xzeyni-ggj-mkcbd opioid therapy. Patient has not had a sleep study. [place] Sleepiness Scale = 3. Had planned a sleep study, however, patient not able to follow through due to 's required overnight care by patient. Patient has been counseled on the risks of sleep apnea (if present), with or without opioid and / or other sedative usage, and the patient verbalized understanding and acceptance of the increased risk (sleep apnea, respiratory depression, ) with opioid and / or sedative substance usage. Patient has been counseled that synergistic risk occurs with concomitant opioid and sedative usage Jul, alf (current) use of opiate analgesic (ICD-10 - Z79.891) Patient has a total daily MED of 90. This places the patient in the [facility] high risk category for total daily opioid usage (not to be confused with the separate potential significant risk in regards to possible sleep apnea, above). Have recommended patient taper daily doses to the lowest number of daily doses that provide effective analgesia. Patient has received the Opioid Analgesic REMS Patient Counseling Guide. Patient has had opportunity to read the Guide and ask questions pertaining to the Guide. Patient has been advised on 05/11/22 that due to the Federal Government concerns and actions, any suspected patient misuse, abuse, or diversion of controlled substances (i.e. opioids/narcotics/pa in killers) WILL result in dissolution of treatment from this clinic. Patients adhering to the concepts contained within the patient's Treatment Agreement will be protected from such termination of care. Patient was given a copy of the Treatment Agreement, signed by patient on 04/17/22. Patient signed an opioid consent form on 05/11/22. Patient has refused offer of a Narcan nasal spray prescription. Opioid Risk Tool score 0 - low risk. Urine Tox screen today; random screens per protocol Confirmation order for fentanyl Jul, Other Patient has a diagnosis of CML. Patient reports she is currently receiving chemotherapy with Dr. Sherwood as of 08/09/22 May, Spondylosis without myelopathy or radiculopathy, cervical region (ICD-10 - M47.812) May, Cervicalgia (ICD-10 - M54.2) Had planned to obtain cervical spine imaging reports from the [facility] in [place], [place], however, none was located (only MRI shoulder). Patient has reported of evaluation by Dr. Sahu ([facility] roof cement and paint maker helper) and recommendation was no interventional spine treatment and no physical therapy at that time. Patient does have a leukemia diagnosis. Would encourage patient to seek care via Dr. Sahu if any minimally invasive interventional spine treatment were to be desired: do not anticipate offering patient any fluoroscope - guided minimally invasive intervention spine treatment via this facility. Dr. Sahu does not offer medication management services for chronic pain. Transdermal and oral opioid medication use with history of benefit. Plan to continue medication management May, Other cervical disc disorders, unspecified cervical region (ICD-10 - M50.80) May, Pain in left shoulder (ICD-10 - M25.512) Patient reported that she has been evaluated by Dr. Atkinson and surgery was discussed. Patient has also reported that she has been evaluated by Dr. Mayer ([place], [place]) and surgery was discussed, but only if patient completes her chemotherapy with good outcome May, Myalgia of auxiliary muscles, head and neck (ICD-10 - M79.12) Consider TPIs May, Hypersomnia, unspecified (ICD-10 - G47.10) Sleep apnea screening revealed that patient described her sleep as poor with complaints of frequent awakenings and difficulty in sleeping. Patient is on pdgysp-ohm-rktsm opioid therapy. Patient has not had a sleep study. [place] Sleepiness Scale = 3. Had planned a sleep study, however, patient not able to follow through due to 's required overnight care by patient. Patient has been counseled on the risks of sleep apnea (if present), with or without opioid and / or other sedative usage, and the patient verbalized understanding and acceptance of the increased risk (sleep apnea, respiratory depression, ) with opioid and / or sedative substance usage. 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 This places the patient in the [facility] high risk category for total daily opioid usage. Have recommended patient taper daily doses to the lowest number of daily doses that provide effective analgesia. Patient has received the Opioid Analgesic [facility] Patient Counseling Guide. Patient has had opportunity to read the Guide and ask questions pertaining to the Guide. Patient has been advised on 05/11/22 that due to the Federal Government concerns and actions, any suspected patient misuse, abuse, or diversion of controlled substances (i.e. opioids/narcotics/pa in killers) WILL result in dissolution of treatment from this clinic. Patients adhering to the concepts contained within the patient's Treatment Agreement will be protected from such termination of care. Patient was given a copy of the Treatment Agreement, signed by patient on 04/17/22. Patient signed an opioid consent form on 05/11/22. Patient has refused offer of a Narcan nasal spray prescription. Opioid Risk Tool score 0 - low risk May, Other Patient has a diagnosis of CML. Patient has reported receiving chemotherapy for this cancer via Dr. Sherwood. 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 Patient has reported of evaluation by Dr. Sahu ([facility] [employer] cement and paint [employer] helper) and recommendation was no interventional spine treatment and no physical therapy at that time. Patient does have a luekemia diagnosis. Would encourage patient to seek care via Dr. Sahu if any minimally invasive interventional spine treatment were to be desired: do not anticipate offering patient any fluoroscope - guided minimally invasive intervention spine treatment via this facility. Dr. Sahu does not offer medication management services for chronic pain. Transdermal and oral opioid medication use with history of benefit. Plan to continue medication management Apr, Other cervical disc disorders, unspecified cervical region (ICD-10 - M50.80) Apr, Pain in left shoulder (ICD-10 - M25.512) Patient reported that she has been evaluated by Dr. Atkinson and surgery was discussed. Patient has also reported that she has been evaluated by Dr. Mayer ([place], [place]) and surgery was discussed, but only if patient completes her chemotherapy with good outcome Apr, Myalgia of auxiliary muscles, head and neck (ICD-10 - M79.12) Consider TPIs Apr, Hypersomnia, unspecified (ICD-10 - G47.10) Sleep apnea screening revealed that patient described her sleep as poor with complaints of frequent awakenings and difficulty in sleeping. Patient is on pafyhh-zgl-ucrvs opioid therapy. Patient has not had a sleep study. [place] Sleepiness Scale = 3. Plan a sleep study. Patient has been counseled on the risks of sleep apnea (if present), with or without opioid and / or other sedative usage, and the patient verbalized understanding and acceptance of the increased risk (sleep apnea, respiratory depression, ) with opioid and / or sedative substance usage. 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 Patient has had opportunity to read the Guide and ask questions pertaining to the Guide. Patient has been advised on 05/11/22 that due to the Federal Government concerns and actions, any suspected patient misuse, abuse, or diversion of controlled substances (i.e. opioids/narcotics/pa in killers) WILL result in dissolution of treatment from this clinic. Patients adhering to the concepts contained within the patient's Treatment Agreement will be protected from such termination of care. Patient was given a copy of the Treatment Agreement, signed by patient on 04/17/22. Patient signed an opioid consent form on 05/11/22. Opioid Risk Tool score 0 - low risk Apr, Other Patient has a diagnosis of CML. Patient has reported receiving chemotherapy for this cancer via Dr. Sherwood. Patient reported she she is currently receiving chemotherapy as of 05/11/22. 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 Consider interventional treatment pending review of imaging studies and evaluation by Dr. Emmanuel Apr, Pain in left shoulder (ICD-10 - M25.512) Apr, Myalgia of auxiliary muscles, head and neck (ICD-10 - M79.12) Consider TPIs Apr, Other sleep disorders (ICD-10 - G47.8) Sleep apnea screening revealed that patient described her sleep as poor with complaints of frequent awakenings and difficulty in sleeping. Patient has not had a sleep study. [place] Sleepiness Scale = 3. 10 Apr, 2022 alf (current) use of opiate analgesic (ICD-10 - Z79.891) Patient was given a copy of the Treatment Agreement, signed by patient on 04/17/22. Urine Tox screen today; random screens per protocol. Confirmation order for fentanyl Opioid Risk Tool score 0 - low risk Apr, Other Continue above medications as currently prescribed by Dr. Abraham. Case reviewed with Dr. Emmanuel. Treatment plan approved PLAN OF TREATMENT Medication Medication Name Sig Start Date Stop Date acetaminophen-oxycodone 325 mg-10 mg 1 tab po orally Q12H prn breakthrough pain for 30 day(s) January, acetaminophen-oxycodone 325 mg-10 mg 1 tab po orally Q12H prn breakthrough pain for 30 day(s) January, fentaNYL 25 mcg/hr 1 film applied topic ally Q72H for 30 day(s) January, acetaminophen-oxycodone 325 mg-10 mg 1 tab po orally Q12H prn breakthrough pain for 30 day(s) January, fentaNYL 25 mcg/hr 1 film applied topic ally Q72H for 30 day(s) January, fentaNYL 25 mcg/hr 1 film applied topic ally Q72H for 30 day(s) January, DULoxetine 60 mg 1 cap po orally Q12H for 90 days Treatment Notes Assessment Notes Clinical Notes Myalgia of auxiliary muscles , head and neck Consider TPIs Myalgia of auxiliary muscles , head and neck Consider TPIs Other sleep disorders Sleep apnea screen ing revealed that patient described her sleep as poor with complaints of frequent awakenings and difficulty in sleeping. Patient has not had a sleep study. [place] Sleepiness Scale = 3. Myalgia of auxiliary muscles , head and neck Consider TPIs Myalgia of auxiliary muscles , head and neck Consider TPIs Myalgia of auxiliary muscles , head and neck Consider TPIs Hypersomnia, unspecified Sleep apnea scr eening revealed that patient described her sleep as poor with complaints of frequent awakenings and difficulty in sleeping. Patient is on jpessk-bdj-oujua opioid therapy. Patient has not had a sleep study. [place] Sleepiness Scale = 3. Had planned a sleep study, however, patient not able to follow through due to 's required overnight care by patient. Patient has been counseled on the risks of sleep apnea (if present), with or without opioid and / or other sedative usage, and the patient verbalized understanding and acceptance of the increased risk (sleep apnea, respiratory depression, ) with opioid and / or sedative substance usage. Patient has been counseled that synergistic risk occurs with concomitant opioid and sedative usage alf (current) use of o piate analgesic Patient was given a copy of the Treatment Agreement, signed by patient on 04/17/22. Urine Tox screen today; random screens per protocol. 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 Plan to send specimen to an outside lab to monitor compliance regarding use of fentanyl as testing not available in this facility lab Pain in left shoulder Patient reported t hat she has been evaluated by Dr. Atkinson and surgery was discussed. Patient has also reported that she has been evaluated by Dr. 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 This places the patient in the [facility] high risk category for total daily opioid usage (not to be confused with the separate potential significant risk in regards to possible sleep apnea, above). Have recommended patient taper daily doses to the lowest number of daily doses that provide effective analgesia. Patient has received the Opioid Analgesic [facility] Patient Counseling Guide. Patient has had opportunity to read the Guide and ask questions pertaining to the Guide. Patient has been advised on 05/11/22 that due to the [employer] concerns and actions, any suspected patient misuse, abuse, or diversion of controlled substances (i.e. opioids/narcotics/pain killers) WILL result in dissolution of treatment from this clinic. Patients adhering to the concepts contained within the patient's Treatment Agreement will be protected from such termination of care. Patient was given a copy of the Treatment Agreement, signed by patient on 04/17/22. Patient signed an opioid consent form on 05/11/22. Patient has refused offer of a Narcan nasal spray prescription. Opioid Risk Tool score 0 - low risk. Urine Tox screen today; random screens per protocol Confirmation order for fentanyl Other chronic pain Patient reports that taking her pain medication allows her to care for her . 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 Patient has had opportunity to read the Guide and ask questions pertaining to the Guide. Patient has been advised on 05/11/22 that due to the [place] Government concerns and actions, any suspected patient misuse, abuse, or diversion of controlled substances (i.e. opioids/narcotics/pain killers) WILL result in dissolution of treatment from this clinic. Patients adhering to the concepts contained within the patient's Treatment Agreement will be protected from such termination of care. Patient was given a copy of the Treatment Agreement, signed by patient on 04/17/22. Patient signed an opioid consent form on 05/11/22. Opioid Risk Tool score 0 - low risk Cervicalgia Chronic axial cervic al spine pain. Prior conservative treatment by patient as noted, below. Prior minimally invasive interventional treatment by other providers as noted, below. Had planned to obtain cervical spine imaging reports from the [facility] in [place], [place], however, none was located (only MRI shoulder). Patient has reported of evaluation by Dr. Sahu ([facility] roof [employer] and paint maker helper) and recommendation was no interventional spine treatment and no physical therapy at that time. Patient does have a leukemia diagnosis. Have encouraged patient to seek care via Dr. Sahu if any minimally invasive interventional spine treatment were to be desired: do not anticipate offering patient any fluoroscope - guided minimally invasive intervention spine treatment via this facility. Dr. Sahu does not offer medication management services for chronic pain. Transdermal and oral opioid medication use with history of benefit. Plan to continue medication management alf (current) use of o piate analgesic Patient has a total daily MED of 90. This places the patient in the [facility] high risk category for total daily opioid usage. Have recommended patient taper daily doses to the lowest number of daily doses that provide effective analgesia. Patient has received the Opioid Analgesic [facility] Patient Counseling Guide. Patient has had opportunity to read the Guide and ask questions pertaining to the Guide. Patient has been advised on 05/11/22 that due to the Federal Government concerns and actions, any suspected patient misuse, abuse, or diversion of controlled substances (i.e. opioids/narcotics/pain killers) WILL result in dissolution of treatment from this clinic. Patients adhering to the concepts contained within the patient's Treatment Agreement will be protected from such termination of care. Patient was given a copy of the Treatment Agreement, signed by patient on 04/17/22. Patient signed an opioid consent form on 05/11/22. Patient has refused offer of a Narcan nasal spray prescription. Opioid Risk Tool score 0 - low risk Cervicalgia Had planned to obtai n cervical spine imaging reports from the [facility] in [place], [place], however, none was located (only MRI shoulder). Patient has reported of evaluation by Dr. Sahu ([facility] roof [employer] and paint maker helper) and recommendation was no interventional spine treatment and no physical therapy at that time. Patient does have a leukemia diagnosis. Would encourage patient to seek care via Dr. Sahu if any minimally invasive interventional spine treatment were to be desired: do not anticipate offering patient any fluoroscope - guided minimally invasive intervention spine treatment via this facility. Dr. Sahu does not offer medication management services for chronic pain. Transdermal and oral opioid medication use with history of benefit. Plan to continue medication management alf (current) use of o piate analgesic Patient has a total daily MED of 90. This places the patient in the [facility] high risk category for total daily opioid usage (not to be confused with the separate potential significant risk in regards to possible sleep apnea, above). Have recommended patient taper daily doses to the lowest number of daily doses that provide effective analgesia. Patient has received the Opioid Analgesic [facility] Patient Counseling Guide. Patient has had opportunity to read the Guide and ask questions pertaining to the Guide. Patient has been advised on 05/11/22 that due to the Federal Government concerns and actions, any suspected patient misuse, abuse, or diversion of controlled substances (i.e. opioids/narcotics/pain killers) WILL result in dissolution of treatment from this clinic. Patients adhering to the concepts contained within the patient's Treatment Agreement will be protected from such termination of care. Patient was given a copy of the Treatment Agreement, signed by patient on 04/17/22. Patient signed an opioid consent form on 05/11/22. Patient has refused offer of a Narcan nasal spray prescription. Opioid Risk Tool score 0 - low risk Cervicalgia Plan to obtain CSP i maging reports from the [facility] in [place]. Consider interventional treatment pending review of imaging studies and evaluation by Dr. Emmanuel Cervicalgia Plan to obtain cervi girish spine imaging reports from the [facility] in [place], [place] (pending). Patient has reported of evaluation by Dr. Sahu ([facility] roof [employer] and paint maker helper) and recommendation was no interventional spine treatment and no physical therapy at that time. Patient does have a luekemia diagnosis. Would encourage patient to seek care via Dr. Sahu if any minimally invasive interventional spine treatment were to be desired: do not anticipate offering patient any fluoroscope - guided minimally invasive intervention spine treatment via this facility. Dr. Sahu does not offer medication management services for chronic pain. Transdermal and oral opioid medication use with history of benefit. Plan to continue medication management Cervicalgia Had planned to obtai n cervical spine imaging reports from the [facility] in [place], [place], however, none was located (only MRI shoulder). Patient has reported of evaluation by Dr. Sahu ([facility] roof [employer] and paint maker helper) and recommendation was no interventional spine treatment and no physical therapy at that time. Patient does have a leukemia diagnosis. Would encourage patient to seek care via Dr. Sahu if any minimally invasive interventional spine treatment were to be desired: do not anticipate offering patient any fluoroscope - guided minimally invasive intervention spine treatment via this facility. Dr. Sahu does not offer medication management services for chronic pain. Transdermal and oral opioid medication use with history of benefit. Plan to continue medication management Other cervical disc disorder s, unspecified cervical region Plan to continue Cymbalta as patient reports it helps with her arm pain Hypersomnia, unspecified Sleep apnea scr eening revealed that patient described her sleep as poor with complaints of frequent awakenings and difficulty in sleeping. Patient is on xxooai-rhn-muoiw opioid therapy. Patient has not had a sleep study. [place] Sleepiness Scale = 3. Plan a sleep study. Patient has been counseled on the risks of sleep apnea (if present), with or without opioid and / or other sedative usage, and the patient verbalized understanding and acceptance of the increased risk (sleep apnea, respiratory depression, ) with opioid and / or sedative substance usage. Patient has been counseled that synergistic risk occurs with concomitant opioid and sedative usage Hypersomnia, unspecified Sleep apnea scr eening revealed that patient described her sleep as poor with complaints of frequent awakenings and difficulty in sleeping. Patient is on jrypxb-nli-mqvzx opioid therapy. Patient has not had a sleep study. [place] Sleepiness Scale = 3. Had planned a sleep study, however, patient not able to follow through due to 's required overnight care by patient. Patient has been counseled on the risks of sleep apnea (if present), with or without opioid and / or other sedative usage, and the patient verbalized understanding and acceptance of the increased risk (sleep apnea, respiratory depression, ) with opioid and / or sedative substance usage. Patient has been counseled that synergistic risk occurs with concomitant opioid and sedative usage Hypersomnia, unspecified Sleep apnea scr eening revealed that patient described her sleep as poor with complaints of frequent awakenings and difficulty in sleeping. Patient is on guuivh-zqr-kjcfs opioid therapy. Patient has not had a sleep study. [place] Sleepiness Scale = 3. Had planned a sleep study, however, patient not able to follow through due to 's required overnight care by patient. Patient has been counseled on the risks of sleep apnea (if present), with or without opioid and / or other sedative usage, and the patient verbalized understanding and acceptance of the increased risk (sleep apnea, respiratory depression, ) with opioid and / or sedative substance usage. Patient has been counseled that synergistic risk occurs with concomitant opioid and sedative usage Pain in left shoulder Patient reported t hat she has been evaluated by Dr. Atkinson and surgery was discussed. Patient has also reported that she has been evaluated by Dr. Mayer ([place], [place]) and surgery was discussed, but only if patient completes her chemotherapy with good outcome Pain in left shoulder Patient reported t hat she has been evaluated by Dr. Atkinson and surgery was discussed. Patient has also reported that she has been evaluated by Dr. Mayer ([place], [place]) and surgery was discussed, but only if patient completes her chemotherapy with good outcome Pain in left shoulder Patient reported t hat she has been evaluated by Dr. Atkinson and surgery was discussed. Patient has also reported that she has been evaluated by Dr. Mayer ([place], [place]) and surgery was discussed, but only if patient completes her chemotherapy with good outcome Referrals Referral Date Details [address] [place], [place], [id number], [email or web address], Chronic OA and pain; Patient needs left shoulder replacement but is not a good candidate due to leukemia risks, Venkat Emmanuel, [address], [id number], [email or web address], Sleep Study (87820)/ CPAP Titration Study (61414) as appropriate, Sleep Lab Next Appt Details 3 month Rx visit. Reason: Provider Name:Venkat Guthrie Rah clementina, 2023-05-16 11:10:00 AM, [address] [place], [place], [id number], Insurance Providers Payer Name Payer Address Payer Phone Insured Name Patient Relationship to Insured Coverage Start Date Coverage End Date Subscriber Number Group Number [employer] [address] [address] [facility] [id number] Col zeina Meraz Self - patient is the insured [id number]
[2023-03-28 14:15] VITALS: BP 108/68; PULSE 83; RESP 18; TEMP 36.1; O2SAT 95
[2023-03-28 14:32] LABS: Basophils # 0.1 10^3/uL (0.0-0.1); Basophils % 0.9 %; Eosinophils # 0.2 10^3/uL (0.0-0.8); Eosinophils % 2.7 %; Hematocrit 42.7 % (37.0-47.0); Hemoglobin 13.5 g/dL (11.5-15.3); Lymphocytes # 2.2 10^3/uL (0.8-4.8); Lymphocytes % 37.6 %; Mean Corpuscular HGB Conc 31.6 g/dL (30.0-36.0); Mean Corpuscular Volume 91.6 fl (81-99); Mean Platelet Volume 8.6 fL (7.4-10.4); Monocytes # 0.5 10^3/uL (0.2-0.9); Monocytes % 7.7 %; Neutrophils % 50.9 %; Nucleated Red Blood Cells % 0 %; Platelet Count 275 10^3/cmm (130-400); Red Blood Count 4.66 10^6/uL (4.1-5.3); Red Cell Distribution Width 14.5 % (12.1-15.1); White Blood Count 5.9 10^3/uL (4.0-10.0)
[2023-03-28 14:50] LABS: Alanine Aminotransferase 10 U/L (0-33); Albumin Level 3.7 g/dL (3.5-5.2); Alkaline Phosphatase 77 U/L (35-105); Anion Gap 13.5 (5-19); Aspartate Amino Transferase 16 U/L (0-32); Blood Urea Nitrogen 13 mg/dL (8-23); Calcium 8.9 mg/dL (8.5-10.5); Carbon Dioxide 32 mmol/L (22-29); Chloride 95 mmol/L (98-107); Globulin 3.3 g/dL (1.3-4.6); Glomerular Filtration Rate 62.5 mL/min (90-130); Glucose 144 mg/dL (65-115); Lactate Dehydrogenase 258 U/L (135-214); Osmolality Calculated 287 mOsm/kg (285-295); Potassium 3.5 mmol/L (3.5-5.1); Sodium 137 mmol/L (136-145); Total Bilirubin 0.3 mg/dL (0.15-1.2)
[2023-03-30 23:00] LABS: P210 BCR ALB1 NOT DETECTED; Prior Results NG; Source blood
== END 2023-04-23 23:59 | disposition home or self-care (01) ==
PROVIDERS: PCP Nurse Practitioner Family; Visit Provider Internal Medicine Medical Oncology
DX: C92.10 Chronic myeloid leukemia, BCR/ABL-positive, not having achieved remission (principal); M25.541 Pain in joints of right hand; M25.542 Pain in joints of left hand; R60.0 Localized edema; Z79.899 Other long term (current) drug therapy
CPT/HCPCS: 36415; 80053; 81206; 83615; 85025; 99214

== ENCOUNTER 2023-07-11 12:02 | Oncology outpatient (recurring) (ONCR) | payer MEDICARE, SELFPAY ==
[2023-07-11 12:14] VITALS: BP 121/74; PULSE 72; RESP 16; TEMP 35.8; O2SAT 93
[2023-07-11 12:53] LABS: Basophils # 0.1 10^3/uL (0.0-0.1); Basophils % 1.1 %; Eosinophils # 0.3 10^3/uL (0.0-0.8); Eosinophils % 5.3 %; Hematocrit 40.3 % (36-47); Lymphocytes # 1.8 10^3/uL (0.8-4.8); Lymphocytes % 31.4 %; Mean Corpuscular Hemoglobin 30.4 pg (27-33); Mean Platelet Volume 8.9 fL (7.4-10.4); Monocytes # 0.4 10^3/uL (0.2-0.9); Neutrophils # 3.08 10^3/uL (1.8-7.7); Neutrophils % 54.8 %; Nucleated Red Blood Cells % 0 %; Platelet Count 353 10^3/cmm (157-399); Red Blood Count 4.24 10^6/uL (3.85-5.65); Red Cell Distribution Width 15.8 % (12.1-15.1); White Blood Count 5.61 10^3/uL (3.29-11.43)
[2023-07-11 13:17] LABS: Alanine Aminotransferase 13 U/L (0-33); Albumin Level 4.2 g/dL (3.5-5.2); Alkaline Phosphatase 90 U/L (35-105); Anion Gap 13.3 (5-19); Aspartate Amino Transferase 18 U/L (0-32); Blood Urea Nitrogen 14 mg/dL (8-23); Calcium 9.5 mg/dL (8.5-10.5); Carbon Dioxide 30 mmol/L (22-29); Chloride 97 mmol/L (98-107); Globulin 3.4 g/dL (1.3-4.6); Glomerular Filtration Rate 62.5 mL/min (90-130); Glucose 98 mg/dL (65-115); Osmolality Calculated 282 mOsm/kg (285-295); Potassium 4.3 mmol/L (3.5-5.1); Sodium 136 mmol/L (136-145); Thyroid Stimulating Hormone 2.83 uIU/mL (0.27-4.20); Total Bilirubin 0.2 mg/dL (0.15-1.2); Total Protein 7.6 g/dL (6.6-8.7)
[2023-07-17 23:00] LABS: P210 BCR ALB1 NOT DETECTED; P210 BCR ALB1 Yes Test Yes; Prior Results NG; Source whole blood
== END 2023-07-24 23:59 | disposition home or self-care (01) ==
PROVIDERS: PCP Nurse Practitioner Family; Visit Provider Internal Medicine Medical Oncology
DX: C92.10 Chronic myeloid leukemia, BCR/ABL-positive, not having achieved remission (principal); M54.2 Cervicalgia; M25.512 Pain in left shoulder; M25.511 Pain in right shoulder; J44.1 Chronic obstructive pulmonary disease with (acute) exacerbation; F17.210 Nicotine dependence, cigarettes, uncomplicated; Z79.2 Long term (current) use of antibiotics; Z79.899 Other long term (current) drug therapy
CPT/HCPCS: 36415; 80053; 81206; 84443; 85025; 99214

== ENCOUNTER 2023-10-17 10:14 | Oncology outpatient (recurring) (ONCR) | payer MEDICARE, SELFPAY ==
[2023-10-17 10:34] VITALS: BP 124/57; PULSE 74; RESP 18; TEMP 36.9; O2SAT 96
[2023-10-17 10:56] LABS: Basophils # 0.1 10^3/uL (0.0-0.1); Basophils % 0.9 %; Eosinophils # 0.2 10^3/uL (0.0-0.8); Eosinophils % 4.1 %; Hematocrit 38.7 % (36-47); Lymphocytes # 1.6 10^3/uL (0.8-4.8); Lymphocytes % 28.2 %; Mean Corpuscular HGB Conc 31.5 g/dL (30-55); Mean Corpuscular Hemoglobin 29.8 pg (27-33); Mean Corpuscular Volume 94.4 fl (85-98); Mean Platelet Volume 8.9 fL (7.4-10.4); Monocytes # 0.4 10^3/uL (0.2-0.9); Monocytes % 6.3 %; Neutrophils # 3.42 10^3/uL (1.8-7.7); Neutrophils % 60.3 %; Nucleated Red Blood Cells % 0 %; Platelet Count 305 10^3/cmm (157-399); Red Cell Distribution Width 14.9 % (12.1-15.1); White Blood Count 5.67 10^3/uL (3.29-11.43)
[2023-10-17 11:21] LABS: Alanine Aminotransferase 21 U/L (0-33); Albumin Level 3.9 g/dL (3.5-5.2); Alkaline Phosphatase 74 U/L (35-105); Anion Gap 13.4 (5-19); Aspartate Amino Transferase 20 U/L (0-32); Blood Urea Nitrogen 13 mg/dL (8-23); Calcium 9.3 mg/dL (8.5-10.5); Carbon Dioxide 27 mmol/L (22-29); Chloride 103 mmol/L (98-107); Globulin 3.4 g/dL (1.3-4.6); Glomerular Filtration Rate 71.3 mL/min (90-130); Glucose 122 mg/dL (65-115); Lactate Dehydrogenase 306 U/L (135-214); Osmolality Calculated 289 mOsm/kg (285-295); Potassium 4.4 mmol/L (3.5-5.1); Sodium 139 mmol/L (136-145); Total Bilirubin 0.3 mg/dL (0.15-1.2); Total Protein 7.3 g/dL (6.6-8.7)
[2023-10-23 19:00] LABS: BCR ABL1 (IS) 0.012 (0.000); P210 BCR ALB1 DETECTED; P210 BCR ALB1 Yes Test Yes; Prior Results NG; Source whole blood
== END 2023-10-24 23:59 | disposition home or self-care (01) ==
PROVIDERS: PCP Nurse Practitioner Family; Visit Provider Internal Medicine Medical Oncology
DX: C92.10 Chronic myeloid leukemia, BCR/ABL-positive, not having achieved remission (principal); J44.9 Chronic obstructive pulmonary disease, unspecified; F17.210 Nicotine dependence, cigarettes, uncomplicated; Z79.899 Other long term (current) drug therapy; F32.A Depression, unspecified
CPT/HCPCS: 36415; 80053; 81206; 83615; 85025; 99214

== ENCOUNTER 2023-11-22 14:09 | Oncology outpatient (recurring) (ONCR) | payer MEDICARE, SELFPAY ==
[2023-11-22 14:23] LABS: Basophils # 0.1 10^3/uL (0.0-0.1); Basophils % 0.7 %; Eosinophils # 0.3 10^3/uL (0.0-0.8); Eosinophils % 3.6 %; Hematocrit 38.9 % (36-47); Lymphocytes % 23.1 %; Mean Corpuscular HGB Conc 31.6 g/dL (30-55); Mean Corpuscular Hemoglobin 29.4 pg (27-33); Mean Corpuscular Volume 92.8 fl (85-98); Mean Platelet Volume 8.5 fL (7.4-10.4); Monocytes # 0.5 10^3/uL (0.2-0.9); Monocytes % 5.5 %; Neutrophils % 66.9 %; Nucleated Red Blood Cells % 0 %; Platelet Count 382 10^3/cmm (157-399); Red Blood Count 4.19 10^6/uL (3.85-5.65); Red Cell Distribution Width 14.9 % (12.1-15.1); White Blood Count 8.53 10^3/uL (3.29-11.43)
[2023-11-22 14:54] LABS: Alanine Aminotransferase 11 U/L (0-33); Albumin Level 3.9 g/dL (3.5-5.2); Alkaline Phosphatase 81 U/L (35-105); Aspartate Amino Transferase 16 U/L (0-32); Blood Urea Nitrogen 14 mg/dL (8-23); Carbon Dioxide 31 mmol/L (22-29); Chloride 96 mmol/L (98-107); Globulin 3.6 g/dL (1.3-4.6); Glomerular Filtration Rate 71.3 mL/min (90-130); Glucose 96 mg/dL (65-115); Osmolality Calculated 284 mOsm/kg (285-295); Sodium 137 mmol/L (136-145); Total Bilirubin 0.3 mg/dL (0.15-1.2); Total Protein 7.5 g/dL (6.6-8.7)
[2023-11-22 14:55] LABS: Anion Gap 14.2 (5-19); Potassium 4.2 mmol/L (3.5-5.1)
== END 2023-11-22 23:59 | disposition home or self-care (01) ==
LOC: ONCMED 14:10
PROVIDERS: Internal Medicine; PCP Nurse Practitioner Family; Visit Provider Internal Medicine Medical Oncology
DX: C92.10 Chronic myeloid leukemia, BCR/ABL-positive, not having achieved remission (principal); M54.2 Cervicalgia; M25.512 Pain in left shoulder; M25.511 Pain in right shoulder; J44.1 Chronic obstructive pulmonary disease with (acute) exacerbation; F17.210 Nicotine dependence, cigarettes, uncomplicated; Z79.2 Long term (current) use of antibiotics; Z79.899 Other long term (current) drug therapy
CPT/HCPCS: 36415; 80053; 85025

== ENCOUNTER 2023-11-29 11:12 | Oncology outpatient (recurring) (ONCR) | payer MEDICARE, SELFPAY | END 2023-12-23 23:59 | disposition home or self-care (01) | PROVIDERS: PCP Nurse Practitioner Family; Visit Provider Internal Medicine Medical Oncology | DX: C92.10 Chronic myeloid leukemia, BCR/ABL-positive, not having achieved remission (principal); M54.2 Cervicalgia; M25.512 Pain in left shoulder; M25.511 Pain in right shoulder; J44.1 Chronic obstructive pulmonary disease with (acute) exacerbation; F17.210 Nicotine dependence, cigarettes, uncomplicated; Z79.2 Long term (current) use of antibiotics; Z79.899 Other long term (current) drug therapy | CPT/HCPCS: 99214 ==

== ENCOUNTER 2024-03-11 10:52 | Oncology outpatient (recurring) (ONCR) | payer MEDICARE, SELFPAY ==
[2024-03-03 15:34] LABS: Basophils # 0.1 10^3/uL (0.0-0.1); Basophils % 0.9 %; Eosinophils # 0.2 10^3/uL (0.0-0.8); Eosinophils % 2.1 %; Hematocrit 38.4 % (36-47); Lymphocytes # 1.4 10^3/uL (0.8-4.8); Lymphocytes % 18.5 %; Mean Corpuscular HGB Conc 32.3 g/dL (30-55); Mean Corpuscular Volume 86.7 fl (85-98); Mean Platelet Volume 8.8 fL (7.4-10.4); Monocytes # 0.6 10^3/uL (0.2-0.9); Monocytes % 7.6 %; Neutrophils # 5.42 10^3/uL (1.8-7.7); Neutrophils % 70.5 %; Nucleated Red Blood Cells % 0 %; Platelet Count 319 10^3/cmm (157-399); Red Blood Count 4.43 10^6/uL (3.85-5.65); Red Cell Distribution Width 16.9 % (12.1-15.1); White Blood Count 7.68 10^3/uL (3.29-11.43)
[2024-03-03 16:01] LABS: Alanine Aminotransferase 17 U/L (0-33); Albumin Level 4.1 g/dL (3.5-5.2); Alkaline Phosphatase 111 U/L (35-105); Anion Gap 15.4 (5-19); Aspartate Amino Transferase 18 U/L (0-32); Blood Urea Nitrogen 11 mg/dL (8-23); Calcium 9.1 mg/dL (8.5-10.5); Carbon Dioxide 29 mmol/L (22-29); Chloride 97 mmol/L (98-107); Globulin 4.1 g/dL (1.3-4.6); Glomerular Filtration Rate 71.3 mL/min (90-130); Glucose 124 mg/dL (65-115); Lactate Dehydrogenase 241 U/L (135-214); Osmolality Calculated 285 mOsm/kg (285-295); Potassium 4.4 mmol/L (3.5-5.1); Sodium 137 mmol/L (136-145); Total Bilirubin 0.4 mg/dL (0.15-1.2); Total Protein 8.2 g/dL (6.6-8.7)
[2024-03-10 09:44] LABS: BCR ABL1 (IS) 0.068 (0.000); P210 BCR ALB1 DETECTED; P210 BCR ALB1 Yes Test Yes; Prior Results NG; Source whole blood
== END 2024-03-23 23:59 | disposition home or self-care (01) ==
PROVIDERS: Internal Medicine; PCP Nurse Practitioner Family; Visit Provider Internal Medicine Medical Oncology
DX: C92.10 Chronic myeloid leukemia, BCR/ABL-positive, not having achieved remission (principal)
CPT/HCPCS: 36415; 80053; 81206; 83615; 85025; 99214

== ENCOUNTER 2024-06-09 13:34 | Oncology outpatient (recurring) (ONCR) | payer MEDICARE, SELFPAY ==
[2024-06-02 14:59] LABS: Basophils # 0.1 10^3/uL (0.0-0.1); Eosinophils # 0.3 10^3/uL (0.0-0.8); Eosinophils % 4.6 %; Hematocrit 36.5 % (36-47); Lymphocytes # 1.4 10^3/uL (0.8-4.8); Lymphocytes % 23.3 %; Mean Corpuscular HGB Conc 32.3 g/dL (30-55); Mean Corpuscular Hemoglobin 30.3 pg (27-33); Mean Corpuscular Volume 93.8 fl (85-98); Mean Platelet Volume 8.5 fL (7.4-10.4); Monocytes # 0.5 10^3/uL (0.2-0.9); Monocytes % 8.9 %; Neutrophils # 3.74 10^3/uL (1.8-7.7); Neutrophils % 61.9 %; Nucleated Red Blood Cells % 0 %; Platelet Count 282 10^3/cmm (157-399); Red Blood Count 3.89 10^6/uL (3.85-5.65); Red Cell Distribution Width 16.5 % (12.1-15.1); White Blood Count 6.05 10^3/uL (3.29-11.43)
[2024-06-02 15:18] LABS: Alanine Aminotransferase 18 U/L (0-33); Alkaline Phosphatase 90 U/L (35-105); Anion Gap 14.4 (5-19); Aspartate Amino Transferase 24 U/L (0-32); Blood Urea Nitrogen 22 mg/dL (8-23); Calcium 8.5 mg/dL (8.5-10.5); Carbon Dioxide 31 mmol/L (22-29); Chloride 98 mmol/L (98-107); Globulin 3.3 g/dL (1.3-4.6); Glomerular Filtration Rate 71.3 mL/min (90-130); Glucose 141 mg/dL (65-115); Osmolality Calculated 294 mOsm/kg (285-295); Potassium 4.4 mmol/L (3.5-5.1); Sodium 139 mmol/L (136-145); Total Bilirubin 0.2 mg/dL (0.15-1.2); Total Protein 7.3 g/dL (6.6-8.7)
[2024-06-07 16:50] LABS: P210 BCR ALB1 NOT DETECTED; P210 BCR ALB1 Yes Test Yes; Prior Results NG; Source serum
== END 2024-06-23 23:59 | disposition home or self-care (01) ==
PROVIDERS: Nurse Practitioner Family; PCP Nurse Practitioner Family; Visit Provider Internal Medicine Medical Oncology
DX: C92.10 Chronic myeloid leukemia, BCR/ABL-positive, not having achieved remission (principal); Z79.69 Long term (current) use of other immunomodulators and immunosuppressants; F17.210 Nicotine dependence, cigarettes, uncomplicated
CPT/HCPCS: 36415; 80053; 81206; 85025; 99214

== ENCOUNTER 2024-09-11 14:32 | Oncology outpatient (recurring) (ONCR) | payer MEDICARE, SELFPAY ==
[2024-09-04 14:30] LABS: Basophils # 0.1 10^3/uL (0.0-0.1); Basophils % 0.7 %; Eosinophils # 0.2 10^3/uL (0.0-0.8); Eosinophils % 3.1 %; Hematocrit 38.7 % (36-47); Lymphocytes # 1.4 10^3/uL (0.8-4.8); Lymphocytes % 20.7 %; Mean Corpuscular HGB Conc 31.5 g/dL (30-55); Mean Corpuscular Hemoglobin 29.5 pg (27-33); Mean Corpuscular Volume 93.5 fl (85-98); Mean Platelet Volume 8.6 fL (7.4-10.4); Monocytes # 0.5 10^3/uL (0.2-0.9); Monocytes % 7.1 %; Neutrophils # 4.57 10^3/uL (1.8-7.7); Neutrophils % 67.8 %; Nucleated Red Blood Cells % 0 %; Platelet Count 309 10^3/cmm (157-399); Red Blood Count 4.14 10^6/uL (3.85-5.65); Red Cell Distribution Width 16.1 % (12.1-15.1); White Blood Count 6.75 10^3/uL (3.29-11.43)
[2024-09-04 14:56] LABS: Alanine Aminotransferase 12 U/L (0-33); Albumin Level 3.8 g/dL (3.5-5.2); Alkaline Phosphatase 84 U/L (35-105); Anion Gap 13.8 (5-19); Aspartate Amino Transferase 16 U/L (0-32); Blood Urea Nitrogen 13 mg/dL (8-23); Calcium 9.2 mg/dL (8.5-10.5); Carbon Dioxide 30 mmol/L (22-29); Chloride 97 mmol/L (98-107); Globulin 3.4 g/dL (1.3-4.6); Glucose 140 mg/dL (65-115); Osmolality Calculated 286 mOsm/kg (285-295); Potassium 3.8 mmol/L (3.5-5.1); Sodium 137 mmol/L (136-145); Total Bilirubin 0.2 mg/dL (0.15-1.2); Total Protein 7.2 g/dL (6.6-8.7)
[2024-09-10 16:00] LABS: P210 BCR ALB1 NOT DETECTED; P210 BCR ALB1 Yes Test Yes; Prior Results NG; Source blood
== END 2024-09-23 23:59 | disposition home or self-care (01) ==
PROVIDERS: Nurse Practitioner; PCP Nurse Practitioner Family; Visit Provider Internal Medicine Medical Oncology
DX: C92.10 Chronic myeloid leukemia, BCR/ABL-positive, not having achieved remission (principal)
CPT/HCPCS: 36415; 80053; 81206; 85025; 99214

== ENCOUNTER 2024-12-11 14:15 | Oncology outpatient (recurring) (ONCR) | payer MEDICARE, SELFPAY ==
[2024-12-04 14:49] LABS: Basophils # 0.1 10^3/uL (0.0-0.1); Basophils % 0.7 %; Eosinophils # 0.3 10^3/uL (0.0-0.8); Eosinophils % 3.8 %; Hematocrit 38.4 % (36-47); Lymphocytes # 1.6 10^3/uL (0.8-4.8); Mean Corpuscular HGB Conc 30.5 g/dL (30-55); Mean Corpuscular Hemoglobin 27.9 pg (27-33); Mean Corpuscular Volume 91.6 fl (85-98); Mean Platelet Volume 8.6 fL (7.4-10.4); Monocytes # 0.5 10^3/uL (0.2-0.9); Neutrophils # 4.57 10^3/uL (1.8-7.7); Neutrophils % 64.9 %; Nucleated Red Blood Cells % 0 %; Platelet Count 314 10^3/cmm (157-399); Red Blood Count 4.19 10^6/uL (3.85-5.65); Red Cell Distribution Width 16.9 % (12.1-15.1); White Blood Count 7.04 10^3/uL (3.29-11.43)
[2024-12-04 15:08] LABS: Alanine Aminotransferase 16 U/L (0-33); Albumin Level 3.6 g/dL (3.5-5.2); Alkaline Phosphatase 91 U/L (35-105); Anion Gap 11.9 (5-19); Aspartate Amino Transferase 19 U/L (0-32); Blood Urea Nitrogen 13 mg/dL (8-23); Calcium 8.5 mg/dL (8.5-10.5); Carbon Dioxide 27 mmol/L (22-29); Chloride 99 mmol/L (98-107); Globulin 3.6 g/dL (1.3-4.6); Glucose 100 mg/dL (65-115); Lactate Dehydrogenase 297 U/L (135-214); Osmolality Calculated 278 mOsm/kg (285-295); Potassium 3.9 mmol/L (3.5-5.1); Sodium 134 mmol/L (136-145); Total Bilirubin 0.3 mg/dL (0.15-1.2); Total Protein 7.2 g/dL (6.6-8.7)
[2024-12-04 15:21] LABS: Anion Gap 11.9 (5-19); Blood Urea Nitrogen 13 mg/dL (8-23); Calcium 8.6 mg/dL (8.5-10.5); Carbon Dioxide 27 mmol/L (22-29); Chloride 98 mmol/L (98-107); Chol HDL Ratio 4.64 mg/dL (0.0-4.40); Cholesterol 246 mg/dL (0-200); Glucose 100 mg/dL (65-115); HDL Cholesterol 53 mg/dL (60-100); LDL Cholesterol Calculated 160 mg/dL (50-129); Osmolality Calculated 276 mOsm/kg (285-295); Potassium 3.9 mmol/L (3.5-5.1); Sodium 133 mmol/L (136-145); Thyroid Stimulating Hormone 19.21 uIU/mL (0.27-4.20); Triglycerides 164 mg/dL (0-150); VLDL Cholestrol Calculation 33 mg/dL (0-30)
[2024-12-10 18:15] LABS: P210 BCR ALB1 NOT DETECTED; P210 BCR ALB1 Yes Test Yes; Prior Results NG; Source whole blood
== END 2024-12-22 23:59 | disposition home or self-care (01) ==
PROVIDERS: Nurse Practitioner Family; PCP Nurse Practitioner Family; Visit Provider Internal Medicine
DX: Z53.9 Procedure and treatment not carried out, unspecified reason; C92.10 Chronic myeloid leukemia, BCR/ABL-positive, not having achieved remission; E87.70 Fluid overload, unspecified; Z79.899 Other long term (current) drug therapy; F17.210 Nicotine dependence, cigarettes, uncomplicated
CPT/HCPCS: 36415; 80048; 80053; 80061; 81206; 83615; 84443; 85025; 99213

== ENCOUNTER 2025-02-10 12:46 | Outpatient (CLI) | payer MEDICARE, SELFPAY ==
--- NOTE | 2025-02-10 12:52 | XRR_ITS ---
PROCEDURE INFORMATION: Exam: XR Chest Exam date and time: 02/10/2025 1:13 PM Age: 69 years old Clinical indication: Possible fluid on lungs after chemo medication, shortness of breath x1 week, HX of cll; Additional info: Cough/shortness of breath TECHNIQUE: Imaging protocol: Radiologic exam of the chest. Views: 2 views. COMPARISON: CT chest wo con [id number] 01/22/2023 9:15 PM FINDINGS: Lungs: Mild bibasilar atelectasis or infiltrates. Pleural spaces: Small left pleural effusion. Very small right pleural effusion may be present as well. Heart/Mediastinum: See Vasculature finding. Vasculature: Borderline cardiomegaly and uncoiling of the thoracic aorta. Bones/joints: Unremarkable. XR/XR chest 2V* [id number] IMPRESSION: Mild bibasilar opacity.
== END 2025-02-10 12:47 | disposition home or self-care (01) ==
PROVIDERS: PCP Nurse Practitioner Family; Visit Provider Nurse Practitioner Family
DX: R05.9 Cough, unspecified (principal); R06.02 Shortness of breath; R91.8 Other nonspecific abnormal finding of lung field; J90 Pleural effusion, not elsewhere classified; R93.89 Abnormal findings on diagnostic imaging of other specified body structures
CPT/HCPCS: 71046

== ENCOUNTER 2025-02-19 12:53 | Inpatient (IN) | payer MEDICARE, SELFPAY ==
[2025-02-19] VITALS (19 sets, daily range): BP systolic 97–161; BP diastolic 55–101; PULSE 72–96; RESP 18–30; TEMP 36.7; O2SAT 84–97; BMI 32.5
--- NOTE | 2025-02-19 13:20 | XR_ITS ---
WS: [id number] Portable AP upright chest, 02/19/2025 Clinical Data: SOB Comparison: Two-view chest, 02/10/2025 Findings: Bibasilar opacities are present which could represent atelectasis, effusion and/or pneumonia. The heart is enlarged. The pulmonary vascularity is mildly increased. No nodules or masses are seen. The aortic arch shows calcification. Both shoulders show glenohumeral osteoarthritis. XR/XR chest 1V portable [id number] Impression: 1. Bibasilar opacities which could represent atelectasis, effusion and/or pneum onia. 2. Cardiomegaly, pulmonary vascular congestion and atherosclerosis.
--- NOTE | 2025-02-19 13:21 | ECG_ITS ---
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 Measurements Intervals [place] Rate: 79 P: 62 GA: 166 QRS: 268 QRSD: 137 T: 45 QT: 399 QTc: 458 Interpretive Statements SINUS RHYTHM RIGHT AXIS DEVIATION [QRS AXIS > 100] RIGHT BUNDLE BRANCH BLOCK [120+ ms QRS DURATION, UPRIGHT V1, 40+ ms S IN I/aVL/V4/V5/V6] ANTERIOR MYOCARDIAL INFARCTION ,AGE INDETERMINATE Compared to ECG 08/13/2021 11:26:47 Right-axis deviation now present Myocardial infarct finding now present Left anterior fascicular block no longer present Electronically Signed On 02-24-2025 11:50:22 CDT by Luis M Myles M.D. [email or web address] [id number]
[2025-02-19 13:32] LABS: Basophils # 0.1 10^3/uL (0.0-0.1); Basophils % 0.9 %; Eosinophils # 0.2 10^3/uL (0.0-0.8); Eosinophils % 2.2 %; Hematocrit 41.2 % (36-47); Lymphocytes # 1.1 10^3/uL (0.8-4.8); Lymphocytes % 15.2 %; Mean Corpuscular HGB Conc 29.6 g/dL (30-55); Mean Corpuscular Hemoglobin 26.6 pg (27-33); Mean Corpuscular Volume 89.8 fl (85-98); Mean Platelet Volume 9.2 fL (7.4-10.4); Monocytes # 0.4 10^3/uL (0.2-0.9); Monocytes % 6.2 %; Neutrophils # 5.18 10^3/uL (1.8-7.7); Neutrophils % 75.1 %; Nucleated Red Blood Cells % 0 %; Platelet Count 369 10^3/cmm (157-399); Red Blood Count 4.59 10^6/uL (3.85-5.65); Red Cell Distribution Width 15.8 % (12.1-15.1)
[2025-02-19 13:35] LABS: ABG PH Result 7.39 (7.35-7.45); Arterial Blood Gas Hematocrit 38.4 % (37-47); Base Excess ABG 9.8 mmol/L (-2.0-2.0); Blood Gas Allen Test Pos; Blood Gas Operator Identificat WALCI; Blood Gas Sample Site Radial, left; Blood Gas Sample Type Arterial; Oxygen Device NC; PO2 ABG 64.6 mmHg (80.0-100.0)
[2025-02-19 13:36] LABS: ABG PCO2 61.5 mmHg (35-45)
--- NOTE | 2025-02-19 13:41 | PC.NURSE ---
pt states she does not wear oxygen at home, pt o2 sat at room air is 86% in room, placed on 2L NC.
[2025-02-19 13:59] LABS: D Dimer 1.04 ug/mLFEU (0-0.59)
[2025-02-19 14:16] LABS: Alanine Aminotransferase 21 U/L (0-33); Albumin Level 3.7 g/dL (3.5-5.2); Alkaline Phosphatase 106 U/L (35-105); Anion Gap 14.4 (5-19); Aspartate Amino Transferase 15 U/L (0-32); Blood Urea Nitrogen 14 mg/dL (8-23); Calcium 9.3 mg/dL (8.5-10.5); Carbon Dioxide 34 mmol/L (22-29); Chloride 98 mmol/L (98-107); Globulin 3.6 g/dL (1.3-4.6); Glomerular Filtration Rate 62.1 mL/min (90-130); Glucose 92 mg/dL (65-115); NT Pro B Type Natriuretic Pept 391 pg/mL (0-125); Osmolality Calculated 294 mOsm/kg (285-295); Potassium 4.4 mmol/L (3.5-5.1); Sodium 142 mmol/L (136-145); Total Bilirubin 0.3 mg/dL (0.15-1.2); Total Protein 7.3 g/dL (6.6-8.7)
--- NOTE | 2025-02-19 14:52 | CT_ITS ---
WS: [id number] CTA scan of the chest with IV contrast. Additional two-dimensional coronal and sagittal reconstruction and MIP images was performed. 02/19/2025 Clinical Data: SOB Comparison: CT chest, 01/22/2023 DLP: 418.[address] scans at [facility] use at least one of these dose optimization techniques: automated exposure control; mA and/or kV adjustment per patient size (includes targeted exams where dose is matched to clinical indication); or iterative reconstruction. Findings: The central pulmonary arteries and peripheral pulmonary arteries fill normally with no evidence of intraluminal filling defects. No pulmonary embolic disease is noted. Large bilateral pleural effusions are present. Bilateral lower lobe atelectasis is present. The heart size is normal with no pericardial effusion. The coronary arteries fill normally. The pulmonary arterial system and thoracic aorta demonstrate no abnormalities or dilatations. There is no axillary or significant mediastinal adenopathy. The thyroid gland shows normal enhancement. The trachea bifurcates into the bronchi. The upper abdomen shows no abnormalities. The visualized liver, spleen, pancreas, gallbladder, adrenal glands and superior pole of the right kidney is not remarkable. The bones of the thoracic and upper lumbar spine show osteoarthritis. CT/CT angio chest PE protcl [id number] Impression: 1. Negative for pulmonary embolic disease. 2. Large bilateral pleural effusions. 3. Bilateral lower lobe atelectasis.
[2025-02-19] MEDS: iohexol 350 mg/mL 500 mL Btl (per mL) IV (15:08)
[2025-02-19] MEDS: FUROsemide 10 mg/mL SDV 10mL 80 MG IVP (16:33)
--- NOTE | 2025-02-19 16:54 | USCV_ITS ---
Justina Meraz Age: 69 Gender: F : 1955 Exam Date: 02/19/2025 22:11 Ordering Phys: Herb Abdul MD Technologist: KWAME Exam Location[place] [facility] [place] Indication: chf, , recent diagnosis of pneumonia, long-term smoker continues smoking. BP: 147 / 101 HR: 71 Rhythm: Sinus Technical Quality: Adequate MEASUREMENTS (Male / Female) Normal Values 2D ECHO LV Diastolic Diameter PLAX 3.5 cm 4.2 - 5.9 / 3.9 - 5.3 cm IVS Diastolic Thickness 1.8 cm 0.6 - 1.0 / 0.6 - 0.9 cm IVS Systolic Thickness 2.2 cm LVPW Diastolic Thickness 1.9 cm 0.6 - 1.0 / 0.6 - 0.9 cm LVPW Systolic Thickness 2.1 cm LVOT Diameter 1.9 cm LV Ejection Fraction 2D Teich 59.1 % LV Ejection Fraction MOD 4C 48.7 % LV Ejection Fraction MOD 2C 64.1 % LV Ejection Fraction 2C AL 67.0 % LA Diameter 3.7 cm Aorta at Sinotubular Diameter 2.2 cm IVC Diameter 1.4 cm M-MODE LA Ao Ratio MM 1.0 AV Cusp Separation MM 0.8 cm DOPPLER AV Peak Velocity 242.0 cm/s LVOT Peak Velocity 132.0 cm/s AV Area Cont Eq vti 1.5 cm squared AV Area Cont Eq pk 1.5 cm squared MV Peak Velocity 122.0 cm/s MV Area PHT 2.1 cm squared Mitral E to A Ratio 0.8 TR Peak Velocity 278.0 cm/s TR Peak Gradient 30.9 mmHg TV Peak E Velocity 36.0 cm/s PV Peak Velocity 96.0 cm/s FINDINGS Left Ventricle Left ventricule is normal in size. LV systolic function is normal with EF of 55-60%. No regional wall motion abnormalities are seen. Grade 1 diastolic dysfunction. Right Ventricle Normal in size and function Right Atrium Normal in size Left Atrium Normal in size Mitral Valve Moderate mitral annular calcification. Mild mitral regurgitation. Aortic Valve Aortic valve is thickened. Mild aortic stenosis with aortic valve area of 1.52cm2 and mean gradient across aortic valve of 9 mmHg. Tricuspid Valve Mild tricuspid regurgitation. Pulmonary artery systolic pressure is normal Pulmonic Valve Not well visualized Pericardium Pleural effusion seen Aorta Normal in size IVC Appears to be normal CONCLUSIONS LV systolic function is normal with EF of 55-60% Grade 1 diastolic dysfunction Mild mitral regurgitation Mild aortic stenosis Mild tricuspid regurgitation. Pleural effusion seen Luis M Myles MD (Electronically Signed) Final Date: 20 Feb 2025 14:36 S
--- NOTE | 2025-02-19 16:56 | W.ED.SOB ---
HPI - SOB/Dyspnea General: Chief Complaint: Shortness of Breath/Dyspnea Stated Complaint: SOB Time Seen by Provider: 02/19/25 13:08 History of Present Illness: HPI Narrative: This patient is a 69-year-old white female who presents to the emergency department with shortness of breath. Patient states she was diagnosed with pneumonia about 10 days ago. She just completed a course of amoxicillin. She states she completed a course of doxycycline 2 weeks ago. No improvement with the shortness of breath. Continues to get worse. She is not having any chest pain. No fever. No significant cough. Patient does smoke. She denies having history of coronary artery disease. 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 She states she has had pleural effusions from chemotherapy in the past. Related Data Home Medications ?Medication ?Instructions ?Recorded ?Confirmed trazodone 150 mg tablet 150 mg PO BEDTIME 05/19/20 02/19/25 ibuprofen 200 mg tablet 200 mg PO Q6H PRN Pain 03/22/22 02/19/25 sertraline 25 mg tablet 25 mg PO DAILY 12/11/24 02/19/25 albuterol sulfate 90 mcg/actuation 2 puff inhalation Q5H PRN Wheezing 02/19/25 02/19/25 aerosol inhaler amoxicillin 500 mg capsule 500 mg PO Q12H x7d 02/19/25 02/19/25 furosemide 40 mg tablet 40 mg PO QAM 02/19/25 02/19/25 levothyroxine 175 mcg tablet 175 mcg PO QAM 02/19/25 02/19/25 Previous Rx's ?Medication ?Instructions ?Recorded dasatinib 100 mg tablet 100 mg PO DAILY #30 tabs 02/02/25 Allergies Allergy/AdvReac Type Severity Reaction Status Date / Time No Known Allergies Allergy Verified 12/11/24 14:24 Review of Systems General: Reports: 10 or more systems reviewed and unremarkable except in HPI and below Resp: Reports: dyspnea PFSH ED PFSH: Medical History Abscess of finger of left hand Degenerative joint disease of spine Degenerative arthritis Shoulder pain COPD (chronic obstructive pulmonary disease) Nicotine dependence Chronic back pain Hypothyroidism Dyslipidemia Cellulitis Nephrolithiasis CML (chronic myelocytic leukemia) Surgical History H/O sinus surgery History of ureter stent Previous back surgery Family History Mother Cancer Breast cancer Father COPD (chronic obstructive pulmonary disease) Denies family history of CAD (coronary artery disease) Clotting disorder Anesthesia complication Bleeding disorder Social History Smoking and tobacco/nicotine status: current every day tobacco/nicotine user cigarettes [ Other cigarette details: 1 pack/day] Alcohol intake: never Substance/Drug Use: never Household members: family Housing: House Marital status: Physical Exam Const: COMMON NORMALS: no acute distress, patient oriented x3 and no limitations GENERAL APPEARANCE: cooperative and comfortable HENMT: COMMON NORMALS: normocephalic, atraumatic, Normal nasal mucous membranes and turbinates present, moist oral mucous membranes and oropharynx normal HEAD & SCALP: normal to inspection, normocephalic and atraumatic FACE & SINUS: normal facial exam NOSE: Normal nasal mucous membranes and turbinates present Eye: COMMON NORMALS: Equal, round and reactive pupils present, EOMs intact bilaterally and conjunctivae normal GENERAL EYE: appearance normal, both eyes and all related structures CONJUNCTIVA: Yes conjunctivae normal PUPIL: Yes Equal, round and reactive pupils present Neck/C-Spine: COMMON NORMALS: supple and no JVD Chest: COMMONS NORMALS: normal inspection of the chest Resp: EFFORT & INSPECTION: Yes tachypneic AUSCULTATION: crackles Cardio: COMMON NORMALS: no JVD, regular rate, regular rhythm, No gallops present (Cardio), No murmurs present (Cardio) and No rub (Cardio) RATE: regular rate RHYTHM: regular rhythm GI: COMMON NORMALS: Normal to inspection, nondistended, normoactive bowel sounds present, Soft to palpation and non-tender AUSCULTATION: Yes normoactive bowel sounds PALPATION: Yes Soft to palpation : COMMON NORMALS: Yes no CVA tenderness BLADDER/KIDNEY EXAM: Yes no CVA tenderness Back/Pelvis: COMMON NORMALS: no CVA tenderness and thoracic and lumbar spine normal to inspection Extremity: COMMON NORMALS: normal to inspection Neuro: COMMON NORMALS: patient oriented x3 and CN's II-XII intact bilaterally Psych: COMMON NORMALS: mental status grossly normal, Normal thought process present and cooperative THOUGHT PROCESS: Normal thought process present Skin: COMMON NORMALS: no rashes or lesions noted, turgor normal and no jaundice GENERAL SKIN EXAM: no rashes or lesions noted and turgor normal Course Vital Signs: Vital signs: Vital Signs Temperature 98.0 F 02/19/25 12:56 Pulse Rate 90 02/19/25 16:30 Respiratory Rate 30 H 02/19/25 12:56 Blood Pressure 150/88 02/19/25 16:00 Pulse Oximetry 93 02/19/25 16:30 Oxygen Delivery Me thod Nasal Cannula 02/19/25 16:30 Oxygen Flow Rate 3 02/19/25 16:30 MDM - SOB/Dyspnea Medical Decision Making Patient is not on home O2. Upon arrival here her O2 sats were in the low 80s. She was placed on 3 L of oxygen. She is satting in the low 90s on 3 L. Chest x-ray reveals moderate bilateral pleural effusions. CBC and CMP were normal. D-dimer was 1.04. BNP was 391. CT angiogram of the chest does not reveal any pulmonary emboli. She does have large bilateral pleural effusions according to the radiologist. Patient was given 80 mg of Lasix IV. I discussed the case with Dr. Cifuentes. He did accept the patient for admission. We also consulted radiology for thoracentesis. They state they will do it in the morning. Patient will be transferred to the floor shortly. She is stable. Lab Data 02/19/25 13:05 02/19/25 13:05 Labs/Radiology: Radiology Impressions Chest X-Ray 02/19/25 13:20 Impression: 1. Bibasilar opacities which could represent atelectasis, effusion and/or pneumonia. 2. Cardiomegaly, pulmonary vascular congestion and atherosclerosis. Chest CTA 02/19/25 14:52 Impression: 1. Negative for pulmonary embolic disease. 2. Large bilateral pleural effusions. 3. Bilateral lower lobe atelectasis. Laboratory Results WBC 6.90 10^3/uL (3.29-11.43) 02/19/25 13:05 RBC 4.59 10^6/uL (3.85-5.65) 02/19/25 13:05 Hgb 12.20 g/dL (11.27-16.99) 02/19/25 13:05 Hct 41.2 % (36-47) 02/19/25 13:05 MCV 89.8 fl (85-98) 02/19/25 13:05 MCH 26.6 pg (27-33) L 02/19/25 13:05 MCHC 29.6 g/dL (30-55) L 02/19/25 13:05 RDW 15.8 % (12.1-15.1) H 02/19/25 13:05 Plt Count 369 10^3/cmm (157-399) 02/19/25 13:05 MPV 9.2 fL (7.4-10.4) 02/19/25 13:05 Neut % (Auto) 75.1 % 02/19/25 13:05 Lymph % (Auto) 15.2 % 02/19/25 13:05 [place] % (Auto) 6.2 % 02/19/25 13:05 Eos % (Auto) 2.2 % 02/19/25 13:05 Baso % (Auto) 0.9 % 02/19/25 13:05 Neut # (Auto) 5.18 10^3/uL (1.8-7.7) 02/19/25 13:05 Lymph # (Auto) 1.1 10^3/uL (0.8-4.8) 02/19/25 13:05 [place] # (Auto) 0.4 10^3/uL (0.2-0.9) 02/19/25 13:05 Eos # (Auto) 0.2 10^3/uL (0.0-0.8) 02/19/25 13:05 Baso # (Auto) 0.1 10^3/uL (0.0-0.1) 02/19/25 13:05 Nucleated RBC % (auto) 0 % 02/19/25 13:05 Nucleated RBCs # 0.0 /100WBC 02/19/25 13:05 D-Dimer 1.04 ug/mLFEU (0-0.59) H 02/19/25 13:05 Specimen Type Arterial 02/19/25 13:24 Sample Site Radial, left 02/19/25 13:24 ABG pH 7.39 (7.35-7.45) 02/19/25 13:24 ABG pCO2 61.5 mmHg (35-45) H* 02/19/25 13:24 ABG pO2 64.6 mmHg (80.0-100.0) L 02/19/25 13:24 ABG HCO3 37.0 mmol/L (22-26) H 02/19/25 13:24 ABG Base Excess 9.8 mmol/L (-2.0-2.0) H 02/19/25 13:24 [place] Test Pos 02/19/25 13:24 Hematocrit 38.4 % (37-47) 02/19/25 13:24 O2 Delivery Device Nc 02/19/25 13:24 O2 Liters/Min 2.0 % 02/19/25 13:24 Leather Goods Sales Representative ID [place] 02/19/25 13:24 Sodium 142 mmol/L (136-145) 02/19/25 13:05 Potassium 4.4 mmol/L (3.5-5.1) 02/19/25 13:05 Chloride 98 mmol/L (98-107) 02/19/25 13:05 Carbon Dioxide 34 mmol/L (22-29) H 02/19/25 13:05 Anion Gap 14.4 (5-19) 02/19/25 13:05 BUN 14 mg/dL (8-23) 02/19/25 13:05 Creatinine 0.9 mg/dL (0.5-0.9) 02/19/25 13:05 GFR Calculation 62.1 mL/min (90-130) L 02/19/25 13:05 Glucose 92 mg/dL (65-115) 02/19/25 13:05 Calculated Osmolality 294 mOsm/kg (285-295) 02/19/25 13:05 Calcium 9.3 mg/dL (8.5-10.5) 02/19/25 13:05 Total Bilirubin 0.3 mg/dL (0.15-1.2) 02/19/25 13:05 AST 15 U/L (0-32) 02/19/25 13:05 ALT 21 U/L (0-33) 02/19/25 13:05 Alkaline Phosphatase 106 U/L (35-105) H 02/19/25 13:05 NT-Pro-B Natriuret Pep 391 pg/mL (0-125) H 02/19/25 13:05 Total Protein 7.3 g/dL (6.6-8.7) 02/19/25 13:05 Albumin 3.7 g/dL (3.5-5.2) 02/19/25 13:05 Globulin 3.6 g/dL (1.3-4.6) 02/19/25 13:05 All radiology interpretation(s) finalized by discharge Discharge Plan Discharge Patient Disposition: Admitted As Inpatient Clinical Impression: Pleural effusion, bilateral Condition: Stable Coding Level of Care Code ED Inside Sales Person for Noreen Briggs
--- NOTE | 2025-02-19 17:00 | PM.HP ---
Providers/Chief Complaint Primary Care Provider: MACRINA Johnson Chief Complaint: SOB History of Present Illness Justina Meraz is a 69 year old female with past medical history of CLL on chemotherapy, hypothyroidism presents to the ER today because of difficulty in breathing which has been ongoing for last 2 to 3 weeks. She was diagnosed of pneumonia as an outpatient by her primary care provider and has been on antibiotics since then without much benefit. She has been on azithromycin, doxycycline and most recently on amoxicillin. As her difficulty breathing was getting worse she presented to the ER today. In the ER she was saturating 70% hence was placed on 3 L. Difficulty in breathing gets worse on ambulation. Complaining of cough with expectoration. Has not had her chemotherapy for last 2 weeks since on antibiotics. Review of Systems General: Reports: 10 or more systems reviewed and unremarkable except in HPI and below Const: Denies: fever(s), chills, body aches, change in appetite, change in weight, malaise, night sweats, diaphoresis, change in sleep pattern, daytime sleepiness or snoring Eyes: Denies: change in vision, blurry vision, photophobia, eye discomfort or eye discharge ENMT: Denies: throat pain, enlarged tonsils, hoarseness, mouth pain, oral sores, dry mouth, tinnitus, nasal congestion or post nasal drip Card: Denies: chest pain, palpitations, irregular heart rhythm, edema, swelling of feet/ankles, lightheadedness, syncope, pre-syncope, dyspnea on exertion, orthopnea, leg pain with exertion or acrocyanosis Resp: Denies: dyspnea, productive cough, non-productive cough, wheezing, stridor, pain on inspiration, change in phlegm color, hemoptysis or chest congestion GI: Denies: abdominal pain, nausea, vomiting, hematemesis, coffee ground emesis, dysphagia, heartburn, diarrhea, constipation, bloating, GI cramping, change in bowel habits, pain on defecation, hematochezia or melena : Denies: flank pain, dysuria, urinary frequency, urinary urgency, urinary hesitancy, nocturia or hematuria Musc: Denies: neck pain, back pain, extremity pain, joint pain, joint swelling, joint redness, joint stiffness or limited range of motion Neuro: Denies: headache(s), numbness in extremities, weakness in extremities, sensory changes, lack of coordination, difficulty walking, frequent falls, dizziness, vertigo, confusion, Slurred speech present, difficulty communicating thoughts or seizure-like activity Psych: Denies: anxiety, depression, mood swings, panic attacks, hopelessness or irritability Endo: Denies: polyuria, polydipsia, tired all the time, cold intolerance, excessive sweating, flushing or heat intolerance Thompson/Lymph: Denies: easy bruising or easy bleeding All/Imm: Denies: tongue swelling, facial swelling or acute wheezing Medications/Allergies Home Medications ?Medication ?Instructions ?Recorded ?Confirmed ?Last Taken ?Type trazodone 150 mg tablet 150 mg PO BEDTIME 05/19/20 02/19/25 02/18/25 History ibuprofen 200 mg tablet 200 mg PO Q6H PRN Pain 03/22/22 02/19/25 Unknown History sertraline 25 mg tablet 25 mg PO DAILY 12/11/24 02/19/25 02/18/25 History dasatinib 100 mg tablet 100 mg PO DAILY #30 tabs 02/02/25 02/19/25 02/18/25 Rx albuterol sulfate 90 mcg/actuation 2 puff inhalation Q5H PRN Wheezing 02/19/25 02/19/25 Unknown History aerosol inhaler amoxicillin 500 mg capsule 500 mg PO Q12H x7d 02/19/25 02/19/25 02/19/25 History furosemide 40 mg tablet 40 mg PO QAM 02/19/25 02/19/25 02/19/25 History levothyroxine 175 mcg tablet 175 mcg PO QAM 02/19/25 02/19/25 02/19/25 History Allergies Allergy/AdvReac Type Severity Reaction Status Date / Time No Known Allergies Allergy Verified 12/11/24 14:24 PFSH Acute PFSH: Medical History (Updated 02/19/25 @ 17:08 by Herb Abdul MD) Abscess of finger of left hand Degenerative joint disease of spine Degenerative arthritis Shoulder pain COPD (chronic obstructive pulmonary disease) Nicotine dependence Chronic back pain Hypothyroidism Dyslipidemia Cellulitis Nephrolithiasis CML (chronic myelocytic leukemia) Surgical History H/O sinus surgery History of ureter stent Previous back surgery Family History Mother Cancer Breast cancer Father COPD (chronic obstructive pulmonary disease) Denies family history of CAD (coronary artery disease) Clotting disorder Anesthesia complication Bleeding disorder Social History Smoking and tobacco/nicotine status: current every day tobacco/nicotine user cigarettes [ Other cigarette details: 1 pack/day] Alcohol intake: never Substance/Drug Use: never Household members: family Housing: House Marital status: Vitals/I&O/Wt Last Vital Signs Temp 98.0 F 02/19/25 12:56 Pulse 90 02/19/25 16:30 Resp 30 H 02/19/25 12:56 BP 150/88 02/19/25 16:00 Pulse Ox 93 02/19/25 16:30 O2 Del Method Nasal Cannula 02/19/25 16:30 O2 Flow Rate 3 02/19/25 16:30 Weight last 48 hrs Weight 86.183 kg Physical Exam Narrative: General: No acute distress, AO x3, dehydrated, chronically sick appearing HEENT: PERRLA, pupils bilaterally equal and reactive Pulmonary: Bilateral bronchial breath sounds all along with occasional rhonchi, decreased air entry bilaterally in lower zone CVS: S1-S2 regular, no murmurs, no tachycardia, no gallops, no rubs Abdomen: Soft, nontender, no organomegaly, bowel sounds present Neuro: No focal deficits, no facial deformity, AO x3, power 5/5 in all limbs Data 02/19/25 13:05 02/19/25 13:05 A&P Assessment and plan (1) Hypoxic respiratory failure: Acute hypoxic respiratory failure with chronic hypercapnic respiratory failure. Cannot rule out baseline COPD. Most likely in setting of pneumonia along with bilateral pleural effusion. Cannot rule out empyema. Patient is immunocompromised. Has failed outpatient treatment. Oxygen supplementation keeping saturation over 90%. Pulmicort twice daily, ipratropium, Xopenex every 6 hour. (2) PNA (pneumonia): Check sputum culture, blood culture, MRSA swab, trend procalcitonin, respiratory viral panel, lactate, proBNP. Failure to outpatient treatment. History of MRSA infection in the past. For now start on IV vancomycin and Zosyn. De-escalate as per culture sensitivities. (3) Pleural effusion, bilateral: Does have significant bilateral pleural effusion. Will request for ultrasound-guided thoracentesis. Will check for fluid studies and fluid cultures to rule out empyema. Patient takes Lasix at home. Check echocardiogram. Hold off on Lasix for now as patient seems slightly dehydrated. Does not have any formal history of congestive heart failure. (4) Failure of outpatient treatment: (5) Immunocompromised: (6) Chronic myeloid leukemia, BCR/ABL-positive, not having achieved remission: Plan CODE STATUS: Discussed and with the patient. Limited resuscitation. Patient does not want any mechanical ventilation. Okay with chest compression. Son would be DPOA. Protonix for PUD prophylaxis. SCD for DVT prophylaxis. Hold off on medical prophylaxis PDMP PDMP Reviewed: Not Reviewed Attestations Medical Necessity Statement*: Admission for more than 2 midnights for management of hypoxic respiratory failure in setting of pneumonia, failure to outpatient treatment, bilateral pleural effusion in a patient is immunocompromised Diagnoses Hypoxic respiratory failure J96.91 PNA (pneumonia) J18.9 Pleural effusion, bilateral J90 Failure of outpatient treatment Z78.9 Immunocompromised D84.9 Chronic myeloid leukemia, BCR/ABL-positive, not having achieved remission C92.10
[2025-02-19 17:56] LABS: Procalcitonin 0.06 ng/mL (0-0.5)
[2025-02-19] MEDS: vancomycin 2,000 MG/400 ML PIGGYBACK 200 MG IV (18:01)
[2025-02-19] MEDS: piperacillin-tazobactam 3.375 GM in sodium chloride 0.9% (plus) 50 ML IV (18:07)
[2025-02-19] MEDS: pantoprazole 40 mg SDV IVP (18:47)
[2025-02-19] MEDS: docusate sodium 100 mg Capsule PO (18:47)
[2025-02-19 18:54] LABS: Iron 27 ug/dL (37-145); NT Pro B Type Natriuretic Pept 387 pg/mL (0-125); Thyroid Stimulating Hormone 3.51 uIU/mL (0.27-4.20); Total Iron Binding Capacity 336 mcg/dl; Unsaturated Iron Binding 309 ug/dL (112-347); Vitamin B12 290 pg/mL (232-1245)
[2025-02-19 19:40] LABS: MRSA PCR OZH (swab) NOT DETECTED (Not Detecte)
[2025-02-19] MEDS: ipratropium 0.5 mg/2.5 mL Neb INHALATION (19:59)
[2025-02-19] MEDS: budesonide 0.5 mg/2 mL Neb INHALATION (19:59)
[2025-02-19 20:19] LABS: Adenovirus Not Detected (NOT DETECT); Chlamydia Pneumoniae Not Detected (NOT DETECT); Coronavirus 229E,HKU1,NL63,OC4 Not Detected (NOT DETECT); Human Metapneumovirus Not Detected (NOT DETECT); Human Rhinovirus/Enterovirus Not Detected (NOT DETECT); Influenza A Not Detected (NOT DETECT); Influenza A H1 Not Detected (NOT DETECT); Influenza A H1-2009 Not Detected (NOT DETECT); Influenza A H3 Not Detected (NOT DETECT); Influenza B Not Detected (NOT DETECT); Mycoplasma Pneumoniae Not Detected (NOT DETECT); Parainfluenza Virus Type 1 Not Detected (NOT DETECT); Parainfluenza Virus Type 2 Not Detected (NOT DETECT); Parainfluenza Virus Type 3 Not Detected (NOT DETECT); Parainfluenza Virus Type 4 Not Detected (NOT DETECT); Respiratory Syncytial Virus A Not Detected (NOT DETECT); Respiratory Syncytial Virus B Not Detected (NOT DETECT); SARS-COV-2 Not Detected (NOT DETECT)
[2025-02-19] MEDS: nicotine 21 mg Patch 1 PATCH TRANSDERMA (20:23)
[2025-02-19] MEDS: trazodone 150 mg Tablet PO (20:39)
--- NOTE | 2025-02-19 21:12 | PC.NURSE ---
This nurse did not know that the admission assessment is supposed to be done by an RN, charge nurse aware and educated this nurse.
[2025-02-19 21:18] LABS: Estmated Average Glucose 134; Hemoglobin A1C 6.3 % (4.0-6.0)
--- NOTE | 2025-02-19 21:51 | PC.NURSE ---
pt family complains that pt is not in a room with a comfortable bed, pt put in hospital bed.
--- NOTE | 2025-02-19 23:32 | PC.NURSE ---
pt has urinated out 1900cc urine via bedside commode.
[2025-02-20] VITALS (13 sets, daily range): BP systolic 98–140; BP diastolic 49–76; PULSE 74–87; RESP 18–31; TEMP 36.5–37.2; O2SAT 89–96; BMI 34.9
[2025-02-20] MEDS: ipratropium 0.5 mg/2.5 mL Neb INHALATION ×4 (02:14→20:17)
[2025-02-20] MEDS: piperacillin-tazobactam 3.375 GM in sodium chloride 0.9% (plus) 50 ML IV ×3 (03:25→18:27)
[2025-02-20 03:35] LABS: Basophils % 0.6 %; Eosinophils # 0.2 10^3/uL (0.0-0.8); Eosinophils % 2.5 %; Hematocrit 40.9 % (36-47); Lymphocytes # 0.7 10^3/uL (0.8-4.8); Lymphocytes % 10.4 %; Mean Corpuscular HGB Conc 28.9 g/dL (30-55); Mean Corpuscular Hemoglobin 26.7 pg (27-33); Mean Corpuscular Volume 92.5 fl (85-98); Mean Platelet Volume 8.6 fL (7.4-10.4); Monocytes # 0.5 10^3/uL (0.2-0.9); Monocytes % 7.1 %; Neutrophils # 5.32 10^3/uL (1.8-7.7); Nucleated Red Blood Cells % 0 %; Platelet Count 321 10^3/cmm (157-399); Red Blood Count 4.42 10^6/uL (3.85-5.65); Red Cell Distribution Width 15.9 % (12.1-15.1); White Blood Count 6.74 10^3/uL (3.29-11.43)
[2025-02-20 03:54] LABS: Alanine Aminotransferase 20 U/L (0-33); Albumin Level 3.6 g/dL (3.5-5.2); Alkaline Phosphatase 101 U/L (35-105); Anion Gap 12.1 (5-19); Aspartate Amino Transferase 13 U/L (0-32); Blood Urea Nitrogen 15 mg/dL (8-23); Calcium 9.4 mg/dL (8.5-10.5); Carbon Dioxide 37 mmol/L (22-29); Chloride 99 mmol/L (98-107); Chol HDL Ratio 5.49 mg/dL (0.0-4.40); Cholesterol 214 mg/dL (0-200); Creatinine Clr Calc Pharmacy 53.1434; Globulin 3.8 g/dL (1.3-4.6); Glomerular Filtration Rate 49.2 mL/min (90-130); Glucose 121 mg/dL (65-115); HDL Cholesterol 39 mg/dL (60-100); LDL Cholesterol Calculated 142 mg/dL (50-129); LDL HDL Ratio 3.64 RATIO (0.00-3.22); Magnesium 1.8 mg/dL (1.7-2.3); Osmolality Calculated 300 mOsm/kg (285-295); Phosphorus 5.2 mg/dL (2.5-4.5); Potassium 4.1 mmol/L (3.5-5.1); Sodium 144 mmol/L (136-145); Total Bilirubin 0.3 mg/dL (0.15-1.2); Total Protein 7.4 g/dL (6.6-8.7); Triglycerides 167 mg/dL (0-150)
[2025-02-20 04:01] LABS: Procalcitonin 0.06 ng/mL (0-0.5)
[2025-02-20] MEDS: VANCOMYCIN ADD-Vantage 1,000 MG in 0.9% NaCl ADD-Vantage 250 ML 250 MG IV (04:28)
[2025-02-20 05:27] LABS: Folate Level 7.2 ng/mL (4.8-37.3)
[2025-02-20] MEDS: levothyroxine 175 mcg Tablet PO (05:39)
[2025-02-20] MEDS: budesonide 0.5 mg/2 mL Neb INHALATION ×2 (07:29→20:17)
[2025-02-20 07:38] LABS: INR 0.89 (0.8-1.2)
[2025-02-20] MEDS: levalbuterol 1.25 mg/3 mL Neb INHALATION ×3 (07:47→20:17)
[2025-02-20] MEDS: docusate sodium 100 mg Capsule PO (09:42)
[2025-02-20] MEDS: nicotine 21 mg Patch 1 PATCH TRANSDERMA (09:42)
[2025-02-20] MEDS: azithromycin 250 mg Tablet 500 MG PO (09:42)
--- NOTE | 2025-02-20 11:14 | PHA.VACGOAL ---
Vancomycin Goal - Goal Vancomycin Goal:: 15-20 mg/L Vancomycin Indication:: Pneumonia - Therapy Current therapy:: Azithromycin, Pip/Tazo Day of therpy:: Day [1]of [] Actual body weight (kg): 92.079 kg - Data Labs: WBC 6.74 10^3/uL (3.29-11.43) 02/20/25 03:29 RBC 4.42 10^6/uL (3.85-5.65) 02/20/25 03:29 Hgb 11.80 g/dL (11.27-16.99) 02/20/25 03:29 Hct 40.9 % (36-47) 02/20/25 03: MCV 92.5 fl (85-98) 02/20/25 03: MCH 26.7 pg (27-33) L 02/20/25 03: MCHC 28.9 g/dL (30-55) L 02/20/25 03: RDW 15.9 % (12.1-15.1) H 02/20/25 03:29 Sodium 144 mmol/L (136-145) 02/20/25 03:29 Potassium 4.1 mmol/L (3.5-5.1) 02/20/25 03:29 Chloride 99 mmol/L (98-107) 02/20/25 03:29 Carbon Dioxide 37 mmol/L (22-29) H 02/20/25 03:29 Anion Gap 12.1 (5-19) 02/20/25 03:29 BUN 15 mg/dL (8-23) 02/20/25 03:29 Creatinine 1.1 mg/dL (0.5-0.9) H 02/20/25 03:29 GFR Calculation 49.2 mL/min (90-130) L 02/20/25 03:29 Treatment plan:: new consult Regimen:: New start vancomycin for Pneumonia. Patient received load dose of 2000 mg @1800 on 02/19. Started on maintenance dose of 1000 mg q12h Scr up to 1.1 mg/dL from 0.9 mg/dL yesterday. Dose adjusted to 1500 mg q24h due to change in renal function.
--- NOTE | 2025-02-20 12:51 | P.PN_ITS ---
Subjective 2 Subjective: No acute events overnight. Today morning seen with family at bedside. Patient currently on 5 L of oxygen supplementation saturating 95%. States she is feeling a lot better. Denies any nausea, vomiting, headache. Otherwise has remained hemodynamically stable and afebrile. Vitals/I&O/Wt Last Vital Signs Temp 98.0 F 02/20/25 12:00 Pulse 86 02/20/25 12:00 Resp 22 H 02/20/25 12:00 BP 125/76 02/20/25 12:00 Pulse Ox 96 02/20/25 12:00 O2 Del Method Nasal Cannula 02/20/25 12:00 O2 Flow Rate 6 02/20/25 07:47 02/19/25 02/20/25 02/20/25 22:59 06:59 14:59 Intake Total 850 / 850 450 / 1300 50 / 50 Output Total 500 / 500 Balance 850 / 850 -50 / 800 50 / 50 Weight last 48 hrs Weight 92.079 kg Weight 92.215 kg Weight 92.306 kg Weight 86.183 kg Physical Exam 2 Narrative: General: No acute distress, AO x3, chronically sick appearing HEENT: PERRLA, pupils bilaterally equal and reactive Pulmonary: Bilateral bronchial breath sounds all along with occasional rhonchi, decreased air entry bilaterally in lower zone CVS: S1-S2 regular, no murmurs, no tachycardia, no gallops, no rubs Abdomen: Soft, nontender, no organomegaly, bowel sounds present Neuro: No focal deficits, no facial deformity, AO x3, power 5/5 in all limbs Data 02/20/25 03:29 02/20/25 03:29 Micro: Microbiology 02/19/25 17:20 Blood Culture - Preliminary Blood SPECIMEN COLLECTED 02/19/25 17:18 Blood Culture - Preliminary Blood SPECIMEN COLLECTED A&P Assessment and plan (1) Hypoxic respiratory failure: Acute hypoxic respiratory failure with chronic hypercapnic respiratory failure. Cannot rule out baseline COPD. Most likely in setting of pneumonia along with bilateral pleural effusion. Cannot rule out empyema. Patient is immunocompromised. Has failed outpatient treatment. Oxygen supplementation keeping saturation over 90%. Pulmicort twice daily, ipratropium, Xopenex every 6 hour. (2) PNA (pneumonia): Follow-up sputum culture, blood culture, negative MRSA swab, appreciate procalcitonin trend, negative respiratory viral panel. Failure to outpatient treatment. History of MRSA infection in the past. Continue with IV vancomycin and Zosyn. De-escalate as per culture sensitivities. (3) Pleural effusion, bilateral: Does have significant bilateral pleural effusion. Will request for ultrasound- guided thoracentesis. Will check for fluid studies and fluid cultures to rule out empyema versus malignant fluid. Patient takes Lasix at home. Follow-up echocardiogram. Hold off on Lasix for now as patient seems slightly dehydrated. Does not have any formal history of congestive heart failure. (4) Failure of outpatient treatment: (5) Immunocompromised: (6) Chronic myeloid leukemia, BCR/ABL-positive, not having achieved remission: Plan CODE STATUS: Discussed and with the patient. Limited resuscitation. Patient does not want any mechanical ventilation. Okay with chest compression. Son would be DPOA. Protonix for PUD prophylaxis. SCD for DVT prophylaxis. Hold off on medical prophylaxis Plan for the day: Plan for thoracentesis today. Will follow-up pleural fluid labs. Check LDH. Continue with nebulization treatment. Follow-up echocardiogram. Continue with empiric antibiotics for now. Oxygen supplementation keeping saturation over 90%. PDMP PDMP Reviewed: Not Reviewed Attestations 2 Medical Necessity Statement*: Requires further hospitalization for management of acute hypoxic respiratory failure in setting of bilateral pleural effusion requiring thoracentesis, concern for pneumonia with failure of outpatient treatment. 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
--- NOTE | 2025-02-20 15:38 | XR_ITS ---
WS: [id number] CHEST XRAY TECHNIQUE: Portable chest. CLINICAL INFORMATION: post thoracentesis COMPARISON: CT 02/19/2025 and portable chest 02/19/2025 FINDINGS: Heart: Cardiomegaly. Aortic calcification. Lungs: Post LEFT thoracentesis with significant improvement and near resolution of the LEFT pleural fluid. Small amount of LEFT basilar atelectasis. Small RIGHT pleural effusion. Mild pulmonary vascular congestion. Bones: Osteopenia. XR/XR chest 1V portable [id number] IMPRESSION: 1. Improved and nearly resolved LEFT pleural effusion postthoracentesis. No pn eumothorax. Slight LEFT basilar atelectasis. 2. Small RIGHT pleural effusion is similar in appearance to the prior studies.
[2025-02-20] MEDS: lidocaine 1% INJ 50 mL INJECTION (15:40)
[2025-02-20 15:56] LABS: Apprearance, Body Fluid CLOUDY; Color, Body Fluid YELLOW
[2025-02-20 15:57] LABS: PATH Referral YES
--- NOTE | 2025-02-20 15:58 | PC.SOCIAL ---
IMM updated IMM dated and initialed copy given to patient and Copy placed in chart.
[2025-02-20 16:06] LABS: Body Fluid Polynuclear #Cells 0.109; Body Fluid WBC 1554 /uL; Monocytes # Body Fluid 1.445
[2025-02-20 16:33] LABS: Body Fluid Specific Gravity 1.026; Cyto Order Verification Order Verified
[2025-02-20 16:35] LABS: Albumin Body Fluid 2.6 g/dL; Fluid Alkaline Phos. 31 IU/L; LDH Body Fluid 160 U/L
[2025-02-20 16:36] LABS: Cholesterol Body Fluid 69 mg/dL (0-200); Triglycerides Body Fluid 25 mg/dL (0-150); Uric Acid Body Fluid 5 mg/dL
[2025-02-20] MEDS: vancomycin 1,500 MG/300 ML PIGGYBACK 200 MG IV (16:52)
--- NOTE | 2025-02-20 16:54 | US_ITS ---
WS: [id number] ULTRASOUND-GUIDED THORACENTESIS CLINICAL INFORMATION: Pleural effusion PROCEDURE: Informed consent: The risks, benefits, and alternatives of the procedure were discussed with the patient. Verbal and written consent was obtained. Timeout: A timeout was performed to confirm the correct patient, procedure, and site. Site: LEFT chest Preparation: A suitable skin site was identified. The patient was prepped and draped in usual sterile fashion. Lidocaine 1% was used for local anesthesia. Catheter: 4 Croatian One-Step catheter. Fluid Volume: 1000 ml Color: Clear yellow Discarded safely. Sent to the laboratory for analysis. Complications: None. / thoracentesis [id number] IMPRESSION: 1. Uncomplicated ultrasound-guided LEFT thoracentesis. 2. Removal of 1000 cc clear yellow fluid 3. No pneumothorax on the postthoracentesis radiograph
[2025-02-20] MEDS: pantoprazole 40 mg SDV IVP (18:27)
[2025-02-20 21:19] LABS: Lactate Dehydrogenase 274 U/L (135-214)
[2025-02-20] MEDS: trazodone 150 mg Tablet PO (21:48)
[2025-02-20] MEDS: morphine 4 mg/mL SDV 1 mL 2 MG IVP (21:48)
[2025-02-21] VITALS (10 sets, daily range): BP systolic 106–144; BP diastolic 52–75; PULSE 75–92; RESP 16–28; TEMP 36.8–37.9; O2SAT 90–96; BMI 35.9
[2025-02-21] MEDS: ipratropium 0.5 mg/2.5 mL Neb INHALATION ×3 (02:13→13:23)
[2025-02-21] MEDS: levalbuterol 1.25 mg/3 mL Neb INHALATION ×3 (02:13→13:23)
[2025-02-21] MEDS: piperacillin-tazobactam 3.375 GM in sodium chloride 0.9% (plus) 50 ML IV ×3 (02:34→20:23)
--- NOTE | 2025-02-21 05:26 | PC.NURSE ---
Patient abdomen was noticeably more distended with a red rash. Patient stated that this happens at home and that it feels like gas but it was a little itchy. Dr garcia notified and new orders were placed.
[2025-02-21 05:47] LABS: Basophils % 0.6 %; Eosinophils # 0.2 10^3/uL (0.0-0.8); Eosinophils % 2.6 %; Hematocrit 35.9 % (36-47); Lymphocytes # 0.8 10^3/uL (0.8-4.8); Lymphocytes % 12.8 %; Mean Corpuscular Volume 93.2 fl (85-98); Mean Platelet Volume 9.4 fL (7.4-10.4); Monocytes # 0.6 10^3/uL (0.2-0.9); Monocytes % 8.7 %; Neutrophils % 74.7 %; Nucleated Red Blood Cells % 0 %; Platelet Count 312 10^3/cmm (157-399); Red Blood Count 3.85 10^6/uL (3.85-5.65); Red Cell Distribution Width 15.9 % (12.1-15.1); White Blood Count 6.56 10^3/uL (3.29-11.43)
[2025-02-21 05:55] LABS: Alanine Aminotransferase 14 U/L (0-33); Albumin Level 3.1 g/dL (3.5-5.2); Alkaline Phosphatase 91 U/L (35-105); Aspartate Amino Transferase 11 U/L (0-32); Blood Urea Nitrogen 18 mg/dL (8-23); Calcium 8.6 mg/dL (8.5-10.5); Carbon Dioxide 37 mmol/L (22-29); Chloride 97 mmol/L (98-107); Creatinine Clr Calc Pharmacy 58.3816; Globulin 3.1 g/dL (1.3-4.6); Glucose 135 mg/dL (65-115); Magnesium 1.7 mg/dL (1.7-2.3); Osmolality Calculated 294 mOsm/kg (285-295); Phosphorus 4.6 mg/dL (2.5-4.5); Sodium 140 mmol/L (136-145); Total Bilirubin 0.3 mg/dL (0.15-1.2); Total Protein 6.2 g/dL (6.6-8.7)
[2025-02-21] MEDS: levothyroxine 175 mcg Tablet PO (06:31)
[2025-02-21] MEDS: diphenhydrAMINE 25 mg Capsule PO (06:31)
[2025-02-21] MEDS: budesonide 0.5 mg/2 mL Neb INHALATION (07:38)
[2025-02-21] MEDS: nicotine 21 mg Patch 1 PATCH TRANSDERMA (08:56)
[2025-02-21] MEDS: acetaminophen 325 mg Tablet 650 MG PO ×2 (08:56→17:16)
[2025-02-21] MEDS: azithromycin 250 mg Tablet 500 MG PO (08:56)
[2025-02-21] MEDS: docusate sodium 100 mg Capsule PO ×2 (08:56→17:09)
--- NOTE | 2025-02-21 10:03 | CTR_ITS ---
PROCEDURE INFORMATION: Exam: CT Chest Without Contrast; Diagnostic Exam date and time: 02/21/2025 10:43 AM Age: 69 years old Clinical indication: Shortness of breath; Additional info: Pna, TECHNIQUE: Imaging protocol: Diagnostic computed tomography of the chest without contrast. Radiation optimization: All CT scans at this facility use at least one of these dose optimization techniques: automated exposure control; mA and/or kV adjustment per patient size (includes targeted exams where dose is matched to clinical indication); or iterative reconstruction. COMPARISON: CT angio chest PE protcl [id number] 02/19/2025 3:05 PM RADIATION DOSE METRICS: Total DLP (mGy-cm): 599.79 FINDINGS: Tubes, catheters and devices: None. Lungs: Lung volumes are decreased. Moderate degree bilateral perihilar and basilar interstitial alveolar pulmonary edema versus infiltrates, pneumonia within the lungs. Alveolar consolidation opacities in the posterior basilar lower lobes bilaterally. Evidence for calcified lung granuloma in the left chest. Pleural spaces: Moderate volume bilateral pleural effusions. Heart: Aortic valve calcification is demonstrated. Coronary arteries: Coronary arterial calcifications are demonstrated. Lymph nodes: Calcified lymph nodes within the central to left mediastinum and left hilum. Vasculature: [id number] atherosclerotic calcification demonstrated within the aorta. Syyx-or-grmlyisx diffuse atherosclerotic arterial vascular wall calcifications are demonstrated. Kidneys: Bilateral nephrolithiasis is demonstrated. Bilateral renal calculi measure up to 10 mm. Irregularity of the upper pole right kidney. Incomplete visualization of the kidneys. Bones/joints: Diffusely decreased bone density. Moderate to severe degenerative changes within the shoulders bilaterally. Mild to moderate degenerative disc disease in the spine. Soft tissues: Unremarkable. Other findings: This study is limited by patient's body habitus. Limited study with artifact created by extremity overlying the area of imaging. Limited study with motion artifact. CT/CT chest wo con [id number] IMPRESSION: 1. Moderate bilateral pleural effusions. 2. Moderate pulmonary edema versus infiltrates, pneumonia. Decreased lung volumes. 3. Bilateral nonobstructing nephrolithiasis. 4. Chronic findings. 5. Limited study.
[2025-02-21] MEDS: sennosides-docusate Tablet 1 TAB PO ×2 (10:53→17:09)
[2025-02-21] MEDS: magnesium hydroxide 30 mL UDC PO (10:53)
--- NOTE | 2025-02-21 11:30 | PC.CHAP ---
Pastoral Care Encounter/Spiritual Assessment Type of Contact [] Declined looper fixer visit [] Patient/Family/Request visit [] Outpatient visit [] Follow-up visit [] Physician referral [] Code/Alert [] Routine visit [] Staff referral [] Actively dying [] Patient sleeping [] Family support [] [] Out of room [] Palliative care [] [] Receiving care in room [] Pre-surgical visit [] Trauma [] Long length of stay [] ICU visit [X] Other:Stop Relational/Emotional Strength [] Patient feels connected with others/family/visitors/staff [] Distress [] Loneliness/isolation [] Abandonment Spirituality of Patient [] Person of Neena [] Attends Buddhist of their Neena [] Believes in Prayer [] Reads Bible or Druze materials [] There are Spiritual issues to be addressed Business Development Coordinator Interventions [] Prayer [] Active listening [] Non-anxious presence [] Spiritual/emotional support [] Crisis/trauma care [] Spiritual counseling [] Bereavement support [] Provided bereavement packet [] Provided Bible/devotional materials [] Provided toy/stuffed animal, coloring book to patient or family member [] Provided Communion [] Anointing/Sparks [] Salvation [] Completed spiritual assessment [] Other: Impact on Illness or Injury [] Angry [] Fearful [] Anxious [] Often cries [] Exhaustion [] Unable to work [] Unable to attend latter-day [] Unable to walk/stand [] Unable to read [] Unable to drive [] Unable to eat/drink [] Unable to sleep [] Unable to be with family [] Patient intubated [] Other: Summary Time spent with patient
--- NOTE | 2025-02-21 12:44 | P.PN_ITS ---
Subjective 2 Subjective: No acute events overnight. Patient underwent thoracentesis yesterday. Tolerated procedure well. Today morning on examination she was on 4 L saturating 96% was done down to 2 L and continued to saturate 90%. Denied any nausea, vomiting, headache. Tmax of 100.3 Fahrenheit today morning. Vitals/I&O/Wt Last Vital Signs Temp 99.3 F 02/21/25 11:50 Pulse 82 02/21/25 11:50 Resp 20 H 02/21/25 11:50 BP 141/75 02/21/25 11:50 Pulse Ox 90 02/21/25 11:50 O2 Del Method Nasal Cannula 02/21/25 11:50 O2 Flow Rate 2 02/21/25 11:50 02/20/25 02/21/25 02/21/25 22:59 06:59 14:59 Intake Total 550 / 870 100 / 970 Balance 550 / 870 100 / 970 Weight last 48 hrs Weight 92.136 kg Weight 92.079 kg Weight 92.215 kg Weight 92.306 kg Weight 86.183 kg Physical Exam 2 Narrative: General: No acute distress, AO x3, chronically sick appearing HEENT: PERRLA, pupils bilaterally equal and reactive Pulmonary: Bilateral bronchial breath sounds all along with occasional rhonchi, decreased air entry bilaterally in lower zone CVS: S1-S2 regular, no murmurs, no tachycardia, no gallops, no rubs Abdomen: Soft, nontender, no organomegaly, bowel sounds present Neuro: No focal deficits, no facial deformity, AO x3, power 5/5 in all limbs Data 02/21/25 05:07 02/21/25 05:07 Micro: Microbiology 02/20/25 15:40 Gram Stain - Final Pleural Fluid 02/19/25 20:20 Gram Stain - Final Sputum - Expectorated Sputum 02/19/25 17:20 Blood Culture - Preliminary Blood NEGATIVE TO DATE 02/19/25 17:18 Blood Culture - Preliminary Blood NEGATIVE TO DATE A&P Assessment and plan (1) Hypoxic respiratory failure: Acute hypoxic respiratory failure with chronic hypercapnic respiratory failure. Cannot rule out baseline COPD. Most likely in setting of pneumonia along with bilateral pleural effusion. Cannot rule out empyema. Patient is immunocompromised. Has failed outpatient treatment. Oxygen supplementation keeping saturation over 90%. Pulmicort twice daily, ipratropium, Xopenex every 6 hour. (2) PNA (pneumonia): Follow-up sputum culture, blood culture, negative MRSA swab, appreciate procalcitonin trend, negative respiratory viral panel. Failure to outpatient treatment. History of MRSA infection in the past. Continue with IV vancomycin and Zosyn. De-escalate as per culture sensitivities. (3) Pleural effusion, bilateral: Does have significant bilateral pleural effusion. Will request for ultrasound- guided thoracentesis. Will check for fluid studies and fluid cultures to rule out empyema versus malignant fluid. Patient takes Lasix at home. Follow-up echocardiogram. Hold off on Lasix for now as patient seems slightly dehydrated. Does not have any formal history of congestive heart failure. (4) Failure of outpatient treatment: (5) Immunocompromised: (6) Chronic myeloid leukemia, BCR/ABL-positive, not having achieved remission: Plan CODE STATUS: Discussed and with the patient. Limited resuscitation. Patient does not want any mechanical ventilation. Okay with chest compression. Son would be DPOA. Protonix for PUD prophylaxis. SCD for DVT prophylaxis. Hold off on medical prophylaxis Plan for the day: Appreciate pleural fluid results. Concern for transudative fluid. pH of the fluid 8. Less concerning for empyema. For now follow-up with Gram stain, culture sensitivities and cytology. Continue with current IV antibiotics. Follow-up blood culture and sputum culture. Repeat CT chest after thoracentesis to look for any consolidation or mass at the site of pleural fluid. Echocardiogram results appreciated showing normal EF with grade 1 diastolic dysfunction, mild aortic stenosis. Discharge plan: Plan to discharge in next 24 hours to back home on oral antibiotics and diuretic after home O2 evaluation in next 24 hours if cultures remain negative. PDMP PDMP Reviewed: Not Reviewed Attestations 2 Medical Necessity Statement*: Requires further hospitalization for management of acute hypoxic respiratory failure in setting of bilateral pleural effusion, pneumonia postthoracentesis while empyema is ruled out in a patient who is immunocompromised on chemotherapy with failed outpatient treatment Diagnoses Hypoxic respiratory failure J96.91 PNA (pneumonia) J18.9 Pleural effusion, bilateral J90 Failure of outpatient treatment Z78.9 Immunocompromised D84.9 Chronic myeloid leukemia, BCR/ABL-positive, not having achieved remission C92.10
[2025-02-21] MEDS: vancomycin 1,500 MG/300 ML PIGGYBACK 200 MG IV (17:08)
[2025-02-21] MEDS: pantoprazole 40 mg SDV IVP (20:24)
[2025-02-21] MEDS: trazodone 150 mg Tablet PO (20:43)
[2025-02-22] VITALS (7 sets, daily range): BP systolic 116–140; BP diastolic 56–68; PULSE 76–91; RESP 15–28; TEMP 36.2–37.6; O2SAT 88–99
[2025-02-22] MEDS: piperacillin-tazobactam 3.375 GM in sodium chloride 0.9% (plus) 50 ML IV (02:29)
[2025-02-22 05:41] LABS: Basophils % 0.5 %; Eosinophils # 0.1 10^3/uL (0.0-0.8); Eosinophils % 2.3 %; Hematocrit 37.6 % (36-47); Lymphocytes # 0.6 10^3/uL (0.8-4.8); Lymphocytes % 10.6 %; Mean Corpuscular HGB Conc 28.2 g/dL (30-55); Mean Corpuscular Hemoglobin 26.6 pg (27-33); Mean Corpuscular Volume 94.5 fl (85-98); Mean Platelet Volume 9.1 fL (7.4-10.4); Monocytes # 0.5 10^3/uL (0.2-0.9); Monocytes % 8.8 %; Neutrophils # 4.28 10^3/uL (1.8-7.7); Neutrophils % 77.3 %; Nucleated Red Blood Cells % 0 %; Platelet Count 305 10^3/cmm (157-399); Red Blood Count 3.98 10^6/uL (3.85-5.65); Red Cell Distribution Width 15.5 % (12.1-15.1); White Blood Count 5.55 10^3/uL (3.29-11.43)
[2025-02-22] MEDS: levothyroxine 175 mcg Tablet PO (05:59)
[2025-02-22 06:02] LABS: Alanine Aminotransferase 13 U/L (0-33); Albumin Level 2.9 g/dL (3.5-5.2); Alkaline Phosphatase 77 U/L (35-105); Aspartate Amino Transferase 14 U/L (0-32); Blood Urea Nitrogen 20 mg/dL (8-23); Calcium 8.5 mg/dL (8.5-10.5); Carbon Dioxide 33 mmol/L (22-29); Creatinine Clr Calc Pharmacy 63.6044; Globulin 3.2 g/dL (1.3-4.6); Glomerular Filtration Rate 62.1 mL/min (90-130); Glucose 135 mg/dL (65-115); Total Bilirubin 0.3 mg/dL (0.15-1.2); Total Protein 6.1 g/dL (6.6-8.7)
[2025-02-22] MEDS: acetaminophen 325 mg Tablet 650 MG PO (06:07)
[2025-02-22 06:28] LABS: Anion Gap 11.2 (5-19); Chloride 99 mmol/L (98-107); Osmolality Calculated 293 mOsm/kg (285-295); Potassium 4.2 mmol/L (3.5-5.1); Sodium 139 mmol/L (136-145)
--- NOTE | 2025-02-22 08:10 | P.DS_ITS ---
Discharge Providers Date of Admission: 02/19/25 17:01 Date of Discharge: February 22, 2025 Attending Provider at Admission: Herb Abdul MD Attending Provider at Discharge: Herb Abdul MD Primary Care Provider: MACRINA Johnson Diagnoses at Discharge Discharge Diagnosis (1) Hypoxic respiratory failure: Status: Acute (2) PNA (pneumonia): Status: Acute (3) Pleural effusion, bilateral: Status: Acute (4) Failure of outpatient treatment: Status: Acute (5) Immunocompromised: Status: Acute (6) Chronic myeloid leukemia, BCR/ABL-positive, not having achieved remission: Status: Acute Reason for Visit Reason for Visit: SOB Brief History: Justina Meraz is a 69 year old female with past medical history of CLL on chemotherapy, hypothyroidism presents to the ER today because of difficulty in breathing which has been ongoing for last 2 to 3 weeks. She was diagnosed of pneumonia as an outpatient by her primary care provider and has been on antibiotics since then without much benefit. She has been on azithromycin, doxycycline and most recently on amoxicillin. As her difficulty breathing was getting worse she presented to the ER today. In the ER she was saturating 70% hence was placed on 3 L. Difficulty in breathing gets worse on ambulation. Complaining of cough with expectoration. Has not had her chemotherapy for last 2 weeks since on antibiotics. Hospital Course Hospital Course Patient was admitted to the hospital for evaluation and management of acute hypoxic respiratory failure with failure of outpatient treatment, immunocompromise status given ongoing chemotherapy. She was started on broad- spectrum antibiotics. She underwent thoracentesis on 02/20. Her fluid studies were consistent with transudative. During hospitalization her cultures remain negative. She responded well to the treatment is down to 3 L of oxygen supplementation. Next it is believed her hypoxic respiratory failure admission was due to bilateral pleural effusion along with COPD exacerbation. Repeat CT scan of the chest post thoracentesis was negative for consolidation. She has been discharged in hemodynamically stable condition on oral antibiotics for 3 more days, continued home dose of Lasix, steroid taper and inhaler treatment. Home O2 evaluation was done prior to discharge. She is to not take her immunotherapy for 3 more days till she is on antibiotics. She is to follow with the primary care provider within next 1 week for further discussion of cytology from pleural fluid. Physical Exam Narrative: General: No acute distress, AO x3, chronically sick appearing HEENT: PERRLA, pupils bilaterally equal and reactive Pulmonary: Bilateral bronchial breath sounds all along with occasional rhonchi, decreased air entry bilaterally in lower zone CVS: S1-S2 regular, no murmurs, no tachycardia, no gallops, no rubs Abdomen: Soft, nontender, no organomegaly, bowel sounds present Neuro: No focal deficits, no facial deformity, AO x3, power 5/5 in all limbs Discharge Data Studies Completed and Pending Completed Studies During Hospitalization Category Date Time Status CT chest wo con [id number] Routine Cat Scan 02/21/25 10:03 Completed CTA chest [CT angio chest PE protcl [id number]] Stat Cat Scan 02/19/25 14:52 Completed CXRP [XR chest 1V portable [id number]] Routine Exams 02/20/25 15:38 Completed XR chest 1V portable [id number] Stat Exams 02/19/25 13:20 Completed CV. echo complete* [id number] Routine Ultrasound 02/19/25 16:54 Completed US thoracentesis [id number] Stat Ultrasound 02/20/25 16:54 Completed Pending at discharge Category Date Time Status Amylase, Pleural Fluid Routine Lab 02/20/25 15:40 Received Anaerobic Culture Routine Lab 02/20/25 15:40 Results Blood Culture Stat Lab 02/19/25 17:20 Results Body Fluid Culture & GS Routine Lab 02/20/25 15:40 Results Fungal Culture not HR/SK/BL Routine Lab 02/20/25 15:40 Received Mycobacteria, Culture w/Fluor Routine Lab 02/20/25 15:40 Results Sputum Culture and Gram Stain Stat Lab 02/19/25 20:20 Results Cytology [PTH] Routine Pth 02/20/25 14:06 Received Radiology Impressions Chest CTA 02/19/25 14:52 Impression: 1. Negative for pulmonary embolic disease. 2. Large bilateral pleural effusions. 3. Bilateral lower lobe atelectasis. Chest X-Ray 02/20/25 15:38 IMPRESSION: 1. Improved and nearly resolved LEFT pleural effusion postthoracentesis. No pneumothorax. Slight LEFT basilar atelectasis. 2. Small RIGHT pleural effusion is similar in appearance to the prior studies. Thoracentesis Ultrasound 02/20/25 16:54 IMPRESSION: 1. Uncomplicated ultrasound-guided LEFT thoracentesis. 2. Removal of 1000 cc clear yellow fluid 3. No pneumothorax on the postthoracentesis radiograph Chest CT 02/21/25 10:03 IMPRESSION: 1. Moderate bilateral pleural effusions. 2. Moderate pulmonary edema versus infiltrates, pneumonia. Decreased lung volumes. 3. Bilateral nonobstructing nephrolithiasis. 4. Chronic findings. 5. Limited study. Microbiology 02/20/25 15:40 Body Fluids - Pleura Mycobacterial Smear - Preliminary 02/20/25 15:40 Pleural Fluid Gram Stain - Final 02/20/25 15:40 Pleural Fluid Anaerobic Culture - Preliminary 02/20/25 15:40 Pleural Fluid Body Fluid Culture - Preliminary 02/19/25 20:20 Sputum - Expectorated Sputum Gram Stain - Final 02/19/25 20:20 Sputum - Expectorated Sputum Sputum Culture - Preliminary 02/19/25 17:20 Blood Blood Culture - Preliminary NEGATIVE TO DATE 02/19/25 17:18 Blood Blood Culture - Preliminary NEGATIVE TO DATE Laboratory Results WBC 5.55 10^3/uL (3.29-11.43) 02/22/25 05:15 RBC 3.98 10^6/uL (3.85-5.65) 02/22/25 05:15 Hgb 10.60 g/dL (11.27-16.99) L 02/22/25 05:15 Hct 37.6 % (36-47) 02/22/25 05:15 MCV 94.5 fl (85-98) 02/22/25 05:15 MCH 26.6 pg (27-33) L 02/22/25 05:15 MCHC 28.2 g/dL (30-55) L 02/22/25 05:15 RDW 15.5 % (12.1-15.1) H 02/22/25 05:15 Plt Count 305 10^3/cmm (157-399) 02/22/25 05:15 MPV 9.1 fL (7.4-10.4) 02/22/25 05:15 Neut % (Auto) 77.3 % 02/22/25 05:15 Lymph % (Auto) 10.6 % 02/22/25 05:15 Snyder % (Auto) 8.8 % 02/22/25 05:15 Eos % (Auto) 2.3 % 02/22/25 05:15 Baso % (Auto) 0.5 % 02/22/25 05:15 Neut # (Auto) 4.28 10^3/uL (1.8-7.7) 02/22/25 05:15 Lymph # (Auto) 0.6 10^3/uL (0.8-4.8) L 02/22/25 05:15 Snyder # (Auto) 0.5 10^3/uL (0.2-0.9) 02/22/25 05:15 Eos # (Auto) 0.1 10^3/uL (0.0-0.8) 02/22/25 05:15 Baso # (Auto) 0.0 10^3/uL (0.0-0.1) 02/22/25 05:15 Nucleated RBC % (auto) 0 % 02/22/25 05:15 Nucleated RBCs # 0.0 /100WBC 02/22/25 05:15 Differential Comment Yes 02/20/25 15:40 PT 12.70 SECONDS (12.1-14.9) 02/20/25 03:29 INR 0.89 (0.8-1.2) 02/20/25 03:29 D-Dimer 1.04 ug/mLFEU (0-0.59) H 02/19/25 13:05 Specimen Type Arterial 02/19/25 13:24 Sample Site Radial, left 02/19/25 13:24 ABG pH 7.39 (7.35-7.45) 02/19/25 13:24 ABG pCO2 61.5 mmHg (35-45) H* 02/19/25 13:24 ABG pO2 64.6 mmHg (80.0-100.0) L 02/19/25 13:24 ABG HCO3 37.0 mmol/L (22-26) H 02/19/25 13:24 ABG Base Excess 9.8 mmol/L (-2.0-2.0) H 02/19/25 13:24 Corbin Test Pos 02/19/25 13:24 Hematocrit 38.4 % (37-47) 02/19/25 13:24 O2 Delivery Device Nc 02/19/25 13:24 O2 Liters/Min 2.0 % 02/19/25 13:24 Lead Generation Marketing Manager ID [place] 02/19/25 13:24 Sodium 139 mmol/L (136-145) 02/22/25 05:15 Potassium 4.2 mmol/L (3.5-5.1) 02/22/25 05:15 Chloride 99 mmol/L (98-107) 02/22/25 05:15 Carbon Dioxide 33 mmol/L (22-29) H 02/22/25 05:15 Anion Gap 11.2 (5-19) 02/22/25 05:15 BUN 20 mg/dL (8-23) 02/22/25 05:15 Creatinine 0.9 mg/dL (0.5-0.9) 02/22/25 05:15 GFR Calculation 62.1 mL/min (90-130) L 02/22/25 05:15 Glucose 135 mg/dL (65-115) H 02/22/25 05:15 Estimat Average Glucose 134 02/19/25 13:05 Hemoglobin A1c 6.3 % (4.0-6.0) H 02/19/25 13:05 Calculated Osmolality 293 mOsm/kg (285-295) 02/22/25 05:15 Lactic Acid 1.0 mmol/L (0.5-2.2) 02/19/25 17:14 Calcium 8.5 mg/dL (8.5-10.5) 02/22/25 05:15 Phosphorus 4.0 mg/dL (2.5-4.5) 02/22/25 05:15 Magnesium 2.0 mg/dL (1.7-2.3) 02/22/25 05:15 Iron 27 ug/dL (37-145) L 02/19/25 13:05 TIBC 336 mcg/dl 02/19/25 13:05 % Saturation 8.0 % (20-50) L 02/19/25 13:05 Unsat Iron Binding 309 ug/dL (112-347) 02/19/25 13:05 Total Bilirubin 0.3 mg/dL (0.15-1.2) 02/22/25 05:15 AST 14 U/L (0-32) 02/22/25 05:15 ALT 13 U/L (0-33) 02/22/25 05:15 Alkaline Phosphatase 77 U/L (35-105) 02/22/25 05:15 Lactate Dehydrogenase 274 U/L (135-214) H 02/20/25 03:29 NT-Pro-B Natriuret Pep 387 pg/mL (0-125) H 02/19/25 13:05 NT-Pro-B Natriuret Pep 391 pg/mL (0-125) H 02/19/25 13:05 Total Protein 6.1 g/dL (6.6-8.7) L 02/22/25 05:15 Albumin 2.9 g/dL (3.5-5.2) L 02/22/25 05:15 Globulin 3.2 g/dL (1.3-4.6) 02/22/25 05:15 Triglycerides 167 mg/dL (0-150) H 02/20/25 03:29 Cholesterol 214 mg/dL (0-200) H 02/20/25 03:29 LDL Cholesterol, Calc 142 mg/dL (50-129) H 02/20/25 03:29 HDL Cholesterol 39 mg/dL (60-100) L 02/20/25 03:29 LDL/HDL Ratio 3.64 RATIO (0.00-3.22) H 02/20/25 03: Cholesterol/HDL Ratio 5.49 mg/dL (0.0-4.40) H 02/20/25 03:29 Vitamin B12 290 pg/mL (232-1245) 02/19/25 13:05 Folate 7.2 ng/mL (4.8-37.3) 02/20/25 03:29 Procalcitonin 0.06 ng/mL (0-0.5) 02/20/25 03:29 TSH 3.51 uIU/mL (0.27-4.20) 02/19/25 13:05 Fluid Color Yellow 02/20/25 15:40 Fluid Appearance Cloudy 02/20/25 15:40 Fluid Specific Grav 1.026 02/20/25 15:40 Fluid pH 8.0 02/20/25 15:40 Fluid WBC 1554 /uL 02/20/25 15:40 Fluid RBC 2.000 10^3/uL 02/20/25 15:40 Fld Polynuclear WBCs # 0.109 02/20/25 15:40 Fld Polynuclear WBCs % 7.000 % 02/20/25 15:40 Fl Mononucl WBCs #(Auto) 1.445 02/20/25 15:40 Fl Mononuclear % Auto 93.000 % 02/20/25 15:40 Fld Crystal Laterality Not Reportable 02/20/25 15:40 Fluid Glucose 123.0 mg/dL 02/20/25 15:40 Fluid Albumin 2.6 g/dL 02/20/25 15:40 Fluid LDH 160 U/L 02/20/25 15:40 Fluid Alk Phosphatase 31 IU/L 02/20/25 15:40 Fluid Cholesterol 69 mg/dL (0-200) 02/20/25 15:40 Fluid Triglycerides 25 mg/dL (0-150) 02/20/25 15:40 Fluid Uric Acid 5 mg/dL 02/20/25 15:40 Pleural Total Protein 4.0 g/dL 02/20/25 15:40 Nasal MRSA (PCR) Not detected (Not Detecte) 02/19/25 17:54 Adenovirus (PCR) Not detected (NOT DETECT) 02/19/25 17:54 C. pneumoniae DNA (PCR) Not detected (NOT DETECT) 02/19/25 17:54 Coronavirus 229E (PCR) Not detected (NOT DETECT) 02/19/25 17:54 Human Metapneumovir PCR Not detected (NOT DETECT) 02/19/25 17:54 Influenza A (H1) PCR Not detected (NOT DETECT) 02/19/25 17:54 Influ A (H1/09) PCR Not detected (NOT DETECT) 02/19/25 17:54 Influenza A (H3) PCR Not detected (NOT DETECT) 02/19/25 17:54 Influenza Type A (PCR) Not detected (NOT DETECT) 02/19/25 17:54 Influenza Type B (PCR) Not detected (NOT DETECT) 02/19/25 17:54 M. pneumoniae (PCR) Not detected (NOT DETECT) 02/19/25 17:54 Parainfluenza 1 (PCR) Not detected (NOT DETECT) 02/19/25 17:54 Parainfluenza 2 (PCR) Not detected (NOT DETECT) 02/19/25 17:54 Parainfluenza 3 (PCR) Not detected (NOT DETECT) 02/19/25 17:54 Parainfluenza 4 (PCR) Not detected (NOT DETECT) 02/19/25 17:54 RSV Type A (PCR) Not detected (NOT DETECT) 02/19/25 17:54 RSV Type B (PCR) Not detected (NOT DETECT) 02/19/25 17:54 Entero/Rhino (PCR) Not detected (NOT DETECT) 02/19/25 17:54 SARS-CoV-2 (PCR) Not detected (NOT DETECT) 02/19/25 17:54 Vitals Last Vital Signs Temp 98.2 F 02/22/25 05:03 Pulse 91 02/22/25 06:00 Resp 15 02/22/25 05:03 BP 124/63 02/22/25 05:03 Pulse Ox 99 02/22/25 05:03 O2 Del Method Nasal Cannula 02/22/25 00:32 O2 Flow Rate 3 02/22/25 00:32 Discharge Plan Discharge Patient Disposition: Home Condition: Stable Prescriptions: New levofloxacin 750 mg tablet 750 mg PO Q24H 3 Days Qty: 3 0RF amoxicillin-pot clavulanate 875-125 mg tablet 1 tab PO BID Qty: 6 0RF dapagliflozin propanediol [Farxiga] 10 mg tablet 10 mg PO DAILY Qty: 30 2RF prednisone 10 mg tablet See Taper PO DIRECTED Qty: 42 0RF Taper: predniSONE 60-10 60 mg Daily for 2 Days and 0 Hour 50 mg Daily for 2 Days and 0 Hour 40 mg Daily for 2 Days and 0 Hour 30 mg Daily for 2 Days and 0 Hour 20 mg Daily for 2 Days and 0 Hour 10 mg Daily for 2 Days and 0 Hour Rx Instructions: see taper instructions fluticasone furoate-vilanterol [Breo Ellipta] 100-25 mcg/dose blister with device 1 inh inhalation DAILY Qty: 60 0RF Continued sertraline 25 mg tablet 25 mg PO DAILY ibuprofen 200 mg tablet 200 mg PO Q6H PRN (Reason: Pain) dasatinib 100 mg tablet 100 mg PO DAILY Qty: 30 1RF trazodone 150 mg tablet 150 mg PO BEDTIME levothyroxine 175 mcg tablet 175 mcg PO QAM albuterol sulfate 90 mcg/actuation HFA aerosol inhaler 2 puff INHALATION Q5H PRN (Reason: Wheezing) Changed furosemide 40 mg tablet 40 mg PO QAM Qty: 30 0RF Discontinued amoxicillin 500 mg capsule 500 mg PO Q12H Discharge Orders: Discharge Order (Routine); Ordered 02/22/25 Ordered By: Herb Abdul Other Ambulatory Orders: DME: Oxygen (Order) Location: None Selected Ordered By: Herb Abdul Referrals: Elkins,Suzette, SENIOR SOFTWARE ARCHITECT [Primary Care Provider, Nurse Practitioner] - 03/02/25 9:30 am Discharge Diet: Cardiac Discharge Activity: Resume usual activity and Increase activity as tolerated Patient Instructions: Amoxicillin/Clavulanate Potassium (By mouth) (Augmentin, Augmentin..., Levofloxacin (By mouth) (Levaquin, Levaquin Leva-loco), Dapagliflozin (By mouth) (Farxiga), Hypoxia (GEN), Opioid Safety, Pneumonia Stoplight Activity Restrictions/Additional Instructions: Take Augmentin and Levaquin which is the antibiotics for next 3 days. You do have diabetes with A1c of more than 6.5. Take Farxiga which is going to help you both with your heart and your diabetes. Take Lasix only as needed for body weight increase of 3 pounds. Follow-up with a primary care provider within next 1 week for further discussion about results of fluid studies from your thoracentesis. Discharge Attestations Time Spent in Discharge Care*: greater than 30 min Specific Discharge Activities: educating patient, educating and/or supporting family/caregiver, discussing with pcp/other providers, discussing with trimming caser/social workers/dc planners, documenting/other paperwork and evaluating patient/reviewing data Status at Discharge: Cognitive status at discharge: cognitively intact , Behavioral status at discharge: cooperative , Functional status at discharge: independent ambulation , Overall status at discharge: patient is back to baseline Quality Metrics Clinical Quality Measures [ No reported AMI, CVA or VTE this stay] Coding Level of Care Code 00759 Total time (in minutes) for Discharge: 65 Diagnoses Hypoxic respiratory failure J96.91 PNA (pneumonia) J18.9 Pleural effusion, bilateral J90 Failure of outpatient treatment Z78.9 Immunocompromised D84.9 Chronic myeloid leukemia, BCR/ABL-positive, not having achieved remission C92.10
[2025-02-22] MEDS: nicotine 21 mg Patch 1 PATCH TRANSDERMA (08:45)
[2025-02-22] MEDS: sennosides-docusate Tablet 1 TAB PO (08:45)
[2025-02-22] MEDS: levalbuterol 1.25 mg/3 mL Neb INHALATION (08:45)
[2025-02-22] MEDS: ipratropium 0.5 mg/2.5 mL Neb INHALATION (08:45)
[2025-02-22] MEDS: docusate sodium 100 mg Capsule PO (08:45)
[2025-02-22] MEDS: budesonide 0.5 mg/2 mL Neb INHALATION (08:45)
[2025-02-22] MEDS: azithromycin 250 mg Tablet 500 MG PO (08:45)
[2025-02-22] MEDS: FUROsemide 10 mg/mL SDV 4mL 40 MG IVP (09:51)
--- NOTE | 2025-02-22 12:06 | PC.NURSE ---
Addendum entered by Genet Mackenzie RN 02/22/25 14:29: Henri from [employer] just arrived with patients O2. Addendum entered by Genet Mackenzie RN 02/22/25 13:21: Henri from [employer] called and said that he should be able to bring O2 for this patient in an hour. (Total time spent with this has been 15 minutes.) Addendum entered by Genet Mackenzie RN 02/22/25 13:13: [facility] outreach representative, Chace, arrived at the hospital with O2 and discovered that patients insurance is no longer covered by [facility]. Another company, [employer], has now been contacted and we are waiting for a return call. Original Note: Patient's home O2 was set up with [facility]. They will bring her portable for travel home and then meet her at home. Nursing was on the phone with [employer] for 50 minutes. All information needed was faxed.
[2025-02-26 15:05] LABS: Amylase, Pleural Fluid 47 U/L
== END 2025-02-22 15:03 | disposition home or self-care (01) | DRG 193 ==
LOC: ER 16:53 → ER IP 17:01 → CSU 02-20 02:35
PROVIDERS: Admitting Provider Student in an Organized Health Care Education/Training Program; Emergency Provider Emergency Medicine; PCP Nurse Practitioner Family; Visit Provider Student in an Organized Health Care Education/Training Program
DX: J18.9 Pneumonia, unspecified organism (principal); J96.01 Acute respiratory failure with hypoxia; C92.10 Chronic myeloid leukemia, BCR/ABL-positive, not having achieved remission; J44.0 Chronic obstructive pulmonary disease with (acute) lower respiratory infection; J90 Pleural effusion, not elsewhere classified; D84.9 Immunodeficiency, unspecified; J44.1 Chronic obstructive pulmonary disease with (acute) exacerbation; J96.12 Chronic respiratory failure with hypercapnia; E03.9 Hypothyroidism, unspecified; E78.5 Hyperlipidemia, unspecified; F17.210 Nicotine dependence, cigarettes, uncomplicated; Z79.899 Other long term (current) drug therapy; Z79.890 Hormone replacement therapy; Z78.9 Other specified health status; Z86.14 Personal history of Methicillin resistant Staphylococcus aureus infection; Z11.52 Encounter for screening for COVID-19
CPT/HCPCS: 32555; 36415; 36600; 71045; 71250; 71275; 80053; 80061; 80503; 82042; 82150; 82465; 82607; 82746; 82803; 82945; 83036; 83540; 83550; 83605; 83615; 83735; 83880; 83986; 84075; 84100; 84145; 84157; 84315; 84443; 84478; 84560; 85025; 85378; 85610; 87015; 87040; 87070; 87075; 87102; 87116; 87205; 87206; 87486; 87581; 87633; 87801; 88112; 88305; 89050; 93005; 93306; 94640; 94664; 94760; 96365; 96375; 96376; 99285; J1938; J2270; J2470; J2543; J3370; J3372; J7050; J7614; J7626; J7644; J9999; Q0144

== ENCOUNTER 2025-02-22 20:49 | Emergency (ER) | payer MEDICARE, SELFPAY ==
[2025-02-22 21:08] VITALS: BP 159/78; PULSE 86; RESP 18; TEMP 36.6; O2SAT 95
--- NOTE | 2025-02-23 00:22 | ED_ITS ---
HPI - Extremity Problem General: Chief complaint: Extremity Problem,Nontraumatic Stated complaint: Arm Puffy where IV came out Time Seen by Provider: 02/22/25 22:21 History of Present Illness: 69-year-old female patient presents to [facility] emergency department with erythema and tenderness to the AC space on her left arm. Patient states she was just discharged from the hospital and had an IV in that arm went home and noticed the swelling and tenderness. Patient denies any fever. Patient denies any chest pain or shortness of breath. Related Data Home Medications ?Medication ?Instructions ?Recorded ?Confirmed trazodone 150 mg tablet 150 mg PO BEDTIME 05/19/20 0 02/19/25 ibuprofen 200 mg tablet 200 mg PO Q6H PRN Pain 03/2202/19/25 sertraline 25 mg tablet 25 mg PO DAILY 12/11/2401/23 albuterol sulfate 90 mcg/actuation 2 puff inhalation Q 5H PRN Wheezing 02/19/25 02/19/25 aerosol inhaler levothyroxine 175 mcg tablet 175 mcg PO QAM 02/19/25 0 02/19/25 Previous Rx's ?Medication ?Instructions ?Recorded dasatinib 100 mg tablet 100 mg PO DAILY #30 tabs 09/17 amoxicillin 875 mg-potassium 1 tab PO BID #6 tabs 10/18 clavulanate 125 mg tablet dapagliflozin propanediol 10 mg 10 mg PO DAILY #30 tab s 02/22/25 tablet (Farxiga) fluticasone furoate 100 1 inh inhalation DAILY #60 e a 02/22/25 mcg-vilanterol 25 mcg/dose inhalation powder (Breo Ellipta) furosemide 40 mg tablet 40 mg PO QAM shortness of br eath 02/22/25 #30 tabs levofloxacin 750 mg tablet 750 mg PO Q24H 3 days #3 ta bs 02/22/25 prednisone 10 mg tablet See Taper PO DIRECTED #42 tabs 02/22/25 Allergies Allergy/AdvReac Type Severity Reaction Status Date / Time No Known Allergies Allergy Verified 02/22/25 21:11 Review of Systems General: Reports: 10 or more systems reviewed and unremarkable except in HPI and below PFSH ED PFSH: Medical History Abscess of finger of left hand Degenerative joint disease of spine Degenerative arthritis Shoulder pain COPD (chronic obstructive pulmonary disease) Nicotine dependence Chronic back pain Hypothyroidism Dyslipidemia Cellulitis Nephrolithiasis CML (chronic myelocytic leukemia) Surgical History H/O sinus surgery History of ureter stent Previous back surgery Family History Mother Cancer Breast cancer Father COPD (chronic obstructive pulmonary disease) Denies family history of CAD (coronary artery disease) Clotting disorder Anesthesia complication Bleeding disorder Social History Smoking and tobacco/nicotine status: current every day tobacco/nicotine user cigarettes [ Other cigarette details: 1 pack/day] Alcohol intake: never Substance/Drug Use: never Household members: family Housing: House Marital status: Physical Exam Narrative: EXAM NARRATIVE: There is erythema and warmth noted to the AC space on the left arm. Patient is neurovascularly intact Const: COMMON NORMALS: no acute distress, patient oriented x3 and no limitations GENERAL APPEARANCE: cooperative and comfortable Chest: COMMONS NORMALS: normal inspection of the chest Resp: EFFORT & INSPECTION: Yes tachypneic AUSCULTATION: crackles Cardio: COMMON NORMALS: regular rate, regular rhythm, No gallops present (Cardio), No murmurs present (Cardio) and No rub (Cardio) RATE: regular rate RHYTHM: regular rhythm Back/Pelvis: COMMON NORMALS: thoracic and lumbar spine normal to inspection Neuro: COMMON NORMALS: patient oriented x3 and CN's II-XII intact bilaterally Psych: COMMON NORMALS: mental status grossly normal, Normal thought process present and cooperative THOUGHT PROCESS: Normal thought process present Skin: COMMON NORMALS: turgor normal and no jaundice GENERAL SKIN EXAM: turgor normal Course Vital Signs: Vital signs: Vital Signs Temperature 97.8 F 02/22/25 21:08 Pulse Rate 86 02/22/25 21:08 Respiratory Rate 18 02/22/25 21:08 Blood Pressure 159/78 02/22/25 21:08 Pulse Oximetry 95 02/22/25 21:08 Oxygen Delivery Me thod Nasal Cannula 02/22/25 21:08 Oxygen Flow Rate 3 02/22/25 21:08 MDM - Extremity (Nontraumatic) Medical Decision Making 69-year-old female patient presents to the emergency department with erythema and tenderness to the AC space on her left arm. Patient states she was just discharged from the hospital and had an IV in that arm went home and noticed the swelling and tenderness. Patient denies any fever. Patient denies any chest pain or shortness of breath. Given patient's physical exam findings I will order an ultrasound at this time to rule out DVT if this is negative for DVT I will place patient on antibiotics for cellulitis. Care will be transitioned to Dr. Richards at this time All radiology interpretation(s) finalized by discharge Discharge Plan Discharge Condition: Stable Prescriptions: No Action sertraline 25 mg tablet 25 mg PO DAILY ibuprofen 200 mg tablet 200 mg PO Q6H PRN (Reason: Pain) dasatinib 100 mg tablet 100 mg PO DAILY Qty: 30 1RF trazodone 150 mg tablet 150 mg PO BEDTIME levothyroxine 175 mcg tablet 175 mcg PO QAM albuterol sulfate 90 mcg/actuation HFA aerosol inhaler 2 puff INHALATION Q5H PRN (Reason: Wheezing) levofloxacin 750 mg tablet 750 mg PO Q24H 3 Days Qty: 3 0RF amoxicillin-pot clavulanate 875-125 mg tablet 1 tab PO BID Qty: 6 0RF dapagliflozin propanediol [Farxiga] 10 mg tablet 10 mg PO DAILY Qty: 30 2RF prednisone 10 mg tablet See Taper PO DIRECTED Qty: 42 0RF Taper: predniSONE 60-10 60 mg Daily for 2 Days and 0 Hour 50 mg Daily for 2 Days and 0 Hour 40 mg Daily for 2 Days and 0 Hour 30 mg Daily for 2 Days and 0 Hour 20 mg Daily for 2 Days and 0 Hour 10 mg Daily for 2 Days and 0 Hour Rx Instructions: see taper instructions fluticasone furoate-vilanterol [Breo Ellipta] 100-25 mcg/dose blister with device 1 inh inhalation DAILY Qty: 60 0RF furosemide 40 mg tablet 40 mg PO QAM Qty: 30 0RF Referrals: Suzette Elkins FNP [Primary Care Provider, Nurse Practitioner] Print Language: Slovak Coding Level of Care Code ED Professor Of Physics for Noreen Briggs
--- NOTE | 2025-02-23 00:39 | W.ED.EXTPRO ---
HPI - Extremity Problem General: Chief complaint: Extremity Problem,Nontraumatic Stated complaint: Arm Puffy where IV came out Time Seen by Provider: 02/22/25 22:21 History of Present Illness: Pleas see previous chart please merge charts Related Data Home Medications ?Medication ?Instructions ?Recorded ?Confirmed trazodone 150 mg tablet 150 mg PO BEDTIME 05/19/20 02/19/25 ibuprofen 200 mg tablet 200 mg PO Q6H PRN Pain 03/22/22 02/19/25 sertraline 25 mg tablet 25 mg PO DAILY 12/11/24 02/19/25 albuterol sulfate 90 mcg/actuation 2 puff inhalation Q5H PRN Wheezing 02/19/25 02/19/25 aerosol inhaler levothyroxine 175 mcg tablet 175 mcg PO QAM 02/19/25 02/19/25 Previous Rx's ?Medication ?Instructions ?Recorded dasatinib 100 mg tablet 100 mg PO DAILY #30 tabs 02/02/25 amoxicillin 875 mg-potassium 1 tab PO BID #6 tabs 02/22/25 clavulanate 125 mg tablet dapagliflozin propanediol 10 mg 10 mg PO DAILY #30 tabs 02/22/25 tablet (Farxiga) fluticasone furoate 100 1 inh inhalation DAILY #60 ea 02/22/25 mcg-vilanterol 25 mcg/dose inhalation powder (Breo Ellipta) furosemide 40 mg tablet 40 mg PO QAM shortness of breath 02/22/25 #30 tabs levofloxacin 750 mg tablet 750 mg PO Q24H 3 days #3 tabs 02/22/25 prednisone 10 mg tablet See Taper PO DIRECTED #42 tabs 02/22/25 Allergies Allergy/AdvReac Type Severity Reaction Status Date / Time No Known Allergies Allergy Verified 02/22/25 21:11 [facility] ED PFS: Medical History Abscess of finger of left hand Degenerative joint disease of spine Degenerative arthritis Shoulder pain COPD (chronic obstructive pulmonary disease) Nicotine dependence Chronic back pain Hypothyroidism Dyslipidemia Cellulitis Nephrolithiasis CML (chronic myelocytic leukemia) Surgical History H/O sinus surgery History of ureter stent Previous back surgery Family History Mother Cancer Breast cancer Father COPD (chronic obstructive pulmonary disease) Denies family history of CAD (coronary artery disease) Clotting disorder Anesthesia complication Bleeding disorder Social History Smoking and tobacco/nicotine status: current every day tobacco/nicotine user cigarettes [ Other cigarette details: 1 pack/day] Alcohol intake: never Substance/Drug Use: never Household members: family Housing: House Marital status: Course Vital Signs: Vital signs: Vital Signs Temperature 97.8 F 02/22/25 21:08 Pulse Rate 86 02/22/25 21:08 Respiratory Rate 18 02/22/25 21:08 Blood Pressure 159/78 02/22/25 21:08 Pulse Oximetry 95 02/22/25 21:08 Oxygen Delivery Me thod Nasal Cannula 02/22/25 21:08 Oxygen Flow Rate 3 02/22/25 21:08 MDM - Extremity (Nontraumatic) Medical Decision Making US reveals thrombus. Pt was just started on antibiotics to include levaquin, Augmentin. I will have her contine these, take 324 mg aspirin daily, warm compresses and follow up with PCP. XR interpretation done by ED provider, pending radiology final review Discharge Plan Discharge Patient Disposition: Home Clinical Impression: Thrombus Condition: Stable Prescriptions: No Action sertraline 25 mg tablet 25 mg PO DAILY ibuprofen 200 mg tablet 200 mg PO Q6H PRN (Reason: Pain) dasatinib 100 mg tablet 100 mg PO DAILY Qty: 30 1RF trazodone 150 mg tablet 150 mg PO BEDTIME levothyroxine 175 mcg tablet 175 mcg PO QAM albuterol sulfate 90 mcg/actuation HFA aerosol inhaler 2 puff INHALATION Q5H PRN (Reason: Wheezing) levofloxacin 750 mg tablet 750 mg PO Q24H 3 Days Qty: 3 0RF amoxicillin-pot clavulanate 875-125 mg tablet 1 tab PO BID Qty: 6 0RF dapagliflozin propanediol [Farxiga] 10 mg tablet 10 mg PO DAILY Qty: 30 2RF prednisone 10 mg tablet See Taper PO DIRECTED Qty: 42 0RF Taper: predniSONE 60-10 60 mg Daily for 2 Days and 0 Hour 50 mg Daily for 2 Days and 0 Hour 40 mg Daily for 2 Days and 0 Hour 30 mg Daily for 2 Days and 0 Hour 20 mg Daily for 2 Days and 0 Hour 10 mg Daily for 2 Days and 0 Hour Rx Instructions: see taper instructions fluticasone furoate-vilanterol [Breo Ellipta] 100-25 mcg/dose blister with device 1 inh inhalation DAILY Qty: 60 0RF furosemide 40 mg tablet 40 mg PO QAM Qty: 30 0RF Discharge Orders: Discharge ED (Routine); Ordered 02/23/25 Ordered By: Joan Jenkins Referrals: Severo,WATSON BradfordP [Primary Care Provider, Nurse Practitioner] Discharge Diet: Advance as tolerated Discharge Activity: Increase activity as tolerated Patient Instructions: Opioid Safety, Pain Management, Superficial Thrombophlebitis (ED) Activity Restrictions/Additional Instructions: Please continue your antibiotics as prescribed Warm compresses to AC space Please take 324 mg aspirin daily Follow up with PCP for recheck Return to the ER with any worsening symptoms concerns, chest pain or Shortness of breath Print Language: Prydeinig Coding Level of Care Code ED Mailmaster for Noreen Briggs
[2025-02-23 00:45] VITALS: BP 138/76; PULSE 84; RESP 16; O2SAT 92
--- NOTE | 2025-02-23 22:21 | USR_ITS ---
PROCEDURE INFORMATION: Exam: US Duplex Left Upper Extremity Veins, Limited Exam date and time: 02/23/2025 12:16 AM Age: 69 years old Clinical indication: Swelling (edema) of limb; Upper extremity, left; Patient says she was released from hospital today and had iv in swollen area; Additional info: Dvt TECHNIQUE: Imaging protocol: Real-time duplex ultrasound of the left extremity with 2-D gaytan scale, color Doppler flow and spectral waveform analysis including responses to compression and other maneuvers (when performed) with image documentation. Limited exam focused on the left upper extremity veins. COMPARISON: US soft tissue/extremity [id number] 05/19/2020 7:05 PM FINDINGS: Left deep veins: Unremarkable. Axillary and brachial veins are patent throughout without thrombus. Normal Doppler waveforms. Normal compressibility and/or augmentation response. Visualized internal jugular and subclavian veins are patent. Superficial veins: There is an acute occlusive thrombus of the left cephalic vein at the antecubital space. Basilic vein is patent. Soft tissues: Unremarkable. US/[place] [id number] IMPRESSION: 1. NEGATIVE for acute deep venous thrombosis in visualized lower extremity veins. 2. Thrombophlebitis of the cephalic vein.
== END 2025-02-23 00:52 | disposition home or self-care (01) ==
PROVIDERS: Emergency Provider Registered Nurse; PCP Nurse Practitioner Family
DX: I82.612 Acute embolism and thrombosis of superficial veins of left upper extremity (principal); E78.5 Hyperlipidemia, unspecified; J44.9 Chronic obstructive pulmonary disease, unspecified; F17.210 Nicotine dependence, cigarettes, uncomplicated
CPT/HCPCS: 93971; 99284

== ENCOUNTER 2025-03-04 11:41 | Outpatient (CLI) | payer MEDICARE, SELFPAY ==
--- NOTE | 2025-03-04 11:52 | XR_ITS ---
WS: [id number] PA and lateral chest, 03/04/2025 Clinical Data: PLEURAL EFFUSION Comparison: Portable chest, 02/20/2025 Findings: There is a slight increase in the small left pleural effusion. There is atelectasis in the left base. The heart size is difficult to evaluate because of the left effusion but probably is normal. No nodules or masses are seen. There is a patchy opacity at the right cardiophrenic angle which could represent atelectasis and/or pneumonia. The aortic arch shows calcification. There is a slight dextroscoliosis of the thoracic spine. XR/XR chest 2V* [id number] Impression: 1. Slight increase in left pleural effusion with overlying linear atelectasis. 2. Patchy opacity at right cardiophrenic angle. 3. Atherosclerosis.
== END 2025-03-04 11:42 | disposition home or self-care (01) ==
PROVIDERS: PCP Nurse Practitioner Family; Visit Provider Nurse Practitioner Family
DX: J90 Pleural effusion, not elsewhere classified (principal); J98.11 Atelectasis; R91.8 Other nonspecific abnormal finding of lung field; I70.0 Atherosclerosis of aorta
CPT/HCPCS: 71046

== ENCOUNTER 2025-03-11 19:53 | Inpatient (IN) | payer MEDICARE, SELFPAY ==
--- OUTSIDE RECORDS SUMMARY | 2006-05-14 09:58 | XMS_ITS | Continuity of Care Document ---
Author Organization [facility] Address [address] [place] [address] Phone Care Team Providers Care Art Coordinator Name Role Phone Ari Holley MD Unavailable Unavailable Allergies, Adverse Reactions, Alerts Substance Reaction Status Criticality No Known allergies Medications Medication Instructions Dosage Effective Dates (start - stop) Status Comments Percocet 10 mg-650 mg Tab Take one capsule by mouth every six hours - Active methadone 10 mg Tab 2 po tid - Active Xanax 1 mg Tab prn - Active Synthroid 137 mcg Tab as directed - Ac tive Procedures Procedure Date Office/outpatient visit,est, mod 2005 Office/outpatient visit,est, mod 2005 Office/outpatient visit,est, mod 2005 Void Ticket Office/outpatient visit,est, mod 2005 Office/outpatient visit,est, mod 2005 Advance Directives Directive Yes / No Effective Date File Name Resuscitation Not Answered N/A N/A Life Support Not Answered N/A N/A Intubation Not Answered N/A N/A Antibiotics Not Answered N/A N/A IV Fluid Support Not Answered N/A N/A Tube Feed Not Answered N/A N/A Other Directive N/A N/A WARNING:The information contained in this section is historical and is provided for information only and does not constitute a legal document or any assurance that the information is still accurate. Please verify the information with the yancey of the legal document before using it for clinical purposes. Encounters Encounter Description Practice Location Reason(s) For Visit Diagnoses Date Provider Providers Copied on Encounter Office/outpa tient visit,est, mod [facility], [address], [place], [place], [id number] , [place] tel: [phone] [facility] Internal Medicine medication refill (chief complaint) No Information 6 Kishan Chapman. [address] [facility], [address], [place], [address], [place]. tel:[phone] Office/outpa tient visit,[facility], [facility], [address], [place], [place], [id number] , [place] tel: [phone] [facility] Internal Medicine meds (chief complaint) No Information 0 6 Kishan Chapman. [address] [facility], [address], [place], [address], [place]. tel:[phone] [facility], [address], [place], [place], [id number] , [place] tel: [phone] [facility] Internal Medicine LUMBAGODMII WO CMP CNTRLDDEPRESSIVE DISORDER NECSCIATICAHYPOTHY ROIDISM NOSIRON DEFIC ANEMIA NOS 6 Kishan Chapman. [address] [facility], [address], [place], [address], [place]. tel:[phone] Office/outpa tient visit,[facility], [facility], [address], [place], [place], [id number] , [place] tel: [phone] [facility] Internal Medicine No Information 6 Kishan Chapman. [address], [address], [place], [address], [place]. tel:[phone] [facility], [address], [place], [place], [id number] , [place] tel: [phone] [facility] Lab Department No Information 6 Kishan Chapman. [address] [facility], [address], [place], [address], [place]. tel:[phone] Office/outpa tient visit,[facility], [facility], [address], [place], [place], [id number] , [place] tel: [phone] [facility] Internal Medicine No Information 6 Kishan Chapman. [address], [address], [place], [address], [place]. tel: [phone] Office/outpa tient visit,est, [facility], [address], [place], [place], [id number] , [place] tel: [phone] [facility] Lab Department No Information 6 Kishan Chapman. [address], [address], [place], [address], [place]. tel: [phone] Family History Family Member Type Diagnosis Age At Onset No Information Payers Payer name Insurance type Covered libertarian ID Fadia elizondo(s) [facility] [id number] 1 Social History Type Description Quantity Date Captured Comments Alcohol Use Details Unknown Caffeine Use Details Unknown Tobacco Use Status No Information Smoking Status No Information Sex Female Vital Signs Date / Time: Height Weight BMI Pulse Rate Blood Pressure Temperature Respiratory Rate Body Surface Area Head Circumference Head Circ. Percentile Wt./Andrea. Percentile BMI percentile Pulse Ox Inhaled Ox 3:32 PM 203.00 lbs 88 /min 124/90 mm[Hg] 98.60 F 20 /min Chief Complaint And Reason For Visit From encounter dated '05/14/2006 14:58'. medication refill (chief complaint). Description: back pain continues and she is leaving the state Reason For Referral Reason For Referral No Information Plan Of Treatment Date Type Action Status Goal PAP. Due on due Goal FOBT. Due on due Goal Influenza Vaccine. Due on due Goal Colonoscopy. Due on 006 due Goal H&P. Due on due Goal Mammogram. Due on 6 due Goal Sigmoidoscopy. Due on due Goal Breast exam. Due on 006 due Goal [employer] exam. Due on due Goal TD Vaccine. Due on due Goal Lipid Panel. Due on due Goal BMP fasting. Due on due Goal Hemoglobin A1C. Due on due Goal Urine Microalbumin. Due on due Goal Eye Exam. Due on due Goal Foot Exam. Due on 6 due History Of Present Illness Encounter Date Complaint History Of Prese nt Illness No Information Functional Status Date Functional Assessmen t No Information Instructions Date Instruction Additional Infor mation No Information Assessments Type Assessment Date No Information Patient Care Teams Name Effective Dates (start - stop) Status Members No Information
[2025-03-11 19:59] VITALS: BP 107/62; PULSE 80; RESP 18; TEMP 36.9; O2SAT 95; BMI 34.3
--- NOTE | 2025-03-11 20:17 | ECG_ITS ---
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 Measurements Intervals [place] Rate: 81 P: 50 SC: 174 QRS: -76 QRSD: 146 T: 50 QT: 412 QTc: 480 Interpretive Statements SINUS RHYTHM WITH OCCASIONAL VENTRICULAR PREMATURE COMPLEXES LEFT AXIS DEVIATION [QRS AXIS < -30] RIGHT BUNDLE BRANCH BLOCK [120+ ms QRS DURATION, UPRIGHT V1, 40+ ms S IN I/aVL/V4/V5/V6] POSSIBLE ANTERIOR MYOCARDIAL INFARCTION , OF INDETERMINATE AGE [30 ms Q WAVE IN V3/V4, OR R < 0.2 mV IN V4] Compared to ECG 02/19/2025 13:24:42 Ventricular premature complex(es) now present Left-axis deviation now present Right-axis deviation no longer present Myocardial infarct finding still present Electronically Signed On 03-12-2025 05:58:12 CDT by Joao Morillo M.D. [id number] [id number]
[2025-03-11 20:28] LABS: ABG PH Result 7.35 (7.35-7.45); Arterial Blood Gas Hematocrit 35.9 % (37-47); Base Excess ABG 6.3 mmol/L (-2.0-2.0); Blood Gas Allen Test Pos; Blood Gas Sample Site Radial, left; Blood Gas Sample Type Arterial; Carboxyhemoglobin 6.1 %THgb (0.4-20.1); HCO3 ABG 33.6 mmol/L (22-26); HGB O2 Sat 88.5 % (95-100); Ionized Calcium Level - ABG 1.2 mmol/L (1.1-1.4); Oxygen Device NC; Oxygen Saturation ABG 95.3; PO2 ABG 76.3 mmHg (80.0-100.0); Potassium Level - ABG 3.9 mmol/L (3.5-5.0); Total Hemoglobin 11.7 g/dL (12-16)
[2025-03-11 20:29] LABS: ABG PCO2 61.7 mmHg (35-45)
--- NOTE | 2025-03-11 20:35 | W.ED.SOB ---
HPI - SOB/Dyspnea General: Chief Complaint: Shortness of Breath/Dyspnea Stated Complaint: Can't breath fluid on lungs Time Seen by Provider: 03/11/25 20:09 History of Present Illness: HPI Narrative: 69-year-old female COPD, chronic hypoxemic respiratory failure on 2 L nasal cannula, tobacco dependence, hypothyroidism, and CML who presents emergency room with shortness of breath. She had a recent admission to the hospital with bilateral pleural effusions with thoracentesis of 1 of these. She says she had gone to see her doctor and they took an x-ray and told her to come back to the emergency room. She is tachypneic and requires her oxygen on upon arrival. She is normally on 2 L nasal cannula and is on 5. Related Data Home Medications ?Medication ?Instructions ?Recorded ?Confirmed trazodone 150 mg tablet 150 mg PO BEDTIME 05/19/20 02/19/25 ibuprofen 200 mg tablet 200 mg PO Q6H PRN Pain 03/22/22 02/19/25 sertraline 25 mg tablet 25 mg PO DAILY 12/11/24 02/19/25 albuterol sulfate 90 mcg/actuation 2 puff inhalation Q5H PRN Wheezing 02/19/25 02/19/25 aerosol inhaler levothyroxine 175 mcg tablet 175 mcg PO QAM 02/19/25 02/19/25 Previous Rx's ?Medication ?Instructions ?Recorded dasatinib 100 mg tablet 100 mg PO DAILY #30 tabs 02/02/25 amoxicillin 875 mg-potassium 1 tab PO BID #6 tabs 02/22/25 clavulanate 125 mg tablet dapagliflozin propanediol 10 mg 10 mg PO DAILY #30 tabs 02/22/25 tablet (Farxiga) fluticasone furoate 100 1 inh inhalation DAILY #60 ea 02/22/25 mcg-vilanterol 25 mcg/dose inhalation powder (Breo Ellipta) furosemide 40 mg tablet 40 mg PO QAM shortness of breath 02/22/25 #30 tabs prednisone 10 mg tablet See Taper PO DIRECTED #42 tabs 02/22/25 Allergies Allergy/AdvReac Type Severity Reaction Status Date / Time No Known Allergies Allergy Verified 03/11/25 20:04 Review of Systems Narrative: Constitutional symptoms: Negative except as documented in HPI. Skin symptoms: Negative except as documented in HPI. Eye symptoms: Negative except as documented in HPI. ENMT symptoms: Negative except as documented in HPI. Respiratory symptoms: Negative except as documented in HPI. Cardiovascular symptoms: Negative except as documented in HPI. Gastrointestinal symptoms: Negative except as documented in HPI. Genitourinary symptoms: Negative except as documented in HPI. Musculoskeletal symptoms: Negative except as documented in HPI. Neurologic symptoms: Negative except as documented in HPI. Psychiatric symptoms: Negative except as documented in HPI. Endocrine symptoms: Negative except as documented in HPI. PFSH ED PFSH: Medical History Abscess of finger of left hand Degenerative joint disease of spine Degenerative arthritis Shoulder pain COPD (chronic obstructive pulmonary disease) Nicotine dependence Chronic back pain Hypothyroidism Dyslipidemia Cellulitis Nephrolithiasis CML (chronic myelocytic leukemia) Surgical History H/O sinus surgery History of ureter stent Previous back surgery Family History Mother Cancer Breast cancer Father COPD (chronic obstructive pulmonary disease) Denies family history of CAD (coronary artery disease) Clotting disorder Anesthesia complication Bleeding disorder Social History Smoking and tobacco/nicotine status: current every day tobacco/nicotine user cigarettes [ Other cigarette details: 1 pack/day] Alcohol intake: never Substance/Drug Use: never Household members: family Housing: House Marital status: Physical Exam Narrative: EXAM NARRATIVE: General: Alert, no acute distress. Skin: Warm, dry. Head: Normocephalic, atraumatic. Neck: Supple, trachea midline. Eye: Extraocular movements are intact. Ears, nose, mouth and throat: Oral mucosa moist. Cardiovascular: Regular rate and rhythm, Normal peripheral perfusion. Respiratory: coarse, scattered wheeze, mild increased wob. tachypnea, breath sounds are equal, Symmetrical chest wall expansion. Gastrointestinal: Soft, Nontender, Non distended Musculoskeletal: Normal ROM, no deformity. Neurological: Alert and oriented, No focal neurological deficit observed. Psychiatric: Cooperative, appropriate mood & affect. Course Vital Signs: Vital signs: Vital Signs Temperature 98.5 F 03/11/25 19:59 Pulse Rate 79 03/11/25 22:43 Respiratory Rate 20 H 03/11/25 22:43 Blood Pressure 140/75 03/11/25 20:56 Pulse Oximetry 88 L 03/11/25 22:43 Oxygen Delivery Me thod Nasal Cannula 03/11/25 22:43 Oxygen Flow Rate 5 03/11/25 22:43 MDM - SOB/Dyspnea Medical Decision Making Differential diagnosis for patient with shortness of breath includes but is not limited to and based on the above HPI, review of systems and physical exam: Pneumonia. Bronchitis. Asthma or COPD with acute exacerbation. Acute coronary syndrome / ME. Pulmonary embolism. Anxiety. Congestive heart failure. Viral infections including influenza and Covid-19. Atrial fibrillation. Anxiety. Pleural effusion. Pneumothorax. Orders placed to evaluate differential diagnosis based on the above differential, HPI and physical exam EKG: Time 2016. Rate 81. Normal sinus rhythm. Nonspecific ST changes. PVCs., right bundle branch block, This was reviewed and interpreted by myself the ER physician at 2021. AB.35/62/76 with an O2 sat of 95% on 5 L nasal cannula. Chest x-ray: Pleural effusions. This was reviewed and interpreted by myself the emergency room physician. I also reviewed the radiology report. Lab Review: Laboratory results were reviewed and interpreted by myself the emergency room physician. No leukocytosis. No anemia. Slight worsening in renal function. BUN/creatinine are 39 and 1.5 at this time. I reviewed the patient's medical record. Reexamination: Patient still with some mild increased work of breathing. She did not tolerate BiPAP. No altered mental status. Consultation: I spoke with Dr. Nicolas who is on-call for the hospital service who agrees to admission. Assessment and plan: Acute on chronic hypoxemic respiratory failure COPD with acute exacerbation Pleural effusions ?IV Solu-Medrol, albuterol. BiPAP ordered but patient not tolerating. Increased O2 requirements at 5 L nasal cannula. -I discussed the patient with the hospitalist on-call who is admitting the patient. - Discussed findings and plan with patient. Answered any questions. - All laboratory values were reviewed and interpreted personally by myself, the ER physician - All imaging was reviewed and interpreted personally by myself, the ER physician. - Evaluation and treatment of this problem were appropriate in the emergency setting Lab Data 03/11/25 21:10 03/11/25 21:10 Labs/Radiology: Radiology Impressions Chest X-Ray 03/11/25 21:20 IMPRESSION: As above. Laboratory Results WBC 10.97 10^3/uL (3.29-11.43) 03/11/25 21:10 RBC 4.26 10^6/uL (3.85-5.65) 03/11/25 21:10 Hgb 11.10 g/dL (11.27-16.99) L 03/11/25 21:10 Hct 36.2 % (36-47) 03/11/25 21:10 MCV 85.0 fl (85-98) 03/11/25 21:10 MCH 26.1 pg (27-33) L 03/11/25 21:10 MCHC 30.7 g/dL (30-55) 03/11/25 21:10 RDW 16.8 % (12.1-15.1) H 03/11/25 21:10 Plt Count 295 10^3/cmm (157-399) 03/11/25 21:10 MPV 8.5 fL (7.4-10.4) 03/11/25 21:10 Neut % (Auto) 82.6 % 03/11/25 21:10 Lymph % (Auto) 8.7 % 03/11/25 21:10 [place] % (Auto) 6.8 % 03/11/25 21:10 Eos % (Auto) 0.9 % 03/11/25 21:10 Baso % (Auto) 0.5 % 03/11/25 21:10 Neut # (Auto) 9.06 10^3/uL (1.8-7.7) H 03/11/25 21:10 Lymph # (Auto) 1.0 10^3/uL (0.8-4.8) 03/11/25 21:10 [place] # (Auto) 0.8 10^3/uL (0.2-0.9) 03/11/25 21:10 Eos # (Auto) 0.1 10^3/uL (0.0-0.8) 03/11/25 21:10 Baso # (Auto) 0.1 10^3/uL (0.0-0.1) 03/11/25 21:10 Nucleated RBC % (auto) 0 % 03/11/25 21:10 Nucleated RBCs # 0.0 /100WBC 03/11/25 21:10 Specimen Type Arterial 03/11/25 20:18 Sample Site Radial, left 03/11/25 20:18 ABG pH 7.35 (7.35-7.45) 03/11/25 20:18 ABG pCO2 61.7 mmHg (35-45) H* 03/11/25 20:18 ABG pO2 76.3 mmHg (80.0-100.0) L 03/11/25 20:18 ABG HCO3 33.6 mmol/L (22-26) H 03/11/25 20:18 ABG O2 Saturation 95.3 03/11/25 20:18 ABG Base Excess 6.3 mmol/L (-2.0-2.0) H 03/11/25 20:18 [place] Test Pos 03/11/25 20:18 A-a O2 Gradient 0.0 mmHg (5-10) L 03/11/25 20:18 Hematocrit 35.9 % (37-47) L 03/11/25 20:18 Hgb O2 Saturation 88.5 % (95-100) L 03/11/25 20:18 Carboxyhemoglobin 6.1 %THgb (0.4-20.1) 03/11/25 20:18 Methemoglobin 1.0 % (0.4-1.5) 03/11/25 20:18 Total Hemoglobin 11.7 g/dL (12-16) L 03/11/25 20:18 Sodium 140.0 mmol/L (131-143) 03/11/25 20:18 Potassium 3.9 mmol/L (3.5-5.0) 03/11/25 20:18 Glucose 174.0 mg/dL (70-115) H 03/11/25 20:18 Ionized Calcium 1.2 mmol/L (1.1-1.4) 03/11/25 20:18 O2 Delivery Device Nc 03/11/25 20:18 O2 Liters/Min 4.0 % 03/11/25 20:18 Plug Assembler ID [email or web address] 03/11/25 20:18 Sodium 137 mmol/L (136-145) 03/11/25 21:10 Potassium 4.1 mmol/L (3.5-5.1) 03/11/25 21:10 Chloride 95 mmol/L (98-107) L 03/11/25 21:10 Carbon Dioxide 29 mmol/L (22-29) 03/11/25 21:10 Anion Gap 17.1 (5-19) 03/11/25 21:10 BUN 39 mg/dL (8-23) H 03/11/25 21:10 Creatinine 1.5 mg/dL (0.5-0.9) H 03/11/25 21:10 GFR Calculation 34.4 mL/min (90-130) L 03/11/25 21:10 Glucose 152 mg/dL (65-115) H 03/11/25 21:10 Calculated Osmolality 296 mOsm/kg (285-295) H 03/11/25 21:10 Lactic Acid 0.9 mmol/L (0.5-2.2) 03/11/25 21:10 Calcium 9.2 mg/dL (8.5-10.5) 03/11/25 21:10 Total Bilirubin 0.2 mg/dL (0.15-1.2) 03/11/25 21:10 AST 28 U/L (0-32) 03/11/25 21:10 ALT 37 U/L (0-33) H 03/11/25 21:10 Alkaline Phosphatase 111 U/L (35-105) H 03/11/25 21:10 Troponin T Baseline 29 ng/L (0-10) H 03/11/25 21:10 C-Reactive Protein 75.1 mg/L (0.0-4.9) H 03/11/25 21:10 NT-Pro-B Natriuret Pep 452 pg/mL (0-125) H 03/11/25 21:10 Total Protein 6.7 g/dL (6.6-8.7) 03/11/25 21:10 Albumin 3.8 g/dL (3.5-5.2) 03/11/25 21:10 Globulin 2.9 g/dL (1.3-4.6) 03/11/25 21:10 Procalcitonin 0.12 ng/mL (0-0.5) 03/11/25 21:10 All radiology interpretation(s) finalized by discharge Discharge Plan Discharge Clinical Impression: Acute on chronic hypoxic respiratory failure, Acute exacerbation of chronic obstructive airways disease, Pleural effusion, bilateral, Acute renal insufficiency Condition: Stable Prescriptions: No Action sertraline 25 mg tablet 25 mg PO DAILY ibuprofen 200 mg tablet 200 mg PO Q6H PRN (Reason: Pain) dasatinib 100 mg tablet 100 mg PO DAILY Qty: 30 1RF trazodone 150 mg tablet 150 mg PO BEDTIME levothyroxine 175 mcg tablet 175 mcg PO QAM albuterol sulfate 90 mcg/actuation HFA aerosol inhaler 2 puff INHALATION Q5H PRN (Reason: Wheezing) amoxicillin-pot clavulanate 875-125 mg tablet 1 tab PO BID Qty: 6 0RF dapagliflozin propanediol [Farxiga] 10 mg tablet 10 mg PO DAILY Qty: 30 2RF prednisone 10 mg tablet See Taper PO DIRECTED Qty: 42 0RF Taper: predniSONE 60-10 60 mg Daily for 2 Days and 0 Hour 50 mg Daily for 2 Days and 0 Hour 40 mg Daily for 2 Days and 0 Hour 30 mg Daily for 2 Days and 0 Hour 20 mg Daily for 2 Days and 0 Hour 10 mg Daily for 2 Days and 0 Hour Rx Instructions: see taper instructions fluticasone furoate-vilanterol [Breo Ellipta] 100-25 mcg/dose blister with device 1 inh inhalation DAILY Qty: 60 0RF furosemide 40 mg tablet 40 mg PO QAM Qty: 30 0RF Referrals: Severo,WATSON BrafdordP [Primary Care Provider, Nurse Practitioner] Print Language: Citizen Of [place] Coding Level of Care Code ED Terminal Block Assembler for Noreen Briggs
[2025-03-11 20:56] VITALS: BP 140/75; PULSE 88; RESP 18; O2SAT 93
--- NOTE | 2025-03-11 21:20 | XRR_ITS ---
PROCEDURE INFORMATION: Exam: XR Chest Exam date and time: 03/11/2025 9:28 PM Age: 69 years old Clinical indication: Shortness of breath TECHNIQUE: Imaging protocol: Radiologic exam of the chest. Views: 1 view. COMPARISON: CR XR chest 2V* [id number] 03/04/2025 12:06 PM FINDINGS: Lungs: Compressive atelectasis of the left lung base again noted. Similar bandlike opacities in the left lung base. Pleural spaces: Moderate left-sided pleural effusion. Trace right-sided pleural effusion. No sizable pneumothorax. Heart/Mediastinum: Unremarkable. No cardiomegaly. Bones/joints: Unremarkable. XR/XR chest 1V portable [id number] IMPRESSION: As above.
[2025-03-11 21:28] LABS: Basophils # 0.1 10^3/uL (0.0-0.1); Basophils % 0.5 %; Eosinophils # 0.1 10^3/uL (0.0-0.8); Eosinophils % 0.9 %; Hematocrit 36.2 % (36-47); Lymphocytes % 8.7 %; Mean Corpuscular HGB Conc 30.7 g/dL (30-55); Mean Corpuscular Hemoglobin 26.1 pg (27-33); Mean Platelet Volume 8.5 fL (7.4-10.4); Monocytes # 0.8 10^3/uL (0.2-0.9); Monocytes % 6.8 %; Neutrophils # 9.06 10^3/uL (1.8-7.7); Neutrophils % 82.6 %; Nucleated Red Blood Cells % 0 %; Platelet Count 295 10^3/cmm (157-399); Red Blood Count 4.26 10^6/uL (3.85-5.65); Red Cell Distribution Width 16.8 % (12.1-15.1); White Blood Count 10.97 10^3/uL (3.29-11.43)
[2025-03-11 21:44] LABS: Troponin(5th) Baseline 29 ng/L (0-10)
[2025-03-11 21:46] LABS: Lactic Sepsis W/Reflex 0.9 mmol/L (0.5-2.2)
[2025-03-11 21:54] LABS: NT Pro B Type Natriuretic Pept 452 pg/mL (0-125); Procalcitonin 0.12 ng/mL (0-0.5)
[2025-03-11 22:05] LABS: Alanine Aminotransferase 37 U/L (0-33); Albumin Level 3.8 g/dL (3.5-5.2); Alkaline Phosphatase 111 U/L (35-105); Anion Gap 17.1 (5-19); Aspartate Amino Transferase 28 U/L (0-32); Blood Urea Nitrogen 39 mg/dL (8-23); C Reactive Protein 75.1 mg/L (0.0-4.9); Calcium 9.2 mg/dL (8.5-10.5); Carbon Dioxide 29 mmol/L (22-29); Chloride 95 mmol/L (98-107); Creatinine Clr Calc Pharmacy 38.6168; Globulin 2.9 g/dL (1.3-4.6); Glomerular Filtration Rate 34.4 mL/min (90-130); Glucose 152 mg/dL (65-115); Osmolality Calculated 296 mOsm/kg (285-295); Potassium 4.1 mmol/L (3.5-5.1); Sodium 137 mmol/L (136-145); Total Bilirubin 0.2 mg/dL (0.15-1.2); Total Protein 6.7 g/dL (6.6-8.7)
[2025-03-11] MEDS: methylPREDNISolone sod succ 125 mg/2 mL INJ IVP (22:06)
--- NOTE | 2025-03-11 22:10 | ECG_ITS ---
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 Measurements Intervals [place] Rate: 77 P: 26 MD: 178 QRS: -80 QRSD: 143 T: 44 QT: 410 QTc: 467 Interpretive Statements SINUS RHYTHM WITH SINUS ARRHYTHMIA LEFT AXIS DEVIATION [QRS AXIS < -30] RIGHT BUNDLE BRANCH BLOCK [120+ ms QRS DURATION, UPRIGHT V1, 40+ ms S IN I/aVL/V4/V5/V6] POSSIBLE ANTERIOR MYOCARDIAL INFARCTION , OF INDETERMINATE AGE [30 ms Q WAVE IN V3/V4, OR R < 0.2 mV IN V4] Compared to ECG 03/11/2025 20:17:19 Ventricular premature complex(es) no longer present Myocardial infarct finding still present Electronically Signed On 03-12-2025 06:23:58 CDT by Joao Morillo M.D. [email or web address] [id number]
[2025-03-11 22:14] VITALS: PULSE 75; RESP 18; O2SAT 94
[2025-03-11 22:43] VITALS: PULSE 79; RESP 20; O2SAT 88
[2025-03-11 23:02] VITALS: PULSE 78; RESP 18; O2SAT 96
[2025-03-12] VITALS (14 sets, daily range): BP systolic 104–165; BP diastolic 59–91; PULSE 72–95; RESP 16–25; TEMP 36.4–36.9; O2SAT 91–96; BMI 34.3
[2025-03-12 00:05] LABS: Troponin 5 2HR 28.46 ng/L (0-10)
[2025-03-12 00:06] LABS: Troponin 5 2HR Delta -0.54 ABS# (0-10)
[2025-03-12] MEDS: pneumococcal (23 valent) SDV 0.5 mL IM (01:40)
[2025-03-12] MEDS: nicotine 14 mg Patch 1 PATCH TRANSDERMA ×2 (01:40→09:28)
[2025-03-12] MEDS: trazodone 150 mg Tablet PO (01:40)
--- NOTE | 2025-03-12 02:10 | ECG_ITS ---
[employer] Test Date: 2025-03-12 Pat Name: Justina Meraz Department: Room: 103 Gender: Female Black Topper: : 1955 Requested By: Ramona Rainey Order Number: [id number] Delgado MD: Joao Morillo M.D. Measurements Intervals [place] Rate: 80 P: 56 CA: 161 QRS: -85 QRSD: 145 T: 29 QT: 403 QTc: 465 Interpretive Statements SINUS RHYTHM WITH OCCASIONAL VENTRICULAR PREMATURE COMPLEXES POSSIBLE LEFT ATRIAL ENLARGEMENT [-0.1mV P-WAVE IN V1/V2] RIGHT BUNDLE BRANCH BLOCK [120+ ms QRS DURATION, UPRIGHT V1, 40+ ms S IN I/aVL/V4/V5/V6] LEFT ANTERIOR FASCICULAR BLOCK [QRS AXIS <= -45, QR IN I, RS IN II] POSSIBLE SEPTAL MYOCARDIAL INFARCTION , OF INDETERMINATE AGE [30 ms Q WAVE IN V1/V2] Compared to ECG 03/11/2025 23:02:16 Ventricular premature complex(es) now present Left anterior fascicular block now present Sinus arrhythmia no longer present. Left-axis deviation no longer present Myocardial infarct finding still present Electronically Signed On 03-12-2025 06:23:43 CDT by Joao Morillo M.D. [id number] [id number]
[2025-03-12 02:17] LABS: Amphetamines Screen Urine Negative (Negative); Barbiturates Screen Urine Negative (Negative); Benzodiazepines Screen Urine Negative (Negative); Cocaine Screen Urine Negative (Negative); Opiate Screen Urine Negative (Negative); PCP Screen Urine Negative (Negative); THC Screen Urine Negative (Negative)
--- NOTE | 2025-03-12 02:19 | CTR_ITS ---
PROCEDURE INFORMATION: Exam: CT Chest With Contrast; Diagnostic Exam date and time: 03/12/2025 2:37 AM Age: 69 years old Clinical indication: Bloating; Shortness of breath; Prior surgery; Surgery date: 6+ months; Surgery type: Ureteral stent, back surgery; Additional info: Abdomen distension and discomfort, possible ascites TECHNIQUE: Imaging protocol: Diagnostic computed tomography of the chest with contrast. Radiation optimization: All CT scans at this facility use at least one of these dose optimization techniques: automated exposure control; mA and/or kV adjustment per patient size (includes targeted exams where dose is matched to clinical indication); or iterative reconstruction. Contrast material: OMNI 350; Contrast volume: 100 ml; Contrast route: INTRAVENOUS (IV); COMPARISON: CT chest [facility] [id number] 02/21/2025 10:43 AM RADIATION DOSE METRICS: Total DLP (mGy-cm): 542.8 FINDINGS: Lungs: Mild atelectasis bilateral lung bases.. No consolidation. No masses. Pleural spaces: Moderate to large bilateral pleural effusions. Heart: Unremarkable. No cardiomegaly. No pericardial effusion. Lymph nodes: Unremarkable. No enlarged lymph nodes. Vasculature: Unremarkable. No aortic aneurysm. Bones/joints: Unremarkable. No acute fracture. Soft tissues: Unremarkable. PROCEDURE INFORMATION: Exam: CT Abdomen And Pelvis With Contrast Exam date and time: 03/12/2025 2:37 AM Age: 69 years old Clinical indication: Bloating; Shortness of breath; Prior surgery; Surgery date: 6+ months; Surgery type: Ureteral stent, back surgery; Additional info: Abdomen distension and discomfort, possible ascites TECHNIQUE: Imaging protocol: Computed tomography of the abdomen and pelvis with contrast. Radiation optimization: All CT scans at this facility use at least one of these dose optimization techniques: automated exposure control; mA and/or kV adjustment per patient size (includes targeted exams where dose is matched to clinical indication); or iterative reconstruction. Contrast material: OMNI 350; Contrast volume: 100 ml; Contrast route: INTRAVENOUS (IV); COMPARISON: CT chest [facility] [id number] 02/21/2025 10:43 AM RADIATION DOSE METRICS: Total DLP (mGy-cm): 828.2 FINDINGS: Liver: Normal. No mass. Gallbladder and biliary ducts: Normal. No calcified stones. No ductal dilation. Pancreas: Normal. No ductal dilation. Spleen: Normal. No splenomegaly. Adrenal glands: Normal. No mass. Kidneys and ureters: Severe left hydronephrosis and hydroureter as a consequence of an obstructing 9 mm stone left UVJ. Multiple additional punctate left caliceal stones. Multiple nonobstructing right-sided caliceal stones measuring up to 9 mm in diameter. Stomach and bowel: Unremarkable. No obstruction. No mucosal thickening. Appendix: No evidence of appendicitis. Intraperitoneal space: Unremarkable. No free air. No significant fluid collection. Vasculature: Unremarkable. No abdominal aortic aneurysm. Lymph nodes: Unremarkable. No enlarged lymph nodes. Urinary bladder: Unremarkable as visualized. Reproductive: Unremarkable as visualized. Bones/joints: Unremarkable. No acute fracture. Soft tissues: Unremarkable. CT/CT chest abdpel w/*[id number] IMPRESSION: No acute findings. IMPRESSION: Severe left hydronephrosis and hydroureter as a consequence of an obstructing 9 mm stone left UVJ. Multiple additional punctate left caliceal stones. Multiple nonobstructing right-sided caliceal stones measuring up to 9 mm in diameter.
--- NOTE | 2025-03-12 02:22 | PC.NURSE ---
0050- Patient is very anxious and restless in bed. Patient rocking back and forth on side of bed shaking and fidgeting with hair. Educated patient to attempt breathing techniques. Notified Dr. Nicolas of situation requesting something to help with anxiety. Patient also requesting home dose of trazodone. Discussed bipap and other oxygenation methods. Received orders for home dose of trazodone, nicotine patch, review home meds so MD can restart her, and orders for heat hi-flow instead of bipap. Also requesting U-tox due to patient behavior. 0220- Notified Dr. Nicolas patient has been complaining of abdominal distension and discomfort. Per patient she has been mentioning this to doctors and is very worried. Patient abdominal if very large, round and seems to have ascites. bowel sounds heard and per patient BM yesterday. Received orders for CT chest/abd/pelvis with contrast.
[2025-03-12] MEDS: iohexol 350 mg/mL 500 mL Btl (per mL) IV (02:40)
[2025-03-12 03:41] LABS: Troponin 5 6HR 24.23 ng/L (0-10)
[2025-03-12 03:47] LABS: Troponin 5 6HR Delta -4.77 ng/L (0-12)
[2025-03-12 04:14] LABS: Basophils % 0.3 %; Eosinophils % 0.1 %; Hematocrit 34.6 % (36-47); Lymphocytes # 0.4 10^3/uL (0.8-4.8); Lymphocytes % 4.1 %; Mean Corpuscular HGB Conc 30.1 g/dL (30-55); Mean Corpuscular Hemoglobin 26.1 pg (27-33); Mean Corpuscular Volume 86.9 fl (85-98); Monocytes # 0.2 10^3/uL (0.2-0.9); Monocytes % 1.5 %; Neutrophils # 9.47 10^3/uL (1.8-7.7); Neutrophils % 93.5 %; Nucleated Red Blood Cells % 0 %; Platelet Count 267 10^3/cmm (157-399); Red Blood Count 3.98 10^6/uL (3.85-5.65); Red Cell Distribution Width 16.7 % (12.1-15.1); White Blood Count 10.12 10^3/uL (3.29-11.43)
--- NOTE | 2025-03-12 04:16 | P.HP_ITS ---
Providers/Chief Complaint 2 Admitting Physician: Sunita Nicolas MD--seen before midnight Primary Care Provider: Suzette Elkins, MACRINA Chief Complaint: Can't breath fluid on lungs History of Present Illness Justina Meraz is a 69 year old female with medical history significant for excessive cigarette smoking history. Patient has smoked for about 50 years a pack of cigarettes a day and now trending down to a half a pack a day. Patient also had been diagnosed with CML since 2016 and had undergone chemotherapy recently causing her to have much pleural effusion. Patient had thoracentesis done on day February 20 on the left side of the lung on her last admission for which she was discharged on 02/22/2025. On follow-up with the primary care doctor, patient underwent a chest x-ray for interval resolution of status of the pleural effusion. Chest x-ray was done 5 days ago the primary care doctor sent the patient to go to the ED that the pleural effusion is worse than it was prior to the M draining it is on February 20. Patient exercised for the issues with pleural effusion she is finding herself very symptomatic with shortness of breath cannot lie then cannot breathe. According to the patient she related that there are no malignant cells in the pleural effusion and that she was told that is due to her chemotherapy that she was using to treat her CML. Patient will not only have diuretics will also be set up to go for interventional radiology for pleural effusion drainage. The last time on February 20, 2025 patient had 1 L drain at of the left lung. Patient BMP was in the 400s. Patient refused to wear BiPAP patient CO2 was 60 pH is within normal. Patient at this time has COPD and CHF exacerbation along with extensive pleural effusion compromising breathing. Review of Systems 2 Narrative: System review upon 10 organ review is significant for cardiovascular failure and respiratory failure and peripheral edema. Medications/Allergies Home Medications ?Medication ?Instructions ?Recorded ?Confirmed ?Last Taken ?Type trazodone 150 mg tablet 150 mg PO BEDTIME 05/19/20 0 03/12/25 2 Days Ago History ~03/10/25 ibuprofen 200 mg tablet 200 mg PO Q6H PRN Pain 03/2203/12/25 Unknown History sertraline 25 mg tablet 25 mg PO DAILY 12/11/2402/22 1 Day Ago History ~03/11/25 dasatinib 100 mg tablet 100 mg PO DAILY #30 tabs 09/1703/12/25 1 Day Ago Rx ~03/11/25 albuterol sulfate 90 mcg/actuation 2 puff inhalation Q 5H PRN Wheezing 02/19/25 03/12/25 1 Day Ago History aerosol inhaler ~03/11/25 levothyroxine 175 mcg tablet 175 mcg PO QAM 02/19/25 0 03/12/25 1 Day Ago History ~03/11/25 dapagliflozin propanediol 10 mg 10 mg PO DAILY #30 tab s 02/22/25 03/12/25 1 Day Ago Rx tablet (Farxiga) ~03/11/25 fluticasone furoate 100 1 inh inhalation DAILY #60 e a 02/22/25 03/12/25 1 Day Ago Rx mcg-vilanterol 25 mcg/dose ~03/11/25 inhalation powder (Breo Ellipta) furosemide 40 mg tablet 40 mg PO QAM shortness of br eath 02/22/25 03/12/25 1 Day Ago Rx #30 tabs ~03/11/25 Allergies Allergy/AdvReac Type Severity Reaction Status Date / Time No Known Allergies Allergy Verified 03/11/25 20:04 PFSH Acute 2 PFSH: Medical History (Updated 03/12/25 @ 04:33 by Sunita Nicolas MD) Abscess of finger of left hand Degenerative joint disease of spine Degenerative arthritis Shoulder pain COPD (chronic obstructive pulmonary disease) Nicotine dependence Chronic back pain Hypothyroidism Dyslipidemia Cellulitis Nephrolithiasis CML (chronic myelocytic leukemia) Surgical History (Updated 02/23/25 @ 00:00 by ROMERO Osborne) H/O sinus surgery History of ureter stent Previous back surgery Family History Mother Cancer Breast cancer Father COPD (chronic obstructive pulmonary disease) Denies family history of CAD (coronary artery disease) Clotting disorder Anesthesia complication Bleeding disorder Social History Smoking and tobacco/nicotine status: current every day tobacco/nicotine user cigarettes [ Other cigarette details: 1 pack/day] Alcohol intake: never Substance/Drug Use: never Household members: family Housing: House Marital status: Vitals/I&O/Wt Last Vital Signs Temp 98.2 F 03/12/25 01:18 Pulse 87 03/12/25 01:18 Resp 25 H 03/12/25 01:18 BP 165/91 03/12/25 01:18 Pulse Ox 91 03/12/25 01:18 O2 Del Method Nasal Cannula 03/12/25 01:20 O2 Flow Rate 5 03/12/25 01:18 Weight last 48 hrs Weight 90.832 kg Weight 90.718 kg Physical Exam 2 Narrative: Generally patient is restless constantly talking anxious. HEENT normocephalic/atraumatic neck neck is supple cardiovascular heart rate is regular lungs coarse breath sounds with upper airway transmission as the patient breathes. Abdomen is extensively obese with fluid wave. had Gomez in the ED to gravity to allow patient work of breathing. Extremities are significant for third space edema Data 03/12/25 02:50 03/11/25 21:10 Micro: Microbiology 03/11/25 21:14 Blood Culture - Preliminary Blood SPECIMEN COLLECTED 03/11/25 21:10 Blood Culture - Preliminary Blood SPECIMEN COLLECTED A&P Assessment and plan (1) Pleural effusion, bilateral: Patient is with ascites fluid/pleural fluid - Patient will have to undergo drainage of pleural fluid at the interventional radiology - Assessment of the ascites could be done as well if he warrants draining. - CT of the chest abdomen and pelvics done because of so much fluid wave and pleural effusions. - Must continue to treat and monitor - Diuretics are in play. BMP is not that remarkable in the 400s - Patient has much peripheral edema along with pleural edema and she has heart failure - Obtain echocardiogram if 1 had not been done in the last 3 months (2) Acute on chronic hypoxic respiratory failure: - Patient is with hypoxic hypercapnic respiratory failure with a CO2 of 60 patient initially started doing well on BiPAP and could not take it because is giving her panic attacks. She is doing fairly well on nasal cannula. - Steroid therapy nebulizing treatment supplemental oxygen. (3) Acute renal insufficiency: Monitor renal function because of patient's diuretics. (4) Immunocompromised: Patient is with CML (5) Nicotine dependence: Patient has been counseled against smoking cessation and the adverse effect of smoking and also in the setting of patient has been leukemia and had been undergoing chemotherapy. Nicotine patch given for the patient Plan GI and DVT prophylaxis in place PDMP PDMP Reviewed: Last Reviewed 03/12/25 04:35 by Sunita Nicolas MD Attestations 2 Medical Necessity Statement*: Patient with extensive pleural effusion extensive anasarca and CHF exacerbation COPD exacerbation unable to breathe and cannot tolerate BiPAP this is of at least 2 midnights for further optimization of care. Coding Level of Care Code 90250 Diagnoses Pleural effusion, bilateral J90 Acute on chronic hypoxic respiratory failure J96.21 Acute renal insufficiency N28.9 Immunocompromised D84.9 Nicotine dependence F17.200 Time Spent (min) 60
[2025-03-12 04:45] LABS: Alanine Aminotransferase 33 U/L (0-33); Albumin Level 3.6 g/dL (3.5-5.2); Alkaline Phosphatase 99 U/L (35-105); Anion Gap 14.4 (5-19); Aspartate Amino Transferase 24 U/L (0-32); Blood Urea Nitrogen 37 mg/dL (8-23); Calcium 8.6 mg/dL (8.5-10.5); Carbon Dioxide 30 mmol/L (22-29); Chloride 94 mmol/L (98-107); Creatinine Clr Calc Pharmacy 41.4025; Globulin 2.7 g/dL (1.3-4.6); Glomerular Filtration Rate 37.3 mL/min (90-130); Glucose 147 mg/dL (65-115); Magnesium 2.2 mg/dL (1.7-2.3); NT Pro B Type Natriuretic Pept 378 pg/mL (0-125); Osmolality Calculated 289 mOsm/kg (285-295); Phosphorus 4.8 mg/dL (2.5-4.5); Potassium 4.4 mmol/L (3.5-5.1); Sodium 134 mmol/L (136-145); Total Bilirubin 0.2 mg/dL (0.15-1.2); Total Protein 6.3 g/dL (6.6-8.7)
[2025-03-12] MEDS: FUROsemide 10 mg/mL SDV 4mL 40 MG IVP ×2 (05:05→16:41)
[2025-03-12] MEDS: heparin 5,000 unit/mL INJ 1 mL 5000 UNIT SUBCUT ×2 (05:06→16:45)
[2025-03-12] MEDS: levothyroxine 175 mcg Tablet PO (05:06)
--- OUTSIDE RECORDS SUMMARY | 2025-03-12 06:36 | XMS_ITS | Clinical Summary ---
Author Organization [employer] Address [address] [facility] Attn: [place] [address] Care Team Providers Care Senior Architect/Design Manager Name Role Phone Unavailable Primary Care Provider Unavailabl e Allergies No known active allergies Medications naloxone (NARCAN) 4 mg/spray [place], Non-Aerosol EMERGENCY USE ONLY: Administer 1 spray (4 mg) in one nostril one time. May repeat in alternating nostrils every 2-3 min until responsive or EMS arrives. 2 Each 3 0 Active dasatinib (SPRYCEL) 100 mg tablet Take 100 mg by mouth daily. 0 Active Additional Information Patient taking differently:100 mg OralDAILY AT BEDTIME, Reported on 12/14/2022 levothyroxine 125 mcg tablet Take 125 mcg by mouth daily safety net maker. 0 Active nicotine (NICODERM CQ) 14 mg/24 hr patch Apply 1 Patch to skin as directed every 24 hours. 0 Active traZODone (DESYREL) 150 mg tablet Take 150 mg by mouth daily at bedtime. 0 Active oxyCODONE-aceta minophen (PERCOCET) 10-325 mg Tablet Take 1 Tablet by mouth every 4 hours as needed for Pain, Severe. 0 Active fentaNYL (DURAGESIC) 25 mcg/hr patch Apply 1 Patch to skin as directed every third day. Active DULoxetine (CYMBALTA) 60 mg Capsule, Delayed Release(E.C.) Take 60 mg by mouth 2 times daily. Active FUROSEMIDE ORAL Take by mouth. Active sulfamethoxazol e-trimethoprim (BACTRIM DS) 800-160 mg tablet Take 1 Tablet by mouth 2 times daily. Active mupirocin (BACTROBAN) 2 % Ointment Apply to affected area daily. Active Active Problems Problem Noted Date Diagnosed Date Pneumonia of both lower lobe s due to Streptococcus pneumoniae 12/16/[address] of the chest 12/15/2022 Hypoxia 12/14/2022 Hypokalemia 12/14/2022 Pleural effusion on left 12/13/2022 Acute respiratory failure with hypoxia UTI (urinary tract infection) 05/22/2020 Hypothyroidism 05/22/2020 CML (chronic myelocytic leukemia) 05/22/2020 Tobacco dependence 05/22/2020 Opiate dependence 05/22/2020 Cellulitis of right lower extremity 05/22/2020 Effusion of right hip 05/22/2020 Chronic pain 05/22/2020 Family History Medical History Relation Name Comments No Known Problems Father No Known Problems Mother Relation Name Status Comments Father Mother Social History Tobacco Use Types Packs/Day Years Used Date Smoking Tobacco: Every Day Cigarettes Tobacco Cessation:Ready to Q uit: Not Asked; Counseling Given: Not Answered Alcohol Use Standard Drinks/Week Comments Not Currently 0 (1 standard drink = 0.6 oz pur e alcohol) Feeling Safe Answer Date Recorded Are you in a relationship wi th someone who hurts you emotionally and/or physically? 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 Gender Identity Not on file Sexual Orientation Not on file Last Filed Vital Signs Vital Sign Reading Time Taken Comments Blood Pressure 169/106 01/21/2023 2:30 PM CDT Pulse 82 01/21/2023 2:30 PM CDT Temperature 36.3 C (97.4 F) 01/21/2023 10:47 AM CDT Respiratory Rate 20 01/21/2023 2:30 PM CDT Oxygen Saturation 96% 01/21/2023 2:30 PM CDT Inhaled Oxygen Concentration - - Weight 70 kg (154 lb 6.4 oz) 01/21/2023 10:47 AM CDT Height 160 cm (5' 3 ) 01/21/2023 10:47 AM CDT Body Mass Index 27.35 01/21/2023 10:47 AM CDT Plan of Treatment Health Maintenance Due Date Last Done Comments DTAP/TDAP/TD VACCINES (1 - Tdap) 1974 PNEUMOCOCCAL VACCINE 50+ YEARS (1 of 2 - PCV) 08/11/19 74 ZOSTER VACCINE (1 of 2) 1974 BREAST CANCER SCREENING 1995 COLORECTAL SCREENING 2000 Colorectal Cancer Screening 2000 FIT-DNA Q 3 years 2000 FIT/FOBT Q 1 year 2000 Flex Sig/CT Colonography Q 5 years 2000 RSV VACCINE (60+ or ) (1 - Risk 60-74 years 1-dose series) 2015 OSTEOPOROSIS SCREENING 2020 INFLUENZA VACCINE (#1) 2024 Insurance [employer] [facility] Advance Directives For more information, please contact: [phone] * Full Code (Latest Code Status on File) Date Activated Date Inactivated Comments 12/13/2022 3:27 PM 12/17/2022 4:15 PM
--- OUTSIDE RECORDS SUMMARY | 2025-03-12 06:36 | XMS_ITS ---
Author Organization [facility] Address [address] [facility] Attn: [place] [address] Care Team Providers Care Teradata Solution Architect Name Role Phone Unavailable Primary Care Provider Unavailabl e Active Problems Problem Noted Date Diagnosed Date Pneumonia of both lower lobe s due to Streptococcus pneumoniae 12/16/[address] of the chest 12/15/2022 Hypoxia 12/14/2022 Hypokalemia 12/14/2022 Pleural effusion on left 12/13/2022 Acute respiratory failure with hypoxia 3 UTI (urinary tract infection) 05/22/2020 Hypothyroidism 05/22/2020 CML (chronic myelocytic leukemia) 05/22/2020 Tobacco dependence 05/22/2020 Opiate dependence 05/22/2020 Cellulitis of right lower extremity 05/22/2020 Effusion of right hip 05/22/2020 Chronic pain 05/22/2020 Current Treatment and Therapy Plans No current plan information found. Past Treatment and Therapy Plans No past plan information found. Lifetime Dose Tracking * Chemical Lifetime Dose Automatic Entry Manual Entr y Total DLP 256.1 DLP 256.1 DLP 0 DLP CTDIvol Max 12.3 mGy 12.3 mGy 0 mGy CTDIvol Min 12.3 mGy 12.3 mGy 0 mGy
--- OUTSIDE RECORDS SUMMARY | 2025-03-12 06:37 | XMS_ITS | Clinical Summary ---
Author Organization 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 Active traZODone (DESYREL) 150 mg tablet Take 150 mg by mouth daily at bedtime. Active oxyCODONE-aceta minophen (PERCOCET) 10-325 mg Tablet Take 1 Tablet by mouth every 4 hours as needed for Pain, Severe. Active fentaNYL (DURAGESIC) 75 mcg/hr patch Apply 1 Patch to skin as directed every third day. Active fentaNYL (DURAGESIC) 75 mcg/hr patch Apply 1 Patch to skin as directed every third day. Active nicotine (NICODERM CQ) 14 mg/24 hr patch Apply 1 Patch to skin as directed every 24 hours. Active nicotine (NICODERM CQ) 21 mg/24 hr patch Apply 1 Patch to skin as directed every 24 hours. Active dasatinib (SPRYCEL) 100 mg tablet Take 100 mg by mouth daily. Active naloxone (NARCAN) 4 mg/spray [place], Non-Aerosol EMERGENCY USE ONLY: Administer 1 spray (4 mg) in one nostril one time. May repeat in alternating nostrils every 2-3 min until responsive or EMS arrives. 2 Each 3 0 Active Active Problems Problem Noted Date Diagnosed Date Cellulitis of right lower extremity 05/22/2020 CML (chronic myelocytic leukemia) 05/22/2020 UTI (urinary tract infection) 05/22/2020 Effusion of right hip 05/22/2020 Tobacco dependence 05/22/2020 Hypothyroidism 05/22/2020 Chronic pain 05/22/2020 Opiate dependence 05/22/2020 Social History Tobacco Use Types Packs/Day Years Used Date Smoking Tobacco: Every Day Cigarettes 1 50 Tobacco Cessation:Ready to Q uit: No; Counseling Given: Yes Alcohol Use Standard Drinks/Week Comments Not Currently 0 (1 standard drink = 0.6 oz pur e alcohol) Comments Unknown Sex and Gender Information Value Date Recorded Sex Assigned at Not on file Legal Sex Female 10:00 AM CDT Gender Identity Not on file Sexual Orientation Not on file Last Filed Vital Signs Vital Sign Reading Time Taken Comments Blood Pressure 149/82 05/24/2020 3:15 PM CDT Pulse 52 05/24/2020 3:15 PM CDT Temperature 37.7 C (99.8 F) 05/24/2020 3:15 PM CDT Respiratory Rate 16 05/24/2020 3:15 PM CDT Oxygen Saturation 92% 05/24/2020 3:15 PM CDT Inhaled Oxygen Concentration - - Weight 71.2 kg (156 lb 15.5 oz) 05/24/2020 4:14 AM CDT Height 160 cm (5' 3 ) 05/22/2020 7:38 PM CDT Body Mass Index 27.81 05/22/2020 7:38 PM CDT Plan of Treatment Health Maintenance Due [...] SCREENING 2020 INFLUENZA VACCINE (#1) 2024 Insurance [employer] PL[employer] [id number] HMO Advance Directives For more information, please contact: [phone] * Full Code (Latest Code Status on File) Date Activated Date Inactivated Comments 05/22/2020 8:05 PM 05/24/2020 6:24 PM
[2025-03-12] MEDS: methylPREDNISolone sod succ 40 mg/mL INJ IVP ×2 (07:19→16:42)
--- NOTE | 2025-03-12 08:29 | US_ITS ---
WS: [id number] ULTRASOUND-GUIDED THORACENTESIS, LEFT HISTORY: pleural effusion Procedure, risks, and complications were explained to the patient. With the patient in an upright position, the skin over the LEFT posterior thorax was cleansed with ChloraPrep and anesthetized with 1% buffered lidocaine. A 5 Swiss Yueh needle is inserted into the pleural fluid without complication. A pproximately 1000 cc of light yellow pleural fluid is removed without difficulty. / thoracentesis [id number] IMPRESSION: 1. LEFT thoracentesis yielding 1000 cc of fluid. 2. Chest radiograph to follow to evaluate for pneumothorax.
[2025-03-12] MEDS: pantoprazole DR 40 mg Tablet PO (09:29)
[2025-03-12] MEDS: metOLazone 5 MG Tablet PO (09:29)
[2025-03-12] MEDS: docusate sodium 100 mg Capsule PO ×2 (09:29→16:42)
--- NOTE | 2025-03-12 10:15 | USCV_ITS ---
Justina Meraz Age: 69 Gender: F : 1955 Exam Date: 03/12/2025 13:06 Ordering Phys: Josefa De MD Technologist: ELI [place] [facility] [place]: assess EF BP: 130 / 75 HR: Rhythm: Sinus Technical Quality: Adequate MEASUREMENTS (Male / Female) Normal Values 2D ECHO LV Diastolic Diameter PLAX 5.2 cm 4.2 - 5.9 / 3.9 - 5.3 cm IVS Diastolic Thickness 0.9 cm 0.6 - 1.0 / 0.6 - 0.9 cm IVS Systolic Thickness 2.3 cm LVPW Diastolic Thickness 1.3 cm 0.6 - 1.0 / 0.6 - 0.9 cm LVPW Systolic Thickness 1.3 cm LVOT Diameter 2.0 cm LV Ejection Fraction 2D Teich 57.5 % LV Ejection Fraction MOD 4C 65.4 % LV Ejection Fraction MOD 2C 61.7 % LV Ejection Fraction 2C AL 62.8 % LA Diameter 2.7 cm RA Systolic Volume 4C AL 46.4 ml RA Systolic Volume 4C MOD 43.9 ml LA Sys Volume AL 41.1 cm cubed LA Sys Volume Index AL 19.9 cm cubed/m squared Aorta at Sinotubular Diameter 2.3 cm M-MODE LA Ao Ratio MM 1.4 AV Cusp Separation MM 1.3 cm FINDINGS Left Ventricle Normal left ventricular size and systolic function, EF 62%.no regional wall motion abnormalities. Right Ventricle Normal right ventricular size and systolic function. Right Atrium The right atrium is normal in size. Left Atrium The left atrium is normal in size. Mitral Valve Moderate mitral annular calcification. Aortic Valve Thickened aortic valve. Tricuspid Valve No gross abnormalities noted Pulmonic Valve Pulmonic valve not well visualized. Pericardium Trivial pericardial effusion. Aorta Normal aortic annulus size. IVC Inferior vena cava not visualized. CONCLUSIONS Normal left ventricular size and systolic function, EF 62%.no regional wall motion abnormalities. Moderate mitral annular calcification. Thickened aortic valve. Trivial pericardial effusion. There are no intracardiac masses. Compared to the study from 02/19/2025, there are no significant change in the 2D findings Dr Joao Morillo MD [facility] (Electronically Signed) Final Date: 12 March 2025 14:04 S
--- NOTE | 2025-03-12 12:29 | PM.CONSULT ---
Providers/Reason For Consult Consulting Physician/Specialty*: LUCAS Morillo MD/cardiology Reason for Consult*: Patient's shortness of breath/CHF Requesting Physician: Dr. De Attending Physician: Josefa De MD Primary Care Provider: MACRINA Johnson History of Present Illness History of Present Illness Justina Meraz is a 69 year old female is admitted to hospital through the emergency room where she presented with complaints of progressive shortness of breath and some abdominal discomfort. She was found to have bilateral pleural effusion. She was told to have congestive heart failure. Cardiology consult is requested for further cardiac evaluation and recommendations. This patient apparently has a history of COPD , type 2 diabetes and CML. She is on Dasatinib 100 mg p.o. daily for the chronic phase of CML. Which was diagnosed in 2016. The patient apparently has been doing okay up until 2 months ago when she started having shortness of breath. She was admitted to hospital 3 weeks ago with worsening shortness of breath and pleural effusion. She had a thoracentesis on 1 side taking out 1 L of clear fluid tattered to be transudate. She was discharged home after a day also from the hospital. According the patient, even though she had some relief of the shortness of breath for couple of days, started having the shortness of breath again which has been gradually getting worse. She came back to the emergency room for the worsening shortness of breath. Since this time she was found to have a large bilateral pleural effusion. She is admitted to the hospital for further evaluation and management. This patient never had any cardiac illnesses in the past. She denies any chest pain or palpitations. No history of any cardiac arrhythmia. No history for coronary disease or myocardial infarction. She also denies any fever, chills. She has a history of hypothyroidism and degenerative joint disease. Also has a history of kidney disease. 7 or 8 years ago, she had pleural effusion requiring thoracentesis?. Details are not available. She has a history of smoking abuse, at least a pack a day for the last more than 30 years. No alcohol abuse or any substance abuse. She has no significant family history She has been having intermittent abdominal pain and had a CT of the abdomen. She was found to have hydronephrosis and hydroureter. 0.9 cm size ureteric stone Review of Systems Narrative: CONSTITUTIONAL: No fever or chills. EYES: No blurring of vision or other visual disturbances lately. ENT: No hoarseness of voice, auditory disturbances or sore throat. CARDIOVASCULAR: As mentioned above. RESPIRATORY: Shortness of breath as mentioned above GASTROINTESTINAL: No hematemesis or melena. GENITOURINARY: No dysuria or hematuria. INTEGUMENTARY: No skin rashes or history of skin cancer. NEURO: No transient ischemic attacks or amaurosis. PSYCHIATRIC: No history of psychosis or major depression. HEMATOLOGIC: CML as mentioned above ENDOCRINE: History of type 2 diabetes MUSCULOSKELETAL: No recent joint pain or swelling. ALLERGY/IMMUNOLOGY: As mentioned above. Medications/Allergies Home Medications ?Medication ?Instructions ?Recorded ?Confirmed ?Last Taken ?Type trazodone 150 mg tablet 150 mg PO BEDTIME 05/19/20 03/12/25 2 Days Ago History ~03/10/25 ibuprofen 200 mg tablet 200 mg PO Q6H PRN Pain 03/22/22 03/12/25 Unknown History sertraline 25 mg tablet 25 mg PO DAILY 12/11/24 03/12/25 1 Day Ago History ~03/11/25 dasatinib 100 mg tablet 100 mg PO DAILY #30 tabs 02/02/25 03/12/25 1 Day Ago Rx ~03/11/25 albuterol sulfate 90 mcg/actuation 2 puff inhalation Q5H PRN Wheezing 02/19/25 03/12/25 1 Day Ago History aerosol inhaler ~03/11/25 levothyroxine 175 mcg tablet 175 mcg PO QAM 02/19/25 03/12/25 1 Day Ago History ~03/11/25 dapagliflozin propanediol 10 mg 10 mg PO DAILY #30 tabs 02/22/25 03/12/25 1 Day Ago Rx tablet (Farxiga) ~03/11/25 fluticasone furoate 100 1 inh inhalation DAILY #60 ea 02/22/25 03/12/25 1 Day Ago Rx mcg-vilanterol 25 mcg/dose ~03/11/25 inhalation powder (Breo Ellipta) furosemide 40 mg tablet 40 mg PO QAM shortness of breath 02/22/25 03/12/25 1 Day Ago Rx #30 tabs ~03/11/25 Allergies Allergy/AdvReac Type Severity Reaction Status Date / Time No Known Allergies Allergy Verified 03/11/25 20:04 Current Medications Generic Name Dose Route Start Last Admin Trade Name Freq PRN Reason Stop Dose Admin Docusate Sodium 100 mg 03/12/25 09:00 03/12/25 09:29 Docusate Sodium 100 Mg Capsule PO 100 mg BID DONTE Administration Furosemide 40 mg 03/12/25 04:15 03/12/25 05:05 Furosemide 10 Mg/Ml Sdv 4ml IVP 40 mg Q12H DONTE Administration Heparin Sodium (Porcine) 5,000 unit 03/12/25 04:15 03/12/25 05:06 Heparin 5,000 Unit/Ml Inj 1 Ml SUBCUT 5,000 unit Q12H DONTE Administration Levothyroxine Sodium 175 mcg 03/12/25 06:00 03/12/25 05:06 Levothyroxine 175 Mcg Tablet PO 175 mcg QAM DONTE Administration Methylprednisolone Sodium Succinate 40 mg 03/12/25 04:15 03/12/25 07:19 Methylprednisolone Sod Succ 40 Mg/Ml Inj IVP 40 mg Q12H DONTE Administration Metolazone 5 mg 03/12/25 09:00 03/12/25 09:29 Metolazone 5 Mg Tablet PO 5 mg DAILY DONTE Administration Nicotine 1 patch 03/12/25 01:00 03/12/25 09:28 Nicotine 14 Mg Patch TRANSDERMA 1 patch DAILY DONTE Administration Pantoprazole Sodium 40 mg 03/12/25 09:00 03/12/25 09:[address] 40 Mg Tablet PO 40 mg DAILY DONTE Administration Trazodone HCl 150 mg 03/12/25 00:56 03/12/25 01:40 Trazodone 150 Mg Tablet PO 150 mg BEDTIME PRN Administration SLEEP PFSH Acute PFSH: Medical History Abscess of finger of left hand Degenerative joint disease of spine Degenerative arthritis Shoulder pain COPD (chronic obstructive pulmonary disease) Nicotine dependence Chronic back pain Hypothyroidism Dyslipidemia Cellulitis Nephrolithiasis CML (chronic myelocytic leukemia) Surgical History H/O sinus surgery History of ureter stent Previous back surgery Family History Mother Cancer Breast cancer Father COPD (chronic obstructive pulmonary disease) Denies family history of CAD (coronary artery disease) Clotting disorder Anesthesia complication Bleeding disorder Social History Smoking and tobacco/nicotine status: current every day tobacco/nicotine user cigarettes [ Other cigarette details: 1 pack/day] Alcohol intake: never Substance/Drug Use: never Household members: family Housing: House Marital status: Vitals/I&O/Wt Last Vital Signs Temp 98.2 F 03/12/25 11:20 Pulse 81 03/12/25 11:20 Resp 24 H 03/12/25 11:20 BP 130/75 03/12/25 11:20 Pulse Ox 93 03/12/25 11:20 O2 Del Method Heated High Flow 03/12/25 11:20 O2 Flow Rate 40 03/12/25 11:13 FiO2 45 03/12/25 11:13 03/11/25 03/12/25 03/12/25 22:59 06:59 14:59 Intake Total 100 / 100 60 / 60 Output Total 1700 / 1700 Balance 100 / 100 -1640 / -1640 Weight last 48 hrs Weight 204 lb 11.2 oz Weight 200 lb 4 oz Weight 200 lb Physical Exam Narrative: GENERAL: The patient is alert and oriented times three. Not in any acute distress. HEENT: No significant pallor, icterus or lymphadenopathy.Oral cavity: There are no mucous membrane lesions. NECK: Trachea appears to be central. No masses noted. No JVD or thyromegaly appreciated. RESPIRATORY: Chest is symmetrical. No intercostals muscle retraction or any accessory muscle activation. There is no chest wall tenderness. Breath sounds are heard bilaterally. Diminished intensity of breath sounds bilaterally up to the mid zone. Occasional scattered coarse crackles and expiratory wheezing BREASTS: Deferred. HEART: The heart sounds are normal. No S3 or S4. No significant murmurs. No pericardial rub ABDOMEN: No vessel pulsations or distention. No tenderness. No organomegaly appreciated. Bowel sounds are normally heard. : Deferred. RECTAL: Deferred. LYMPHATIC: No lymphadenopathy noted in the neck. EXTREMITIES: 1-2+ edema both lower extremities. No cyanosis MUSCULOSKELETAL: No acute joint deformities or swelling SKIN: There are no significant rashes or ecchymosis NEUROPSYCHIATRIC: The patient is alert and oriented x3. Appears to be in a good mood. No tremors or rigidity noted. Data 03/12/25 02:50 03/12/25 02:50 Other Labs: Laboratory Last Values WBC 10.12 10^3/uL (3.29-11.43) 03/12/25 02:50 RBC 3.98 10^6/uL (3.85-5.65) 03/12/25 02:50 Hgb 10.40 g/dL (11.27-16.99) L 03/12/25 02:50 Hct 34.6 % (36-47) L 03/12/25 02:50 MCV 86.9 fl (85-98) 03/12/25 02:50 MCH 26.1 pg (27-33) L 03/12/25 02:50 MCHC 30.1 g/dL (30-55) 03/12/25 02:50 RDW 16.7 % (12.1-15.1) H 03/12/25 02:50 Plt Count 267 10^3/cmm (157-399) 03/12/25 02:50 MPV 9.0 fL (7.4-10.4) 03/12/25 02:50 Neut % (Auto) 93.5 % 03/12/25 02:50 Lymph % (Auto) 4.1 % 03/12/25 02:50 Summers % (Auto) 1.5 % 03/12/25 02:50 Eos % (Auto) 0.1 % 03/12/25 02:50 Baso % (Auto) 0.3 % 03/12/25 02:50 Neut # (Auto) 9.47 10^3/uL (1.8-7.7) H 03/12/25 02:50 Lymph # (Auto) 0.4 10^3/uL (0.8-4.8) L 03/12/25 02:50 Summers # (Auto) 0.2 10^3/uL (0.2-0.9) 03/12/25 02:50 Eos # (Auto) 0.0 10^3/uL (0.0-0.8) 03/12/25 02:50 Baso # (Auto) 0.0 10^3/uL (0.0-0.1) 03/12/25 02:50 Nucleated RBC % (auto) 0 % 03/12/25 02:50 Nucleated RBCs # 0.0 /100WBC 03/12/25 02:50 Differential Comment Yes 03/12/25 12:40 Specimen Type Arterial 03/11/25 20:18 Sample Site Radial, left 03/11/25 20:18 ABG pH 7.35 (7.35-7.45) 03/11/25 20:18 ABG pCO2 61.7 mmHg (35-45) H* 03/11/25 20:18 ABG pO2 76.3 mmHg (80.0-100.0) L 03/11/25 20:18 ABG HCO3 33.6 mmol/L (22-26) H 03/11/25 20:18 ABG O2 Saturation 95.3 03/11/25 20:18 ABG Base Excess 6.3 mmol/L (-2.0-2.0) H 03/11/25 20:18 Corbin Test Pos 03/11/25 20:18 A-a O2 Gradient 0.0 mmHg (5-10) L 03/11/25 20:18 Hematocrit 35.9 % (37-47) L 03/11/25 20:18 Hgb O2 Saturation 88.5 % (95-100) L 03/11/25 20:18 Carboxyhemoglobin 6.1 %THgb (0.4-20.1) 03/11/25 20:18 Methemoglobin 1.0 % (0.4-1.5) 03/11/25 20:18 Total Hemoglobin 11.7 g/dL (12-16) L 03/11/25 20:18 Sodium 140.0 mmol/L (131-143) 03/11/25 20:18 Potassium 3.9 mmol/L (3.5-5.0) 03/11/25 20:18 Glucose 174.0 mg/dL (70-115) H 03/11/25 20:18 Ionized Calcium 1.2 mmol/L (1.1-1.4) 03/11/25 20:18 O2 Delivery Device Nc 03/11/25 20:18 O2 Liters/Min 4.0 % 03/11/25 20:18 Fishing Tool Techn[employer] [id number] 03/11/25 20:18 Sodium 134 mmol/L (136-145) L 03/12/25 02:50 Potassium 4.4 mmol/L (3.5-5.1) 03/12/25 02:50 Chloride 94 mmol/L (98-107) L 03/12/25 02:50 Carbon Dioxide 30 mmol/L (22-29) H 03/12/25 02:50 Anion Gap 14.4 (5-19) 03/12/25 02:50 BUN 37 mg/dL (8-23) H 03/12/25 02:50 Creatinine 1.4 mg/dL (0.5-0.9) H 03/12/25 02:50 GFR Calculation 37.3 mL/min (90-130) L 03/12/25 02:50 Glucose 147 mg/dL (65-115) H 03/12/25 02:50 Calculated Osmolality 289 mOsm/kg (285-295) 03/12/25 02:50 Lactic Acid 0.9 mmol/L (0.5-2.2) 03/11/25 21:10 Calcium 8.6 mg/dL (8.5-10.5) 03/12/25 02:50 Phosphorus 4.8 mg/dL (2.5-4.5) H 03/12/25 02:50 Magnesium 2.2 mg/dL (1.7-2.3) 03/12/25 02:50 Total Bilirubin 0.2 mg/dL (0.15-1.2) 03/12/25 02:50 AST 24 U/L (0-32) 03/12/25 02:50 ALT 33 U/L (0-33) 03/12/25 02:50 Alkaline Phosphatase 99 U/L (35-105) 03/12/25 02:50 Troponin T Baseline 29 ng/L (0-10) H 03/11/25 21:10 Troponin T 120 Minute 28.46 ng/L (0-10) H 03/11/25 23:40 Delta Troponin T -0.54 ABS# (0-10) L 03/11/25 23:40 Troponin T Hi Sens 6Hr 24.23 ng/L (0-10) H 03/12/25 02:50 Troponin T Hi Sens 6Hr Delta -4.77 ng/L (0-12) L 03/12/25 02:50 C-Reactive Protein 75.1 mg/L (0.0-4.9) H 03/11/25 21:10 NT-Pro-B Natriuret Pep 378 pg/mL (0-125) H 03/12/25 02:50 Total Protein 6.3 g/dL (6.6-8.7) L 03/12/25 02:50 Albumin 3.6 g/dL (3.5-5.2) 03/12/25 02:50 Globulin 2.7 g/dL (1.3-4.6) 03/12/25 02:50 Procalcitonin 0.12 ng/mL (0-0.5) 03/11/25 21:10 Fluid Color Yellow 03/12/25 12:40 Fluid Appearance Cloudy 03/12/25 12:40 Fluid WBC 1268 /uL 03/12/25 12:40 Fluid RBC 3.000 10^3/uL 03/12/25 12:40 Fluid Hematocrit 0.1 % 03/12/25 12:40 Fld Polynuclear WBCs # 0.106 03/12/25 12:40 Fld Polynuclear WBCs % 8.300 % 03/12/25 12:40 Fl Mononucl WBCs #(Auto) 1.162 03/12/25 12:40 Fl Mononuclear % Auto 91.700 % 03/12/25 12:40 Fld Crystal Laterality Pleural fluid 03/12/25 12:40 Fluid Albumin 2.5 g/dL 03/12/25 12:40 Fluid Creatinine 1.34 (0.5-0.9) H 03/12/25 12:40 Pleural pH Cancelled 03/12/25 13:40 Pleural Total Protein 4.0 g/dL 03/12/25 12:40 Pleural LDH 176 U/L 03/12/25 12:40 Pleural Glucose 173.0 mg/dL 03/12/25 12:40 Pleural Triglycerides 44 mg/dL 03/12/25 12:40 Urine Opiates Screen Negative ng/mL (Negative) 03/12/25 01:45 Ur Barbiturates Screen Negative ng/mL (Negative) 03/12/25 01:45 Ur Phencyclidine Scrn Negative ng/mL (Negative) 03/12/25 01:45 Ur Amphetamines Screen Negative ng/mL (Negative) 03/12/25 01:45 U Benzodiazepines Scrn Negative ng/mL (Negative) 03/12/25 01:45 Urine Cocaine Screen Negative ng/mL (Negative) 03/12/25 01:45 U Marijuana (THC) Screen Negative ng/mL (Negative) 03/12/25 01:45 Micro: Microbiology 03/11/25 21:14 Blood Culture - Preliminary Blood SPECIMEN COLLECTED 03/11/25 21:10 Blood Culture - Preliminary Blood SPECIMEN COLLECTED Other data: The EKG showed a sinus rhythm with occasional PVCs. Right bundle branch block pattern. Left anterior fascicular block Echocardiogram from today Normal left ventricular size and systolic function, EF 62%.no regional wall motion abnormalities. Moderate mitral annular calcification. Thickened aortic valve. Trivial pericardial effusion. There are no intracardiac masses. Compared to the study from 02/19/2025, there are no significant change in the 2D findings A&P Assessment and plan (1) Pleural effusion, bilateral: Most likely the pleural effusion is related to some pulmonary pathology or from the chemo. Most likely it is unrelated to the heart. She has slightly elevated BNP which could be nonspecific. Her LV ejection fraction is normal. (2) Elevated brain natriuretic peptide (BNP) level: Possibly from the respiratory distress. Very unlikely to be causing the large bilateral pleural effusion (3) Hypoxic respiratory failure: From the pleural effusion and COPD exacerbation (4) Chronic myeloid leukemia, BCR/ABL-positive, not having achieved remission: Recommend oncology input as to whether the maintenance drug is causing the pleural effusion or not (5) Nephrolithiasis: Nephrology evaluation and recommendations pending Plan At this point, patient may not require any specific cardiac intervention. Does not look to me that she has any acute cardiac issues at this point. Bilateral thoracentesis might be appropriate for therapeutic and diagnostic purposes. Possible oncology consult May consider some cardiac workup once the pulmonary and nephrology issues are appropriately taken care of Discussed with Dr. De Thank you for the opportunity to evaluate this patient to make these recommendations PDMP PDMP Reviewed: Not Reviewed Coding Level of Care Code 89173 Diagnoses Pleural effusion, bilateral J90 Elevated brain natriuretic peptide (BNP) level R79.89 Acute on chronic respiratory failure with hypoxia J96.21 Chronicity: acute on chronic Chronic myeloid leukemia, BCR/ABL-positive, not having achieved remission C92.10 Nephrolithiasis N20.0
[2025-03-12] MEDS: LORazepam 1 MG/0.5 ML injection 0.25 MG IVP (13:25)
--- NOTE | 2025-03-12 13:35 | XR_ITS ---
WS: [id number] PORTABLE CHEST HISTORY: post thoracentesis, LEFT COMPARISON: 03/11/2025 No pneumothorax status post LEFT thoracentesis. Improved aeration of the LEFT lung. There is subsegmental atelectasis persisting at the LEFT base. Small RIGHT pleural effusion. Mild interstitial edema. Cardiac size: Normal. Mediastinum/Aorta: Mild atherosclerosis aorta. No osseous abnormality seen. XR/XR chest 1V portable [id number] IMPRESSION: 1. No pneumothorax status post LEFT thoracentesis. 2. Subsegmental LEFT basilar atelectasis. 3. Small RIGHT pleural effusion.
--- NOTE | 2025-03-12 13:36 | PM.PN ---
Vitals/I&O/Wt Last Vital Signs Temp 98.2 F 03/12/25 11:20 Pulse 81 03/12/25 11:20 Resp 24 H 03/12/25 11:20 BP 130/75 03/12/25 11:20 Pulse Ox 93 03/12/25 11:20 O2 Del Method Heated High Flow 03/12/25 11:20 O2 Flow Rate 40 03/12/25 11:13 FiO2 45 03/12/25 11:13 03/11/25 03/12/25 03/12/25 22:59 06:59 14:59 Intake Total 100 / 100 60 / 60 Output Total 1700 / 1700 Balance 100 / 100 -1640 / -1640 Weight last 48 hrs Weight 92.85 kg Weight 90.832 kg Weight 90.718 kg Data 03/12/25 02:50 03/12/25 02:50 Micro: Microbiology 03/11/25 21:14 Blood Culture - Preliminary Blood SPECIMEN COLLECTED 03/11/25 21:10 Blood Culture - Preliminary Blood SPECIMEN COLLECTED A&P PDMP PDMP Reviewed: Not Reviewed Coding Level of Care Code Acute Code for Chg Fwd
--- NOTE | 2025-03-12 13:50 | PM.TDS ---
Transfer Summary Providers Date of Admission: 03/12/25 00:39 Date of Discharge/Transfer: 03/12/25 Attending Provider at Admission: Sunita Nicolas MD Attending Provider at Transfer: Josefa De MD Primary Care Provider: MACRINA Johnson Transfer Plans: Anticipated date of transfer: 03/12/25. Receiving Facility: [facility]. Diagnoses at Discharge Discharge Diagnosis (1) Pleural effusion, bilateral: Status: Acute (2) Acute on chronic hypoxic respiratory failure: Status: Acute (3) Acute renal insufficiency: Status: Acute (4) Immunocompromised: Status: Acute (5) Nicotine dependence: Status: Acute Reason for Visit Reason for Visit Can't breath fluid on lungs Hospital Course Hospital Course Justina Meraz is a 69 year old female with medical history significant for excessive cigarette smoking history. Patient has smoked for about 50 years a pack of cigarettes a day and now trending down to a half a pack a day. Patient also had been diagnosed with CML since 2016 and had undergone chemotherapy recently causing her to have much pleural effusion. Patient had thoracentesis done on day February 20 on the left side of the lung on her last admission for which she was discharged on 02/22/2025. On follow-up with the primary care doctor, patient underwent a chest x-ray for interval resolution of status of the pleural effusion. Chest x-ray was done 5 days ago the primary care doctor sent the patient to go to the ED that the pleural effusion is worse than it was prior to the M draining it is on February 20. Patient exercised for the issues with pleural effusion she is finding herself very symptomatic with shortness of breath cannot lie then cannot breathe. According to the patient she related that there are no malignant cells in the pleural effusion and that she was told that is due to her chemotherapy that she was using to treat her CML. Patient will not only have diuretics will also be set up to go for interventional radiology for pleural effusion drainage. The last time on February 20, 2025 patient had 1 L drain at of the left lung. Patient BMP was in the 400s. Patient refused to wear BiPAP patient CO2 was 60 pH is within normal. Patient at this time has COPD and CHF exacerbation along with extensive pleural effusion compromising breathing. Patient was admitted for bilateral pleural effusion. She recently had thoracentesis done 2 weeks ago. The effusion was transudate at the time. She is on heated high flow requiring 15 L nasal cannula 45% FiO2. She appears anxious and restless wanting to smoke a cigarette. She has also been complaining of left-sided abdominal pain. She states that even at last visit she had the same thing and she complained of pain however was given morphine. She states it did not help. Overnight CT chest on pelvis was performed which showed severe hydronephrosis hydroureter with 9 mm stone at UVJ. Patient's creatinine is 1.4. I have discussed with oncology. They believe most likely the reason of pleural effusion is Dasatinib. They recommend performing thoracentesis stopping the Dasatinib and sending patient home to follow-up with oncology as an outpatient. However secondary to patient's kidney stone with hydronephrosis hydroureter she will need further urological evaluation and intervention going forward. Called [facility] to discuss patient's case. Awaiting callback. Physical Exam Narrative: Generally: Alert and oriented x 3. Patient quite upset and appears restless stating that she needs to go out to smoke a cigarette. She is currently on 15 L high flow nasal cannula. HEENT normocephalic/atraumatic neck neck is supple cardiovascular heart rate is regular lungs coarse breath sounds with upper airway transmission as the patient breathes. Crackles bilateral bases of lungs abdomen is extensively obese with fluid wave. Gomez draining clear yellow urine: extremities: 2+ edema bilateral lower extremities TS Data Studies Completed and Pending Pending at discharge Category Date Time Status XR chest 1V portable [id number] Stat Exams 03/12/25 13:35 Ordered Amylase, Pleural Fluid Routine Lab 03/12/25 08:01 Ordered Albumin Body Fluid Routine Lab 03/12/25 08:01 Ordered Blood Culture Stat Lab 03/11/25 21:14 Results Body Fluid Analysis Routine Lab 03/12/25 08:01 Ordered Body Fluid Culture & GS Routine Lab 03/12/25 08:01 Ordered Creatinine Body Fluid Routine Lab 03/12/25 08:01 Ordered Cyto Order Verification Routine Lab 03/12/25 08:01 Ordered Glucose Pleural Fluid Routine Lab 03/12/25 08:01 Ordered Hematocrit Body Fluid Routine Lab 03/12/25 08:01 Ordered LDH Pleural Fluid Routine Lab 03/12/25 08:01 Ordered Mycobacteria, Culture w/Fluor Routine Lab 03/12/25 08:01 Ordered Total Protein Pleural Fluid Routine Lab 03/12/25 08:01 Ordered Triglycerides, Pleural Fluid Routine Lab 03/12/25 08:01 Ordered pH Pleural Fluid Routine Lab 03/12/25 08:00 Ordered pH Pleural Fluid Routine Lab 03/12/25 08:01 Ordered Cytology [PTH] Routine Pth 03/12/25 08:01 Ordered CV. echo limited [id number] Stat Ultrasound 03/12/25 10:15 Taken US thoracentesis [id number] Routine Ultrasound 03/12/25 08:29 Taken Completed Studies During Hospitalization Category Date Time Status CT chest abdomen pelvis [CT chest abdpel w/*[id number] Cat Scan 03/12/25 02:19 Completed ] Stat XR chest 1V portable [id number] Stat Exams 03/11/25 21:20 Completed Laboratory Last Values WBC 10.12 10^3/uL (3.29-11.43) 03/12/25 02:50 RBC 3.98 10^6/uL (3.85-5.65) 03/12/25 02:50 Hgb 10.40 g/dL (11.27-16.99) L 03/12/25 02:50 Hct 34.6 % (36-47) L 03/12/25 02:50 MCV 86.9 fl (85-98) 03/12/25 02:50 MCH 26.1 pg (27-33) L 03/12/25 02:50 MCHC 30.1 g/dL (30-55) 03/12/25 02:50 RDW 16.7 % (12.1-15.1) H 03/12/25 02:50 Plt Count 267 10^3/cmm (157-399) 03/12/25 02:50 MPV 9.0 fL (7.4-10.4) 03/12/25 02:50 Neut % (Auto) 93.5 % 03/12/25 02:50 Lymph % (Auto) 4.1 % 03/12/25 02:50 Clayton % (Auto) 1.5 % 03/12/25 02:50 Eos % (Auto) 0.1 % 03/12/25 02:50 Baso % (Auto) 0.3 % 03/12/25 02:50 Neut # (Auto) 9.47 10^3/uL (1.8-7.7) H 03/12/25 02:50 Lymph # (Auto) 0.4 10^3/uL (0.8-4.8) L 03/12/25 02:50 Clayton # (Auto) 0.2 10^3/uL (0.2-0.9) 03/12/25 02:50 Eos # (Auto) 0.0 10^3/uL (0.0-0.8) 03/12/25 02:50 Baso # (Auto) 0.0 10^3/uL (0.0-0.1) 03/12/25 02:50 Nucleated RBC % (auto) 0 % 03/12/25 02:50 Nucleated RBCs # 0.0 /100WBC 03/12/25 02:50 Specimen Type Arterial 03/11/25 20:18 Sample Site Radial, left 03/11/25 20:18 ABG pH 7.35 (7.35-7.45) 03/11/25 20:18 ABG pCO2 61.7 mmHg (35-45) H* 03/11/25 20:18 ABG pO2 76.3 mmHg (80.0-100.0) L 03/11/25 20:18 ABG HCO3 33.6 mmol/L (22-26) H 03/11/25 20:18 ABG O2 Saturation 95.3 03/11/25 20:18 ABG Base Excess 6.3 mmol/L (-2.0-2.0) H 03/11/25 20:18 Corbin Test Pos 03/11/25 20:18 A-a O2 Gradient 0.0 mmHg (5-10) L 03/11/25 20:18 Hematocrit 35.9 % (37-47) L 03/11/25 20:18 Hgb O2 Saturation 88.5 % (95-100) L 03/11/25 20:18 Carboxyhemoglobin 6.1 %THgb (0.4-20.1) 03/11/25 20:18 Methemoglobin 1.0 % (0.4-1.5) 03/11/25 20:18 Total Hemoglobin 11.7 g/dL (12-16) L 03/11/25 20:18 Sodium 140.0 mmol/L (131-143) 03/11/25 20:18 Potassium 3.9 mmol/L (3.5-5.0) 03/11/25 20:18 Glucose 174.0 mg/dL (70-115) H 03/11/25 20:18 Ionized Calcium 1.2 mmol/L (1.1-1.4) 03/11/25 20:18 O2 Delivery Device Nc 03/11/25 20:18 O2 Liters/Min 4.0 % 03/11/25 20:18 Metal Patternmaker ID [email or web address] 03/11/25 20:18 Sodium 134 mmol/L (136-145) L 03/12/25 02:50 Potassium 4.4 mmol/L (3.5-5.1) 03/12/25 02:50 Chloride 94 mmol/L (98-107) L 03/12/25 02:50 Carbon Dioxide 30 mmol/L (22-29) H 03/12/25 02:50 Anion Gap 14.4 (5-19) 03/12/25 02:50 BUN 37 mg/dL (8-23) H 03/12/25 02:50 Creatinine 1.4 mg/dL (0.5-0.9) H 03/12/25 02:50 GFR Calculation 37.3 mL/min (90-130) L 03/12/25 02:50 Glucose 147 mg/dL (65-115) H 03/12/25 02:50 Calculated Osmolality 289 mOsm/kg (285-295) 03/12/25 02:50 Lactic Acid 0.9 mmol/L (0.5-2.2) 03/11/25 21:10 Calcium 8.6 mg/dL (8.5-10.5) 03/12/25 02:50 Phosphorus 4.8 mg/dL (2.5-4.5) H 03/12/25 02:50 Magnesium 2.2 mg/dL (1.7-2.3) 03/12/25 02:50 Total Bilirubin 0.2 mg/dL (0.15-1.2) 03/12/25 02:50 AST 24 U/L (0-32) 03/12/25 02:50 ALT 33 U/L (0-33) 03/12/25 02:50 Alkaline Phosphatase 99 U/L (35-105) 03/12/25 02:50 Troponin T Baseline 29 ng/L (0-10) H 03/11/25 21:10 Troponin T 120 Minute 28.46 ng/L (0-10) H 03/11/25 23:40 Delta Troponin T -0.54 ABS# (0-10) L 03/11/25 23:40 Troponin T Hi Sens 6Hr 24.23 ng/L (0-10) H 03/12/25 02:50 Troponin T Hi Sens 6Hr Delta -4.77 ng/L (0-12) L 03/12/25 02:50 C-Reactive Protein 75.1 mg/L (0.0-4.9) H 03/11/25 21:10 NT-Pro-B Natriuret Pep 378 pg/mL (0-125) H 03/12/25 02:50 Total Protein 6.3 g/dL (6.6-8.7) L 03/12/25 02:50 Albumin 3.6 g/dL (3.5-5.2) 03/12/25 02:50 Globulin 2.7 g/dL (1.3-4.6) 03/12/25 02:50 Procalcitonin 0.12 ng/mL (0-0.5) 03/11/25 21:10 Urine Opiates Screen Negative ng/mL (Negative) 03/12/25 01:45 Ur Barbiturates Screen Negative ng/mL (Negative) 03/12/25 01:45 Ur Phencyclidine Scrn Negative ng/mL (Negative) 03/12/25 01:45 Ur Amphetamines Screen Negative ng/mL (Negative) 03/12/25 01:45 U Benzodiazepines Scrn Negative ng/mL (Negative) 03/12/25 01:45 Urine Cocaine Screen Negative ng/mL (Negative) 03/12/25 01:45 U Marijuana (THC) Screen Negative ng/mL (Negative) 03/12/25 01:45 Radiology Impressions Chest X-Ray 03/11/25 21:20 IMPRESSION: As above. Chest/Abdomen/Pelvis CT 03/12/25 02:19 IMPRESSION: No acute findings. IMPRESSION: Severe left hydronephrosis and hydroureter as a consequence of an obstructing 9 mm stone left UVJ. Multiple additional punctate left caliceal stones. Multiple nonobstructing right-sided caliceal stones measuring up to 9 mm in diameter. Recent Clincial Data Last Vital Signs Temp 98.2 F 03/12/25 11:20 Pulse 81 03/12/25 11:20 Resp 24 H 03/12/25 11:20 BP 130/75 03/12/25 11:20 Pulse Ox 93 03/12/25 11:20 O2 Del Method Heated High Flow 03/12/25 11:20 O2 Flow Rate 40 03/12/25 11:13 FiO2 45 03/12/25 11:13 Vital Signs Temp Pulse Pulse Resp Resp BP Pulse Ox 03/12/25 11:20 98.2 F 81 24 H 130/75 93 03/12/25 11:13 72 18 03/12/25 08:08 73 16 93 03/12/25 08:00 98.3 F 74 20 H 104/59 94 03/12/25 08:00 73 16 03/12/25 05:35 73 18 133/74 91 03/12/25 05:17 88 18 93 03/12/25 05:17 88 20 H Pulse Ox O2 Del Method O2 Flow Rate O2 Flow Rate FiO2 FiO2 03/12/25 11:20 Heated High Flow 03/12/25 11:13 94 40 45 03/12/25 08:08 Heated High Flow 40 53 03/12/25 08:00 Heated High Flow 03/12/25 08:00 93 40 53 03/12/25 05:35 Heated High Flow 03/12/25 05:17 High Flow Nasal Cannula 40 50 03/12/25 05:17 93 40 50 Intake & Output/Weight 03/10/25 03/11/25 03/12/25 03/13/25 06:59 06:59 06:59 06:59 Intake Total 100 / 100 60 / 60 Output Total 1700 / 1700 Balance 100 / 100 -1640 / -1640 Weight 92.85 kg Vitals Last Vital Signs Temp 98.2 F 03/12/25 11:20 Pulse 81 03/12/25 11:20 Resp 24 H 03/12/25 11:20 BP 130/75 03/12/25 11:20 Pulse Ox 93 03/12/25 11:20 O2 Del Method Heated High Flow 03/12/25 11:20 O2 Flow Rate 40 03/12/25 11:13 FiO2 45 03/12/25 11:13 TS Medications Medications Acetaminophen (Acetaminophen 325 Mg Tablet) 650 mg PO Q6H PRN PRN Reason: Mild/Mod Pain Or Temp >/= 101 Albuterol Sulfate (Albuterol 8 Gm Mdi) 2 puff INHALATION Q5H PRN PRN Reason: WHEEZING Albuterol Sulfate (Albuterol 2.5 Mg/3 Ml Neb) 2.5 mg INHALATION Q4H.RESPIRATORY PRN PRN Reason: WHEEZING Docusate Sodium (Docusate Sodium 100 Mg Capsule) 100 mg PO BID [facility] Last Admin: 03/12/25 09:29 Dose: 100 mg Furosemide (Furosemide 10 Mg/Ml Sdv 4ml) 40 mg IVP Q12H [facility] Last Admin: 03/12/25 05:05 Dose: 40 mg Heparin Sodium (Porcine) (Heparin 5,000 Unit/Ml Inj 1 Ml) 5,000 unit SUBCUT Q12H [facility] Last Admin: 03/12/25 05:06 Dose: 5,000 unit Ibuprofen (Ibuprofen 200 Mg Tablet) 200 mg PO Q6H PRN PRN Reason: PAIN Levothyroxine Sodium (Levothyroxine 175 Mcg Tablet) 175 mcg PO QAM [facility] Last Admin: 03/12/25 05:06 Dose: 175 mcg Methylprednisolone Sodium Succinate (Methylprednisolone Sod Succ 40 Mg/Ml Inj) 40 mg IVP Q12H [facility] Last Admin: 03/12/25 07:19 Dose: 40 mg Metolazone (Metolazone 5 Mg Tablet) 5 mg PO DAILY [facility] Last Admin: 03/12/25 09:29 Dose: 5 mg Morphine Sulfate (Morphine 4 Mg/Ml Sdv 1 Ml) 2 mg IVP Q4H PRN PRN Reason: SEVERE PAIN Nicotine (Nicotine 14 Mg Patch) 1 patch TRANSDERMA DAILY [facility] Last Admin: 03/12/25 09:28 Dose: 1 patch Ondansetron HCl (Ondansetron 2 Mg/Ml Sdv 2 Ml) 4 mg IVP Q8H PRN PRN Reason: vomiting, or N/V if npo Pantoprazole Sodium (Pantoprazole Dr 40 Mg Tablet) 40 mg PO DAILY DONTE Last Admin: 03/12/25 09:29 Dose: 40 mg Senna (Sennosides 8.6 Mg Tablet) 17.2 mg PO BEDTIME DONTE Trazodone HCl (Trazodone 150 Mg Tablet) 150 mg PO BEDTIME PRN PRN Reason: SLEEP Last Admin: 03/12/25 01:40 Dose: 150 mg Discontinued Medications Albuterol Sulfate (Albuterol 2.5 Mg/3 Ml Neb) 2.5 mg INHALATION ONCE ONE Stop: 03/11/25 21:52 Last Admin: 03/12/25 02:40 Dose: Not Given Furosemide (Furosemide 40 Mg Tablet) 40 mg PO QAM DONTE Iohexol (Iohexol 350 Mg/Ml 500 Ml Btl (Per Ml)) 0 ml IV ONCE ONE Stop: 03/12/25 02:41 Last Admin: 03/12/25 02:40 Dose: 100 ml Lorazepam (Lorazepam 1 Mg/0.5 Ml Injection) 0.25 mg IVP ONCE ONE Stop: 03/12/25 10:39 Last Admin: 03/12/25 13:25 Dose: 0.25 mg Methylprednisolone Sodium Succinate (Methylprednisolone Sod Succ 125 Mg/2 Ml Inj) 125 mg IVP ONCE ONE Stop: 03/11/25 21:52 Last Admin: 03/11/25 22:06 Dose: 125 mg Pneumococcal Polyvalent Vaccine (Pneumococcal (23 Valent) Sdv 0.5 Ml) 0.5 ml IM .ONCE ONE Stop: 03/12/25 01:06 Last Admin: 03/12/25 01:40 Dose: 0.5 ml Allergies No Known Allergies Allergy (Verified 03/11/25 20:04) Home Medications trazodone 150 mg tablet 150 mg PO BEDTIME 05/19/20 [History Confirmed 03/12/25] ibuprofen 200 mg tablet 200 mg PO Q6H PRN Pain 03/22/22 [History Confirmed 03/12/25] sertraline 25 mg tablet 25 mg PO DAILY 12/11/24 [History Confirmed 03/12/25] dasatinib 100 mg tablet 100 mg PO DAILY #30 tabs 02/02/25 [Rx Confirmed 03/12/25] albuterol sulfate 90 mcg/actuation aerosol inhaler 2 puff inhalation Q5H PRN Wheezing 02/19/25 [History Confirmed 03/12/25] levothyroxine 175 mcg tablet 175 mcg PO QAM 02/19/25 [History Confirmed 03/12/25] dapagliflozin propanediol 10 mg tablet (Farxiga) 10 mg PO DAILY #30 tabs 02/22/25 [Rx Confirmed 03/12/25] fluticasone furoate 100 mcg-vilanterol 25 mcg/dose inhalation powder (Breo Ellipta) 1 inh inhalation DAILY #60 ea 02/22/25 [Rx Confirmed 03/12/25] furosemide 40 mg tablet 40 mg PO QAM shortness of breath #30 tabs 02/22/25 [Rx Confirmed 03/12/25] Discharge Plan Discharge Patient Disposition: Xfer Short-Term Hosp Condition: Stable Prescriptions: No Action sertraline 25 mg tablet 25 mg PO DAILY ibuprofen 200 mg tablet 200 mg PO Q6H PRN (Reason: Pain) dasatinib 100 mg tablet 100 mg PO DAILY Qty: 30 1RF trazodone 150 mg tablet 150 mg PO BEDTIME levothyroxine 175 mcg tablet 175 mcg PO QAM albuterol sulfate 90 mcg/actuation HFA aerosol inhaler 2 puff INHALATION Q5H PRN (Reason: Wheezing) dapagliflozin propanediol [Farxiga] 10 mg tablet 10 mg PO DAILY Qty: 30 2RF fluticasone furoate-vilanterol [Breo Ellipta] 100-25 mcg/dose blister with device 1 inh inhalation DAILY Qty: 60 0RF furosemide 40 mg tablet 40 mg PO QAM Qty: 30 0RF Referrals: Elkins,Suzette, [employer] [Primary Care Provider, Nurse Practitioner] Transfer Attestations Time Spent in Transfer Care: greater than 30 min Status at Transfer: Cognitive status at transfer: cognitively intact; Behavioral status at transfer: cooperative; Quality Metrics Clinical Quality Measures [ No reported AMI, CVA or VTE this stay] Coding Level of Care Code Acute Code for Chg Fwd Diagnoses Pleural effusion, bilateral J90 Acute on chronic hypoxic respiratory failure J96.21 Acute renal insufficiency N28.9 Immunocompromised D84.9 Nicotine dependence F17.200
[2025-03-12 14:01] LABS: Hematocrit Body Fluid 0.1 %
[2025-03-12 14:03] LABS: Body Fluid Polynuclear #Cells 0.106; Body Fluid WBC 1268 /uL; Monocytes # Body Fluid 1.162
[2025-03-12 14:25] LABS: Color, Body Fluid YELLOW; Fluid Laterality Pleural fluid; PATH Referral YES
[2025-03-12 14:26] LABS: Apprearance, Body Fluid CLOUDY
[2025-03-12 14:27] LABS: Cyto Order Verification Order Verified
[2025-03-12 14:29] LABS: Albumin Body Fluid 2.5 g/dL; Creatinine Body Fluid 1.34 (0.5-0.9); Triglycerides, Pleural Fluid 44 mg/dL
[2025-03-12 14:30] LABS: LDH Pleural Fluid 176 U/L
[2025-03-12] MEDS: lidocaine 2% viscous 15 ML, aluminum-mag hydrox-simethicon 30 ML, sucralfate oral liq 1 GM PO (17:16)
--- NOTE | 2025-03-12 18:30 | PC.NURSE ---
Report called to [facility] Talked to Emily MEZA for report.
--- NOTE | 2025-03-12 18:31 | PC.NURSE ---
Notified and called daughter Dariana that we have a bed for Ms Horn Provided her the room floor unit and room#.
--- NOTE | 2025-03-12 18:39 | PC.NURSE ---
Talked to [facility] They will call us back.
== END 2025-03-12 19:37 | disposition short-term general hospital (02) | DRG 186 ==
LOC: ER 23:40 → CSU 03-12 01:01
PROVIDERS: Admitting Provider Internal Medicine; Emergency Provider Emergency Medicine; PCP Nurse Practitioner Family; Visit Provider Internal Medicine
DX: J90 Pleural effusion, not elsewhere classified (principal); J96.21 Acute and chronic respiratory failure with hypoxia; D84.821 Immunodeficiency due to drugs; N13.2 Hydronephrosis with renal and ureteral calculous obstruction; N17.9 Acute kidney failure, unspecified; C92.10 Chronic myeloid leukemia, BCR/ABL-positive, not having achieved remission; J44.1 Chronic obstructive pulmonary disease with (acute) exacerbation; T45.1X5A Adverse effect of antineoplastic and immunosuppressive drugs, initial encounter; F17.210 Nicotine dependence, cigarettes, uncomplicated; Z79.891 Long term (current) use of opiate analgesic; G89.29 Other chronic pain; M54.9 Dorsalgia, unspecified; E03.9 Hypothyroidism, unspecified; E78.5 Hyperlipidemia, unspecified; I49.3 Ventricular premature depolarization; I45.10 Unspecified right bundle-branch block; M19.90 Unspecified osteoarthritis, unspecified site
CPT/HCPCS: 32555; 36415; 36600; 71045; 71260; 74177; 80051; 80053; 80306; 80503; 82042; 82150; 82330; 82570; 82805; 82945; 83605; 83615; 83735; 83880; 83986; 84100; 84145; 84157; 84478; 84484; 85014; 85025; 86140; 87015; 87040; 87070; 87075; 87116; 87205; 87206; 87801; 88112; 88305; 89050; 90471; 90732; 93005; 93308; 94660; 96372; 96374; 97167; 99285; J1644; J1938; J2060; J2919; J3535; J9999

== ENCOUNTER 2025-03-19 11:23 | Oncology outpatient (recurring) (ONCR) | payer MEDICARE, SELFPAY ==
[2025-03-19 14:19] LABS: Basophils % 0.4 %; Eosinophils # 0.1 10^3/uL (0.0-0.8); Eosinophils % 1.9 %; Hematocrit 41.3 % (36-47); Lymphocytes % 14.3 %; Mean Corpuscular Hemoglobin 25.7 pg (27-33); Mean Corpuscular Volume 85.7 fl (85-98); Mean Platelet Volume 9.4 fL (7.4-10.4); Monocytes # 0.7 10^3/uL (0.2-0.9); Monocytes % 10.2 %; Neutrophils # 5.02 10^3/uL (1.8-7.7); Neutrophils % 72.5 %; Nucleated Red Blood Cells % 0 %; Platelet Count 344 10^3/cmm (157-399); Red Blood Count 4.82 10^6/uL (3.85-5.65); Red Cell Distribution Width 17.7 % (12.1-15.1); White Blood Count 6.93 10^3/uL (3.29-11.43)
[2025-03-19 14:46] LABS: Alanine Aminotransferase 18 U/L (0-33); Albumin Level 3.7 g/dL (3.5-5.2); Alkaline Phosphatase 92 U/L (35-105); Anion Gap 15.6 (5-19); Aspartate Amino Transferase 16 U/L (0-32); Blood Urea Nitrogen 17 mg/dL (8-23); Calcium 9.2 mg/dL (8.5-10.5); Carbon Dioxide 37 mmol/L (22-29); Chloride 87 mmol/L (98-107); Globulin 3.5 g/dL (1.3-4.6); Glomerular Filtration Rate 62.1 mL/min (90-130); Glucose 128 mg/dL (65-115); Lactate Dehydrogenase 282 U/L (135-214); Magnesium 1.9 mg/dL (1.7-2.3); Osmolality Calculated 285 mOsm/kg (285-295); Phosphorus 3.5 mg/dL (2.5-4.5); Potassium 3.6 mmol/L (3.5-5.1); Sodium 136 mmol/L (136-145); Total Bilirubin 0.7 mg/dL (0.15-1.2); Total Protein 7.2 g/dL (6.6-8.7)
[2025-03-19 15:02] LABS: Vitamin B12 381 pg/mL (232-1245)
[2025-03-24 21:45] LABS: P210 BCR ALB1 NOT DETECTED; P210 BCR ALB1 Yes Test Yes; Prior Results NG; Source blood
== END 2025-03-23 23:59 | disposition home or self-care (01) ==
LOC: ONCMED 11:23
PROVIDERS: PCP Nurse Practitioner Family; Visit Provider Internal Medicine
DX: C92.10 Chronic myeloid leukemia, BCR/ABL-positive, not having achieved remission (principal); R10.9 Unspecified abdominal pain; Z96.89 Presence of other specified functional implants; J90 Pleural effusion, not elsewhere classified; Z72.0 Tobacco use; Z79.899 Other long term (current) drug therapy
CPT/HCPCS: 36415; 80053; 81206; 82607; 83615; 83735; 84100; 85025; 99214

== ENCOUNTER → 2025-04-10 10:57 | Outpatient (BNVA) | payer MEDICARE, SELFPAY | PROVIDERS: PCP Nurse Practitioner Family; Referring Provider Nurse Practitioner Family; Visit Provider Internal Medicine Cardiovascular Disease | DX: R06.02 Shortness of breath (principal); J90 Pleural effusion, not elsewhere classified; J44.9 Chronic obstructive pulmonary disease, unspecified; C92.10 Chronic myeloid leukemia, BCR/ABL-positive, not having achieved remission; R79.89 Other specified abnormal findings of blood chemistry; I50.30 Unspecified diastolic (congestive) heart failure | CPT/HCPCS: 36415; 71046; 80053; 83615; 83735; 83880; 84100; 85025; 99214 ==

== ENCOUNTER 2025-04-15 09:30 | Oncology outpatient (recurring) (ONCR) | payer MEDICARE, SELFPAY | END 2025-04-23 23:59 | disposition home or self-care (01) | PROVIDERS: PCP Nurse Practitioner Family; Visit Provider Internal Medicine | DX: C92.10 Chronic myeloid leukemia, BCR/ABL-positive, not having achieved remission (principal); F17.210 Nicotine dependence, cigarettes, uncomplicated; J44.9 Chronic obstructive pulmonary disease, unspecified; J90 Pleural effusion, not elsewhere classified; D64.9 Anemia, unspecified; Z79.899 Other long term (current) drug therapy; Z71.6 Tobacco abuse counseling | CPT/HCPCS: 99213 ==

== ENCOUNTER → 2025-04-20 11:17 | Day surgery (SDC) | payer MEDICARE, SELFPAY ==
--- NOTE | 2025-04-20 11:21 | US_ITS ---
WS: [id number] ULTRASOUND-GUIDED THORACENTESIS, LEFT HISTORY: cml Procedure, risks, and complications were explained to the patient. With the patient in an upright position, the skin over the LEFT posterior thorax was cleansed with ChloraPrep and anesthetized with 1% buffered lidocaine. A 5 Slovenian Yueh needle is inserted into the pleural fluid without complication. A pproximately 700 cc of tea-colored pleural fluid is removed without difficulty. Specimen collected for analysis as requested. / thoracentesis [id number] IMPRESSION: 1. LEFT thoracentesis yielding 700 cc of fluid. 2. Chest radiograph to follow to evaluate for pneumothorax.
[2025-04-20 11:31] VITALS: BP 144/77; PULSE 86; RESP 22; TEMP 36.6; O2SAT 90
--- NOTE | 2025-04-20 12:52 | XR_ITS ---
WS: [id number] PORTABLE CHEST HISTORY: post thoracentesis, LEFT COMPARISON: 04/10/2025 No pneumothorax status post LEFT thoracentesis. Mild interstitial edema. No focal consolidations. Small bilateral pleural effusions. Cardiac size: Normal. Mediastinum/Aorta: Mild atherosclerosis aorta. No osseous abnormality seen. XR/XR chest 1V portable [id number] IMPRESSION: 1. No pneumothorax status post LEFT thoracentesis. 2. Small residual pleural effusions.
[2025-04-20 13:35] LABS: Cyto Order Verification Order Verified
[2025-04-20 13:37] LABS: Mononuclear %, Pleural Fluid 94 %; Polynuclear Cells, Pleural % 6 %; WBC Pleural Fluid 1784.000 /uL (0-1000)
[2025-04-20 13:51] LABS: Triglycerides, Pleural Fluid 24 mg/dL
[2025-04-20 13:52] LABS: Color, Pleural Fluid Pale Yellow (Pale Yellow)
[2025-04-20 13:55] LABS: Appearance, Pleural Fluid CLOUDY (CLEAR); PATH Referal YES
== END ==
LOC: GILAB 11:17
PROVIDERS: Radiology Diagnostic Radiology; PCP Nurse Practitioner Family; Visit Provider Internal Medicine
PROC: (CPT 32554; principal; 2025-04-20 12:30)
DX: C92.10 Chronic myeloid leukemia, BCR/ABL-positive, not having achieved remission (principal)
CPT/HCPCS: 32555; 71045; 80503; 82945; 83615; 83986; 84157; 84478; 87205; 88112; 88305; 89050

== ENCOUNTER → 2025-05-04 14:20 | Outpatient (BNVA) | payer MEDICARE, SELFPAY | PROVIDERS: PCP Nurse Practitioner Family; Visit Provider Internal Medicine | DX: J90 Pleural effusion, not elsewhere classified (principal); J96.11 Chronic respiratory failure with hypoxia; F41.9 Anxiety disorder, unspecified; F17.210 Nicotine dependence, cigarettes, uncomplicated | CPT/HCPCS: 36415; 71045; 80048; 82570; 84156; 85025; 85610; 85730; 99205 ==

== ENCOUNTER 2025-05-19 17:40 | Inpatient (IN) | payer MEDICARE, SELFPAY ==
[2025-05-19] VITALS (30 sets, daily range): BP systolic 75–140; BP diastolic 47–100; PULSE 66–93; RESP 15–33; TEMP 36.3–37.1; O2SAT 92–100; BMI 35.2
--- NOTE | 2025-05-19 12:34 | ANES.PREANE2 ---
Pre-Anesthetic Assessment Height/Weight: Height 5 ft 4 in Preop Diagnosis: pleural effusions Operation Date: 05/19/25 14:50 Proposed Procedures p Thorascopy Thoracoscopic Pleural Biopsy [id number] J90(Left) - Riddhi Davis MD Was Beta Jono taken within 24 hours: N/A Was Clonidine taken within 24 hours: N/A Social Tobacco and No alcohol Exam alert, oriented x 3 and regular rate & rhythm Airway Submandibular: within normal limits Cervical ROM: within normal limits Mallampati: Class III Anesthetic Plan ASA status: 4 Anesthesia: MAC Other: No prior issues with anesthesia NPO since yesterday evening Patient has been experiencing bilateral pleural effusions History of CML Echo 2024 showing EF of 55 to 60% with grade 1 diastolic dysfunction History of pleural effusions. On home O2, 2 1/2 to 3L. Surgeon performed bedside ultrasound demonstrating large amount of pleural fluid on both sides. Hypothyroidism on Synthroid Labs 05/04/2025 reviewed and acceptable for procedure EKG showing sinus rhythm with occasional PVCs and RBBB as well as a left anterior fascicular block Plan for thoracentesis on nonsurgical side to improve respiratory function prior to MAC anesthesia Medications/Allergies Home Medications ?Medication ?Instructions ?Recorded ?Confirmed ?Last Taken ?Type trazodone 150 mg tablet 150 mg PO BEDTIME 05/19/20 05/18/25 05/18/25 History ibuprofen 200 mg tablet 200 mg PO Q6H PRN Pain 03/22/22 05/18/25 Unknown History sertraline 25 mg tablet 25 mg PO DAILY 12/11/24 05/18/25 05/18/25 History levothyroxine 175 mcg tablet 175 mcg PO QAM 02/19/25 05/18/25 05/18/25 History Portable oxygen concentrator #1 ea 04/15/25 05/18/25 Unknown Rx Sprycel 70 mg tablet (dasatinib) 70 mg PO DAILY #30 tabs 04/23/25 05/18/25 Unknown Rx albuterol sulfate 90 mcg/actuation 2 puff inhalation Q4H PRN Wheezing 05/04/25 05/18/25 05/18/25 Rx aerosol inhaler #6.7 grams furosemide 40 mg tablet 40 mg PO BID shortness of breath 05/04/25 05/18/25 05/18/25 Rx #28 tabs potassium chloride 20 mEq 20 meq PO DAILY #14 tabs 05/04/25 05/18/25 05/18/25 Rx tablet,extended release (K-Tab) tiotropium bromide 2.5 2 puff inhalation DAILY #4 grams 05/04/25 05/18/25 05/18/25 Rx mcg/actuation mist for inhalation (Spiriva Respimat) Allergies Allergy/AdvReac Type Severity Reaction Status Date / Time No Known Allergies Allergy Verified 05/19/25 12:35 [facility] Anesthesia Medical History (Updated 05/12/25 @ 10:16 by Riddhi Davis MD) Abscess of finger of left hand Degenerative joint disease of spine Degenerative arthritis Shoulder pain COPD (chronic obstructive pulmonary disease) Nicotine dependence Chronic back pain Hypothyroidism Dyslipidemia Cellulitis Nephrolithiasis CML (chronic myelocytic leukemia) Surgical History (Updated 05/04/25 @ 14:41 by Shu Zhao CMA) H/O sinus surgery History of ureter stent Previous back surgery Family History Mother Cancer Breast cancer Father COPD (chronic obstructive pulmonary disease) Denies family history of CAD (coronary artery disease) Clotting disorder Anesthesia complication Bleeding disorder Social History Smoking and tobacco/nicotine status: current every day tobacco/nicotine user (3/4 ppd x 50 years. No Vaping) cigarettes [ Other cigarette details: 1/2 pack per day] Second hand smoke exposure: No Alcohol intake: never Substance/Drug Use: never Household members: family Housing: House Marital status: Data Anesthesia Cardiac Studies: Echocardiogram 02/19/25 Echocardiogram Limited Views 03/12/25
--- NOTE | 2025-05-19 15:44 | W.PM.OPSUD ---
Surgery/Procedure H&P Update DATE OF PROCEDURE: May 19, 2025 DATE H&P PERFORMED: 05/04/25 CHANGES TO PREVIOUS DOCUMENTATION: Patient was seen and examined. No significant changes in her clinical status since I saw her back on May 04, 2025. Patient reported worsening shortness of breath over the past few years. Bedside ultrasound showed large effusion on the left side and moderate effusion on the right side. Discussed with the patient risk and benefit and she agreed to proceed forward with left thoracoscopy, pleurodesis and Pleurx placement and right thoracentesis. PREOP DIAGNOSIS: pleural effusions PLANNED PROCEDURE: Operation Date: 05/19/25 14:50 Proposed Procedures p Thorascopy Thoracoscopic Pleural Biopsy [id number] J90(Left) - Riddhi Davis MD
--- NOTE | 2025-05-19 16:03 | PM.HP ---
Providers/Chief Complaint Primary Care Provider: MACRINA Johnson Chief Complaint: J90 History of Present Illness Justina Meraz is a 69 year old female With past medical history of CLL on Dasatinib, COPD, chronic back pain, hypothyroidism, dyslipidemia, cellulitis who presented to the hospital for management of bilateral pleural effusion for planned elective thoracoscopy and pleurodesis. She underwent right thoracentesis with 700 cc of fluid drained, left pleuroscopy with pleural biopsy and draining 1500 cc of pleural fluid, left pleurodesis, left tunneled pleural catheter placement with interventional organisational psychologist today. Patient admitted to hospital for postop and pain management. Patient seen in ICU 12. She states that she has had 6 thoracentesis in the past and is frustrated because of this effusion recurring. She denies a fever at home. Denies nausea vomiting diarrhea. She follows with oncology at [facility]. Per patient she states she cannot be taken off the Dasatinib per oncology. Medications/Allergies Home Medications ?Medication ?Instructions ?Recorded ?Confirmed ?Last Taken ?Type trazodone 150 mg tablet 150 mg PO BEDTIME 05/19/20 05/18/25 05/18/25 History ibuprofen 200 mg tablet 200 mg PO Q6H PRN Pain 03/22/22 05/18/25 Unknown History sertraline 25 mg tablet 25 mg PO DAILY 12/11/24 05/18/25 05/18/25 History levothyroxine 175 mcg tablet 175 mcg PO QAM 02/19/25 05/18/25 05/18/25 History Portable oxygen concentrator #1 ea 04/15/25 05/18/25 Unknown Rx albuterol sulfate 90 mcg/actuation 2 puff inhalation Q4H PRN Wheezing 05/04/25 05/18/25 05/18/25 Rx aerosol inhaler #6.7 grams furosemide 40 mg tablet 40 mg PO BID shortness of breath 05/04/25 05/18/25 05/18/25 Rx #28 tabs potassium chloride 20 mEq 20 meq PO DAILY #14 tabs 05/04/25 05/18/25 05/18/25 Rx tablet,extended release (K-Tab) tiotropium bromide 2.5 2 puff inhalation DAILY #4 grams 05/04/25 05/18/25 05/18/25 Rx mcg/actuation mist for inhalation (Spiriva Respimat) Sprycel 70 mg tablet (dasatinib) 70 mg PO DAILY #30 tabs 05/19/25 Unknown Rx Allergies Allergy/AdvReac Type Severity Reaction Status Date / Time No Known Allergies Allergy Verified 05/19/25 12:35 PFSH Acute PFSH: Medical History (Updated 05/19/25 @ 19:20 by Josefa De MD) Abscess of finger of left hand Degenerative joint disease of spine Degenerative arthritis Shoulder pain COPD (chronic obstructive pulmonary disease) Nicotine dependence Chronic back pain Hypothyroidism Dyslipidemia Cellulitis Nephrolithiasis CML (chronic myelocytic leukemia) Surgical History (Updated 05/04/25 @ 14:41 by Shu Zhao CMA) H/O sinus surgery History of ureter stent Previous back surgery Family History Mother Cancer Breast cancer Father COPD (chronic obstructive pulmonary disease) Denies family history of CAD (coronary artery disease) Clotting disorder Anesthesia complication Bleeding disorder Social History Smoking and tobacco/nicotine status: current every day tobacco/nicotine user (3/4 ppd x 50 years. No Vaping) cigarettes [ Other cigarette details: 1/2 pack per day] Second hand smoke exposure: No Alcohol intake: never Substance/Drug Use: never Household members: family Housing: House Marital status: Vitals/I&O/Wt Last Vital Signs Temp 97.7 F 05/19/25 12:47 Pulse 78 05/19/25 12:47 Resp 18 05/19/25 12:47 BP 119/89 05/19/25 12:47 Pulse Ox 92 05/19/25 12:47 O2 Del Method Nasal Cannula 05/19/25 12:47 O2 Flow Rate 3 05/19/25 12:47 Weight last 48 hrs Weight 92.986 kg Physical Exam Narrative: Generally: Alert and oriented x 3. Appears to be in distress due to pain. Daughter at bedside. HEENT normocephalic/atraumatic neck is supple cardiovascular regular rate rhythm normal S1-S2 Respiratory: Bilateral crackles at bases. Abdomen: Soft nontender, bowel sounds present Extremities: 1+ pitting edema bilateral lower extremities. Data 05/20/25 04:40 05/20/25 04:40 A&P Assessment and plan 1. Postoperative state: 2. Failure of outpatient treatment: 3. Diastolic heart failure, unspecified HF chronicity: 4. Chronic myeloid leukemia, BCR/ABL-positive, not having achieved remission: 5. SOB (shortness of breath): 6. Recurrent pleural effusion: 7. Chronic hypoxemic respiratory failure: 8. Immunocompromised: 9. Hypothyroidism: Plan: #Recurrent bilateral pleural effusion status post right thoracentesis, left pleuroscopy with pleural biopsy, pleurodesis, tunneled pleural catheter #CLL, on Dasatinib #Hypothyroidism #Depression #COPD #Dyslipidemia #Diastolic heart failure ? Hold Dasatinib at this time. ? Continue levothyroxine ? DuoNeb every 6 hours as needed ? Trazodone 150 at bedtime ? Lasix 40 daily ? Check echocardiogram. EF 62% no regional wall motion abnormalities. 03/18. No need to repeat echo today. ? Check CBC, CMP -Pleural fluid sent for cytology, culture Gram stain ? Cefazolin 2 g IV x 1 given. ? Discussed with Dr. Davis at length. No indication for antibiotics at this time. No need to repeat CT scan at this time per pulmonology. Chest x-ray acknowledged post procedure. There is small area of subcutaneous emphysema and 14 mm pneumothorax. ? Order scheduled Tylenol 1 g 3 times daily ? Oxycodone IR 10 every 6 hours as needed. Full code DVT prophylaxis: SCDs PDMP PDMP Reviewed: Not Reviewed Attestations Medical Necessity Statement*: post op pleurodesis, chest tube management > 2 management midnight stay. Diagnoses Postoperative state Z98.890 Failure of outpatient treatment Z78.9 Diastolic heart failure, unspecified HF chronicity I50.30 Heart failure chronicity: unspecified Chronic myeloid leukemia, BCR/ABL-positive, not having achieved remission C92.10 SOB (shortness of breath) R06.02 Recurrent pleural effusion J90 Chronic hypoxemic respiratory failure J96.11 Immunocompromised D84.9 Hypothyroidism E03.9
--- NOTE | 2025-05-19 16:06 | XRR_ITS ---
PROCEDURE INFORMATION: Exam: XR Chest Exam date and time: 05/19/2025 5:43 PM Age: 69 years old Clinical indication: Other: Post thoroscopy; Prior surgery; Surgery date: Post-operative (0-2 days); Additional info: Pleural effusion TECHNIQUE: Imaging protocol: Radiologic exam of the chest. Views: 1 view. COMPARISON: CR XR chest 1V [id number] 05/04/2025 4:33 PM FINDINGS: Lungs: Irregular opacities in the lung bases. Pleural spaces: There is a left apical pneumothorax measuring up 14 mm of pleural separation near the apex medially. Heart/Mediastinum: Unremarkable. No cardiomegaly. Bones/joints: Severe degenerative changes in the bilateral glenohumeral joints. Soft tissues: Subcutaneous emphysema along the left lateral chest wall. XR/XR chest 1V portable [id number] IMPRESSION: 1. There is a left apical pneumothorax measuring up 14 mm of pleural separation near the apex medially. 2. Irregular opacities in the lung bases. 3. Subcutaneous emphysema along the left lateral chest wall.
--- NOTE | 2025-05-19 16:20 | SUR.OPER ---
700ml of fluid from right lung drained
[2025-05-19] MEDS: ceFAZolin 2,000 mg SDV 2000 MG IVP (16:40)
[2025-05-19] MEDS: lidocaine-epi 1% 20 mL INJ INJECTION (16:58)
--- NOTE | 2025-05-19 16:59 | SUR.OPER ---
stermargarita 4g applied by Dr Davis
--- NOTE | 2025-05-19 17:42 | P.BOP_ITS ---
Interventional Pulmonary Immediate Brief Operative Note: * Date of Procedure:?05/19/2025 * Preoperative Diagnosis:?Bilateral pleural effusion * Postoperative Diagnosis:?[Same as pre-op] * Procedures Performed: * Right thoracentesis with draining 700 cc of fluid * Left?pleuroscopy with pleural biopsy and draining 1500 cc of pleural fluid * Left pleurodesis * Left tunneled pleural catheter placement * Surgeon / Take Up Operator:?Laura Reaves * Anesthesia: * ?Monitored anesthesia care (MAC) * Findings: Normal left pleura and lung * Estimated Blood Loss (EBL):?[Minimal] * Specimens: * Right and left pleural fluid for analysis * ?Pleural biopsy * Complications:?None * Disposition:?Transferred to PACU in stable condition. Riddhi Davis MD, FACP Interventional Pulmonogist
--- NOTE | 2025-05-19 17:42 | W.PM.BPON ---
Interventional Pulmonary Immediate Brief Operative Note: Date of Procedure:?05/19/2025 Preoperative Diagnosis:?Bilateral pleural effusion Postoperative Diagnosis:?[Same as pre-op] Procedures Performed: Right thoracentesis with draining 700 cc of fluid Left?pleuroscopy with pleural biopsy and draining 1500 cc of pleural fluid Left pleurodesis Left tunneled pleural catheter placement Surgeon / Engine Hostler:?Laura Reaves Anesthesia: ?Monitored anesthesia care (MAC) Findings: Normal left pleura and lung Estimated Blood Loss (EBL):?[Minimal] Specimens: Right and left pleural fluid for analysis ?Pleural biopsy Complications:?None Disposition:?Transferred to PACU in stable condition. Riddhi Davis MD, FACP Interventional Pulmonogist
[2025-05-19 18:04] LABS: Mononuclear %, Pleural Fluid 99 %; Polynuclear Cells, Pleural % 1 %; WBC Pleural Fluid 3807.000 /uL (0-1000)
[2025-05-19 18:08] LABS: Mononuclear %, Pleural Fluid 94 %; Polynuclear Cells, Pleural % 6 %; WBC Pleural Fluid 1386.000 /uL (0-1000)
[2025-05-19 18:22] LABS: Appearance, Pleural Fluid CLOUDY (CLEAR); Color, Pleural Fluid Pale Yellow (Pale Yellow); Cyto Order Verification No Order; PATH Referal YES
[2025-05-19 18:23] LABS: Appearance, Pleural Fluid CLOUDY (CLEAR); Color, Pleural Fluid Pale Yellow (Pale Yellow); PATH Referal YES
[2025-05-19] MEDS: morphine 4 mg/mL SDV 1 mL IVP ×2 (18:32→19:18)
[2025-05-19] MEDS: acetaminophen 1,000 MG/100 ML PIGGYBACK 400 MG IV (18:33)
--- NOTE | 2025-05-19 18:34 | PM.OP ---
Operative Report Date of procedure: May 19, 2025 Pre-op diagnosis: Bilateral pleural effusion Recurrent left pleural effusion Post-op diagnosis: Same Procedure done: 1. Left thoracoscopy with pleural biopsy, pleurodesis and Pleurx placement 2. Right thoracentesis Surgeon: Riddhi Davis MD Estimated blood loss: Less than 20 ml Complications: None Findings: Anesthesia Type: Monitored Anesthesia Care PREOPERATIVE INDICATION: Mrs. Meraz presents for management of symptomatic bilateral recurrent pleural effusions. The patient has been counseled on treatment options and recommendations. Patient agreed to proceed forward with therapeutic thoracentesis on the right side then to perform left thoracoscopy for pleural biopsy, pleurodesis and Pleurx placement Consent: The benefits, risks, and alternatives to the procedure were discussed and informed consent was obtained from patient . Initially, while patient was sitting in bed, The thorax was scanned with portable ultrasound and demonstrated a moderate-sized right pleural effusion and a large left pleural effusion. We decided to proceed forward with therapeutic right thoracentesis. The patient was placed in a sitting/semirecumbent position. The site was marked, prepped and draped in the usual sterile fashion using chlorhexidine and local anesthesia was achieved with 10cc 1% lidocaine which was injected subcutaneously and deep to provide local anesthesia. A small incision was then made parallel and superior to the rib that the thoracentesis needle with catheter was inserted into the chest wall and advanced under constant aspiration. Upon aspiration of pleural fluid the [place] thoracentesis catheter was placed using Seldinger technique with recovery of about 700 ml of dark yellow-colored fluid. The catheter was then removed and Band-Aid was placed. The patient tolerated the procedure well without immediate complication. Then, the patient was identified and the surgical site was confirmed. The patient was then positioned with right lung down, lateral decubitus. Left chest ultrasound was then performed, identifying large simple effusion a on the right side with no significant trabeculation or adhesions. Marker was used to geno an appropriate entry site at the posterior axillary line at about the 6th intercostal space. The patient was prepped and draped in usual sterile fashion. Patient was given 2 g of cefazolin IV per anesthesia team The selected single port incision site on the right chest wall, subcutaneous tissues and pleural interface were anesthestized with 20 mL of 1% lidocaine. A #11 blade was then used to make an approximately 1.0 to 1.5 cm incision. The intercostal muscles and fascia were then bluntly dissected using a curved tio clamp until the pleural space was entered. A 5.5 mm trocar was inserted and the Ke thoracoscope was introduced. A total of 1500 ml of dark yellow-colored fluid was drained. A complete video thoracoscopic inspection then was performed and revealed normal lung and normal pleura. Multiple pleural biopsies were then performed using cupped forceps in multiple areas with care to avoid the intercostal space. Attention was then turned to placing left Pleurx catheter. We then performed TUNNELED PLEURAL CATHETER INSERTION. A second 5mm incision was made approximately 5-7cm anterocaudal to previous incision site. The catheter was then attached to the trocar in the tunneled pleural catheter kit and passed cephalad through a tunnel to the initial incision. The tube was disconnected from the tunneling trocar and introduced into the pleural space via the initial thoracostomy site. The drain line set was then connected and the tube was connected to a chest tube drainage kit. The drain line set was then connected and the tube was connected a pleuravac. We then performed thoracoscopic PLEURODESIS using 4g of talc powder administered using air insufflation via the port ensuring adequate coverage of the pleural space. The port incision site was closed with interrupted 2-0 vicryl sutures and the skin was closed with a 4-0 Biosyn subcuticlar stitch and skin glue was applied. The tube was then secured with 2-0 prolene. Estimated Blood Loss: Minimal Specimens: Pleural fluid for chemistry analysis, microbiology and cytology. Pleural biopsy/path Wound Classification:Clean Complications: none Disposition: PACU CPT codes for the procedure: 66248, 25761,86336, 42388, 64418 Riddhi Davis MD, FACP, FASN Interventional Pulmonary
--- NOTE | 2025-05-19 18:39 | PC.NURSE ---
Critical Toribioad called to Nurse, due to Unable to reach doctor at the time, a minute later, Dr. De answered the phone and message relayed and she read results as well. Dr. De said she was going to order a chest CT
[2025-05-19 18:49] LABS: Pleural Fluid Cholesterol 55 mg/dL; Triglycerides, Pleural Fluid 19 mg/dL
[2025-05-19 18:49] LABS: Pleural Fluid Cholesterol 65 mg/dL; Pleural Fluid Triglycerides 27 mg/dL
[2025-05-19 18:59] LABS: Hematocrit 37.8 % (36-47); Hemoglobin 10.70 g/dL (11.27-16.99); Mean Corpuscular HGB Conc 28.3 g/dL (30-55); Mean Corpuscular Hemoglobin 24.2 pg (27-33); Mean Corpuscular Volume 85.5 fl (85-98); Nucleated Red Blood Cells % 0 %; Platelet Count 309 10^3/cmm (157-399); Red Blood Count 4.42 10^6/uL (3.85-5.65); White Blood Count 7.34 10^3/uL (3.29-11.43)
[2025-05-19 19:26] LABS: Alanine Aminotransferase 13 U/L (0-33); Albumin Level 3.5 g/dL (3.5-5.2); Alkaline Phosphatase 88 U/L (35-105); Anion Gap 9.8 (5-19); Aspartate Amino Transferase 13 U/L (0-32); Blood Urea Nitrogen 9 mg/dL (8-23); Calcium 8.8 mg/dL (8.5-10.5); Carbon Dioxide 38 mmol/L (22-29); Chloride 96 mmol/L (98-107); Creatinine Clr Calc Pharmacy 72.7301; Globulin 3.3 g/dL (1.3-4.6); Glucose 161 mg/dL (65-115); Osmolality Calculated 292 mOsm/kg (285-295); Potassium 3.8 mmol/L (3.5-5.1); Sodium 140 mmol/L (136-145); Total Protein 6.8 g/dL (6.6-8.7)
[2025-05-19 19:49] LABS: Cyto Order Verification No Order
--- NOTE | 2025-05-19 19:55 | PC.NURSE ---
Notified by Dr. De that veterinary hospital attendant requested to cancel stat chest CT
[2025-05-19] MEDS: oxyCODONE 5 mg IR Tab/Cap PO (22:01)
[2025-05-20] VITALS (92 sets, daily range): BP systolic 91–157; BP diastolic 49–92; PULSE 67–109; RESP 13–41; TEMP 36.4–37.1; O2SAT 87–100
[2025-05-20] MEDS: acetaminophen 1,000 MG/100 ML PIGGYBACK 400 MG IV ×2 (02:30→09:55)
[2025-05-20 04:46] LABS: Hematocrit 40.6 % (36-47); Hemoglobin 11.70 g/dL (11.27-16.99); Mean Corpuscular HGB Conc 28.8 g/dL (30-55); Mean Corpuscular Hemoglobin 24.9 pg (27-33); Mean Corpuscular Volume 86.4 fl (85-98); Nucleated Red Blood Cells % 0 %; Platelet Count 271 10^3/cmm (157-399); Red Blood Count 4.70 10^6/uL (3.85-5.65); White Blood Count 6.96 10^3/uL (3.29-11.43)
[2025-05-20] MEDS: morphine 4 mg/mL SDV 1 mL IVP ×4 (04:52→23:09)
--- NOTE | 2025-05-20 05:00 | XRR_ITS ---
PROCEDURE INFORMATION: Exam: XR Chest Exam date and time: 05/20/2025 5:59 AM Age: 69 years old Clinical indication: Device placement; Chest tube; Prior surgery; Surgery date: Post-operative (0-2 days); Surgery type: Thoroscopy; Additional info: Pleur-x drain TECHNIQUE: Imaging protocol: Radiologic exam of the chest. Views: 1 view. COMPARISON: CR (CHEST, ) 05/19/2025 5:43 PM FINDINGS: Tubes, catheters and devices: Stable left thoracostomy tube. Lungs: Stable bilateral lower lobe pulmonary infiltrates with likely small effusions. Pleural spaces: The previous tiny apical pneumothorax is not visible on this study. Heart/Mediastinum: See Vasculature finding. Vasculature: Mild cardiomegaly and uncoiling of the thoracic aorta. Bones/joints: Severe degenerative changes of each shoulder. Soft tissues: Subcutaneous gas along the left lateral chest wall. XR/XR chest 1V portable [id number] IMPRESSION: No significant change except that the tiny apical left pneumothorax is no longer clearly visible.
[2025-05-20 05:17] LABS: Alanine Aminotransferase 10 U/L (0-33); Albumin Level 3.3 g/dL (3.5-5.2); Alkaline Phosphatase 85 U/L (35-105); Anion Gap 8.7 (5-19); Aspartate Amino Transferase 12 U/L (0-32); Blood Urea Nitrogen 11 mg/dL (8-23); Calcium 8.9 mg/dL (8.5-10.5); Carbon Dioxide 38 mmol/L (22-29); Chloride 97 mmol/L (98-107); Creatinine Clr Calc Pharmacy 72.1711; Globulin 3.2 g/dL (1.3-4.6); Glucose 127 mg/dL (65-115); Osmolality Calculated 291 mOsm/kg (285-295); Potassium 3.7 mmol/L (3.5-5.1); Sodium 140 mmol/L (136-145); Total Protein 6.5 g/dL (6.6-8.7)
[2025-05-20] MEDS: oxyCODONE 5 mg IR Tab/Cap PO ×2 (06:07→12:52)
--- NOTE | 2025-05-20 06:22 | PC.NURSE ---
Patient very anxious and requesting a nicotine patch, as well as something for her anxiety.
[2025-05-20] MEDS: LORazepam 1 MG/0.5 ML injection 0.25 MG IVP (10:59)
--- NOTE | 2025-05-20 11:54 | P.PN_ITS ---
Subjective 2 Subjective: Seen this morning. 194 cc output at the chest tube. Serosa nguineous at this point. Cytology pleural fluid pending. States pain is slightly better controlled today. Is quite anxious however. Vitals/I&O/Wt Last Vital Signs Temp 97.9 F 05/20/25 09:38 Pulse 80 05/20/25 10:41 Resp 20 H 05/20/25 11:00 BP 97/50 05/20/25 10:41 Pulse Ox 90 05/20/25 11:00 O2 Del Method Nasal Cannula 05/20/25 10:41 O2 Flow Rate 4 05/20/25 10:41 05/19/25 05/20/25 05/20/25 22:59 06:59 14:59 Intake Total 253 / 253 200 / 453 Output Total 1500 / 1500 Balance -1247 / -1247 200 / -1047 Weight last 48 hrs Weight 90.156 kg Weight 91.49 kg Weight 92.986 kg Physical Exam 2 Narrative: Generally: Alert and oriented x 3. Appears more comfortable today from pain standpoint. HEENT normocephalic/atraumatic neck is supple cardiovascular regular rate rhythm normal S1-S2 Respiratory: Clear to auscultation bilaterally Abdomen: Soft nontender, bowel sounds present Extremities: 1+ pitting edema bilateral lower extremities. Data 05/20/25 04:40 05/20/25 04:40 A&P Assessment and plan 1. Postoperative state: 2. Failure of outpatient treatment: 3. Diastolic heart failure, unspecified HF chronicity: 4. Chronic myeloid leukemia, BCR/ABL-positive, not having achieved remission: 5. SOB (shortness of breath): 6. Recurrent pleural effusion: 7. Chronic hypoxemic respiratory failure: 8. Immunocompromised: 9. Hypothyroidism: Plan: #Recurrent bilateral pleural effusion status post right thoracentesis, left pleuroscopy with pleural biopsy, pleurodesis, tunneled pleural catheter #CLL, on Dasatinib #Hypothyroidism #Depression #COPD #Dyslipidemia #Diastolic heart failure ? Hold Dasatinib at this time. ? Continue levothyroxine ? DuoNeb every 6 hours as needed ? Trazodone 150 at bedtime ? Lasix 40 daily ? Check echocardiogram. EF 62% no regional wall motion abnormalities. 03/18. No need to repeat echo today. ? Check CBC, CMP -Pleural fluid sent for cytology, culture Gram stain ? Cefazolin 2 g IV x 1 given. ? Discussed with Dr. Davis at length. No indication for antibiotics at this time. No need to repeat CT scan at this time per pulmonology. Chest x-ray acknowledged post procedure. There is small area of subcutaneous emphysema and 14 mm pneumothorax. ? Order scheduled Tylenol 1 g 3 times daily ? Oxycodone IR 10 every 6 hours as needed. Full code DVT prophylaxis: SCDs 05/20/2025 Continue levothyroxine hold Dasatinib at this time Trazodone 150 at bedtime Continue Lasix 40 twice daily Pleural fluid cytology is pending. Chest x-ray from this morning reviewed. Pneumothorax almost resolved. For breakthrough pain will add Dilaudid 0.5 every 4 hours as needed Continue oxycodone 5 every 6 hours as needed Appreciate recommendations from interventional pulmonology. Will call her oncologist in a.m. to discuss her care. Continue levothyroxine, trazodone. PDMP PDMP Reviewed: Not Reviewed Attestations 2 Medical Necessity Statement*: post op pleurodesis, chest tube management > 2 management midnight stay. Diagnoses Postoperative state Z98.890 Failure of outpatient treatment Z78.9 Diastolic heart failure, unspecified HF chronicity I50.30 Heart failure chronicity: unspecified Chronic myeloid leukemia, BCR/ABL-positive, not having achieved remission C92.10 SOB (shortness of breath) R06.02 Recurrent pleural effusion J90 Chronic hypoxemic respiratory failure J96.11 Immunocompromised D84.9 Hypothyroidism E03.9
[2025-05-20] MEDS: HYDROmorphone 0.5 MG/0.5 ML INJ IVP ×2 (14:53→19:19)
--- NOTE | 2025-05-20 19:03 | USCV_ITS ---
Justina Meraz Age: 69 Gender: F : 1955 Exam Date: 05/19/2025 19:37 Ordering Phys: Josefa De MD Technologist: Exam Location: [facility] [place] Indication: cp sob BP: 95 / 56 HR: 80 Rhythm: Sinus Technical Quality: Adequate MEASUREMENTS (Male / Female) Normal Values 2D ECHO LV Diastolic Diameter PLAX 4.6 cm 4.2 - 5.9 / 3.9 - 5.3 cm IVS Diastolic Thickness 1.7 cm 0.6 - 1.0 / 0.6 - 0.9 cm IVS Systolic Thickness 2.1 cm LVPW Diastolic Thickness 1.4 cm 0.6 - 1.0 / 0.6 - 0.9 cm LVPW Systolic Thickness 1.8 cm LVOT Diameter 2.0 cm LV Ejection Fraction 2D Teich 66.4 % LV Ejection Fraction MOD 4C 66.1 % LV Ejection Fraction MOD 2C 60.3 % LV Ejection Fraction 2C AL 60.4 % LA Diameter 3.6 cm RA Systolic Volume 4C AL 50.5 ml RA Systolic Volume 4C MOD 48.3 ml Aorta at Sinotubular Diameter 3.4 cm M-MODE LA Ao Ratio MM 1.0 AV Cusp Separation MM 2.0 cm DOPPLER AV Peak Velocity 200.0 cm/s LVOT Peak Velocity 79.0 cm/s AV Area Cont Eq vti 1.5 cm squared AV Area Cont Eq pk 1.3 cm squared MV Peak Velocity 106.0 cm/s MV Area PHT 3.1 cm squared Mitral E to A Ratio 0.8 TV Peak Velocity 185.5 cm/s TR Peak Velocity 287.0 cm/s TR Peak Gradient 32.9 mmHg PV Peak Velocity 107.0 cm/s FINDINGS Left Ventricle Technically limited quality echocardiogram because of poor ultrasonic windows. LV systolic function is normal with EF of 55-60%. No regional wall motion abnormalities. Grade 1 diastolic dysfunction Right Ventricle Grossly normal Right Atrium Normal right atrial size. Left Atrium Normal left atrial size. Mitral Valve Moderate mitral annular calcification. Mild mitral regurgitation. Aortic Valve Aortic valve sclerosis. Mild aortic valve stenosis, mean gradient 7.5 mmHg, NILSA 1.5 cm squared. Tricuspid Valve Mild tricuspid valve regurgitation. Pulmonary artery systolic pressure is normal Pulmonic Valve Not well visualized Pericardium Normal Aorta Normal in size IVC Not visualized CONCLUSIONS Technically limited quality echocardiogram because of poor ultrasonic windows. LV systolic function is normal with EF of 55-60%. Grade 1 diastolic dysfunction Mild mitral regurgitation. Mild aortic valve stenosis Mild tricuspid valve regurgitation. Luis M Myles MD (Electronically Signed) Final Date: 20 May 2025 23:10 S
[2025-05-20] MEDS: LORazepam 1 MG/0.5 ML injection 0.5 MG IVP (19:19)
--- NOTE | 2025-05-20 19:27 | P.PN_ITS ---
Subjective 2 Subjective: No acute events overnight. Patient remained hemodynamic stable and afebrile. Patient reported that her respiratory status significant improved after she underwent therapeutic thoracentesis on the right side with 700 cc of fluid removal and thoracoscopy on the left side with 1500 cc fluid removal along with pleurodesis and Pleurx placement. Pleurx drained at the 200 cc over the past 12 hours. Vitals/I&O/Wt Last Vital Signs Temp 97.9 F 05/20/25 09:38 Pulse 96 05/20/25 18:00 Resp 24 H 05/20/25 18:00 BP 142/74 05/20/25 17:45 Pulse Ox 89 L 05/20/25 18:00 O2 Del Method Nasal Cannula 05/20/25 18:00 O2 Flow Rate 4 05/20/25 18:00 05/20/25 05/20/25 05/20/25 06:59 14:59 22:59 Intake Total 200 / 453 120 / 120 240 / 360 Output Total 800 / 800 Balance 200 / -1047 120 / 120 -560 / -440 Weight last 48 hrs Weight 198 lb 12.16 oz Weight 201 lb 11.2 oz Weight 205 lb Physical Exam 2 Narrative: General: Alert, oriented, and in no acute distress. Appears well-nourished and well-developed. Head: Normocephalic and atraumatic. Eyes: Pupils equal, round, and reactive to light. Extraocular movements intact. No scleral icterus or conjunctival injection. Ears/Nose/Throat: Nasal mucosa is moist without discharge. Oropharynx is clear without erythema or exudate. Dentition intact. No lesions or thrush. Neck: Supple. No lymphadenopathy Cardiovascular: Regular rate and rhythm. Normal S1 and S2. No murmurs, gallops, or rubs. No peripheral edema. Respiratory: good air entry with scattered rhonchi Abdomen: Soft, non-tender, non-distended. Normoactive bowel sounds. Extremities: No cyanosis, clubbing, or edema. Full range of motion. Peripheral pulses palpable and symmetric. Skin: Warm and dry. No rashes, lesions, or ulcers. Neurology: Alert and oriented to person, place, and time. Grossly intact with no focal deficit. Psychiatry: Good mood with Appropriate affect. Data 05/20/25 04:40 05/20/25 04:40 Micro: Microbiology 05/19/25 16:43 Gram Stain - Final Pleural Fluid 05/19/25 16:05 Gram Stain - Final Pleural Fluid A&P Assessment and plan 1. Pleural effusion, bilateral: 2. Recurrent pleural effusion: 3. Chronic hypoxemic respiratory failure: 4. Postoperative state: Plan: Patient is recovering as expected. I reviewed her chest x-ray from today and looks great with near complete lung expansion. Localized subcutaneous air on the left side as expected from the last procedure. No significant pneumothorax. No evidence of air leak in the chest tube. Pleural fluid analyses are consistent with single exudative lymphocytic predominant from both pleural sites. Cytology is pending. Microbiology with no growth so far. Plan: ?Continue chest tube to -20 suction. Okay to discontinue suction for ambulation ?Chest x-ray in the morning ?Continue with pain management ?Case management has been consulted for home health and it appears the patient did not get approved by the insurance for home health to help drain the left Pleurx? ?We provided extensive education to the patient and her daughter on how to drain the Pleurx at home. Will repeat this again tomorrow Riddhi Davis MD, FACP, [facility] Interventional Pulmonary PDMP PDMP Reviewed: Not Reviewed Attestations 2 Medical Necessity Statement*: Patient needs to be on continuous suction for the pleurodesis to be successful so she has to stay for another at least 24 hours. Coding Level of Care Code Acute Code for Chg Fwd Diagnoses Pleural effusion, bilateral J90 Recurrent pleural effusion J90 Chronic hypoxemic respiratory failure J96.11 Postoperative state Z98.890 Time Spent (min) 40
--- NOTE | 2025-05-20 23:49 | PC.NURSE ---
Dr. Nicolas notified that patient's oxygen requirements have increased from 4l oxymask to 6l oxymask and patient keeps desatting and taking a while to recover, patient also has wheezes bilaterally. Order received for ABG.
[2025-05-20 23:51] LABS: ABG PCO2 82.7 mmHg (35-45); ABG PH Result 7.31 (7.35-7.45); Alveolar-Arterial Oxygen Gradi 0.0 mmHg (5-10); Arterial Blood Gas Hematocrit 35.1 % (37-47); Blood Gas Allen Test Pos; Blood Gas LPM 6.0 %; Blood Gas Sample Site Radial, right; Blood Gas Sample Type Arterial; Carboxyhemoglobin 2.0 %THgb (0.4-20.1); Glucose Level-ABG 146.0 mg/dL (70-115); HCO3 ABG 41.7 mmol/L (22-26); Ionized Calcium Level - ABG 1.2 mmol/L (1.1-1.4); Methemoglobin 1.0 % (0.4-1.5); Oxygen Saturation ABG 91.9; PO2 ABG 67.9 mmHg (80.0-100.0); Potassium Level - ABG 3.8 mmol/L (3.5-5.0); Sodium Level - ABG 139.0 mmol/L (131-143)
[2025-05-21] VITALS (27 sets, daily range): BP systolic 98–138; BP diastolic 58–91; PULSE 77–98; RESP 15–27; TEMP 36.9–37.1; O2SAT 88–95
[2025-05-21 03:29] LABS: ABG PCO2 80.8 mmHg (35-45); ABG PH Result 7.33 (7.35-7.45); Arterial Blood Gas Hematocrit 33.3 % (37-47); Blood Gas LPM 6.0 %; Blood Gas Sample Site Brachial, right; Blood Gas Sample Type Arterial; Carboxyhemoglobin 1.9 %THgb (0.4-20.1); Glucose Level-ABG 114.0 mg/dL (70-115); HCO3 ABG 42.9 mmol/L (22-26); Ionized Calcium Level - ABG 1.2 mmol/L (1.1-1.4); Methemoglobin 1.1 % (0.4-1.5); Oxygen Saturation ABG 92.7; PO2 ABG 68.9 mmHg (80.0-100.0); Potassium Level - ABG 3.4 mmol/L (3.5-5.0); Sodium Level - ABG 138.0 mmol/L (131-143)
[2025-05-21 03:30] LABS: Alveolar-Arterial Oxygen Gradi 0.0 mmHg (5-10)
[2025-05-21 04:13] LABS: Hematocrit 38.3 % (36-47); Hemoglobin 10.70 g/dL (11.27-16.99); Mean Corpuscular HGB Conc 27.9 g/dL (30-55); Mean Corpuscular Hemoglobin 24.4 pg (27-33); Mean Corpuscular Volume 87.4 fl (85-98); Nucleated Red Blood Cells % 0 %; Platelet Count 277 10^3/cmm (157-399); Red Blood Count 4.38 10^6/uL (3.85-5.65); White Blood Count 7.41 10^3/uL (3.29-11.43)
[2025-05-21 04:34] LABS: Anion Gap 9.6 (5-19); Blood Urea Nitrogen 15 mg/dL (8-23); Calcium 9.0 mg/dL (8.5-10.5); Carbon Dioxide 39 mmol/L (22-29); Chloride 92 mmol/L (98-107); Creatinine Clr Calc Pharmacy 72.1711; Glucose 111 mg/dL (65-115); Magnesium 1.9 mg/dL (1.7-2.3); Osmolality Calculated 286 mOsm/kg (285-295); Potassium 3.6 mmol/L (3.5-5.1); Sodium 137 mmol/L (136-145)
--- NOTE | 2025-05-21 07:26 | XR_ITS ---
WS: [id number] Exam: XR chest 1V portable [id number] Date/Time of Exam: 05/21/2025 8:23 AM Reason For Exam: follow up chest tube Comparison 05/20/2025. Again noted are bibasilar infiltrates and probable pleural effusions demonstrating hardly any change since the last exam. The heart is enlarged but unchanged in size. Mild subcu emphysema along the LEFT rib cage.. Left-sided opaque tube noted overlying the LEFT lower lung zone and upper LEFT abdomen. E xact location of this tube is undetermined. XR/XR chest 1V portable [id number] IMPRESSION: 1. Bibasal infiltrates and atelectasis as well as pleural effusions showing lit tle change. 2. Cardiac enlargement unchanged. 3. Left-sided thoracostomy tube superimposing the LEFT chest and abdomen. The e xact location of this tube is undetermined. A lateral view or CT could be helpf ul for more detailed evaluation.
[2025-05-21] MEDS: HYDROmorphone 0.5 MG/0.5 ML INJ IVP ×2 (07:30→11:32)
[2025-05-21] MEDS: oxyCODONE 5 mg IR Tab/Cap PO (09:24)
--- NOTE | 2025-05-21 10:10 | PC.NURSE ---
Patient requested to use bed side commode, patient up to commode and oxygen saturation dropped to 76 at lowest point. Patient aggressive with staff at that time,pushing nurse away and pulling oxygen off, attempting to stand; despite instructions. This nurse assisted patient back to bed, returned nasal cannula to patient, and instructed on breathing techniques. Patient slow to recover. Resting in bed at 86% patient more oriented and calm. Dr. De called and made aware of activity intolerance.
--- NOTE | 2025-05-21 10:43 | CT_ITS ---
WS: [id number] CTA OF THE CHEST WITH PULMONARY EMBOLISM PROTOCOL TECHNIQUE: High-resolution contrast enhanced CTA of the chest with coronal and sagittal reformatted images with pulmonary embolism protocol. MIP images are also reviewed. CLINICAL INFORMATION: Shortness of breath COMPARISON: None. DLP: 468.[address] scans at [facility] use at least one of these dose optimization techniques: automated exposure control; mA and/or kV adjustment per patient size (includes targeted exams where dose is matched to clinical indication); or iterative reconstruction. FINDINGS: Proximal main pulmonary arteries are normal. Normal segmental and subsegmental pulmonary arteries. No evidence of pulmonary embolus. Cardiomegaly. LEFT chest tube in the posterior inferior pleural space. Small amount of residual LEFT pleural fluid with compressive atelectasis LEFT lower lobe posterior medially with air bronchograms. Small amount subcutaneous emphysema LEFT lateral chest wall from chest tube placement. Moderate RIGHT pleural effusion with compressive atelectasis RIGHT lower lobe. A few scattered groundglass infiltrates may be due to edema. Aortic calcification. Coronary calcification. No mediastinal or hilar lymphadenopathy. Small esophageal hiatal hernia. Thoracic kyphosis. CT/CT angio chest PE protcl [id number] IMPRESSION: 1. No evidence of pulmonary embolus. 2. Cardiomegaly. 3. LEFT chest tube with tip in the LEFT posterior inferior pleural space. Smal l amount of residual pleural fluid with pleural thickening. Compressive atelect asis LEFT lower lobe with air bronchograms. 4. Moderate RIGHT pleural effusion with compressive atelectasis RIGHT lower lo be. A few hazy groundglass opacities in the RIGHT upper lobe. Subsegmental atel ectasis RIGHT middle lobe. 5. Small esophageal hiatal hernia.
[2025-05-21] MEDS: FUROsemide 10 mg/mL SDV 4mL 40 MG IVP (10:52)
[2025-05-21] MEDS: heparin 5,000 unit/mL INJ 1 mL 5000 UNIT SUBCUT (10:52)
--- NOTE | 2025-05-21 11:33 | P.PN_ITS ---
Subjective 2 Subjective: seen this am nursing staff reports that overnight patient tried to get from bed to bedside commode however became very short of breath. This morning as well she desaturated down to 70s. Saturation does improve eventually. Discussed with campus coordinator over the phone. He states even in the OR she was very short of breath as she had bilateral pleural effusions. It was difficult to have her lay flat. At home she is on 3 to 4 L of nasal cannula. Here on 6 L. Vitals/I&O/Wt Last Vital Signs Temp 98.8 F 05/21/25 10:00 Pulse 83 05/21/25 11:08 Resp 18 05/21/25 11:00 BP 119/74 05/21/25 10:00 Pulse Ox 91 05/21/25 11:00 O2 Del Method High Flow Nasal Cannula 05/21/25 11:00 O2 Flow Rate 6 05/21/25 11:00 05/20/25 05/21/25 05/21/25 22:59 06:59 14:59 Intake Total 340 / 460 100 / 100 Output Total 800 / 800 Balance -460 / -340 100 / 100 Weight last 48 hrs Weight 90.492 kg Weight 90.156 kg Weight 91.49 kg Weight 92.986 kg Physical Exam 2 Narrative: Generally: Alert and oriented x 3. On 6 nasal cannula. HEENT normocephalic/atraumatic neck is supple cardiovascular regular rate rhythm normal S1-S2 Respiratory: Clear to auscultation bilaterally Abdomen: Soft nontender, bowel sounds present Extremities: 1+ pitting edema bilateral lower extremities. Improved compared to yesterday. Data 05/21/25 04:00 05/21/25 04:00 Micro: Microbiology 05/19/25 16:43 Gram Stain - Final Pleural Fluid 05/19/25 16:05 Gram Stain - Final Pleural Fluid A&P Assessment and plan 1. Postoperative state: 2. Failure of outpatient treatment: 3. Diastolic heart failure, unspecified HF chronicity: 4. Chronic myeloid leukemia, BCR/ABL-positive, not having achieved remission: 5. SOB (shortness of breath): 6. Recurrent pleural effusion: 7. Chronic hypoxemic respiratory failure: 8. Immunocompromised: 9. Hypothyroidism: Plan: #Recurrent bilateral pleural effusion status post right thoracentesis, left pleuroscopy with pleural biopsy, pleurodesis, tunneled pleural catheter #CLL, on Dasatinib #Hypothyroidism #Depression #COPD #Dyslipidemia #Diastolic heart failure ? Hold Dasatinib at this time. ? Continue levothyroxine ? DuoNeb every 6 hours as needed ? Trazodone 150 at bedtime ? Lasix 40 daily ? Check echocardiogram. EF 62% no regional wall motion abnormalities. 03/18. No need to repeat echo today. ? Check CBC, CMP -Pleural fluid sent for cytology, culture Gram stain ? Cefazolin 2 g IV x 1 given. ? Discussed with Dr. Davis at length. No indication for antibiotics at this time. No need to repeat CT scan at this time per pulmonology. Chest x-ray acknowledged post procedure. There is small area of subcutaneous emphysema and 14 mm pneumothorax. ? Order scheduled Tylenol 1 g 3 times daily ? Oxycodone IR 10 every 6 hours as needed. Full code DVT prophylaxis: SCDs 05/20/2025 Continue levothyroxine hold Dasatinib at this time Trazodone 150 at bedtime Continue Lasix 40 twice daily Pleural fluid cytology is pending. Chest x-ray from this morning reviewed. Pneumothorax almost resolved. For breakthrough pain will add Dilaudid 0.5 every 4 hours as needed Continue oxycodone 5 every 6 hours as needed Appreciate recommendations from interventional pulmonology. Will call her oncologist in a.m. to discuss her care. Continue levothyroxine, trazodone. 05/21/2025 Discussed with patient's oncologist. Plan to hold Dasatinib x 2 weeks. Oncology plans to reduce dose further as an outpatient. Notified patient. Patient's family to receive teaching today regarding chest tube management at home. At baseline patient is on 3 to 4 L of cannula at home. Lately has been short of breath. Today however patient feels better subjectively. Chest x-ray reviewed from this morning. Secondary to bilateral pleural effusions she has been quite hypoxic even in the OR. Definitely has an anxiety component. She is anxious. Ativan has been helping. Continue heparin SQ twice daily for DVT prophylaxis. Patient under any anticoagulation at home. Denies any history of pulmonary embolism in the past however secondary to CLL we will go ahead and check for pulmonary embolism today. Check CT chest with contrast. Dilaudid for breakthrough pain Continue oxycodone 5 every 6 hours. Continue levothyroxine, trazodone. Continue Lasix 40 IV twice daily at this time. Clinically patient does not appear to be in heart failure exacerbation at this time. I believe her shortness of breath may be secondary to pulmonary cause. Repeat echo shows diastolic dysfunction grade 1, normal EF. Continue flutter valve incentive spirometry. Discussed with interventional campus coordinator over the phone. PDMP PDMP Reviewed: Not Reviewed Attestations 2 Medical Necessity Statement*: Shortness of breath. Chest tube management. Diagnoses Postoperative state Z98.890 Failure of outpatient treatment Z78.9 Diastolic heart failure, unspecified HF chronicity I50.30 Heart failure chronicity: unspecified Chronic myeloid leukemia, BCR/ABL-positive, not having achieved remission C92.10 SOB (shortness of breath) R06.02 Recurrent pleural effusion J90 Chronic hypoxemic respiratory failure J96.11 Immunocompromised D84.9 Hypothyroidism E03.9
[2025-05-21 12:12] LABS: Procalcitonin 0.09 ng/mL (0-0.5)
[2025-05-21] MEDS: iohexol 350 mg/mL 500 mL Btl (per mL) IV (12:47)
--- NOTE | 2025-05-21 14:27 | P.PN_ITS ---
Subjective 2 Subjective: No acute events overnight. Patient reported significant improvement with her SOB. Chest tube with about 200 cc of output. It clear output. Vitals/I&O/Wt Last Vital Signs Temp 98.8 F 05/21/25 10:00 Pulse 89 05/21/25 13:00 Resp 27 H 05/21/25 13:00 BP 108/59 05/21/25 13:00 Pulse Ox 92 05/21/25 13:00 O2 Del Method Nasal Cannula 05/21/25 13:00 O2 Flow Rate 6 05/21/25 11:00 05/20/25 05/21/25 05/21/25 22:59 06:59 14:59 Intake Total 340 / 460 322 / 322 Output Total 800 / 800 800 / 800 Balance -460 / -340 -478 / -478 Weight last 48 hrs Weight 199 lb 8 oz Weight 198 lb 12.16 oz Weight 201 lb 11.2 oz Physical Exam 2 Narrative: General: Alert, oriented, and in no acute distress. Appears well-nourished and well-developed. Head: Normocephalic and atraumatic. Eyes: Pupils equal, round, and reactive to light. Extraocular movements intact. No scleral icterus or conjunctival injection. Ears/Nose/Throat: Nasal mucosa is moist without discharge. Oropharynx is clear without erythema or exudate. Neck: Supple. No lymphadenopathy Cardiovascular: Regular rate and rhythm. Normal S1 and S2. No murmurs, gallops, or rubs. No peripheral edema. Respiratory: good air entry with scattered rhonchi Abdomen: Soft, non-tender, non-distended. Normoactive bowel sounds. Extremities: No cyanosis, clubbing, or edema. Full range of motion. Peripheral pulses palpable and symmetric. Skin: Warm and dry. No rashes, lesions, or ulcers. Neurology: Alert and oriented to person, place, and time. Grossly intact with no focal deficit. Psychiatry: Good mood with Appropriate affect. Data 05/21/25 04:00 05/21/25 04:00 Micro: Microbiology 05/19/25 16:43 Gram Stain - Final Pleural Fluid 05/19/25 16:05 Gram Stain - Final Pleural Fluid A&P Assessment and plan 1. Pleural effusion, bilateral: 2. Chronic hypoxemic respiratory failure: Plan: Patient is recovering as expected. I reviewed her chest x-ray from today and looks great with near complete lung expansion. No evidence of air leak in the chest tube. Pleural fluid analyses are consistent with single exudative lymphocytic predominant from both pleural sites. Cytology from both sites were negative for malignancy. Pleural biopsy is pending. Microbiology with no growth so far. Plan: ?Continue chest tube to -20 suction until patient is being discharged. Okay to discontinue suction for ambulation ?Continue with pain and anxiety management per hospital medicine ?Case management has been consulted for home health and it appears the patient did not get approved by the insurance for home health to help drain the left Pleurx ?We provided extensive education to the patient and her daughter on how to drain the Pleurx at home. Will repeat this again today before discharge --We will cap chest tube once patient is ready for discharge! --Instruction on drainge: Drain Pleurx catheter twice a day for for the next 4 days Drain Pleurx catheter once daily for the next 7 days Then drain catheter every other day Follow-up with interventional pulmonology in clinic in 7 to 10 days. Please return to ER if you experience worsening symptoms or development of new symptoms. Oncology recommended to hold Sprycel 70 mg tablet (Dasatinib) and follow-up with them oncology within 2 weeks. Riddhi Davis MD, FACP, [facility] Interventional Pulmonary PDMP PDMP Reviewed: Not Reviewed Attestations 2 Medical Necessity Statement*: Patient is being discharged today. Coding Level of Care Code Acute Code for Chg Fwd Diagnoses Pleural effusion, bilateral J90 Chronic hypoxemic respiratory failure J96.11 Time Spent (min) 50
--- NOTE | 2025-05-21 14:29 | P.DS_ITS ---
Discharge Providers Date of Admission: 05/19/25 17:40 Date of Discharge: May 21, 2025 Attending Provider at Admission: Josefa De MD Attending Provider at Discharge: Josefa De MD Primary Care Provider: MACRINA Johnson Diagnoses at Discharge Discharge Diagnosis 1. Postoperative state: 2. Failure of outpatient treatment: 3. Diastolic heart failure, unspecified HF chronicity: 4. Chronic myeloid leukemia, BCR/ABL-positive, not having achieved remission: 5. SOB (shortness of breath): 6. Recurrent pleural effusion: 7. Chronic hypoxemic respiratory failure: 8. Immunocompromised: 9. Hypothyroidism: Reason for Visit Reason for Visit: J90 Hospital Course Hospital Course Justina Meraz is a 69 year old female With past medical history of CLL on Dasatinib, COPD, chronic back pain, hypothyroidism, dyslipidemia, cellulitis who presented to the hospital for management of bilateral pleural effusion for planned elective thoracoscopy and pleurodesis. She underwent right thoracentesis with 700 cc of fluid drained, left pleuroscopy with pleural biopsy and draining 1500 cc of pleural fluid, left pleurodesis, left tunneled pleural catheter placement with interventional charter and tour bus driver today. Patient admitted to hospital for postop and pain management. Patient seen in ICU 12. She states that she has had 6 thoracentesis in the past and is frustrated because of this effusion recurring. She denies a fever at home. Denies nausea vomiting diarrhea. She follows with oncology at [facility]. Per patient she states she cannot be taken off the Dasatinib per oncology. Patient's family received teaching regarding chest tube management at home. Anxiety medication was ordered for the patient along with pain medication. She was diuresed during hospital stay as well using IV diuretics. CTA was also checked which ruled out PE. Interventional pulmonology on board since time of admission and postprocedure and evaluated the patient at time of discharge and cleared the patient for discharge from pulmonary standpoint. No antibiotics recommended at time of discharge. Patient is doing well and is stable given her multiple comorbid conditions at this time. We will go ahead and discharge her and to have her follow-up as an outpatient per pulmonology recommendations. Physical Exam Narrative: Generally: Alert and oriented x 3. On 4-5 nasal cannula. HEENT normocephalic/atraumatic neck is supple cardiovascular regular rate rhythm normal S1-S2 Respiratory: Clear to auscultation bilaterally Abdomen: Soft nontender, bowel sounds present Extremities: Trace pitting edema bilateral lower extremities. Improved compared to yesterday. Discharge Data Studies Completed and Pending Completed Studies During Hospitalization Category Date Time Status CT angio chest PE protcl [id number] Stat Cat Scan 05/21/25 10:43 Completed XR chest 1V portable [id number] Routine Exams 05/19/25 16:06 Completed XR chest 1V portable [id number] Routine Exams 05/20/25 05:00 Completed XR chest 1V portable [id number] Stat Exams 05/21/25 07:26 Completed CV. echo complete* [id number] Urgent Ultrasound 05/20/25 19:03 Completed Pending at discharge Category Date Time Status Body Fluid Culture & GS Routine Lab 05/19/25 16:05 Results Body Fluid Culture & GS Routine Lab 05/19/25 16:43 Results Complete Blood Count w/Auto AM LABS Lab 05/22/25 04:00 Ordered Comprehensive Metabolic Panel AM LABS Lab 05/22/25 04:00 Ordered Magnesium AM LABS Lab 05/22/25 04:00 Ordered Phosphorus AM LABS Lab 05/22/25 04:00 Ordered Pathology: Surgical [PTH] Routine Pth 05/19/25 17:39 Received Radiology Impressions Chest X-Ray 05/21/25 07:26 IMPRESSION: 1. Bibasal infiltrates and atelectasis as well as pleural effusions showing little change. 2. Cardiac enlargement unchanged. 3. Left-sided thoracostomy tube superimposing the LEFT chest and abdomen. The exact location of this tube is undetermined. A lateral view or CT could be helpful for more detailed evaluation. Chest CTA 05/21/25 10:43 IMPRESSION: 1. No evidence of pulmonary embolus. 2. Cardiomegaly. 3. LEFT chest tube with tip in the LEFT posterior inferior pleural space. Small amount of residual pleural fluid with pleural thickening. Compressive atelectasis LEFT lower lobe with air bronchograms. 4. Moderate RIGHT pleural effusion with compressive atelectasis RIGHT lower lobe. A few hazy groundglass opacities in the RIGHT upper lobe. Subsegmental atelectasis RIGHT middle lobe. 5. Small esophageal hiatal hernia. Laboratory Results WBC 7.41 10^3/uL (3.29-11.43) 05/21/25 04:00 RBC 4.38 10^6/uL (3.85-5.65) 05/21/25 04:00 Hgb 10.70 g/dL (11.27-16.99) L 05/21/25 04:00 Hct 38.3 % (36-47) 05/21/25 04:00 MCV 87.4 fl (85-98) 05/21/25 04:00 MCH 24.4 pg (27-33) L 05/21/25 04:00 MCHC 27.9 g/dL (30-55) L 05/21/25 04:00 RDW 18.5 % (12.1-15.1) H 05/21/25 04:00 Plt Count 277 10^3/cmm (157-399) 05/21/25 04:00 MPV 9.4 fL (7.4-10.4) 05/21/25 04:00 Neut % (Auto) 79.7 % 05/21/25 04:00 Lymph % (Auto) 8.0 % 05/21/25 04:00 Will % (Auto) 10.3 % 05/21/25 04:00 Eos % (Auto) 0.9 % 05/21/25 04:00 Baso % (Auto) 0.4 % 05/21/25 04:00 Neut # (Auto) 5.91 10^3/uL (1.8-7.7) 05/21/25 04:00 Lymph # (Auto) 0.6 10^3/uL (0.8-4.8) L 05/21/25 04:00 Will # (Auto) 0.8 10^3/uL (0.2-0.9) 05/21/25 04:00 Eos # (Auto) 0.1 10^3/uL (0.0-0.8) 05/21/25 04:00 Baso # (Auto) 0.0 10^3/uL (0.0-0.1) 05/21/25 04:00 Nucleated RBC % (auto) 0 % 05/21/25 04:00 Total Counted Not Reportable 05/19/25 16:43 Nucleated RBCs # 0.0 /100WBC 05/21/25 04:00 Specimen Type Arterial 05/21/25 03:18 Sample Site Brachial, right 05/21/25 03:18 ABG pH 7.33 (7.35-7.45) L 05/21/25 03:18 ABG pCO2 80.8 mmHg (35-45) H* 05/21/25 03:18 ABG pO2 68.9 mmHg (80.0-100.0) L 05/21/25 03:18 ABG HCO3 42.9 mmol/L (22-26) H 05/21/25 03:18 ABG O2 Saturation 92.7 05/21/25 03:18 ABG Base Excess 14.0 mmol/L (-2.0-2.0) H 05/21/25 03:18 Corbin Test N/a 05/21/25 03:18 A-a O2 Gradient 0.0 mmHg (5-10) L 05/21/25 03:18 Hematocrit 33.3 % (37-47) L 05/21/25 03:18 Hgb O2 Saturation 89.9 % (95-100) L 05/21/25 03:18 Carboxyhemoglobin 1.9 %THgb (0.4-20.1) 05/21/25 03:18 Methemoglobin 1.1 % (0.4-1.5) 05/21/25 03:18 Total Hemoglobin 10.9 g/dL (12-16) L 05/21/25 03:18 Sodium 138.0 mmol/L (131-143) 05/21/25 03:18 Potassium 3.4 mmol/L (3.5-5.0) L 05/21/25 03:18 Glucose 114.0 mg/dL (70-115) 05/21/25 03:18 Ionized Calcium 1.2 mmol/L (1.1-1.4) 05/21/25 03:18 O2 Delivery Device Nc 05/21/25 03:18 O2 Liters/Min 6.0 % 05/21/25 03:18 Communications Coordinator ID [email or web address] 05/21/25 03:18 Sodium 137 mmol/L (136-145) 05/21/25 04:00 Potassium 3.6 mmol/L (3.5-5.1) 05/21/25 04:00 Chloride 92 mmol/L (98-107) L 05/21/25 04:00 Carbon Dioxide 39 mmol/L (22-29) H 05/21/25 04:00 Anion Gap 9.6 (5-19) 05/21/25 04:00 BUN 15 mg/dL (8-23) 05/21/25 04:00 Creatinine 0.8 mg/dL (0.5-0.9) 05/21/25 04:00 GFR Calculation 71.1 mL/min (90-130) L 05/21/25 04:00 Glucose 111 mg/dL (65-115) 05/21/25 04:00 Calculated Osmolality 286 mOsm/kg (285-295) 05/21/25 04:00 Calcium 9.0 mg/dL (8.5-10.5) 05/21/25 04:00 Magnesium 1.9 mg/dL (1.7-2.3) 05/21/25 04:00 Total Bilirubin 0.3 mg/dL (0.15-1.2) 05/20/25 04:40 AST 12 U/L (0-32) 05/20/25 04:40 ALT 10 U/L (0-33) 05/20/25 04:40 Alkaline Phosphatase 85 U/L (35-105) 05/20/25 04:40 Total Protein 6.5 g/dL (6.6-8.7) L 05/20/25 04:40 Albumin 3.3 g/dL (3.5-5.2) L 05/20/25 04:40 Globulin 3.2 g/dL (1.3-4.6) 05/20/25 04:40 Procalcitonin 0.09 ng/mL (0-0.5) 05/21/25 04:00 Pleural Color Pale yellow (Pale Yellow) 05/19/25 16:43 Pleural Appearance Cloudy (CLEAR) 05/19/25 16:43 Pleural pH 7.50 (6.5-7.5) 05/19/25 16:43 Pleural WBC 1386.000 /uL (0-1000) H 05/19/25 16:43 Pleural RBC 3.000 10^3/uL 05/19/25 16:43 Pleural Other Cells Not Reportable 05/19/25 16:43 Pleural Polynuclear % 6 % 05/19/25 16:43 Pleural Mononuclear % 94 % 05/19/25 16:43 Pleural Total Protein 4.1 g/dL 05/19/25 16:43 Pleural Albumin 2.8 g/dL 05/19/25 16:43 Pleural LDH 145 U/L 05/19/25 16:43 Pleural Glucose 114.0 mg/dL 05/19/25 16:43 Pleural Cholesterol 65 mg/dL 05/19/25 16:43 Pleural Triglycerides 27 mg/dL 05/19/25 16:43 Path Cons w/Slide Yes 05/19/25 16:43 Vitals Last Vital Signs Temp 98.8 F 05/21/25 10:00 Pulse 89 05/21/25 13:00 Resp 27 H 05/21/25 13:00 BP 108/59 05/21/25 13:00 Pulse Ox 92 05/21/25 13:00 O2 Del Method Nasal Cannula 05/21/25 13:00 O2 Flow Rate 6 05/21/25 11:00 Discharge Plan Discharge Patient Disposition: Home Condition: Stable Prescriptions: New oxycodone 5 mg Tablet 5 mg PO Q8H PRN (Reason: Severe Pain) 5 Days Qty: 15 0RF lorazepam [Ativan] 0.5 mg tablet 0.25 mg PO Q12H PRN (Reason: anxiety) Qty: 8 0RF Continued sertraline 25 mg tablet 25 mg PO DAILY Spiriva Respimat 2.5 mcg/actuation mist 2 puff inhalation DAILY Qty: 4 2RF albuterol sulfate 90 mcg/actuation HFA aerosol inhaler 2 puff INHALATION Q4H PRN (Reason: Wheezing) Qty: 6.7 3RF potassium chloride [K-Tab] 20 mEq tablet extended release 20 meq PO DAILY Qty: 14 0RF furosemide 40 mg tablet 40 mg PO BID Qty: 28 0RF ibuprofen 200 mg tablet 200 mg PO Q6H PRN (Reason: Pain) (DME) Portable oxygen concentrator See Rx Instructions .Route .MEDSUPPLY Qty: 1 0RF Rx Instructions: 2.5L/NC-3.0L/NC trazodone 150 mg tablet 150 mg PO BEDTIME levothyroxine 175 mcg tablet 175 mcg PO QAM Held dasatinib [Sprycel] 70 mg tablet 70 mg PO DAILY Qty: 30 0RF Hold Instructions: hold till seen by global expansion sales director OK for DC: Pulmonary Discharge Order = DC NOW: Discharge Order (Routine); Ordered 05/21/25 Ordered By: Josefa De Other Ambulatory Orders: DME: Tam (Order) Location: None Selected Ordered By: Josefa De Referrals: Riddhi Davis MD [Physician, Interventional Pulmonology] - 06/02/25 1:00 pm Hammad Tam MD [Family Provider, Oncology] - 06/04/26 10:45 am Suzette Elkins FNP [Primary Care Provider, Nurse Practitioner] - 05/27/25 12:30 pm Discharge Diet: Cardiac Discharge Activity: Oxygen as instructed Patient Instructions: Lorazepam (By mouth) (Ativan, Lorazepam Intensol, Loreev XR), Oxycodone, Slow Release (By mouth), Pleural Effusion (DC), Acute Wound Care (DC), Chronic Respiratory Failure (DC), COPD Stoplight, Opioid Safety, Post Anesthesia Care, Pleural Effusion, Patient Portal & Patti Instructions, Pulmonology Procedures & Bronchoscopy Discharge Instructions Activity Restrictions/Additional Instructions: Interventional pulmonology instructions: Drain Pleurx catheter twice a day for for the next 4 days Drain Pleurx catheter once daily for the next 7 days Then drain catheter every other day Follow-up with interventional pulmonology in clinic in 7 to 10 days. Please return to ER if you experience worsening symptoms or development of new symptoms. Continue to hold Sprycel 70 mg tablet (Dasatinib) and follow-up with oncology within 2 weeks. Discharge Attestations Time Spent in Discharge Care*: greater than 30 min Status at Discharge: Cognitive status at discharge: cognitively intact , Behavioral status at discharge: cooperative , Quality Metrics Clinical Quality Measures [ No reported AMI, CVA or VTE this stay] Coding Level of Care Code Acute Code for Chg Fwd Diagnoses Postoperative state Z98.890 Failure of outpatient treatment Z78.9 Diastolic heart failure, unspecified HF chronicity I50.30 Heart failure chronicity: unspecified Chronic myeloid leukemia, BCR/ABL-positive, not having achieved remission C92.10 SOB (shortness of breath) R06.02 Recurrent pleural effusion J90 Chronic hypoxemic respiratory failure J96.11 Immunocompromised D84.9 Hypothyroidism E03.9
[2025-05-21] MEDS: LORazepam 1 MG/0.5 ML injection 0.5 MG IVP (14:48)
--- NOTE | 2025-05-21 15:09 | PC.NURSE ---
Patient provided with 30 tegaderm, a box of alcohol wipes, extra sterile gloves, and [address] Davis verbal request.
--- NOTE | 2025-05-21 16:40 | PC.NURSE ---
Discharge: Extensive education provided to patient and family regarding Pleurx drain, pleural effusion,chronic respiratory failure, COPD stoplight,CHF, S/S when to call S/S to go to ER or call ambulance. Patient and her family educated on safe walker use and decreasing falls at home. Patient provided with pamphlet for patient portal. New medications, continued medications and med held educated to patient and her family. Highlighted follow up appointments, patient demonstrated understanding via teach back method and verbal acknowledgement of understanding all teachings. Patient and family had no questions, complaints, or requests at the time of discharge. Patient brought via wheelchair to personal vehicle with family as bottom hoop driver, patient using home oxygen tank.
== END 2025-05-21 16:46 | disposition home health service (06) | DRG 164 ==
LOC: ICU 17:40
PROVIDERS: Internal Medicine; Admitting Provider Internal Medicine; Family Provider Internal Medicine; PCP Nurse Practitioner Family; Visit Provider Internal Medicine
PROC: 0BDP4ZX Extraction of Left Pleura, Percutaneous Endoscopic Approach, Diagnostic (ICD-10-PCS; principal; 2025-05-19 14:40)
PROC: 0BDP4ZX Extraction of Left Pleura, Percutaneous Endoscopic Approach, Diagnostic (ICD-10-PCS; CPT 32554; 2025-05-19 14:40)
DX: C45.0 Mesothelioma of pleura (principal); C92.10 Chronic myeloid leukemia, BCR/ABL-positive, not having achieved remission; J91.8 Pleural effusion in other conditions classified elsewhere; J96.11 Chronic respiratory failure with hypoxia; D84.9 Immunodeficiency, unspecified; I50.32 Chronic diastolic (congestive) heart failure; I11.0 Hypertensive heart disease with heart failure; E03.9 Hypothyroidism, unspecified; J44.9 Chronic obstructive pulmonary disease, unspecified; M54.9 Dorsalgia, unspecified; G89.29 Other chronic pain; E78.5 Hyperlipidemia, unspecified; Z79.890 Hormone replacement therapy; Z79.899 Other long term (current) drug therapy; Z99.81 Dependence on supplemental oxygen
CPT/HCPCS: 36415; 36600; 71045; 71275; 80048; 80051; 80053; 80503; 82042; 82330; 82465; 82805; 82945; 83615; 83735; 83986; 84145; 84157; 84478; 85025; 87070; 87075; 87205; 88305; 88313; 88342; 89050; 93306; 94640; 96372; 96376; 97110; 97116; 97163; 97167; C1729; J0131; J0169; J0461; J0690; J1171; J1644; J1885; J1938; J2060; J2250; J2270; J2704; J3010; J3490; J7030; J7613; J9999

== ENCOUNTER 2025-05-28 10:27 | Outpatient (CLI) | payer MEDICARE, SELFPAY ==
--- NOTE | 2025-05-28 10:35 | XR_ITS ---
WS: [id number] Chest 2 views, 05/28/2025 Clinical Data: Pleural effusion Comparison: Portable chest, 05/21/2025 Findings: The bibasilar opacities have diminished but are still present. There is a tube which overlies the left diaphragm and appears to end in the left upper quadrant unchanged. No nodules or masses are seen. The heart is normal. The pulmonary vascularity is not increased. No r pneumothorax is seen. The aortic arch shows calcification and tortuosity. There is osteoarthritis of both glenohumeral joints. XR/XR chest 2V* [id number] Impression: 1. Decrease in bibasilar opacities. 2. No change in left tube overlying left diaphragm and ending in left upper murali drant. 3. Atherosclerosis.
== END 2025-05-28 10:28 | disposition home or self-care (01) ==
LOC: RAD 10:28
PROVIDERS: PCP Nurse Practitioner Family; Visit Provider Internal Medicine
DX: J90 Pleural effusion, not elsewhere classified (principal); M19.012 Primary osteoarthritis, left shoulder; M19.011 Primary osteoarthritis, right shoulder; Z97.8 Presence of other specified devices
CPT/HCPCS: 71046

== ENCOUNTER 2025-06-04 10:16 | Day surgery (SDC) | payer MEDICARE, SELFPAY ==
[2025-06-04 12:09] VITALS: BP 152/82; PULSE 86; RESP 18; TEMP 37; O2SAT 93
[2025-06-04 12:10] VITALS: BMI 36.3
--- NOTE | 2025-06-04 12:55 | XRR_ITS ---
PROCEDURE INFORMATION: Exam: XR Chest Exam date and time: 06/04/2025 1:03 PM Age: 69 years old Clinical indication: Device placement; Prior surgery; Surgery date: 6+ months; Surgery type: History of ureter stent; Additional info: Verify catheter placement prior to surgery TECHNIQUE: Imaging protocol: Radiologic exam of the chest. Views: 1 view. COMPARISON: CT chest con [id number] 06/01/2025 10:18 AM FINDINGS: Tubes, catheters and devices: A left basilar chest tube is seen at the diaphragm, as noted with prior exam 05/28/2025. There remains bibasilar opacity suggesting component of small effusions with atelectasis. There is suggestion of mild improvement on the right from previous exam. Little overall change left lung base. Remainder of the lungs show no focal infiltrate or consolidation. No pneumothorax is seen. Lungs: See Tubes, catheters and devices finding. Pleural spaces: See Tubes, catheters and devices finding. Heart/Mediastinum: No significant cardiomegaly. Bones/joints: Visualized osseous structures show no acute abnormality. Degenerative change shoulders and thoracic spine. XR/XR chest 1V portable [id number] IMPRESSION: 1. Left basilar chest tube at the diaphragm, as noted with prior chest radiograph 05/28/2025. 2. Bibasilar opacity suggesting component of mild basilar effusions and underlying atelectasis, with little overall change in appearance of the left lung base and suggestion of mild improvement right lung base.
[2025-06-04 13:57] VITALS: BP 141/73; PULSE 82; RESP 20; O2SAT 95
--- NOTE | 2025-06-04 14:13 | W.PM.OPSUD ---
Surgery/Procedure H&P Update DATE OF PROCEDURE: June 04, 2025 DATE H&P PERFORMED: 06/02/25 CHANGES TO PREVIOUS DOCUMENTATION: The patient was seen and examined today. She is doing excellent from a respiratory standpoint and continues to show overall improvement. However, she still experiences dyspnea on exertion, likely due to a recurrent right-sided pleural effusion. There is no evidence of a left-sided pleural effusion at this time, as the patient appears to have undergone successful pleurodesis, with minimal to no output from the left PleurX catheter. The risks and benefits of removing the PleurX catheter were discussed in detail. The patient demonstrated understanding and expressed her desire to proceed with removal. We are in agreement with this plan. PLANNED PROCEDURE: Operation Date: 06/04/25 12:00 Proposed Procedures p Removal Tunneled Indwelling Pleural Catheter [id number] J90(Not Applicable) - Riddhi Davis MD
[2025-06-04] MEDS: midazolam 1 mg/mL INJ 2 mL 2 MG IVP (14:25)
[2025-06-04 14:35] VITALS: BP 142/69; PULSE 82; RESP 18; O2SAT 95
[2025-06-04 14:40] VITALS: BP 180/98; PULSE 93; RESP 18; O2SAT 91
--- NOTE | 2025-06-04 14:50 | SUR.OPER ---
dressing; petroleum gauze, 4x4, tegaderm
--- NOTE | 2025-06-04 14:53 | P.BOP_ITS ---
Interventional Pulmonary Immediate Brief Operative Note: * Date of Procedure:?June 04, 2025 * Preoperative Diagnosis:?Left recurrent pleural effusion status post pleurodesis and PleurX catheter placement. Now resolved. Patient here to remove PleurX. * Postoperative Diagnosis:?[Same as pre-op] * Procedures Performed: Left tunneled chest tube removal * Surgeon / Educational Programming Director:?Riddhi Davis MD * Anesthesia: * Local * Findings: Left PleurX was successfully removed * Estimated Blood Loss (EBL):?Less than 5 mL * Specimens: None * Complications:?None * Disposition:?Transferred to PACU in stable condition. Riddhi Davis MD, FACP Interventional Pulmonogist
--- NOTE | 2025-06-04 14:53 | W.PM.BPON ---
Interventional Pulmonary Immediate Brief Operative Note: Date of Procedure:?June 04, 2025 Preoperative Diagnosis:?Left recurrent pleural effusion status post pleurodesis and PleurX catheter placement. Now resolved. Patient here to remove PleurX. Postoperative Diagnosis:?[Same as pre-op] Procedures Performed: Left tunneled chest tube removal Surgeon / Railroad Conductor:?Riddhi Davis MD Anesthesia: Local Findings: Left PleurX was successfully removed Estimated Blood Loss (EBL):?Less than 5 mL Specimens: None Complications:?None Disposition:?Transferred to PACU in stable condition. Riddhi Davis MD, FACP Interventional Pulmonogist
[2025-06-04 14:58] VITALS: BP 127/68; PULSE 87; RESP 17; TEMP 37; O2SAT 92
[2025-06-04 15:17] VITALS: BP 121/82; PULSE 89; RESP 17; TEMP 37; O2SAT 94
--- NOTE | 2025-06-04 16:06 | P.OP_ITS ---
Operative Report Date of procedure: June 04, 2025 Pre-op diagnosis: Recurrent bilateral effusion. Left recurrent effusion resolved with pleurodesis Post-op diagnosis: Same Procedure done: PleurX catheter removal Surgeon: Riddhi Davis MD Estimated blood loss: Less than 5 cc Complications: None Findings: Procedure Note: Left PleurX Catheter Removal Pre-procedure imaging: Bedside chest ultrasound demonstrated no evidence of pleural effusion on the left side. A [id number] right-sided pleural effusion was noted. Approximately 20 cc of pleural fluid was aspirated. History: The patient reported minimal drainage output from the left PleurX catheter over the past several sessions/2 weeks. Anesthesia: Local anesthesia achieved with 20 cc of 1% lidocaine combined with ibuprofen infiltration after sterile preparation and draping. Procedure: * After sterile preparation and draping, a straight and curved Veronica clamp were used to carefully dissect around the catheter cuff. * With gentle, steady traction, the PleurX catheter was successfully removed. * The exit site was dressed with petroleum gauze, dry sterile gauze, and secured with Tegaderm for occlusive coverage. Findings/Outcome: * Minimal blood loss (<5 cc). * The patient tolerated the procedure well without complications. CPT Code: 38321 ? Removal of indwelling tunneled pleural catheter with cuff. Riddhi Davis MD, FACP, FASN Interventional Pulmonary
== END 2025-06-04 15:34 | disposition home or self-care (01) ==
PROVIDERS: PCP Nurse Practitioner Family; Visit Provider Internal Medicine
PROC: (CPT 32552; principal; 2025-06-04 12:00)
DX: J90 Pleural effusion, not elsewhere classified (principal); J44.9 Chronic obstructive pulmonary disease, unspecified; E03.9 Hypothyroidism, unspecified; E78.5 Hyperlipidemia, unspecified; Z85.6 Personal history of leukemia; N20.0 Calculus of kidney; F17.210 Nicotine dependence, cigarettes, uncomplicated
CPT/HCPCS: 32552; 71045; J2250; J7030

== ENCOUNTER 2025-06-18 13:00 | Oncology outpatient (recurring) (ONCR) | payer MEDICARE, SELFPAY ==
--- NOTE | 2025-06-01 10:00 | CTR_ITS ---
PROCEDURE INFORMATION: Exam: CT Chest Without Contrast; Diagnostic Exam date and time: 06/01/2025 10:18 AM Age: 69 years old Clinical indication: Other non-vascualr catheter or device placement; Prior surgery; Surgery date: 1-6 months; Surgery type: Left thoracoscopy with pleural biopsy, pleurodesis, pleurx placement, RT thoracentesis; Rule out pleuryx catheter obstruction TECHNIQUE: Imaging protocol: Diagnostic computed tomography of the chest without contrast. Radiation optimization: All CT scans at this facility use at least one of these dose optimization techniques: automated exposure control; mA and/or kV adjustment per patient size (includes targeted exams where dose is matched to clinical indication); or iterative reconstruction. COMPARISON: CT angio chest PE protcl [id number] 05/21/2025 12:43 PM RADIATION DOSE METRICS: Total DLP (mGy-cm): 541.23 FINDINGS: Tubes, catheters and devices: There is a chest tube at the left lung base. Lungs: Compressive atelectasis of the lung bases as well as possible underlying pneumonia which can not be excluded. Interstitial thickening in the bilateral lungs related to atelectasis and scarring. Pleural spaces: Moderate right-sided pleural effusion. Small left-sided pleural effusion. Heart: Unremarkable. No cardiomegaly. No pericardial effusion. Coronary arteries: Severe coronary artery calcifications. Lymph nodes: Mildly prominent mediastinal lymph nodes which are likely reactive. Vasculature: Moderate thoracic aorta atherosclerosis. Bones/joints: Severe shoulder joint degenerative changes. Soft tissues: Unremarkable. CT/CT chest [facility] [id number] IMPRESSION: 1. Left lung base chest tube. Small left-sided pleural effusion remains. 2. Moderate right-sided pleural effusion slightly decreased in size compared to prior examination. 3. Residual bilateral lung base opacities reflecting a combination of compressive atelectasis and infiltrates.
[2025-06-11 12:14] LABS: Hematocrit 39.3 % (36-47); Hemoglobin 11.50 g/dL (11.27-16.99); Mean Corpuscular HGB Conc 29.3 g/dL (30-55); Mean Corpuscular Hemoglobin 24.7 pg (27-33); Mean Corpuscular Volume 84.3 fl (85-98); Nucleated Red Blood Cells % 0 %; Platelet Count 335 10^3/cmm (157-399); Red Blood Count 4.66 10^6/uL (3.85-5.65); White Blood Count 6.44 10^3/uL (3.29-11.43)
[2025-06-11 12:34] LABS: Alanine Aminotransferase 7 U/L (0-33); Albumin Level 3.6 g/dL (3.5-5.2); Alkaline Phosphatase 82 U/L (35-105); Anion Gap 12.5 (5-19); Aspartate Amino Transferase 12 U/L (0-32); Blood Urea Nitrogen 14 mg/dL (8-23); Calcium 9.2 mg/dL (8.5-10.5); Carbon Dioxide 33 mmol/L (22-29); Chloride 98 mmol/L (98-107); Creatinine Clr Calc Pharmacy 71.4565; Ferritin 16 ng/mL (15-150); Globulin 3.4 g/dL (1.3-4.6); Glucose 104 mg/dL (65-115); Iron 26 ug/dL (37-145); Magnesium 1.8 mg/dL (1.7-2.3); Osmolality Calculated 289 mOsm/kg (285-295); Potassium 4.5 mmol/L (3.5-5.1); Sodium 139 mmol/L (136-145); Total Iron Binding Capacity 317 mcg/dl; Total Protein 7.0 g/dL (6.6-8.7); Unsaturated Iron Binding 291 ug/dL (112-347); Uric Acid 5.3 mg/dL (2.4-5.7)
[2025-06-11 12:49] LABS: Vitamin B12 275 pg/mL (232-1245)
[2025-06-18 13:48] LABS: Hematocrit 39.7 % (36-47); Hemoglobin 11.50 g/dL (11.27-16.99); Mean Corpuscular HGB Conc 29.0 g/dL (30-55); Mean Corpuscular Hemoglobin 23.8 pg (27-33); Mean Corpuscular Volume 82.0 fl (85-98); Nucleated Red Blood Cells % 0 %; Platelet Count 283 10^3/cmm (157-399); Red Blood Count 4.84 10^6/uL (3.85-5.65); White Blood Count 7.64 10^3/uL (3.29-11.43)
[2025-06-18 14:11] LABS: Alanine Aminotransferase 8 U/L (0-33); Albumin Level 3.9 g/dL (3.5-5.2); Alkaline Phosphatase 107 U/L (35-105); Anion Gap 13.0 (5-19); Aspartate Amino Transferase 11 U/L (0-32); Blood Urea Nitrogen 15 mg/dL (8-23); Calcium 9.4 mg/dL (8.5-10.5); Carbon Dioxide 36 mmol/L (22-29); Chloride 93 mmol/L (98-107); Creatinine Clr Calc Pharmacy 71.4565; Ferritin 14 ng/mL (15-150); Globulin 3.6 g/dL (1.3-4.6); Glucose 126 mg/dL (65-115); Iron 29 ug/dL (37-145); Magnesium 1.8 mg/dL (1.7-2.3); Osmolality Calculated 288 mOsm/kg (285-295); Potassium 4.0 mmol/L (3.5-5.1); Sodium 138 mmol/L (136-145); Total Iron Binding Capacity 342 mcg/dl; Total Protein 7.5 g/dL (6.6-8.7); Unsaturated Iron Binding 313 ug/dL (112-347); Uric Acid 6.2 mg/dL (2.4-5.7)
[2025-06-23 14:43] LABS: BCR ABL1 (IS) 0.858 (0.000); P210 BCR ALB1 DETECTED; P210 BCR ALB1 Yes Test Yes; Source blood
== END 2025-06-23 23:59 | disposition home or self-care (01) ==
PROVIDERS: Internal Medicine; PCP Nurse Practitioner Family; Visit Provider Internal Medicine
DX: C92.10 Chronic myeloid leukemia, BCR/ABL-positive, not having achieved remission (principal); N20.0 Calculus of kidney; F17.210 Nicotine dependence, cigarettes, uncomplicated; J90 Pleural effusion, not elsewhere classified; Z98.890 Other specified postprocedural states; Z79.899 Other long term (current) drug therapy; Z53.9 Procedure and treatment not carried out, unspecified reason
CPT/HCPCS: 36415; 71250; 80053; 81206; 82607; 82728; 82746; 83010; 83540; 83550; 83615; 83735; 84100; 84550; 85025; 99213; 99214; Q3014

== ENCOUNTER → 2025-06-22 13:35 | Outpatient (BNVA) | payer MEDICARE, SELFPAY | PROVIDERS: PCP Nurse Practitioner Family; Visit Provider Internal Medicine | DX: J90 Pleural effusion, not elsewhere classified (principal); Z99.81 Dependence on supplemental oxygen; F17.210 Nicotine dependence, cigarettes, uncomplicated | CPT/HCPCS: 99213 ==

== ENCOUNTER 2025-07-08 09:00 | Oncology outpatient (recurring) (ONCR) | payer MEDICARE, SELFPAY ==
[2025-07-02 14:44] LABS: Hematocrit 38.7 % (36-47); Hemoglobin 11.40 g/dL (11.27-16.99); Mean Corpuscular HGB Conc 29.5 g/dL (30-55); Mean Corpuscular Hemoglobin 24.0 pg (27-33); Mean Corpuscular Volume 81.5 fl (85-98); Nucleated Red Blood Cells % 0 %; Platelet Count 365 10^3/cmm (157-399); Red Blood Count 4.75 10^6/uL (3.85-5.65); White Blood Count 9.97 10^3/uL (3.29-11.43)
[2025-07-02 15:04] LABS: Alanine Aminotransferase 7 U/L (0-33); Albumin Level 3.6 g/dL (3.5-5.2); Alkaline Phosphatase 89 U/L (35-105); Anion Gap 14.1 (5-19); Aspartate Amino Transferase 10 U/L (0-32); Blood Urea Nitrogen 14 mg/dL (8-23); Calcium 9.0 mg/dL (8.5-10.5); Carbon Dioxide 28 mmol/L (22-29); Chloride 99 mmol/L (98-107); Ferritin 15 ng/mL (15-150); Globulin 3.5 g/dL (1.3-4.6); Glucose 117 mg/dL (65-115); Iron 22 ug/dL (37-145); Magnesium 1.8 mg/dL (1.7-2.3); Osmolality Calculated 286 mOsm/kg (285-295); Potassium 4.1 mmol/L (3.5-5.1); Sodium 137 mmol/L (136-145); Total Iron Binding Capacity 322 mcg/dl; Total Protein 7.1 g/dL (6.6-8.7); Unsaturated Iron Binding 300 ug/dL (112-347); Uric Acid 5.2 mg/dL (2.4-5.7)
[2025-07-08 09:26] LABS: Hematocrit 42.3 % (36-47); Hemoglobin 12.40 g/dL (11.27-16.99); Mean Corpuscular HGB Conc 29.3 g/dL (30-55); Mean Corpuscular Hemoglobin 23.8 pg (27-33); Mean Corpuscular Volume 81.0 fl (85-98); Nucleated Red Blood Cells % 0 %; Platelet Count 348 10^3/cmm (157-399); Red Blood Count 5.22 10^6/uL (3.85-5.65); White Blood Count 9.68 10^3/uL (3.29-11.43)
[2025-07-08 09:41] LABS: Alanine Aminotransferase 6 U/L (0-33); Albumin Level 3.8 g/dL (3.5-5.2); Alkaline Phosphatase 93 U/L (35-105); Anion Gap 15.1 (5-19); Aspartate Amino Transferase 16 U/L (0-32); Blood Urea Nitrogen 13 mg/dL (8-23); Calcium 9.3 mg/dL (8.5-10.5); Carbon Dioxide 29 mmol/L (22-29); Chloride 99 mmol/L (98-107); Creatinine Clr Calc Pharmacy 71.8366; Globulin 3.2 g/dL (1.3-4.6); Glucose 120 mg/dL (65-115); Osmolality Calculated 289 mOsm/kg (285-295); Potassium 4.1 mmol/L (3.5-5.1); Sodium 139 mmol/L (136-145); Total Protein 7.0 g/dL (6.6-8.7)
== END 2025-07-24 23:59 | disposition home or self-care (01) ==
PROVIDERS: Internal Medicine; Nurse Practitioner; PCP Nurse Practitioner Family; Visit Provider Internal Medicine
DX: C92.10 Chronic myeloid leukemia, BCR/ABL-positive, not having achieved remission (principal); F17.210 Nicotine dependence, cigarettes, uncomplicated; R03.0 Elevated blood-pressure reading, without diagnosis of hypertension; Z79.899 Other long term (current) drug therapy; Z53.9 Procedure and treatment not carried out, unspecified reason
CPT/HCPCS: 36415; 80053; 82728; 83010; 83540; 83550; 83615; 83735; 84100; 84550; 85025; 88374; 99214; 99215

== ENCOUNTER 2025-08-12 13:00 | Oncology outpatient (recurring) (ONCR) | payer MEDICARE, SELFPAY ==
[2025-07-29 12:49] LABS: Hematocrit 40.1 % (36-47); Hemoglobin 12.10 g/dL (11.27-16.99); Mean Corpuscular HGB Conc 30.2 g/dL (30-55); Mean Corpuscular Hemoglobin 23.4 pg (27-33); Mean Corpuscular Volume 77.4 fl (85-98); Nucleated Red Blood Cells % 0 %; Platelet Count 328 10^3/cmm (157-399); Red Blood Count 5.18 10^6/uL (3.85-5.65); White Blood Count 9.07 10^3/uL (3.29-11.43)
[2025-07-29 13:10] LABS: Alanine Aminotransferase 15 U/L (0-33); Albumin Level 4.0 g/dL (3.5-5.2); Alkaline Phosphatase 129 U/L (35-105); Anion Gap 16.4 (5-19); Aspartate Amino Transferase 13 U/L (0-32); Blood Urea Nitrogen 15 mg/dL (8-23); Calcium 9.2 mg/dL (8.5-10.5); Carbon Dioxide 27 mmol/L (22-29); Chloride 98 mmol/L (98-107); Globulin 3.4 g/dL (1.3-4.6); Glucose 111 mg/dL (65-115); Magnesium 2.0 mg/dL (1.7-2.3); Osmolality Calculated 286 mOsm/kg (285-295); Potassium 4.4 mmol/L (3.5-5.1); Sodium 137 mmol/L (136-145); Total Protein 7.4 g/dL (6.6-8.7)
[2025-08-01 21:50] LABS: BCR ABL1 (IS) 0.546 (0.000); P210 BCR ALB1 DETECTED; P210 BCR ALB1 Yes Test Yes
[2025-08-12 13:54] LABS: Hematocrit 40.7 % (36-47); Hemoglobin 11.80 g/dL (11.27-16.99); Mean Corpuscular HGB Conc 29.0 g/dL (30-55); Mean Corpuscular Hemoglobin 23.0 pg (27-33); Mean Corpuscular Volume 79.2 fl (85-98); Nucleated Red Blood Cells % 0 %; Platelet Count 309 10^3/cmm (157-399); Red Blood Count 5.14 10^6/uL (3.85-5.65); White Blood Count 9.90 10^3/uL (3.29-11.43)
[2025-08-12 15:25] LABS: Alanine Aminotransferase 27 U/L (0-33); Albumin Level 3.8 g/dL (3.5-5.2); Alkaline Phosphatase 123 U/L (35-105); Anion Gap 15.7 (5-19); Aspartate Amino Transferase 24 U/L (0-32); Blood Urea Nitrogen 15 mg/dL (8-23); Calcium 9.2 mg/dL (8.5-10.5); Carbon Dioxide 27 mmol/L (22-29); Chloride 98 mmol/L (98-107); Creatinine Clr Calc Pharmacy 46.3808; Globulin 3.7 g/dL (1.3-4.6); Glucose 102 mg/dL (65-115); Magnesium 2.0 mg/dL (1.7-2.3); Osmolality Calculated 283 mOsm/kg (285-295); Potassium 4.7 mmol/L (3.5-5.1); Sodium 136 mmol/L (136-145); Total Protein 7.5 g/dL (6.6-8.7)
== END 2025-08-23 23:59 | disposition home or self-care (01) ==
PROVIDERS: Nurse Practitioner; PCP Nurse Practitioner Family; Visit Provider Internal Medicine Medical Oncology
DX: C92.10 Chronic myeloid leukemia, BCR/ABL-positive, not having achieved remission; F17.210 Nicotine dependence, cigarettes, uncomplicated; R03.0 Elevated blood-pressure reading, without diagnosis of hypertension; G89.29 Other chronic pain; Z79.899 Other long term (current) drug therapy; Z53.9 Procedure and treatment not carried out, unspecified reason
CPT/HCPCS: 36415; 80053; 81206; 83615; 83735; 84100; 85025; 88374; 99213; 99214

== ENCOUNTER 2025-09-09 10:03 | Oncology outpatient (recurring) (ONCR) | payer MEDICARE, SELFPAY ==
[2025-09-09 10:23] LABS: Hematocrit 46.4 % (36-47); Hemoglobin 13.60 g/dL (11.27-16.99); Mean Corpuscular HGB Conc 29.3 g/dL (30-55); Mean Corpuscular Hemoglobin 23.0 pg (27-33); Mean Corpuscular Volume 78.5 fl (85-98); Nucleated Red Blood Cells % 0 %; Platelet Count 279 10^3/cmm (157-399); Red Blood Count 5.91 10^6/uL (3.85-5.65); White Blood Count 9.03 10^3/uL (3.29-11.43)
[2025-09-09 10:59] LABS: Alanine Aminotransferase 19 U/L (0-33); Albumin Level 4.1 g/dL (3.5-5.2); Alkaline Phosphatase 112 U/L (35-105); Anion Gap 15.4 (5-19); Aspartate Amino Transferase 17 U/L (0-32); Blood Urea Nitrogen 17 mg/dL (8-23); Calcium 9.3 mg/dL (8.5-10.5); Carbon Dioxide 28 mmol/L (22-29); Chloride 99 mmol/L (98-107); Creatinine Clr Calc Pharmacy 55.0104; Ferritin 9 ng/mL (15-150); Globulin 3.6 g/dL (1.3-4.6); Glucose 107 mg/dL (65-115); Iron 37 ug/dL (37-145); Magnesium 2.0 mg/dL (1.7-2.3); Osmolality Calculated 288 mOsm/kg (285-295); Potassium 4.4 mmol/L (3.5-5.1); Sodium 138 mmol/L (136-145); Total Iron Binding Capacity 357 mcg/dl; Total Protein 7.7 g/dL (6.6-8.7); Unsaturated Iron Binding 320 ug/dL (112-347)
== END 2025-09-23 23:59 | disposition home or self-care (01) ==
PROVIDERS: Internal Medicine; PCP Nurse Practitioner Family; Visit Provider Internal Medicine Medical Oncology
DX: C92.10 Chronic myeloid leukemia, BCR/ABL-positive, not having achieved remission (principal); F17.210 Nicotine dependence, cigarettes, uncomplicated; Z79.899 Other long term (current) drug therapy; Z71.6 Tobacco abuse counseling; M89.8X9 Other specified disorders of bone, unspecified site
CPT/HCPCS: 80053; 82728; 83540; 83550; 83615; 83735; 85025; 99213